=== PATIENT | female | born 1955 | race African-American/Black ===

== ENCOUNTER → 2023-03-16 08:08 | Outpatient (BNVA) | payer OTHER, SELFPAY | PROVIDERS: PCP Internal Medicine; Visit Provider Hospitalist ==

== ENCOUNTER 2023-03-16 08:49 | Outpatient (REF) | payer OTHER, SELFPAY ==
--- NOTE | 2023-03-16 08:45 | PFT_ITS ---
Forced vital capacity is 63%, FEV1 64%, FEV1/FVC ratio 79. EDL64-41 62% and MVV 50%. Post bronchodilator therapy, there is a small but significant improvement in FVC, FEV1, and KWH15-18. Total lung capacity 76%. Residual volume 82%. Diffusion capacity 45%. CONCLUSION: 1. Mild to moderate degree of restrictive pulmonary disorder. 2. Moderate degree of obstructive airway disorder with significant response to bronchodilator therapy. These findings are suggestive of asthma/COPD syndrome. Clinical correlation is recommended. Tai Herring MD MSHakeem/MODL / [id number]
[2023-03-16 09:50] LABS: MANUAL DIFF FLAG NO
[2023-03-16 10:35] LABS: Basophils Percent Auto 0.2 % (0-2); Hematocrit 39.4 % (37.0-47.0); Hemoglobin 11.4 g/dl (12.0-16.0); Imm Gran Abs Auto 0.11 X10*3/uL (0.00-0.03); Imm Gran Pct Auto 0.9 % (0.0-0.4); Lymphocytes Absolute Auto 1.6 X10*3/uL (1.2-4.9); Lymphocytes Percent Auto 12.4 % (20-40); Mean Corpuscular HGB Conc 28.9 g/dl (31.0-35.0); Mean Corpuscular Hemoglobin 26.3 pg (27.0-33.0); Mean Platelet Volume 10.9 fL (9.4-12.3); Monocytes Absolute Auto 0.5 X10*3/uL (0.1-1.2); Monocytes Percent Auto 4.3 % (2-11); NRBC Pct Auto 0.2 /100WBC (0.0-0.2); Neutrophils Absolute Auto 10.3 x10*3/uL (2.0-8.3); Neutrophils Percent Auto 82.2 % (45-73); Platelet Count 249 X10*3/uL (160-400); Red Blood Count 4.33 X10*6/uL (4.20-5.50); Red Cell Distribution Width 18.1 % (11.0-16.0); White Blood Count 12.5 X10*3/uL (4.8-10.8)
[2023-03-16 11:01] LABS: Estimated Average Glucose 105 mg/dL; Hemoglobin A1c % 5.3 %
[2023-03-16 11:06] LABS: B Type Natriuretic Peptide 35 pg/mL (<100)
[2023-03-16 11:10] LABS: Alanine Aminotransferase 18 U/L (0-31); Albumin Level 3.9 g/dL (3.5-5.0); Alkaline Phosphatase 79 U/L (39-117); Anion Gap 14 (12-20); Aspartate Amino Transferase 11 U/L (5-31); Bilirubin Total 0.3 mg/dL (0.0-1.0); Blood Urea Nitrogen 29 mg/dL (9-16); Calcium 9.7 mg/dL (8.4-10.2); Carbon Dioxide 26 mmol/L (22-29); Chloride 108 mmol/L (96-108); Cholesterol 158 mg/dL; Estimated Glomerular Filt Rate 34; Glucose Random 105 mg/dL (60-115); HDL Cholesterol 46 mg/dL; LDL Cholesterol Calculated 82 mg/dl; Potassium 4.9 mmol/L (3.3-5.1); Sodium 143 mmol/L (135-145); Total Protein 6.6 g/dL (6.5-8.0); Triglycerides 150 mg/dL
[2023-03-16 11:26] LABS: Erythrocyte Sedimentation Rate 9 MM/HR (0-20)
[2023-03-16 11:40] LABS: Ferritin 46 ng/mL (10-250); Folate 8.3 ng/mL (> or = 4.0); Vitamin B12 262 pg/mL (200-900)
[2023-03-16 12:28] LABS: Creatinine Urine 80.72 mg/dL; Microalbum/Creatinine Ratio Ur 42.1 ug/mg cr
[2023-03-23 22:58] LABS: Anti DNA DS Antibody <1 IU/mL
[2023-03-24 08:48] LABS: Anti Nuclear Antibody Screen NEGATIVE (NEGATIVE)
== END 2023-03-16 08:50 | disposition home or self-care (01) ==
LOC: HO.RESP 08:49
PROVIDERS: PCP Internal Medicine; Visit Provider Hospitalist
DX: I50.9 Heart failure, unspecified (principal); M32.9 Systemic lupus erythematosus, unspecified; J44.9 Chronic obstructive pulmonary disease, unspecified; I12.9 Hypertensive chronic kidney disease with stage 1 through stage 4 chronic kidney disease, or unspecified chronic kidney disease; E11.22 Type 2 diabetes mellitus with diabetic chronic kidney disease; N18.9 Chronic kidney disease, unspecified; Z72.0 Tobacco use; Z95.818 Presence of other cardiac implants and grafts
CPT/HCPCS: 36415; 80053; 80061; 82043; 82607; 82728; 82746; 83036; 83880; 85025; 85652; 86038; 86225; 94010; 94618; 94727; 94729; 99202

== ENCOUNTER → 2023-04-05 10:23 | Outpatient (REF) | payer OTHER, SELFPAY ==
--- NOTE | 2023-04-05 10:27 | CA_ITS ---
Transthoracic Echocardiogram Patient (Last, First, Middle): Marie Lentz L Gender: Female Date of : 1955 Age: 67 Procedure Date: 04/05/2023 Procedure Type: Transthoracic Echocardiogram Location: OP Height: 167.64 cm Weight: 108.86 kg BSA: 2.16 m2 Heart Rate: bpm BP: 130 / 80 mmHg Ditch Inspector: SARANYA Referring MD: Yahir Juárez MD [employer] Supervisor: Nilesh Moore MD Symptoms: I27.20 - Pulmonary hypertension, unspecified Study Quality: Adequate ECG Rhythm: Sinus Conclusions: - 1. Normal LV systolic function with mild LVH with LVEF of 55 60% with impaired relaxation filling pattern 2. Mild mitral regurgitation 3. Upper limits of normal RV systolic pressure 4. No gross pericardial effusion Findings Left Ventricle Normal left ventricular size and systolic function. There is mildly increased left ventricular wall thickness. The visually estimated ejection fraction is between 55-60%. Spectral Doppler is indicative of an impaired relaxation filling pattern. E/E prime ratio is between 8 and 15 consistent with indeterminate filling pressures. Right Ventricle Normal right ventricular cavity size and systolic function. Atria The left atrium is normal in size. There is lipomatous hypertrophy of the interatrial septum. Interatrial shunt cannot be excluded. The right atrium is normal in size. Aortic Valve The aortic valve was not well visualized. There is no aortic valve stenosis. There is no aortic valve regurgitation. Mitral Valve There is mild anterior and posterior mitral leaflet thickening. There is mild mitral valve regurgitation. There is no mitral valve stenosis. Pulmonic Valve The pulmonic valve was not well visualized. Tricuspid Valve Likely normal tricuspid valve structure and function. There is mild tricuspid valve regurgitation. Normal right atrial pressure. There is no evidence of pulmonary hypertension. Great Vessels All visible segments of the aorta are normal in size. The pulmonary artery was not well visualized. Venous The inferior vena cava is normal in size and collapses greater than 50% with inspiration. Pericardium/Pleural There is no evidence of pericardial effusion. Prior Study Comparison No prior study available for comparison. Measurements 2D Linear Measurements IVSd: 1.24 0.6-0.9/0.6-1.0 cm LVIDd: 5.42 3.9-5.3/4.2-5.9 cm LVIDd Index: 2.51 2.4-3.2/2.2-3.1 cm/m2 LVIDs: 3.40 2.0-3.6 cm LVPWd: 1.23 0.7-1.1 cm LA Diam: 3.70 2.7-3.8/3.0-4.0 cm LAIDs Index: 1.71 1.5-2.3 cm/m2 LV Mass: 345.23 67-162/88-224 g LV Mass Index: 159.83 43-95/49-115 g/m2 LVOT Diam: 2.20 3.0+(-)1.3 cm 2D Systolic Function EF 4C: 64.30 >55% EF 2C: 52.60 >55% EF BiP: 58.60 >55% Mitral Valve MV Pk E: 0.92 MV PK A: 0.89 MV Decel Time: 226.00 E/A: 1.00 E'Lateral: 8.59 E'Medial: 7.83 E/E' Med: 11.80 E/E' Lat: 10.70 PHT: 66.00 MVA PHT: 3.33 Decel Polk: 4.08 Aortic Valve AoV Pk Scooby: 1.42 AoV Mn Scooby: 1.09 AoV VTI: 0.30 AoV Pk Grad: 8.00 Aov Mn Grad: 5.00 ANTOINETTE Cont.VTI: 2.95 LVOT LVOT Pk Scooby: 1.07 LVOT Mn Scooby: 0.71 LVOT VTI: 0.23 LVOT Pk Grad: 5.00 LVOT Mn Grad: 2.00 LVOT Diam: 2.20 LVOT Area: 3.80 Diastolic Function MV Pk E: 0.92 MV Pk A: 0.89 E/A: 1.00 E'Medial: 7.83 E/E' Med: 11.80 E' Laterial: 8.59 E/E' Lat: 10.70 Right Ventricle TAPSE (mm): 33.20 TVS' Scooby: 12.50 Tricuspid Valve TR Pk Scooby: 2.87 TR Pk Grad: 33.00 RA Press: 3.00 RVSP: 36.00 Great Vessels Aorta Sinus of Valsalva: 3.65 2.0-3.5 cm Ao Asc: 3.30 2.1-3.4 cm Updated in Other Vendor System with Status of Final Nilesh Moore MD electronically signed on 04/06/2023 2:53:25 PM with status of Final
== END ==
LOC: HO.CARD 10:23
PROVIDERS: Visit Provider Hospitalist
DX: I27.20 Pulmonary hypertension, unspecified (principal)
CPT/HCPCS: 93306

== ENCOUNTER 2023-06-17 10:23 | Outpatient (REF) | payer OTHER, SELFPAY ==
[2023-06-17 14:18] LABS: Estimated Average Glucose 111 mg/dL; Hemoglobin A1c % 5.5 % (<6.0)
[2023-06-17 14:38] LABS: Alanine Aminotransferase 12 U/L (0-31); Albumin Level 3.6 g/dL (3.5-5.0); Alkaline Phosphatase 88 U/L (39-117); Anion Gap 13 (12-20); Aspartate Amino Transferase 11 U/L (5-31); Bilirubin Total 0.2 mg/dL (0.0-1.0); Blood Urea Nitrogen 16 mg/dL (9-16); Calcium 9.2 mg/dL (8.4-10.2); Carbon Dioxide 28 mmol/L (22-29); Chloride 107 mmol/L (96-108); Estimated Glomerular Filt Rate 40; Glucose Random 89 mg/dL (60-115); Sodium 144 mmol/L (135-145)
== END 2023-06-17 10:24 | disposition home or self-care (01) ==
LOC: HO.LAB 10:23
PROVIDERS: PCP Internal Medicine; Visit Provider Internal Medicine
DX: I10 Essential (primary) hypertension (principal); J30.1 Allergic rhinitis due to pollen; J44.9 Chronic obstructive pulmonary disease, unspecified; E11.65 Type 2 diabetes mellitus with hyperglycemia; E11.22 Type 2 diabetes mellitus with diabetic chronic kidney disease; N18.9 Chronic kidney disease, unspecified
CPT/HCPCS: 36415; 80053; 83036

== ENCOUNTER 2023-07-06 12:08 | Outpatient (REF) | payer OTHER, SELFPAY ==
--- NOTE | ~2023-07-06 | XR_ITS ---
EXAMINATION: XR ANKLE, RIGHT CLINICAL INFORMATION: Osteoarthritis. COMPARISON: None available. TECHNIQUE: AP, lateral, and mortise views of the right ankle. FINDINGS: There is bilateral soft tissue swelling. No fracture. Alignment is anatomic. No erosions. Joint spaces are maintained. Plantar calcaneal spur is present. XR/XR ankle RT min 3V IMPRESSION: Soft tissue swelling and plantar calcaneal spur.
== END 2023-07-06 12:09 | disposition home or self-care (01) ==
LOC: HO.XRAY 12:08
PROVIDERS: PCP Internal Medicine; Visit Provider Internal Medicine
DX: M19.071 Primary osteoarthritis, right ankle and foot (principal)
CPT/HCPCS: 73610

== ENCOUNTER 2024-02-24 09:08 | Outpatient (REF) | payer OTHER, SELFPAY ==
[2024-02-24 09:49] LABS: MANUAL DIFF FLAG NO
[2024-02-24 10:43] LABS: Basophils Percent Auto 0.2 % (0-2); Eosinophils Percent Auto 0.1 % (0-4); Hematocrit 42.4 % (37.0-47.0); Hemoglobin 12.5 g/dl (12.0-16.0); Imm Gran Pct Auto 1.1 % (0.0-0.4); Lymphocytes Absolute Auto 1.5 X10*3/uL (1.2-4.9); Mean Corpuscular HGB Conc 29.5 g/dl (31.0-35.0); Mean Corpuscular Hemoglobin 26.2 pg (27.0-33.0); Mean Corpuscular Volume 88.9 fL (80.0-98.0); Mean Platelet Volume 10.8 fL (9.4-12.3); Monocytes Absolute Auto 0.7 X10*3/uL (0.1-1.2); Monocytes Percent Auto 7.4 % (2-11); Neutrophils Absolute Auto 7.1 x10*3/uL (2.0-8.3); Neutrophils Percent Auto 75.2 % (45-73); Platelet Count 188 X10*3/uL (160-400); Red Blood Count 4.77 X10*6/uL (4.20-5.50); Red Cell Distribution Width 17.6 % (11.0-16.0); White Blood Count 9.5 X10*3/uL (4.8-10.8)
[2024-02-24 11:12] LABS: Estimated Average Glucose 128 mg/dL; Hemoglobin A1c % 6.1 % (<6.0)
[2024-02-24 11:30] LABS: Alanine Aminotransferase 19 U/L (0-31); Albumin Level 3.6 g/dL (3.5-5.0); Alkaline Phosphatase 82 U/L (39-117); Anion Gap 12 (12-20); Aspartate Amino Transferase 12 U/L (5-31); Bilirubin Total 0.3 mg/dL (0.0-1.0); Blood Urea Nitrogen 22 mg/dL (9-16); Calcium 9.3 mg/dL (8.4-10.2); Carbon Dioxide 27 mmol/L (22-29); Chloride 108 mmol/L (96-108); Cholesterol 175 mg/dL (<200); Estimated Glomerular Filt Rate 38; Glucose Random 85 mg/dL (60-115); HDL Cholesterol 46 mg/dL (>40); LDL Cholesterol Calculated 85 mg/dL (<100); Potassium 4.9 mmol/L (3.3-5.1); Sodium 142 mmol/L (135-145); Total Protein 6.5 g/dL (6.5-8.0); Triglycerides 223 mg/dL (<150)
== END 2024-02-24 09:09 | disposition home or self-care (01) ==
LOC: HO.LAB 09:08
PROVIDERS: PCP Internal Medicine; Visit Provider Internal Medicine
DX: I12.9 Hypertensive chronic kidney disease with stage 1 through stage 4 chronic kidney disease, or unspecified chronic kidney disease (principal); E11.22 Type 2 diabetes mellitus with diabetic chronic kidney disease; N18.9 Chronic kidney disease, unspecified; E78.00 Pure hypercholesterolemia, unspecified; Z72.0 Tobacco use
CPT/HCPCS: 36415; 80053; 80061; 83036; 85025

== ENCOUNTER 2024-10-08 15:06 | Outpatient (AMB) | payer OTHER, SELFPAY ==
--- NOTE | 2024-10-08 15:21 | MHC.OFFVIS ---
Vital Signs 10/08/24 15:31 Height 5 ft 6.75 in Weight 257 lb 2 oz BMI 40.6 BP 100/70 Blood Pressure Location Lt brachial Position Sitting Intake Visit Reasons: Breast abscess Intake Note: This patient presents for breast abscess. Pt c/o; onset 2 months, abscess of the right breast, tried squeezing discharge came out, on antbx, redness, had prior breast abscess [employer] Required: No Buckle Inspector: Buckle Inspector Present Accompanied by: Self / Same As Patient Allergies No Known Allergies Allergy (Verified 10/08/24 15:28) HPI HPI Breast abscess: Details: 69-year-old female referred for this lesion in the right breast on the skin. She says that she has had this on and off for about 30 years now. She says that this was drained and would heal. She said that this has been ?cut? open in the past. She says that she had been unable to have a follow-up mammogram for many years now because of the pain of this skin lesion Her menarche was at age of 10. She says that she remembers having 3 miscarriages and she is uncertain as to what age. She says she never had a full . She says she had her menopause in her 40s. Denies any strong family history of breast cancer. [facility] Medical History (Updated 10/08/24 @ 15:39 by Neil Sanchez MD) Lesion of skin of breast Pulmonary emboli COPD (chronic obstructive pulmonary disease) Lupus CHF (congestive heart failure) Social History Patient Tobacco Use Status: Current everyday Tobacco user Tobacco use type: Cigarette Years Smoked: 20+ Years Substance Use Type: Marijuana Review of Systems Const Denies chills and Denies fever(s) Card Denies chest pain, Denies dyspnea and Reports dyspnea on exertion Resp Denies cough, Denies dyspnea and Reports dyspnea on exertion GI Denies hematochezia and Denies change in bowel habits Denies hematuria Musc Reports back pain, Reports arthralgias and Denies limited range of motion Neuro Denies focal weakness and Denies convulsions Psych Denies depression and Denies mood swings Physical Exam Vital Signs: Last Vital Signs BP 100/70 10/08/24 15:31 BMI result Body Mass Index 40.6 Const Other: Morbidly obese, using walker General: comfortable and no acute distress Orientation/consciousness: patient oriented x3 Neck Neck: Yes no lymphadenopathy Chest Other: Right breast medial to the nipple is note of flat, ulcerating carried genetic lesion, about 2.5 cm in widest dimension, irregular, no palpable mass, no axillary lymphadenopathy Resp Auscultation: clear to auscultation bilaterally Cardio Rhythm: regular rhythm GI Palpation (GI): Soft to palpation, nontender and no guarding Neuro General: patient oriented x3 Assessment & Plan Assessment & Plan (1) Lesion of skin of breast: Code(s): L98.8 - Other specified disorders of the skin and subcutaneous tissue Category: Medical Plan: She has this lesion the right breast medial to the nipple areola. This seems to be ulcerating and bleeds periodically. He she says that this has been going on for 30 years now. She says that this would heal and dry up and would recur She says that she had been ?cut up? on this area in the past I am uncertain as to the etiology of this lesion. I therefore explained to her that it may be best to excise this and send it to pathology for further diagnosis. I explained to the technique of this procedure under local anesthesia in the office. I reviewed the risks, benefits, and alternatives and she agrees. This this will be done on her next visit under local anesthesia in the office. She is unable to have her mammograms because of the tender area on the skin. Coding Level of Care Code New Pt Level 3 (60329) Diagnoses Lesion of skin of breast L98.8
[2024-10-08 15:31] VITALS: BP 100/70; BMI 40.6
== END 2024-10-08 15:44 | disposition home or self-care (01) ==
PROVIDERS: PCP Internal Medicine; Referring Provider Internal Medicine; Visit Provider Surgery
DX: L98.8 Other specified disorders of the skin and subcutaneous tissue (principal)
CPT/HCPCS: 99203

== ENCOUNTER → 2024-10-08 15:06 | Outpatient (BNVA) | payer OTHER, SELFPAY | PROVIDERS: PCP Internal Medicine; Referring Provider Internal Medicine; Visit Provider Surgery | DX: L98.8 Other specified disorders of the skin and subcutaneous tissue (principal) | CPT/HCPCS: 99202 ==

== ENCOUNTER 2024-10-18 10:17 | Outpatient (REF) | payer OTHER, SELFPAY | END 2024-10-18 10:18 | disposition home or self-care (01) | LOC: HO.LNP 10:17 | PROVIDERS: PCP Internal Medicine; Visit Provider Surgery | DX: L72.0 Epidermal cyst (principal); N61.0 Mastitis without abscess | CPT/HCPCS: 11403; 88304 ==

== ENCOUNTER 2024-10-18 10:17 | Outpatient (AMB) | payer OTHER, SELFPAY ==
--- NOTE | 2024-10-18 10:19 | MHC.OFFVIS ---
Vital Signs 10/18/24 10:27 10/18/24 10:38 Height 5 ft 6.75 in 5 ft 6.75 in Weight 257 lb 2.002 oz 255 lb BMI 40.6 40.2 BP 121/59 L Blood Pressure Location Rt brachial Position Sitting Pulse 84 Intake Visit Reasons: excision Breast abscess Intake Note: Office procedure: excision RT breast abscess. Mycologist Required: No Accompanied by: Self / Same As Patient Allergies No Known Allergies Allergy (Verified 10/18/24 10:19) HPI HPI excision Breast abscess: Details: She is here for excision of an area of the recurrent abscess on the right breast. [facility] Medical History Lesion of skin of breast Pulmonary emboli COPD (chronic obstructive pulmonary disease) Lupus CHF (congestive heart failure) Social History Patient Tobacco Use Status: Current everyday Tobacco user Tobacco use type: Cigarette Years Smoked: 20+ Years Substance Use Type: Marijuana Physical Exam Vital Signs: Last Vital Signs Pulse 84 10/18/24 10:38 BP 121/59 L 10/18/24 10:38 BMI result Body Mass Index 40.2 Office Procedures Excision Details: She was in supine position. The area of the recurrent abscess right breast medial to the nipple-areolar complex was prepped and draped. Lidocaine 1% was used for local anesthesia. I made an elliptical incision on the skin surrounding this induration using blade 15. This was carried down through the full-thickness of the skin and subcutaneous fat and breast tissue to excise this indurated indurated area. This was sent as a specimen. The area removed was about 2.5 cm x 2 cm I closed the incision with full-thickness nylon 3-0 simple interrupted sutures. Dressings were applied. The procedure was completed. She tolerated the procedure well. There were no immediate complications. 09272-uvydw/arms/legs 2.1-3cm Procedure code (CPT) selection complete Assessment & Plan Assessment & Plan (1) Lesion of skin of breast: Code(s): L98.8 - Other specified disorders of the skin and subcutaneous tissue Category: Medical Plan: Excision of this area of induration with recurrent drainage was done. She tolerated procedure well. She was given wound care instructions. She can take Tylenol and ibuprofen for pain. She will return in 2 weeks for removal sutures. Coding Level of Care Code Procedure Only Diagnoses Lesion of skin of breast L98.8 CPT Codes Trunk/Arms/Legs - CPT: 55588-pybpi/arms/legs 2.1-3cm ([id number])
[2024-10-18 10:27] VITALS: BMI 40.6
[2024-10-18 10:38] VITALS: BP 121/59; PULSE 84; BMI 40.2
== END 2024-10-18 11:27 | disposition home or self-care (01) ==
PROVIDERS: PCP Internal Medicine; Visit Provider Surgery
DX: L72.0 Epidermal cyst (principal)
CPT/HCPCS: 11403

== ENCOUNTER 2024-11-21 11:25 | Outpatient (AMB) | payer OTHER, SELFPAY ==
--- NOTE | 2024-11-21 11:26 | A.OFFVIS_ITS ---
Intake Visit Reasons: Sut removal Rt breast Allergies No Known Allergies Allergy (Verified 10/18/24 10:19) Medication List - Last Reconciled 11/21/24 by Neil Sanchez MD albuterol sulfate 90 mcg/actuation 2 puffs inhalation QID apixaban (Eliquis) 5 mg PO BID aspirin 81 mg PO DAILY atorvastatin 80 mg PO BEDTIME carvedilol 6.25 mg PO BID CPAP (CPAP Machine/Device) As directed duloxetine 30 mg PO DAILY ferrous sulfate 325 mg PO DAILY iqqxaamuuci-zpuerkfoc-xarrccac 200-62.5-25 mcg (Trelegy Ellipta) 1 ea inhalation DAILY gabapentin 400 mg PO TID gabapentin 300 mg PO TID lisinopril 5 mg PO DAILY loratadine 10 mg PO DAILY montelukast 10 mg PO DAILY nicotine 1 patch transdermal DAILY 28 days omeprazole 40 mg PO DAILY prednisone 10 mg PO DAILY quetiapine 100 mg PO BEDTIME HPI HPI Sut removal Rt breast: Details: She underwent excision of an area of recurrent abscess on the right breast under local anesthesia last 10/18/2024. She is here to have sutures removed. She was just discharged from [facility] last week after she was admitted to [facility] for cardiac issues. She says she is now on oxygen and has difficulty with ambulating even for short distances. [facility] Medical History (Updated 11/21/24 @ 11:31 by Neil Sanchez MD) Epidermal inclusion cyst Lesion of skin of breast Pulmonary emboli COPD (chronic obstructive pulmonary disease) Lupus CHF (congestive heart failure) Surgical History History of surgical removal of skin lesion (~10/18/24) Social History Patient Tobacco Use Status: Current everyday Tobacco user Tobacco use type: Cigarette Years Smoked: 20+ Years Substance Use Type: Marijuana Review of Systems Const Details: Appears short of breath which she says she has baseline, has oxygen via nasal cannula Denies chills and Denies fever(s) Card Reports dyspnea and Reports dyspnea on exertion Resp Reports dyspnea and Reports dyspnea on exertion Physical Exam Const General: comfortable and no acute distress Chest Other: Excision site on the right breast is well healing, not infected, with note of 1 small area of hypergranulation Assessment & Plan Assessment & Plan (1) Epidermal inclusion cyst: Code(s): L72.0 - Epidermal cyst Category: Medical Plan: Status post excision of a recurrent abscess on the right breast. The path report shows a benign epidermal inclusion cyst. I removed her sutures. There was 1 area of hypergranulation tissue which I cauterized with silver nitrate sticks. The incision is otherwise healing well. She can follow up on a p.r.n. basis. She apparently has recently been started on oxygen she was in [facility] because of cardiac issues. She now has significant difficulty with ambulating short distances. I did tell her that he would not hesitate going to the ER if she feels worse. I emphasized to her the importance of following up with her primary care physician and her patient service representative. Coding Level of Care Code Global (43635) Diagnoses Epidermal inclusion cyst L72.0
--- OUTSIDE RECORDS SUMMARY | 2024-11-21 13:51 | XMS_ITS | Encounter Summary ---
Author Organization [facility] Address [address] [place] [address] Care Team Providers Care Mathematics Improvement Teacher Name Role Phone Osmar Gramajo MD Primary Care Provider Encounter Details Date Type Department Care Team (Late st Contact Info) Description 11/08/2024 Lab Requisition [facility] - Main Lab [address] [facility] [place] [address] Jua nCarlos Mayers [address] [facility] [phone] [place] [address] Encounter for screening for diabetes mellitus; Ischemic cardiomyopathy; Essential (primary) hypertension; Other chronic pain; Depression, unspecified; Hyperlipidemia, unspecified; Anemia, unspecified; Systemic lupus erythematosus, unspecified (CMS/HCC); Unspecified asthma, uncomplicated; Atherosclerotic heart disease of [place] coronary artery without angina pectoris; Gastro-esophageal reflux disease without esophagitis; Bacteremia; Hypotension, unspecified Social History Tobacco Use Types Packs/Day Years Used Date Smoking Tobacco: Never Assessed Sex and Gender Information Value Date Recorded Sex Assigned at Not on file Gender Identity Not on file Sexual Orientation Not on file documented as of this encounter Plan of Treatment Not on file documented as of this encounter Procedures Procedure Name Priority Date/Time Associated Diagnosis Comments LIPID PANEL WITH REFLEX TO DIRECT LDL Routine 11/08/2024 7:15 AM EST Encounter for screening for diabetes mellitus Ischemic cardiomyopathy Essential (primary) hypertension Other chronic pain Depression, unspecified Hyperlipidemia, unspecified Anemia, unspecified Systemic lupus erythematosus, unspecified (CMS/HCC) Unspecified asthma, uncomplicated Atherosclerotic heart disease of [place] coronary artery without angina pectoris Gastro-esophageal reflux disease without esophagitis Bacteremia Hypotension, unspecified CBC WITH AUTO DIFFERENTIAL Routine 11/08/2024 7:15 AM EST Encounter for screening for diabetes mellitus Ischemic cardiomyopathy Essential (primary) hypertension Other chronic pain Depression, unspecified Hyperlipidemia, unspecified Anemia, unspecified Systemic lupus erythematosus, unspecified (CMS/HCC) Unspecified asthma, uncomplicated Atherosclerotic heart disease of [place] coronary artery without angina pectoris Gastro-esophageal reflux disease without esophagitis Bacteremia Hypotension, unspecified CBC AND DIFFERENTIAL Routine 11/08/2024 7:15 AM EST Encounter for screening for diabetes mellitus Ischemic cardiomyopathy Essential (primary) hypertension Other chronic pain Depression, unspecified Hyperlipidemia, unspecified Anemia, unspecified Systemic lupus erythematosus, unspecified (CMS/HCC) Unspecified asthma, uncomplicated Atherosclerotic heart disease of [place] coronary artery without angina pectoris Gastro-esophageal reflux disease without esophagitis Bacteremia Hypotension, unspecified HEMOGLOBIN A1C Routine 11/08/2024 7:15 AM EST Encounter for screening for diabetes mellitus Ischemic cardiomyopathy Essential (primary) hypertension Other chronic pain Depression, unspecified Hyperlipidemia, unspecified Anemia, unspecified Systemic lupus erythematosus, unspecified (CMS/HCC) Unspecified asthma, uncomplicated Atherosclerotic heart disease of [place] coronary artery without angina pectoris Gastro-esophageal reflux disease without esophagitis Bacteremia Hypotension, unspecified COMPREHENSIVE METABOLIC PANEL Routine 11/08/2024 7:15 AM EST Encounter for screening for diabetes mellitus Ischemic cardiomyopathy Essential (primary) hypertension Other chronic pain Depression, unspecified Hyperlipidemia, unspecified Anemia, unspecified Systemic lupus erythematosus, unspecified (CMS/HCC) Unspecified asthma, uncomplicated Atherosclerotic heart disease of [place] coronary artery without angina pectoris Gastro-esophageal reflux disease without esophagitis Bacteremia Hypotension, unspecified documented in this encounter Results * (ABNORMAL) CBC auto differential (11/08/2024 7:15 AM EST) WBC 5.4 4.8 - 10.8 K/[facility] LAB HEMETOLOGY METHOD 11/08/2024 10:37 AM EST [facility] RBC 3.80 3.80 - 4.80 M/mcL LAB HEMETOLOGY METHOD 11/08/2024 10:37 AM EST [facility] Hemoglobin 9.7(L) 11.5 - 16.0 g/dL LAB HEMETOLOGY METHOD 11/08/2024 10:37 AM [facility] Hematocrit 34.0(L) 35.0 - 47.0 % LAB HEMETOLOGY METHOD 11/08/2024 10:37 AM [facility] MCV 89.7 79.0 - 98.0 FL LAB HEMETOLOGY METHOD 11/08/2024 10:37 AM [facility] MCH 25.6(L) 27.0 - 32.0 pcg LAB HEMETOLOGY METHOD 11/08/2024 10:37 AM [facility] MCHC 28.5(L) 32.0 - 37.0 g/dL LAB HEMETOLOGY METHOD 11/08/2024 10:37 AM [facility] RDW 15.3(H) 11.0 - 15.0 % LAB HEMETOLOGY METHOD 11/08/2024 10:37 AM [facility] Platelets 251 130 - 400 K/mcL LAB HEMETOLOGY METHOD 11/08/2024 10:37 AM [facility] MPV 11.3(H) 7.0 - 11.0 FL LAB HEMETOLOGY METHOD 11/08/2024 10:37 AM [facility] NRBC 0.0 <1.0 % LAB HEMETOLOGY METHOD 11/08/2024 10:37 AM [facility] NRBC Absolute 0.00 <0.10 K/mcL LAB HEMETOLOGY METHOD 11/08/2024 10:37 AM [facility] Neutrophils Relative 55.4 % LAB HEMETOLOGY METHOD 11/08/2024 10:37 AM [facility] Lymphocytes Relative 26.5 % LAB HEMETOLOGY METHOD 11/08/2024 10:37 AM [facility] Monocytes Relative 15.1 % LAB HEMETOLOGY METHOD 11/08/2024 10:37 AM EST [facility] Eosinophils Relative 2.4 % LAB HEMETOLOGY METHOD 11/08/2024 10:37 AM [facility] Basophils Relative 0.4 % LAB HEMETOLOGY METHOD 11/08/2024 10:37 AM [facility] Immature Granulocytes Relative 0.2 % LAB HEMETOLOGY METHOD 11/08/2024 10:37 AM EST [facility] Neutrophils Absolute 3.02 1.50 - 7.00 K/mcL LAB HEMETOLOGY METHOD 11/08/2024 10:37 AM [facility] Lymphocytes Absolute 1.44 1.00 - 5.00 K/mcL LAB HEMETOLOGY METHOD 11/08/2024 10:37 AM [facility] Monocytes Absolute 0.82 0.20 - 1.00 K/mcL LAB HEMETOLOGY METHOD 11/08/2024 10:37 AM EST [facility] Eosinophils Absolute 0.13 0.00 - 0.50 K/mcL LAB HEMETOLOGY METHOD 11/08/2024 10:37 AM EST [facility] Basophils Absolute 0.02 0.00 - 0.20 K/mcL LAB HEMETOLOGY METHOD 11/08/2024 10:37 AM [facility] Immature Granulocytes Absolute 0.01 0.00 - 0.03 K/mcL LAB HEMETOLOGY METHOD 11/08/2024 10:37 AM EST [facility] Blood Venous blood specimen / Unknown Venipuncture / Unknown 11/08/2024 7:15 AM EST 11/08/2024 9:19 AM EST Juan Carlos Mayers LAB BLOOD ORDERABLES [facility] [address] [place] [address], * Hemoglobin A1c (11/08/2024 7:15 AM EST) Pathologist [facility] Hemoglobin A1C 6.1 <6.5 % LAB CHEMISTRY METHOD 11/08/2024 8:50 PM [facility] Mean Bld Glu Estim. 128 mg/dL LAB CHEMISTRY METHOD 11/08/2024 8:50 PM [facility] Blood Venous blood specimen / Unknown Venipuncture / Unknown 11/08/2024 7:15 AM EST 11/08/2024 9:19 AM EST Juan Carlos Mayers LAB BLOOD ORDERABLES [facility] [address] [place] [address], * (ABNORMAL) Lipid panel with reflex to direct LDL (11/08/2024 7:15 AM EST) [facility] Cholesterol 68 0 - 200 mg/dL LAB CHEMISTRY METHOD 11/08/2024 11:32 AM [facility] Triglycerides 136 0 - 150 mg/dL LAB CHEMISTRY METHOD 11/08/2024 11:32 AM [facility] HDL 21(L) >=40 mg/dL LAB CHEMISTRY METHOD 11/08/2024 11:32 AM [facility] LDL Calculated 20 0 - 100 mg/dL LAB CHEMISTRY METHOD 11/08/2024 11:32 AM [facility] VLDL Cholesterol Enio 27.2 mg/dL LAB CHEMISTRY METHOD 11/08/2024 11:32 AM [facility] Non HDL Chol. (LDL+VLDL) 47 <145 mg/dL LAB CHEMISTRY METHOD 11/08/2024 11:32 AM [facility] Chol/HDL Ratio 3.2 0.0 - 4.4 LAB CHEMISTRY METHOD 11/08/2024 11:32 AM [facility] Blood Venous blood specimen / Unknown Venipuncture / Unknown 11/08/2024 7:15 AM EST 11/08/2024 9:19 AM EST Juan Carlos Mayers LAB BLOOD ORDERABLES [facility] [address] [place] [address], * (ABNORMAL) Comprehensive metabolic panel (11/08/2024 7:15 AM EST) Pathologist [facility] Sodium 136 133 - 145 mmol/L LAB CHEMISTRY METHOD 11/08/2024 11:39 AM [facility] Potassium 3.2(L) 3.5 - 5.5 mmol/L LAB CHEMISTRY METHOD 11/08/2024 11:39 AM [facility] Chloride 100 96 - 110 mmol/L LAB CHEMISTRY METHOD 11/08/2024 11:39 AM [facility] CO2 28 21 - 32 mmol/L LAB CHEMISTRY METHOD 11/08/2024 11:39 AM [facility] Anion Gap 8 3 - 11 LAB CHEMISTRY METHOD 11/08/2024 11:39 AM [facility] Glucose 102(H) 70 - 100 mg/dL LAB CHEMISTRY METHOD 11/08/2024 11:39 AM [facility] BUN 4(L) 5 - 25 mg/dL LAB CHEMISTRY METHOD 11/08/2024 11:39 AM [facility] Creatinine 1.82(H) 0.50 - 1.10 mg/dL LAB CHEMISTRY METHOD 11/08/2024 11:39 AM [facility] eGFR 30(L) >=60 mL/min/1. 73m2 LAB CHEMISTRY METHOD 11/08/2024 11:39 AM [facility] Comment:Calculation based on the??Chronic Kidney Disease Epidemiology Collaboration (CKD-EPI) equation refit??without adjustment for race. BUN/Creatinine Ratio 2.2 LAB CHEMISTRY METHOD 11/08/2024 11:39 AM [facility] Calcium 9.1 8.5 - 10.5 mg/dL LAB CHEMISTRY METHOD 11/08/2024 11:39 AM [facility] AST (SGOT) 49(H) 10 - 42 unit/L LAB CHEMISTRY METHOD 11/08/2024 11:39 AM [facility] ALT (SGPT) 40 10 - 60 unit/L LAB CHEMISTRY METHOD 11/08/2024 11:39 AM [facility] Alkaline Phosphatase 96 42 - 121 unit/L LAB CHEMISTRY METHOD 11/08/2024 11:39 AM [facility] Total Protein 5.6(L) 6.0 - 8.0 g/dL LAB CHEMISTRY METHOD 11/08/2024 11:39 AM [facility] Albumin 2.4(L) 3.2 - 5.0 g/dL LAB CHEMISTRY METHOD 11/08/2024 11:39 AM [facility] Total Bilirubin 0.4 0.0 - 1.4 mg/dL LAB CHEMISTRY METHOD 11/08/2024 11:39 AM [facility] Blood Venous blood specimen / Unknown Venipuncture / Unknown 11/08/2024 7:15 AM EST 11/08/2024 9:19 AM EST Juan Carlos Figueroapower LAB BLOOD ORDERABLES [facility] [address] [place] [address], documented in this encounter Visit Diagnoses Diagnosis Encounter for screening for diabetes mellitus Ischemic cardiomyopathy Other specified forms of chronic ischemic heart disease Essential (primary) hypertension Unspecified essential hypertension Other chronic pain Depression, unspecified Hyperlipidemia, unspecified Anemia, unspecified Systemic lupus erythematosus, unspecified (CMS/HCC) Unspecified asthma, uncomplicated Atherosclerotic heart disease of [place] coronary artery without angina pectoris Gastro-esophageal reflux disease without esophagitis Bacteremia Hypotension, unspecified documented in this encounter Care Teams Mathematics Improvement Teacher Relationship Specialty Start Date End Date Osmar Gramajo MD [address], [place] PCP - General Pulmonary Disease 04/20/17 documented as of this encounter
--- OUTSIDE RECORDS SUMMARY | 2024-11-21 13:51 | XMS_ITS | Encounter Summary ---
Author Organization [facility] Address [address] [place] [address] Care Team Providers Care Sharepoint Admin Name Role Phone Osmar Gramajo MD Primary Care Provider Encounter Details Date Type Department Care Team (Late st Contact Info) Description 11/12/2024 Lab Requisition [facility] - Main Lab [address] [facility] [employer] [address] Juan Carlos Mayers [address] [facility] [address] [place] [address] Shortness of breath; Bacteremia Social History Tobacco Use Types Packs/Day Years Used Date Smoking Tobacco: Never Assessed Sex and Gender Information Value Date Recorded Sex Assigned at Not on file Gender Identity Not on file Sexual Orientation Not on file documented as of this encounter Plan of Treatment Not on file documented as of this encounter Procedures Procedure Name Priority Date/Time Associated Diagnosis Comments COMPLETE BLOOD COUNT STAT 11/12/2024 9:24 AM EST Shortness of breath Bacteremia B-TYPE NATRIURETIC PEPTIDE STAT 11/12/2024 9:24 AM EST Shortness of breath Bacteremia BASIC METABOLIC PANEL STAT 11/12/2024 9:24 AM EST Shortness of breath Bacteremia documented in this encounter Results * B-type natriuretic peptide (11/12/2024 9:24 AM EST) BNP 16 <=100 pcg/mL LAB CHEMISTRY METHOD 11/12/2024 12:30 PM EST [facility] Blood Venous blood specimen / Unknown Venipuncture / Unknown 11/12/2024 9:24 AM EST 11/12/2024 11:45 AM EST Juan Carlos Mayers LAB BLOOD ORDERABLES [facility] [address] [place] [address], * (ABNORMAL) Basic metabolic panel (11/12/2024 9:24 AM EST) Sodium 137 133 - 145 mmol/L LAB CHEMISTRY METHOD 11/12/2024 12:24 PM [facility] Potassium 3.4(L) 3.5 - 5.5 mmol/L LAB CHEMISTRY METHOD 11/12/2024 12:24 PM [facility] Chloride 101 96 - 110 mmol/L LAB CHEMISTRY METHOD 11/12/2024 12:24 PM [facility] CO2 28 21 - 32 mmol/L LAB CHEMISTRY METHOD 11/12/2024 12:24 PM [facility] Anion Gap 8 3 - 11 LAB CHEMISTRY METHOD 11/12/2024 12:24 PM [facility] Glucose 121(H) 70 - 100 mg/dL LAB CHEMISTRY METHOD 11/12/2024 12:24 PM [facility] BUN 9 5 - 25 mg/dL LAB CHEMISTRY METHOD 11/12/2024 12:24 PM [facility] Creatinine 1.65(H) 0.50 - 1.10 mg/dL LAB CHEMISTRY METHOD 11/12/2024 12:24 PM [facility] eGFR 34(L) >=60 mL/min/1. 73m2 LAB CHEMISTRY METHOD 11/12/2024 12:24 PM [facility] Comment:Calculation based on the??Chronic Kidney Disease Epidemiology Collaboration (CKD-EPI) equation refit??without adjustment for race. BUN/Creatinine Ratio 5.5 LAB CHEMISTRY METHOD 11/12/2024 12:24 PM [facility] Calcium 9.1 8.5 - 10.5 mg/dL LAB CHEMISTRY METHOD 11/12/2024 12:24 PM [facility] Blood Venous blood specimen / Unknown Venipuncture / Unknown 11/12/2024 9:24 AM EST 11/12/2024 11:45 AM EST Juan Carlos Mayers LAB BLOOD ORDERABLES [facility] [address] [place] [address], * (ABNORMAL) Complete blood count (11/12/2024 9:24 AM EST) WBC 6.8 4.8 - 10.8 K/mcL LAB HEMETOLOGY METHOD 11/12/2024 12:02 PM [facility] RBC 3.60(L) 3.80 - 4.80 M/mcL LAB HEMETOLOGY METHOD 11/12/2024 12:02 PM [facility] Hemoglobin 9.5(L) 11.5 - 16.0 g/dL LAB HEMETOLOGY METHOD 11/12/2024 12:02 PM [facility] Hematocrit 33.5(L) 35.0 - 47.0 % LAB HEMETOLOGY METHOD 11/12/2024 12:02 PM [facility] MCV 92.0 79.0 - 98.0 FL LAB HEMETOLOGY METHOD 11/12/2024 12:02 PM [facility] MCH 26.1(L) 27.0 - 32.0 pcg LAB HEMETOLOGY METHOD 11/12/2024 12:02 PM [facility] MCHC 28.4(L) 32.0 - 37.0 g/dL LAB HEMETOLOGY METHOD 11/12/2024 12:02 PM EST [facility] RDW 15.6(H) 11.0 - 15.0 % LAB HEMETOLOGY METHOD 11/12/2024 12:02 PM [facility] Platelets 315 130 - 400 K/mcL LAB HEMETOLOGY METHOD 11/12/2024 12:02 PM [facility] MPV 10.9 7.0 - 11.0 FL LAB HEMETOLOGY METHOD 11/12/2024 12:02 PM [facility] NRBC 0.0 <1.0 % LAB HEMETOLOGY METHOD 11/12/2024 12:02 PM [facility] NRBC Absolute 0.00 <0.10 K/mcL LAB HEMETOLOGY METHOD 11/12/2024 12:02 PM [facility] Blood Venous blood specimen / Unknown Venipuncture / Unknown 11/12/2024 9:24 AM EST 11/12/2024 11:45 AM EST [facility] [place] [facility] BLOOD ORDERABLES [facility] [address] [place] [id number], documented in this encounter Visit Diagnoses Diagnosis Shortness of breath Bacteremia documented in this encounter Care Teams Sharepoint Admin Relationship Specialty Start Date End Date Osmar Gramajo MD [address] [place], [place] PCP - General Pulmonary Disease 04/20/17 documented as of this encounter
--- OUTSIDE RECORDS SUMMARY | 2024-11-21 13:51 | XMS_ITS | Clinical Summary ---
Author Organization [facility] Address [address] [place] [address] Phone Care Team Providers Care Planning Lead Name Role Phone Unique Carrillo MD Primary Care Provider Unav ailable Allergies Active Allergy Reactions Criticality Noted Date Comments Latex 11/18/2021 Medications QUEtiapine (SEROquel) 100 MG tablet Take 1 tablet by mouth 1 (one) time each day Active predniSONE (DELTASONE) 10 MG tablet Take 2 tablets by mouth 1 (one) time each day Active atorvastatin (LIPITOR) 80 MG tablet 2 Active omeprazole (PriLOSEC) [address] capsule 2 Active Spiriva Respimat 1.25 MCG/ACT aerosol solution 2 Active fluticasone HFA (FLOVENT HFA) 110 MCG/ACT inhaler Inhale 1 puff 2 (two) times a day Rinse mouth with water after use to reduce aftertaste and incidence of candidiasis. Do not swallow. Active ferrous sulfate 325 (65 Fe) MG tablet Take 325 mg by mouth 1 (one) time each day with breakfast Active loratadine (CLARITIN) 10 MG tablet Take 10 mg by mouth 2 Active carvedilol (COREG) 6.25 MG tablet Take 1 tablet (6.25 mg total) by mouth in the morning and 1 tablet (6.25 mg total) in the evening. Take with meals. 60 tablet 3 2 Active lisinopril 5 MG tablet Take 1 tablet (5 mg total) by mouth 1 (one) time each day 30 tablet 3 Active Additional Information Patient taking differently: 10 mgOral Daily, Reported on 03/07/2024 Active Problems Problem Noted Date Diagnosed Date Stage 3b chronic kidney disease 01/20/2022 Chronic kidney disease, stage 4 (severe) 022 Systemic lupus erythematosus 11/18/2021 Renal failure syndrome 11/18/2021 Essential hypertension 11/18/2021 Edema 11/18/2021 Chronic kidney disease stage 3 11/18/2021 Chronic pain 11/18/2021 Coronary arteriosclerosis 11/18/2021 Depressive disorder 11/18/2021 Gastroesophageal reflux disease 11/18/2021 Ischemic myocardial dysfunction 11/18/2021 Normocytic anemia 11/18/2021 Severe obesity 11/18/2021 Steatosis of liver 11/18/2021 Tobacco dependence syndrome 11/18/2021 Hypertensive disorder 11/18/2021 Stage 3b chronic kidney disease 11/18/2021 Anemia in chronic kidney disease 11/18/2021 Renal osteodystrophy 11/18/2021 Immunizations Name Administration Dates Next Due Influenza, Quadrivalent, Preservative Free 10/06,01/29/2017 Influenza, Unspecified 01/25/2005 Moderna SARS-COV-2 10/06/2021,03/25/2021, 021 Pneumococcal Polysaccharide 01/29/2017, 5,01/25/2005 Family History Medical History Relation Comments Gout Father Kidney disease Father Heart disease Mother Relation Status Comments Father Mother Social History Tobacco Use Types Packs/Day Years Used Date Smoking Tobacco: Every Day Cigarettes 0.3 7.5 Started: 05/20/2017 Alcohol Use Standard Drinks/Week Comments No 0 (1 standard drink = 0.6 oz pur e alcohol) Comments Unknown Sex and Gender Information Value Date Recorded Sex Assigned at Not on file Legal Sex Female 4:49 PM EST Gender Identity Not on file Sexual Orientation Not on file Last Filed Vital Signs Vital Sign Reading Time Taken Comments Blood Pressure 128/70 03/07/2024 1:55 PM EDT Pulse 83 03/07/2024 1:55 PM EDT Temperature - - Respiratory Rate - - Oxygen Saturation 94% 03/07/2024 1:55 PM EDT Inhaled Oxygen Concentration - - Weight 104 kg (229 lb 12.8 oz) 03/07/2024 1:55 P M EDT Height - - Body Mass Index - - Plan of Treatment Upcoming Encounters Date Type Department Care Team (Late st Contact Info) Description 11/28/2024 2:15 PM EST Office Visit [facility] [address] [id number] Deonte Roland MD [address] [address] Health Maintenance Due Date Last Done Comments Breast Cancer Screening 1955 Colorectal Cancer Screening: Annual FOBT 2005 Colorectal Cancer Screening: Sigmoidoscopy 2005 Pneumococcal Vaccine: 65+ Years (3 of 3 - PCV) 01/29/2018 01/29/2017, 01/25/2005, 01/25/2005 Influenza Vaccine (#1) 2024 , 01/29/2017, 01/25/2005 Colorectal Cancer Screening: Colonoscopy 11/27/2031 11/27/2021 Hepatitis B Vaccine Aged Out No longe r eligible based on patient's age to complete this topic Insurance ([id number]) MCR ([id number]) [place] [phone] Care Teams Planning Lead Relationship Specialty Start Date End Date Unique Carrillo MD [address] [place] [address] [place] [address] PCP - General Internal Medicine 03/07/24
--- OUTSIDE RECORDS SUMMARY | 2024-11-21 13:51 | XMS_ITS | Encounter Summary ---
Author Organization [facility] Address [address] [place] [address] Care Team Providers Care Plumbing Installer Name Role Phone Osmar Gramajo MD Primary Care Provider Encounter Details Date Type Department Care Team (Late st Contact Info) Description 11/14/2024 Lab Requisition [facility] - Main Lab [address] [facility] [place] [address] Juan Carlos Mayers [address] [facility] [address] [place] [address] Gastro-esophageal reflux disease without esophagitis; Hyperlipidemia, unspecified; Anemia, unspecified; Atherosclerotic heart disease of [place] coronary artery without angina pectoris; Essential (primary) hypertension Social History Tobacco Use Types Packs/Day Years [...] PANEL WITH REFLEX TO DIRECT LDL Routine 11/15/2024 8:14 AM EST Gastro-esophageal reflux disease without esophagitis Hyperlipidemia, unspecified Anemia, unspecified Atherosclerotic heart disease of [place] coronary artery without angina pectoris Essential (primary) hypertension CBC WITH AUTO DIFFERENTIAL Routine 11/15/2024 8:14 AM EST Gastro-esophageal reflux disease without esophagitis Hyperlipidemia, unspecified Anemia, unspecified Atherosclerotic heart disease of [place] coronary artery without angina pectoris Essential (primary) hypertension CBC AND DIFFERENTIAL Routine 11/15/2024 8:14 AM EST Gastro-esophageal reflux disease without esophagitis Hyperlipidemia, unspecified Anemia, unspecified Atherosclerotic heart disease of [place] coronary artery without angina pectoris Essential (primary) hypertension HEMOGLOBIN A1C Routine 11/15/2024 8:14 AM EST Gastro-esophageal reflux disease without esophagitis Hyperlipidemia, unspecified Anemia, unspecified Atherosclerotic heart disease of [place] coronary artery without angina pectoris Essential (primary) hypertension COMPREHENSIVE METABOLIC PANEL Routine 11/15/2024 8:14 AM EST Gastro-esophageal reflux disease without esophagitis Hyperlipidemia, unspecified Anemia, unspecified Atherosclerotic heart disease of [place] coronary artery without angina pectoris Essential (primary) hypertension documented in this encounter Results * (ABNORMAL) CBC auto differential (11/15/2024 8:14 AM EST) [facility] WBC 5.1 4.8 - 10.8 K/mcL LAB HEMETOLOGY METHOD 11/15/2024 11:49 AM [facility] RBC 3.40(L) 3.80 - 4.80 M/mcL LAB HEMETOLOGY METHOD 11/15/2024 11:49 AM [facility] Hemoglobin 8.7(L) 11.5 - 16.0 g/dL LAB HEMETOLOGY METHOD 11/15/2024 11:49 AM [facility] Hematocrit 30.5(L) 35.0 - 47.0 % LAB HEMETOLOGY METHOD 11/15/2024 11:49 AM [facility] MCV 90.0 79.0 - 98.0 FL LAB HEMETOLOGY METHOD 11/15/2024 11:49 AM [facility] MCH 25.7(L) 27.0 - 32.0 pcg LAB HEMETOLOGY METHOD 11/15/2024 11:49 AM [facility] MCHC 28.5(L) 32.0 - 37.0 g/dL LAB HEMETOLOGY METHOD 11/15/2024 11:49 AM [facility] RDW 16.1(H) 11.0 - 15.0 % LAB HEMETOLOGY METHOD 11/15/2024 11:49 AM [facility] Platelets 319 130 - 400 K/mcL LAB HEMETOLOGY METHOD 11/15/2024 11:49 AM [facility] MPV 10.6 7.0 - 11.0 FL LAB HEMETOLOGY METHOD 11/15/2024 11:49 AM [facility] NRBC 0.4 <1.0 % LAB HEMETOLOGY METHOD 11/15/2024 11:49 AM [facility] NRBC Absolute 0.02 <0.10 K/mcL LAB HEMETOLOGY METHOD 11/15/2024 11:49 AM [facility] Neutrophils Relative 49.2 % LAB HEMETOLOGY METHOD 11/15/2024 11:49 AM [facility] Lymphocytes Relative 33.7 % LAB HEMETOLOGY METHOD 11/15/2024 11:49 AM [facility] Monocytes Relative 11.6 % LAB HEMETOLOGY METHOD 11/15/2024 11:49 AM [facility] Eosinophils Relative 4.5 % LAB HEMETOLOGY METHOD 11/15/2024 11:49 AM [facility] Basophils Relative 0.4 % LAB HEMETOLOGY METHOD 11/15/2024 11:49 AM [facility] Immature Granulocytes Relative 0.6 % LAB HEMETOLOGY METHOD 11/15/2024 11:49 AM [facility] Neutrophils Absolute 2.49 1.50 - 7.00 K/mcL LAB HEMETOLOGY METHOD 11/15/2024 11:49 AM [facility] Lymphocytes Absolute 1.71 1.00 - 5.00 K/mcL LAB HEMETOLOGY METHOD 11/15/2024 11:49 AM [facility] Monocytes Absolute 0.59 0.20 - 1.00 K/mcL LAB HEMETOLOGY METHOD 11/15/2024 11:[address] [facility] Eosinophils Absolute 0.23 0.00 - 0.50 K/[facility] LAB HEMETOLOGY METHOD 11/15/2024 11:49 AM [facility] Basophils Absolute 0.02 0.00 - 0.20 K/mcL LAB HEMETOLOGY METHOD 11/15/2024 11:[address] [facility] Immature Granulocytes Absolute 0.03 0.00 - 0.03 K/[facility] LAB HEMETOLOGY METHOD 11/15/2024 11:49 AM [facility] Blood Venous blood specimen / Unknown Venipuncture / Unknown 11/15/2024 8:14 AM EST 11/15/2024 11:18 AM EST Juan Carlos Mayers LAB BLOOD ORDERABLES Performing Organization Address City/[facility]/ZIP Co de Phone Number [facility] [address] [place] [address], [place] [phone] * Hemoglobin A1c (11/15/2024 8:14 AM EST) Hemoglobin A1C 6.1 <6.5 % LAB CHEMISTRY METHOD 11/15/2024 2:22 PM [facility] Mean Bld Glu Estim. 128 mg/dL LAB CHEMISTRY METHOD 11/15/2024 2:[address] [facility] Blood Venous blood specimen / Unknown Venipuncture / Unknown 11/15/2024 8:14 AM EST 11/15/2024 11:18 AM EST Juan Carlos Mayers LAB BLOOD ORDERABLES Performing Organization Address City/[facility]/ZIP Co de Phone Number [facility] [address] [place] [address], [place] [phone] * (ABNORMAL) Lipid panel with reflex to direct LDL (11/15/2024 8:14 AM EST) Cholesterol 69 0 - 200 mg/dL LAB CHEMISTRY METHOD 11/15/2024 12:[address] [facility] Triglycerides 132 0 - 150 mg/dL LAB CHEMISTRY METHOD 11/15/2024 12:25 PM [facility] HDL 24(L) >=40 mg/dL LAB CHEMISTRY METHOD 11/15/2024 12:25 PM [facility] LDL Calculated 19 0 - 100 mg/dL LAB CHEMISTRY METHOD 11/15/2024 12:25 PM [facility] VLDL Cholesterol Enio 26.4 mg/dL LAB CHEMISTRY METHOD 11/15/2024 12:25 PM [facility] Non HDL Chol. (LDL+VLDL) 45 <145 mg/dL LAB CHEMISTRY METHOD 11/15/2024 12:25 PM [facility] Chol/HDL Ratio 2.9 0.0 - 4.4 LAB CHEMISTRY METHOD 11/15/2024 12:25 PM [facility] Blood Venous blood specimen / Unknown Venipuncture / Unknown 11/15/2024 8:14 AM EST 11/15/2024 11:16 AM EST Juan Carlos Mayers LAB BLOOD ORDERABLES [facility] [address] [place] [address], * (ABNORMAL) Comprehensive metabolic panel (11/15/2024 8:14 AM EST) [facility] Sodium 137 133 - 145 mmol/L LAB CHEMISTRY METHOD 11/15/2024 12:25 PM [facility] Potassium 3.4(L) 3.5 - 5.5 mmol/L LAB CHEMISTRY METHOD 11/15/2024 12:25 PM [facility] Chloride 101 96 - 110 mmol/L LAB CHEMISTRY METHOD 11/15/2024 12:25 PM [facility] CO2 29 21 - 32 mmol/L LAB CHEMISTRY METHOD 11/15/2024 12:25 PM [facility] Anion Gap 7 3 - 11 LAB CHEMISTRY METHOD 11/15/2024 12:25 PM [facility] Glucose 134(H) 70 - 100 mg/dL LAB CHEMISTRY METHOD 11/15/2024 12:25 PM [facility] BUN 9 5 - 25 mg/dL LAB CHEMISTRY METHOD 11/15/2024 12:25 PM [facility] Creatinine 1.56(H) 0.50 - 1.10 mg/dL LAB CHEMISTRY METHOD 11/15/2024 12:25 PM [facility] eGFR 36(L) >=60 mL/min/1. 73m2 LAB CHEMISTRY METHOD 11/15/2024 12:25 PM [facility] Comment:Calculation based on the??Chronic Kidney Disease Epidemiology Collaboration (CKD-EPI) equation refit??without adjustment for race. BUN/Creatinine Ratio 5.8 LAB CHEMISTRY METHOD 11/15/2024 12:25 PM [facility] Calcium 8.6 8.5 - 10.5 mg/dL LAB CHEMISTRY METHOD 11/15/2024 12:25 PM [facility] AST (SGOT) 35 10 - 42 unit/L LAB CHEMISTRY METHOD 11/15/2024 12:25 PM [facility] ALT (SGPT) 23 10 - 60 unit/L LAB CHEMISTRY METHOD 11/15/2024 12:25 PM [facility] Alkaline Phosphatase 99 42 - 121 unit/L LAB CHEMISTRY METHOD 11/15/2024 12:25 PM [facility] Total Protein 5.6(L) 6.0 - 8.0 g/dL LAB CHEMISTRY METHOD 11/15/2024 12:25 PM [facility] Albumin 2.3(L) 3.2 - 5.0 g/dL LAB CHEMISTRY METHOD 11/15/2024 12:[address] [facility] Total Bilirubin 0.3 0.0 - 1.4 mg/dL LAB CHEMISTRY METHOD 11/15/2024 12:[address] [facility] Blood Venous blood specimen / Unknown Venipuncture / Unknown 11/15/2024 8:14 AM EST 11/15/2024 11:16 AM EST Juan Carlos Mayers LAB BLOOD ORDERABLES [facility] [address] [place] [address], documented in this encounter Visit Diagnoses Diagnosis Gastro-esophageal reflux disease without esophagitis Hyperlipidemia, unspecified Anemia, unspecified Atherosclerotic heart disease of [place] coronary artery without angina pectoris Essential (primary) hypertension Unspecified essential hypertension documented in this encounter Care Teams Plumbing Installer Relationship Specialty Start Date End Date Osmar Gramajo MD [address] [place], [place] PCP - General Pulmonary Disease 04/20/17 documented as of this encounter
--- OUTSIDE RECORDS SUMMARY | 2024-11-21 13:51 | XMS_ITS | Encounter Summary ---
Author Organization [facility] Address [address] [place] [address] Care Team Providers Care Reception Name Role Phone Osmar Gramajo MD Primary Care Provider Encounter Details Date Type Department Care Team (Latest Contact Info) Description 11/06/2024 Lab Requisition [facility] - Main Lab [address] [place] [address] Juan Carlos Mayers [phone] [facility] [phone] [place] [address] Atherosclerotic heart disease of [place] coronary artery without angina pectoris; Essential (primary) [...] Procedure Name Priority Date/Time Associated Diagnosis Comments CBC WITH AUTO DIFFERENTIAL Routine 11/06/2024 6:08 AM EST Atherosclerotic heart disease of [place] coronary artery without angina pectoris Essential (primary) hypertension CBC AND DIFFERENTIAL Routine 11/06/2024 6:08 AM EST Atherosclerotic heart disease of [place] coronary artery without angina pectoris Essential (primary) hypertension THYROID STIMULATING HORMONE Routine 11/06/2024 6:08 AM EST Atherosclerotic heart disease of [place] coronary artery without angina pectoris Essential (primary) hypertension FOLATE Routine 11/06/2024 6:08 AM EST Atherosclerotic heart disease of [place] coronary artery without angina pectoris Essential (primary) hypertension VITAMIN B12 Routine 11/06/2024 6:08 AM EST Atherosclerotic heart disease of [place] coronary artery without angina pectoris Essential (primary) hypertension COMPREHENSIVE METABOLIC PANEL Routine 11/06/2024 6:08 AM EST Atherosclerotic heart disease of [place] coronary artery without angina pectoris Essential (primary) hypertension documented in this encounter Results * (ABNORMAL) CBC auto differential (11/06/2024 6:08 AM EST) [facility] WBC 5.2 4.8 - 10.8 K/mcL LAB HEMETOLOGY METHOD 11/06/2024 9:55 AM [facility] RBC 3.70(L) 3.80 - 4.80 M/mcL LAB HEMETOLOGY METHOD 11/06/2024 9:55 AM [facility] Hemoglobin 9.7(L) 11.5 - 16.0 g/dL LAB HEMETOLOGY METHOD 11/06/2024 9:55 AM [facility] LAB Hematocrit 32.9(L) 35.0 - 47.0 % LAB HEMETOLOGY METHOD 11/06/2024 9:55 AM [facility] MCV 90.1 79.0 - 98.0 FL LAB HEMETOLOGY METHOD 11/06/2024 9:55 AM [facility] LAB MCH 26.6(L) 27.0 - 32.0 pcg LAB HEMETOLOGY METHOD 11/06/2024 9:55 AM [facility] LAB MCHC 29.5(L) 32.0 - 37.0 g/dL LAB HEMETOLOGY METHOD 11/06/2024 9:55 AM [facility] RDW 15.3(H) 11.0 - 15.0 % LAB HEMETOLOGY METHOD 11/06/2024 9:55 AM [facility] LAB Platelets 226 130 - 400 K/mcL LAB HEMETOLOGY METHOD 11/06/2024 9:55 AM [facility] MPV 11.3(H) 7.0 - 11.0 FL LAB HEMETOLOGY METHOD 11/06/2024 9:55 AM [facility] NRBC 0.0 <1.0 % LAB HEMETOLOGY METHOD 11/06/2024 9:55 AM [facility] LAB NRBC Absolute 0.00 <0.10 K/mcL LAB HEMETOLOGY METHOD 11/06/2024 9:55 AM [facility] Neutrophils Relative 48.4 % LAB HEMETOLOGY METHOD 11/06/2024 9:55 AM [facility] Lymphocytes Relative 32.1 % LAB HEMETOLOGY METHOD 11/06/2024 9:55 AM [facility] Monocytes Relative 15.1 % LAB HEMETOLOGY METHOD 11/06/2024 9:55 AM [facility] Eosinophils Relative 3.4 % LAB HEMETOLOGY METHOD 11/06/2024 9:55 AM [facility] Basophils Relative 0.6 % LAB HEMETOLOGY METHOD 11/06/2024 9:55 AM [facility] Immature Granulocytes Relative 0.4 % LAB HEMETOLOGY METHOD 11/06/2024 9:55 AM [facility] Neutrophils Absolute 2.54 1.50 - 7.00 K/mcL LAB HEMETOLOGY METHOD 11/06/2024 9:55 AM [facility] Lymphocytes Absolute 1.68 1.00 - 5.00 K/mcL LAB HEMETOLOGY METHOD 11/06/2024 9:55 AM [facility] Monocytes Absolute 0.79 0.20 - 1.00 K/mcL LAB HEMETOLOGY METHOD 11/06/2024 9:55 AM [facility] Eosinophils Absolute 0.18 0.00 - 0.50 K/mcL LAB HEMETOLOGY METHOD 11/06/2024 9:55 AM EST [facility] Basophils Absolute 0.03 0.00 - 0.20 K/[facility] LAB HEMETOLOGY METHOD 11/06/2024 9:55 AM EST [facility] Immature Granulocytes Absolute 0.02 0.00 - 0.03 K/[facility] LAB HEMETOLOGY METHOD 11/06/2024 9:55 AM EST [facility] Blood Venous blood specimen / Unknown Venipuncture / Unknown 11/06/2024 6:08 AM EST 11/06/2024 9:04 AM EST Juan Carlos Mayers LAB BLOOD ORDERABLES Performing Organization Address City/[facility]/ZIP Co de Phone Number [facility] [address] [place] [address], * Vitamin B12 (11/06/2024 6:08 AM EST) Vitamin B-12 830 250 - 900 pcg/mL LAB CHEMISTRY METHOD 11/06/2024 11:00 AM EST [facility] Blood Venous blood specimen / Unknown Venipuncture / Unknown 11/06/2024 6:08 AM EST 11/06/2024 9:04 AM EST Juan Carlos Mayers LAB BLOOD ORDERABLES [facility] [address] [place] [address], * Thyroid stimulating hormone (11/06/2024 6:08 AM EST) TSH 3.31 0.40 - 4.00 mcIU/mL LAB CHEMISTRY METHOD 11/06/2024 10:42 AM EST [facility] Blood Venous blood specimen / Unknown Venipuncture / Unknown 11/06/2024 6:08 AM EST 11/06/2024 9:04 AM EST Juan Carlos Figueroanigel LAB BLOOD ORDERABLES Performing Organization Address City/[facility]/ZIP Co de Phone Number [facility] [address] [place] [address], * Folate (11/06/2024 6:08 AM EST) Pathologist [facility] Folate 5.4 2.8 - 17.0 ng/ml LAB CHEMISTRY METHOD 11/06/2024 11:00 AM [facility] Blood Venous blood specimen / Unknown Venipuncture / Unknown 11/06/2024 6:08 AM EST 11/06/2024 9:04 AM EST Juan Carlos Figueroahagerhill LAB BLOOD ORDERABLES Performing Organization Address [facility]/ZIP Co de Phone Number [facility] [address] [place] [address], * (ABNORMAL) Comprehensive metabolic panel (11/06/2024 6:08 AM EST) [facility] Sodium 139 133 - 145 mmol/L LAB CHEMISTRY METHOD 11/06/2024 11:00 AM [facility] Potassium 3.4(L) 3.5 - 5.5 mmol/L LAB CHEMISTRY METHOD 11/06/2024 11:00 AM [facility] Chloride 105 96 - 110 mmol/L LAB CHEMISTRY METHOD 11/06/2024 11:00 AM [facility] CO2 29 21 - 32 mmol/L LAB CHEMISTRY METHOD 11/06/2024 11:00 AM [facility] Anion Gap 5 3 - 11 LAB CHEMISTRY METHOD 11/06/2024 11:00 AM [facility] Glucose 95 70 - 100 mg/dL LAB CHEMISTRY METHOD 11/06/2024 11:00 AM [facility] BUN 2(L) 5 - 25 mg/dL LAB CHEMISTRY METHOD 11/06/2024 11:00 AM [facility] Creatinine 1.54(H) 0.50 - 1.10 mg/dL LAB CHEMISTRY METHOD 11/06/2024 11:00 AM [facility] eGFR 37(L) >=60 mL/min/1. 73m2 LAB CHEMISTRY METHOD 11/06/2024 11:00 AM [facility] Comment:Calculation based on the??Chronic Kidney Disease Epidemiology Collaboration (CKD-EPI) equation refit??without adjustment for race. BUN/Creatinine Ratio 1.3 LAB CHEMISTRY METHOD 11/06/2024 11:00 AM [facility] Calcium 8.5 8.5 - 10.5 mg/dL LAB CHEMISTRY METHOD 11/06/2024 11:00 AM [facility] AST (SGOT) 47(H) 10 - 42 unit/L LAB CHEMISTRY METHOD 11/06/2024 11:00 AM [facility] ALT (SGPT) 41 10 - 60 unit/L LAB CHEMISTRY METHOD 11/06/2024 11:00 AM [facility] Alkaline Phosphatase 83 42 - 121 unit/L LAB CHEMISTRY METHOD 11/06/2024 11:00 AM [facility] Total Protein 5.2(L) 6.0 - 8.0 g/dL LAB CHEMISTRY METHOD 11/06/2024 11:00 AM [facility] Albumin 2.3(L) 3.2 - 5.0 g/dL LAB CHEMISTRY METHOD 11/06/2024 11:00 AM [facility] Total Bilirubin 0.3 0.0 - 1.4 mg/dL LAB CHEMISTRY METHOD 11/06/2024 11:00 AM [facility] Blood Venous blood specimen / Unknown Venipuncture / Unknown 11/06/2024 6:08 AM EST 11/06/2024 9:04 AM EST Juan Carlos Mayers LAB BLOOD ORDERABLES [facility] [address] [place] [address], documented in this encounter Visit Diagnoses Diagnosis Atherosclerotic heart disease of [place] coronary artery without angina pectoris Essential (primary) hypertension Unspecified essential hypertension documented in this encounter Care Teams Reception Relationship Specialty Start Date End Date Osmar Gramajo MD [address] [place], [place] PCP - General Pulmonary Disease 04/20/17 documented as of this encounter
--- OUTSIDE RECORDS SUMMARY | 2024-11-21 13:52 | XMS_ITS | Clinical Summary ---
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; Essential (primary) hypertension 11/14/2024 Lab Requisition [facility] Lab [address] [place] [phone] Juan Carlos Mayers Gastro-esophageal reflux disease without esophagitis; Hyperlipidemia, unspecified; Anemia, unspecified; 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; Essential (primary) hypertension 11/12/2024 Lab Requisition [facility] Lab [address] [place] [phone] Juan Carlos Mayers Shortness of breath; Bacteremia 11/08/2024 Lab Requisition [facility] Lab [address] [place] [phone] Juan Carlos Mayers Encounter for screening for diabetes mellitus; Ischemic cardiomyopathy; Essential (primary) hypertension; Other chronic pain; Depression, unspecified; Hyperlipidemia, unspecified; Anemia, unspecified; Systemic lupus erythematosus, unspecified (CMS/HCC); Unspecified asthma, uncomplicated; 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; Gastro-esophageal reflux disease without esophagitis; Bacteremia; Hypotension, unspecified 11/06/2024 Lab Requisition [facility] - Main Lab [address] [facility] [place] [phone] Juan Carlos Mayers 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; Essential (primary) hypertension from Last 3 Months Social History Tobacco Use Types Packs/Day Years Used Date Smoking Tobacco: Never Assessed Sex and Gender Information Value Date Recorded Sex Assigned at Not on file Gender Identity Not on file Sexual Orientation Not on file Plan of Treatment Health Maintenance Due Date Last Done Comments DTaP,Tdap,and Td Vaccines (1 - Tdap) 1975 Hepatitis A Vaccines (1 of 2 - Risk 2-dose series) 1975 Zoster Vaccines (1 of 2) 2006 Hepatitis B Vaccines (1 of 3 - Risk 3-dose series) 2016 RSV Immunization Patients 60+ Years Old (1 - Risk 60-74 years 1-dose series) 2016 Pneumococcal Vaccine: 65+ Years (2 of 2 - PCV) 01/29/2018 01/29/2017, 01/25/2005 Colorectal Cancer Screening: Colonoscopy 09/22/2022 Depression Screening 09/22/2022 Falls Risk Assessment 09/22/2022 Hepatitis C Screening 09/22/2022 Osteoporosis Screening (Bone Density Screening) 09/22/2022 Social Influencers of Health Screening 09/22/2022 Breast Cancer Screening 05/28/2023 05/28/2021 COVID-19 Vaccine ( season) 2024 03/17/2022, 10/06/2021, 03/25/2021, Additional history exists Influenza Vaccine (#1) 2024 , 10/06/2021, 07/09/2020, Additional history exists Hypertension/CHF/CAD Annual BMP Blood Test 11/15/2025 11/15/2024, 11/12/2024, 11/08/2024, Additional history exists Cholesterol Screening (Lipid Panel) 11/15/2029 11/15/2024, 11/08/2024 HIB Vaccines Aged Out No longer eligi ble based on patient's age to complete this topic HPV Vaccines Aged Out No longer eligi ble based on patient's age to complete this topic IPV Vaccines Aged Out No longer eligi ble based on patient's age to complete this topic MMR Vaccines Aged Out No longer eligi ble based on patient's age to complete this topic Meningococcal ACWY Vaccine Aged Out N o longer eligible based on patient's age to complete this topic RSV Immunization Patients Under 20 months Aged Out No longer eligible based on patient's age to complete this topic Varicella Vaccines Aged Out No longer eligible based on patient's age to complete this topic Procedures Procedure Name Priority Date/Time Associated Diagnosis Comments CBC WITH AUTO DIFFERENTIAL Routine 11/15/2024 8:14 AM EST Gastro-esophageal reflux disease without esophagitis Hyperlipidemia, unspecified Anemia, unspecified 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 Essential (primary) hypertension HEMOGLOBIN A1C Routine 11/15/2024 8:14 AM EST Gastro-esophageal reflux disease without esophagitis Hyperlipidemia, unspecified Anemia, unspecified 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 Essential (primary) hypertension LIPID PANEL WITH REFLEX TO DIRECT LDL Routine 11/15/2024 8:14 AM EST Gastro-esophageal reflux disease without esophagitis Hyperlipidemia, unspecified Anemia, unspecified 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 Essential (primary) hypertension COMPREHENSIVE METABOLIC PANEL Routine 11/15/2024 8:14 AM EST Gastro-esophageal reflux disease without esophagitis Hyperlipidemia, unspecified Anemia, unspecified 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 Essential (primary) hypertension CBC AND DIFFERENTIAL Routine 11/15/2024 8:14 AM EST Gastro-esophageal reflux disease without esophagitis Hyperlipidemia, unspecified Anemia, unspecified 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 Essential (primary) hypertension B-TYPE NATRIURETIC PEPTIDE STAT 11/12/2024 9:24 AM EST Shortness of breath Bacteremia BASIC METABOLIC PANEL STAT 11/12/2024 9:24 AM EST Shortness of breath Bacteremia COMPLETE BLOOD COUNT STAT 11/12/2024 9:24 AM EST Shortness of breath Bacteremia CBC WITH AUTO DIFFERENTIAL Routine 11/08/2024 7:15 AM EST Encounter for screening for diabetes mellitus Ischemic cardiomyopathy Essential (primary) hypertension Other chronic pain Depression, unspecified Hyperlipidemia, unspecified Anemia, unspecified Systemic lupus erythematosus, unspecified (CMS/HCC) Unspecified asthma, uncomplicated 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 Gastro-esophageal reflux disease without esophagitis Bacteremia Hypotension, unspecified HEMOGLOBIN A1C Routine 11/08/2024 7:15 AM EST Encounter for screening for diabetes mellitus Ischemic cardiomyopathy Essential (primary) hypertension Other chronic pain Depression, unspecified Hyperlipidemia, unspecified Anemia, unspecified Systemic lupus erythematosus, unspecified (CMS/HCC) Unspecified asthma, uncomplicated 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 Gastro-esophageal reflux disease without esophagitis Bacteremia Hypotension, unspecified LIPID PANEL WITH REFLEX TO DIRECT LDL Routine 11/08/2024 7:15 AM EST Encounter for screening for diabetes mellitus Ischemic cardiomyopathy Essential (primary) hypertension Other chronic pain Depression, unspecified Hyperlipidemia, unspecified Anemia, unspecified Systemic lupus erythematosus, unspecified (CMS/HCC) Unspecified asthma, uncomplicated 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 Gastro-esophageal reflux disease without esophagitis Bacteremia Hypotension, unspecified COMPREHENSIVE METABOLIC PANEL Routine 11/08/2024 7:15 AM EST Encounter for screening for diabetes mellitus Ischemic cardiomyopathy Essential (primary) hypertension Other chronic pain Depression, unspecified Hyperlipidemia, unspecified Anemia, unspecified Systemic lupus erythematosus, unspecified (CMS/HCC) Unspecified asthma, uncomplicated 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 Gastro-esophageal reflux disease without esophagitis Bacteremia Hypotension, unspecified CBC AND DIFFERENTIAL Routine 11/08/2024 7:15 AM EST Encounter for screening for diabetes mellitus Ischemic cardiomyopathy Essential (primary) hypertension Other chronic pain Depression, unspecified Hyperlipidemia, unspecified Anemia, unspecified Systemic lupus erythematosus, unspecified (CMS/HCC) Unspecified asthma, uncomplicated 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 Gastro-esophageal reflux disease without esophagitis Bacteremia Hypotension, unspecified CBC WITH AUTO DIFFERENTIAL Routine 11/06/2024 6:08 AM EST 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 Essential (primary) hypertension VITAMIN B12 Routine 11/06/2024 6:08 AM EST 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 Essential (primary) hypertension THYROID STIMULATING HORMONE Routine 11/06/2024 6:08 AM EST 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 Essential (primary) hypertension FOLATE Routine 11/06/2024 6:08 AM EST 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 Essential (primary) hypertension COMPREHENSIVE METABOLIC PANEL Routine 11/06/2024 6:08 AM EST 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 Essential (primary) hypertension CBC AND DIFFERENTIAL Routine 11/06/2024 6:08 AM EST 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 Essential (primary) hypertension FLACO SCREENING DIGITAL Routine 05/28/2021 2:31 PM EDT Encounter for screening mammogram for malignant neoplasm of breast from Last 3 Months or Most Recently Relevant to Health Maintenance Results * (ABNORMAL) Lipid panel with reflex to direct LDL (11/15/2024 8:14 AM EST) Only the most recent of2 resultswithin the time period is included. Cholesterol 69 0 - 200 mg/dL LAB CHEMISTRY METHOD 11/15/2024 12:25 PM EST [facility] Triglycerides 132 0 - 150 mg/dL LAB CHEMISTRY METHOD 11/15/2024 12:25 PM EST [facility] HDL 24(L) >=40 mg/dL LAB CHEMISTRY METHOD 11/15/2024 12:25 PM EST [facility] LDL Calculated 19 0 - 100 mg/dL LAB CHEMISTRY METHOD 11/15/2024 12:25 PM EST [facility] VLDL Cholesterol Enio 26.4 mg/dL LAB CHEMISTRY METHOD 11/15/2024 12:[address] [facility] Non HDL Chol. (LDL+VLDL) 45 <145 mg/dL LAB CHEMISTRY METHOD 11/15/2024 12:[address] [facility] Chol/HDL Ratio 2.9 0.0 - 4.4 LAB CHEMISTRY METHOD 11/15/2024 12:[address] [facility] Blood Venous blood specimen / Unknown Venipuncture / Unknown 11/15/2024 8:14 AM EST 11/15/2024 11:16 AM EST Juan Carlos Mayers LAB BLOOD ORDERABLES [facility] [address] [place] [address], * (ABNORMAL) CBC auto differential (11/15/2024 8:14 AM EST) Only the most recent of3 resultswithin the time period is included. WBC 5.1 4.8 - 10.8 K/mcL LAB HEMETOLOGY METHOD 11/15/2024 11:[address] [facility] RBC 3.40(L) 3.80 - 4.80 M/[facility] LAB HEMETOLOGY METHOD 11/15/2024 11:[address] [facility] Hemoglobin 8.7(L) 11.5 - 16.0 g/dL LAB HEMETOLOGY METHOD 11/15/2024 11:[address] [facility] Hematocrit 30.5(L) 35.0 - 47.0 % LAB HEMETOLOGY METHOD 11/15/2024 11:[address] [facility] MCV 90.0 79.0 - 98.0 FL LAB HEMETOLOGY METHOD 11/15/2024 11:[address] [facility] MCH 25.7(L) 27.0 - 32.0 pcg LAB HEMETOLOGY METHOD 11/15/2024 11:[address] [facility] MCHC 28.5(L) 32.0 - 37.0 g/dL LAB HEMETOLOGY METHOD 11/15/2024 11:[address] [facility] RDW 16.1(H) 11.0 - 15.0 % LAB HEMETOLOGY METHOD 11/15/2024 11:[address] [facility] Platelets 319 130 - 400 K/mcL LAB HEMETOLOGY METHOD 11/15/2024 11:[address] [facility] MPV 10.6 7.0 - 11.0 FL LAB HEMETOLOGY METHOD 11/15/2024 11:[address] [facility] NRBC 0.4 <1.0 % LAB HEMETOLOGY METHOD 11/15/2024 11:[address] [facility] NRBC Absolute 0.02 <0.10 K/mcL LAB HEMETOLOGY METHOD 11/15/2024 11:[address] [facility] Neutrophils Relative 49.2 % LAB HEMETOLOGY METHOD 11/15/2024 11:[address] [facility] Lymphocytes Relative 33.7 % LAB HEMETOLOGY METHOD 11/15/2024 11:[address] [facility] Monocytes Relative 11.6 % LAB HEMETOLOGY METHOD 11/15/2024 11:[address] [facility] Eosinophils Relative 4.5 % LAB HEMETOLOGY METHOD 11/15/2024 11:[address] [facility] Basophils Relative 0.4 % LAB HEMETOLOGY METHOD 11/15/2024 11:[address] [facility] Immature Granulocytes Relative 0.6 % LAB HEMETOLOGY METHOD 11/15/2024 11:[address] [facility] Neutrophils Absolute 2.49 1.50 - 7.00 K/mcL LAB HEMETOLOGY METHOD 11/15/2024 11:[address] [facility] Lymphocytes Absolute 1.71 1.00 - 5.00 K/mcL LAB HEMETOLOGY METHOD 11/15/2024 11:49 AM EST [facility] Monocytes Absolute 0.59 0.20 - 1.00 K/[facility] LAB HEMETOLOGY METHOD 11/15/2024 11:49 AM EST [facility] Eosinophils Absolute 0.23 0.00 - 0.50 K/[facility] LAB HEMETOLOGY METHOD 11/15/2024 11:49 AM EST [facility] Basophils Absolute 0.02 0.00 - 0.20 K/[facility] LAB HEMETOLOGY METHOD 11/15/2024 11:49 AM EST [facility] Immature Granulocytes Absolute 0.03 0.00 - 0.03 K/[facility] LAB HEMETOLOGY METHOD 11/15/2024 11:[address] [facility] Blood Venous blood specimen / Unknown Venipuncture / Unknown 11/15/2024 8:14 AM EST 11/15/2024 11:18 AM EST Juan Carlos Mayers LAB BLOOD ORDERABLES Performing Organization Address City/[facility]/ZIP Co de Phone Number [facility] [address] [place] [address], * Hemoglobin A1c (11/15/2024 8:14 AM EST) Only the most recent of2 resultswithin the time period is included. Hemoglobin A1C 6.1 <6.5 % LAB CHEMISTRY METHOD 11/15/2024 2:22 PM EST [facility] Mean Bld Glu Estim. 128 mg/dL LAB CHEMISTRY METHOD 11/15/2024 2:22 PM EST [facility] Blood Venous blood specimen / Unknown Venipuncture / Unknown 11/15/2024 8:14 AM EST 11/15/2024 11:18 AM EST Juan Carlos Mayers LAB BLOOD ORDERABLES [facility] [address] [place] [address], [place] [phone] * (ABNORMAL) Comprehensive metabolic panel (11/15/2024 8:14 AM EST) Only the most recent of3 resultswithin the time period is included. Sodium 137 133 - 145 mmol/L LAB CHEMISTRY METHOD 11/15/2024 12:[address] [facility] Potassium 3.4(L) 3.5 - 5.5 mmol/L LAB CHEMISTRY METHOD 11/15/2024 12:[address] [facility] Chloride 101 96 - 110 mmol/L LAB CHEMISTRY METHOD 11/15/2024 12:[address] [facility] CO2 29 21 - 32 mmol/L LAB CHEMISTRY METHOD 11/15/2024 12:[address] [facility] Anion Gap 7 3 - 11 LAB CHEMISTRY METHOD 11/15/2024 12:[address] [facility] Glucose 134(H) 70 - 100 mg/dL LAB CHEMISTRY METHOD 11/15/2024 12:[address] [facility] BUN 9 5 - 25 mg/dL LAB CHEMISTRY METHOD 11/15/2024 12:[address] [facility] Creatinine 1.56(H) 0.50 - 1.10 mg/dL LAB CHEMISTRY METHOD 11/15/2024 12:[address] [facility] eGFR 36(L) >=60 mL/min/1. 73m2 LAB CHEMISTRY METHOD 11/15/2024 12:[address] [facility] Comment:Calculation based on the??Chronic Kidney Disease Epidemiology Collaboration (CKD-EPI) equation refit??without adjustment for race. BUN/Creatinine Ratio 5.8 LAB CHEMISTRY METHOD 11/15/2024 12:[address] [facility] Calcium 8.6 8.5 - 10.5 mg/dL LAB CHEMISTRY METHOD 11/15/2024 12:25 PM EST [facility] AST (SGOT) 35 10 - 42 unit/L LAB CHEMISTRY METHOD 11/15/2024 12:[address] [facility] ALT (SGPT) 23 10 - 60 unit/L LAB CHEMISTRY METHOD 11/15/2024 12:[address] [facility] Alkaline Phosphatase 99 42 - 121 unit/L LAB CHEMISTRY METHOD 11/15/2024 12:[address] [facility] Total Protein 5.6(L) 6.0 - 8.0 g/dL LAB CHEMISTRY METHOD 11/15/2024 12:[address] [facility] Albumin 2.3(L) 3.2 - 5.0 g/dL LAB CHEMISTRY METHOD 11/15/2024 12:[address] [facility] Total Bilirubin 0.3 0.0 - 1.4 mg/dL LAB CHEMISTRY METHOD 11/15/2024 12:[address] [facility] Blood Venous blood specimen / Unknown Venipuncture / Unknown 11/15/2024 8:14 AM EST 11/15/2024 11:16 AM EST Juan Carlos Mayers LAB BLOOD ORDERABLES [facility] [address] [place] [address], * (ABNORMAL) Complete blood count (11/12/2024 9:24 AM EST) WBC 6.8 4.8 - 10.8 K/mcL LAB HEMETOLOGY METHOD 11/12/2024 12:[address] [facility] RBC 3.60(L) 3.80 - 4.80 M/mcL LAB HEMETOLOGY METHOD 11/12/2024 12:[address] [facility] Hemoglobin 9.5(L) 11.5 - 16.0 g/dL LAB HEMETOLOGY METHOD 11/12/2024 12:[address] [facility] Hematocrit 33.5(L) 35.0 - 47.0 % LAB HEMETOLOGY METHOD 11/12/2024 12:[address] [facility] MCV 92.0 79.0 - 98.0 FL LAB HEMETOLOGY METHOD 11/12/2024 12:[address] [facility] MCH 26.1(L) 27.0 - 32.0 pcg LAB HEMETOLOGY METHOD 11/12/2024 12:[address] [facility] MCHC 28.4(L) 32.0 - 37.0 g/dL LAB HEMETOLOGY METHOD 11/12/2024 12:[address] [facility] RDW 15.6(H) 11.0 - 15.0 % LAB HEMETOLOGY METHOD 11/12/2024 12:[address] [facility] Platelets 315 130 - 400 K/mcL LAB HEMETOLOGY METHOD 11/12/2024 12:[address] [facility] MPV 10.9 7.0 - 11.0 FL LAB HEMETOLOGY METHOD 11/12/2024 12:[address] [facility] NRBC 0.0 <1.0 % LAB HEMETOLOGY METHOD 11/12/2024 12:[address] [facility] NRBC Absolute 0.00 <0.10 K/mcL LAB HEMETOLOGY METHOD 11/12/2024 12:[address] [facility] Blood Venous blood specimen / Unknown Venipuncture / Unknown 11/12/2024 9:24 AM EST 11/12/2024 11:45 AM EST Juan Carlos Mayers LAB BLOOD ORDERABLES [facility] [address] [place] [address], * B-type natriuretic peptide (11/12/2024 9:24 AM EST) BNP 16 <=100 pcg/mL LAB CHEMISTRY METHOD 11/12/2024 12:[address] [facility] Blood Venous blood specimen / Unknown Venipuncture / Unknown 11/12/2024 9:24 AM EST 11/12/2024 11:45 AM EST Juan Carlos Mayers LAB BLOOD ORDERABLES [facility] [address] [place] [address], * (ABNORMAL) Basic metabolic panel (11/12/2024 9:24 AM EST) Pathologist [facility] Sodium 137 133 - 145 mmol/L LAB CHEMISTRY METHOD 11/12/2024 12:[address] [facility] Potassium 3.4(L) 3.5 - 5.5 mmol/L LAB CHEMISTRY METHOD 11/12/2024 12:[address] [facility] Chloride 101 96 - 110 mmol/L LAB CHEMISTRY METHOD 11/12/2024 12:[address] [facility] CO2 28 21 - 32 mmol/L LAB CHEMISTRY METHOD 11/12/2024 12:[address] [facility] Anion Gap 8 3 - 11 LAB CHEMISTRY METHOD 11/12/2024 12:[address] [facility] Glucose 121(H) 70 - 100 mg/dL LAB CHEMISTRY METHOD 11/12/2024 12:[address] [facility] BUN 9 5 - 25 mg/dL LAB CHEMISTRY METHOD 11/12/2024 12:[address] [facility] Creatinine 1.65(H) 0.50 - 1.10 mg/dL LAB CHEMISTRY METHOD 11/12/2024 12:[address] [facility] eGFR 34(L) >=60 mL/min/1. 73m2 LAB CHEMISTRY METHOD 11/12/2024 12:[address] [facility] Comment:Calculation based on the??Chronic Kidney Disease Epidemiology Collaboration (CKD-EPI) equation refit??without adjustment for race. BUN/Creatinine Ratio 5.5 LAB CHEMISTRY METHOD 11/12/2024 12:[address] [facility] Calcium 9.1 8.5 - 10.5 mg/dL LAB CHEMISTRY METHOD 11/12/2024 12:[address] [facility] Blood Venous blood specimen / Unknown Venipuncture / Unknown 11/12/2024 9:24 AM EST 11/12/2024 11:45 AM EST Juan Carlos Mayers LAB BLOOD ORDERABLES Performing Organization Address City/[facility]/ZIP Co de Phone Number [facility] [address] [place] [address], * Thyroid stimulating hormone (11/06/2024 6:08 AM EST) TSH 3.31 0.40 - 4.00 mcIU/mL LAB CHEMISTRY METHOD 11/06/2024 10:42 AM EST [facility] Blood Venous blood specimen / Unknown Venipuncture / Unknown 11/06/2024 6:08 AM EST 11/06/2024 9:04 AM EST Juan Carlos Mayers LAB BLOOD ORDERABLES [facility] [address] [place] [address], [place] [phone] * Folate (11/06/2024 6:08 AM EST) Folate 5.4 2.8 - 17.0 ng/ml LAB CHEMISTRY METHOD 11/06/2024 11:[address] [facility] Blood Venous blood specimen / Unknown Venipuncture / Unknown 11/06/2024 6:08 AM EST 11/06/2024 9:04 AM EST Juan Carlos Valadez Talib LAB BLOOD ORDERABLES Performing Organization Address City/[facility]/ZIP Co de Phone Number [facility] [address] [place] [address], * Vitamin B12 (11/06/2024 6:08 AM EST) Vitamin B-12 830 250 - 900 pcg/mL LAB CHEMISTRY METHOD 11/06/2024 11:00 AM EST [facility] Blood Venous blood specimen / Unknown Venipuncture / Unknown 11/06/2024 6:08 AM EST 11/06/2024 9:04 AM EST Juan Carlos Valadez [place] LAB BLOOD ORDERABLES Performing Organization Address [facility]/ZIP Co de Phone Number [facility] [address] [place] [address], * FLACO SCREENING DIGITAL (05/28/2021 2:31 PM EDT) Anatomical Region Laterality Modality Mammography 05/28/2021 2:09 PM EDT Narrative 05/28/2021 2:[address] [facility] Diagnostic Imaging Department [address] [place] [id number] Patient: ??MARCI FERNANDO ?/Age/Sex: 1955 - 65 - F Unit#: ??[id number] ? Location/Status: ??SPDIMAM/REG CLI ? Mnemonic/Ordering Site: ??DIGSC/SPMAM Ordering Physician: ??Dayanara GRAMAJO MD [facility] Screening Digital - 05/28/21 - 1427 EXAM: [facility] Screening Digital EXAM DATE AND TIME: 05/28/2021 2:21 PM HISTORY: ??Annual screening mammography COMPARISON: ??2016 through 08/16/2012 TECHNIQUE: CC and MLO views of both breasts were obtained using full field digital mammography. Bilateral digital breast tomosynthesis was performed in the MLO projection. Computer aided detection with the [employer] was employed. TISSUE DENSITY: b. There are scattered areas of fibroglandular density. FINDINGS: There is been interval decrease in skin thickening in the retroareolar aspect of the right breast. There are stable intramammary lymph nodes bilaterally. ??There are benign calcifications bilaterally. No suspicious masses, grouped microcalcifications, or areas of architectural distortion are seen. The skin and vascularity are unremarkable. IMPRESSION: Improved periareolar skin thickening. Stable mammographic appearance of the breasts. ??No evidence of malignancy is seen. A negative mammogram in the presence of a clinically suspicious palpable abnormality does not preclude the possibility of malignancy or alter the indications for biopsy. BI-RADS: ??Category 2: Benign RECOMMENDATION(S): 1: Routine screening mammogram BILATERAL in 1 year. [address]370, [id number] 3342F, 7025F Dictating Physician: ??YASHIRA VU MD Electronically Signed by: ??YASHIRA VU MD Dic Date/Time: ??05/28/21 1429 Sign date/Time: ??05/28/21 1431 Procedure Note Kim Vu MD - 10/20/[address] [facility] Diagnostic Imaging Department [address] [place] [id number] Patient: MRACI FERNANDO /Age/Sex: 1955 - 65 - F Unit#: [id number] Location/Status: SPDIMAM/REG CLI Mnemonic/Ordering Site: [facility] Ordering Physician: Dayanara GRAMAJO MD [facility] Screening Digital - 05/28/21 - 1426 EXAM: [facility] Screening Digital EXAM DATE AND TIME: 05/28/2021 2:21 PM HISTORY: Annual screening mammography COMPARISON: 2016 through 08/16/2012 TECHNIQUE: CC and MLO views of both breasts were obtained using fullfield digital mammography. Bilateral digital breast tomosynthesis was performedin the MLO projection. Computer aided detection with the [employer] employed. TISSUE DENSITY: b. There are scattered areas of fibroglandular density. FINDINGS: There is been interval decrease in skin thickening in the retroareolar aspect of the right breast. There are stable intramammary lymph nodes bilaterally. There are benign calcifications bilaterally. No suspicious masses, grouped microcalcifications, or areas ofarchitectural distortion are seen. The skin and vascularity are unremarkable. IMPRESSION: Improved periareolar skin thickening. Stable mammographic appearance of the breasts. No evidence of malignancyis seen. A negative mammogram in the presence of a clinically suspicious palpable abnormality does not preclude the possibility of malignancy or alter the indications for biopsy. BI-RADS: Category 2: Benign RECOMMENDATION(S): 1: Routine screening mammogram BILATERAL in 1 year. [id number], [id number] 3342F, 7025F Dictating Physician: YASHIRA VU MD Electronically Signed by: YASHIRA VU MD Dic Date/Time: 05/28/21 1429 Sign date/Time: 05/28/21 1431 Osmar Gramajo MD IMG BI PROCEDU RES from Last 3 Months or Most Recently Relevant to Health Maintenance Care Teams Cross Country Coach Relationship Specialty Start Date End Date Osmar Gramajo MD [address] [place], [place] PCP - General Pulmonary Disease 04/20/17
== END 2024-11-21 11:56 | disposition home or self-care (01) ==
PROVIDERS: PCP Internal Medicine; Visit Provider Surgery
DX: L72.0 Epidermal cyst (principal)
CPT/HCPCS: 99024

== ENCOUNTER 2024-11-21 11:47 | Emergency (ER) | payer OTHER, SELFPAY ==
--- NOTE | ~2024-11-21 | XR_ITS ---
EXAMINATION: XR CHEST CLINICAL INFORMATION: SOB COMPARISON: None available. TECHNIQUE: 2 views of the chest were obtained. FINDINGS: Prominence of the interstitial lung markings. No consolidation pleural effusion or pneumothorax. Cardiomediastinal silhouette demonstrates a prominent aortic arch. Multilevel thoracic spondylosis. XR/XR chest 2V IMPRESSION: Mild interstitial edema in the correct clinical settings. Superimposed acute inflammatory versus infectious processes cannot be excluded. Electronically signed by: Charles Adams MD 11/21/2024 12:40 PM EST
--- NOTE | ~2024-11-21 | CT_ITS ---
CLINICAL HISTORY: abdominal pain and nausea, surgical hx CT abdomen and pelvis with contrast Comparison: None available. Findings: Mild bibasilar atelectasis and scarring. Diffuse steatotic change of the liver. The adrenal glands are normal. The spleen is nonenlarged. Mild volume loss of the pancreas is noted. No hydronephrosis. Calcified and noncalcified plaque involve the infrarenal abdominal aorta, which measures 3.9 cm diameter (imaged 55 of series 7), with fusiform dilatation. Mild free fluid in the abdomen pelvis may be postprocedural given forming scarring about expected laparotomy. Additional left lower quadrant superficial fluid may be from port site. No small bowel obstruction. Moderate stool burden is noted. The appendix is nondilated. Left-sided calcifications in the pelvis are likely due to exophytic fibroid measuring 3.1 cm of the lateral margin of the anteverted uterus. No adnexal soft tissue mass by CT. Mild wall thickening of the urinary bladder is nonspecific. Degenerative changes include the hips and spine. Sclerosis of the right femur head likely due to mild avascular necrosis. Calcific tendinitis or old small fragments of the right greater trochanter. 3 cm fluid of the right side of the vulva is likely due to cysts. No adjacent inflammation to support abscess by CT. IMPRESSION: 1. 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 2. No small bowel obstruction. 3. 3 cm fibroid of the left margin of the uterus. This document has been electronically signed by: Gary Holliday MD on 11/21/2024 18:53:41
[2024-11-21 11:59] VITALS: BP 100/61; PULSE 98; RESP 18; TEMP 36.6; O2SAT 100; BMI 37.9
--- NOTE | 2024-11-21 12:01 | ED.GENADULT ---
HPI - General Adult General Chief complaint: General Medical Stated complaint: Dizzy Nausea Time Seen by Provider: 11/21/24 16:40 History of Present Illness ED Provider: Thomas Graves DO HPI narrative: 69-year-old female with past medical history of COPD and CHF on 2 L of nasal cannula at baseline, pulmonary embolism and recent procedure due to lesion of the breast presents to the ED via EMS from office visit for suture removal while she became hot, dizzy and nauseous. Patient states she was sitting at that time. She has mild persistent nausea and dizziness at this time. She denies abdominal pain, vomiting, headache, vision changes, numbness or weakness of the arms or legs and no increased swelling of the lower extremities. She was just admitted to the hospital for where she says was low blood pressure and elevated heart rate and went to rehab. She was discharged from rehab 6 days ago, started on home O2 at that time. She denies cough, chest pain or difficulty breathing. Surgical history includes colon resection with ostomy with reversal a year ago. Related Data Home Medications ?Medication ?Instructions ?Recorded ?Confirmed CPAP (CPAP Machine/Device) 03/16/23 11/21/24 albuterol sulfate 90 mcg/actuation 2 puff inhalation QID 03/16/23 11/21/24 aerosol inhaler apixaban 5 mg tablet (Eliquis) 5 mg PO BID 03/16/23 11/21/24 aspirin 81 mg tablet,delayed 81 mg PO DAILY 03/16/23 11/21/24 release atorvastatin 80 mg tablet 80 mg PO BEDTIME 03/16/23 11/21/24 carvedilol 6.25 mg tablet 6.25 mg PO BID 03/16/23 11/21/24 duloxetine 30 mg capsule,delayed 30 mg PO DAILY 03/16/23 11/21/24 release ferrous sulfate 325 mg (65 mg 325 mg PO DAILY 03/16/23 11/21/24 iron) tablet fluticasone fur. 200 mcg-umeclid 1 ea inhalation DAILY 03/16/23 11/21/24 62.5 mcg-vilant 25 mcg inhalat.powder (Trelegy Ellipta) gabapentin 300 mg capsule 300 mg PO TID 03/16/23 11/21/24 gabapentin 400 mg capsule 400 mg PO TID 03/16/23 11/21/24 lisinopril 5 mg tablet 5 mg PO DAILY 03/16/23 11/21/24 loratadine 10 mg tablet 10 mg PO DAILY 03/16/23 11/21/24 montelukast 10 mg tablet 10 mg PO DAILY 03/16/23 11/21/24 omeprazole 40 mg capsule,delayed 40 mg PO DAILY 03/16/23 11/21/24 release prednisone 10 mg tablet 10 mg PO DAILY 03/16/23 11/21/24 quetiapine 100 mg tablet 100 mg PO BEDTIME 03/16/23 11/21/24 Previous Rx's ?Medication ?Instructions ?Recorded nicotine 14 mg/24 hr daily 1 patch transdermal DAILY 28 days 03/16/23 transdermal patch #28 ea Allergies Allergy/AdvReac Type Severity Reaction Status Date / Time No Known Allergies Allergy Verified 11/21/24 12:03 Review of Systems Review of Systems: Yes all other systems are reviewed and are negative [facility] Past Medical History Medical History (Updated 11/21/24 @ 19:11 by Thomas Graves DO) Epidermal inclusion cyst Lesion of skin of breast Pulmonary emboli COPD (chronic obstructive pulmonary disease) Lupus CHF (congestive heart failure) Surgical History History of surgical removal of skin lesion (~10/18/24) Social History Social History Patient Tobacco Use Status: Current everyday Tobacco user Tobacco use type: Cigarette Years Smoked: 20+ Years Substance Use Type: Marijuana Advance Directives: No Advance Directives Information Provided: No Physical Exam ED Vital Signs: Vital Signs - 24 hr 11/21/24 11:59 11/21/24 16:32 Temperature 97.8 F 97.2 F Pulse Rate 98 95 Respiratory Rate 18 18 Blood Pressure 100/61 125/58 L Pulse Oximetry 100 96 Oxygen Delivery Method Nasal Cannula Nasal Cannula Oxygen Flow Rate 2 BMI result Body Mass Index 37.9 Constitutional: ?Alert, oriented, speaking in full sentences, appears to be in mild discomfort, appears chronically deconditioned HEENT: ?Normocephalic, atraumatic. ?Moist mucous membranes Eyes: ?PERRL, EOMI Neck: ?Supple, nontender Chest: ?No chest wall tenderness Respiratory: ?Lungs clear to auscultation, no increased work of breathing Cardio: ?Regular rate and rhythm, no murmur, 2+ radial and DP pulses symmetrically GI: ?Soft, generalized abdominal tenderness, nondistended Back: ?Normal range of motion, nontender Skin: ?No rash, no lesions Neuro: ?Alert and oriented to person, place and time, moves all 4 extremities, no focal deficits Extremities: ?No swelling or tenderness, full range of motion Psych: ?Calm, alert and cooperative, appropriate behavior Course Course Course Narrative: This is an RME: Additional HPI, ROS, PE not included below will be deferred to primary provider. RME assessment and note performed by: Carla Pearce PA-C This is a [id number]-female with a hx of CHF, PE (unsure if she is still on AC), COPD, lupus, who presents to the ER with complaints of shortness of breath. Patient reports that she had an outpatient surgical appointment for suture removal, states that while she was in the office she felt hot, dizzy, nauseous. She does endorse some nausea. No cough. No abdominal pain. Recently admitted to [facility] for elevated heart rate and low blood pressure then was discharged to rehab. She is currently on oxygen, 2 L at baseline. Plan: Labs, ekg, cxr, further ER eval needed Medications Administered Discontinued Medications Generic Name Dose Route Start Last Admin Trade Name Zaire PRN Reason Stop Dose Admin Acetaminophen 1,000 mg in 100 mls @ 400 mls/hr 11/21/24 17:09 11/21/24 18:41 Ofirmev IV 11/21/24 17:23 Infused ONCE ONE Infusion Iohexol 100 ml 11/21/24 18:16 11/21/24 18:16 Iohexol 350 Mg/Ml 100 Ml Infus..Btl IV 11/21/24 18:17 85 ml ONCE ONE Administration Ondansetron HCl 4 mg 11/21/24 17:07 11/21/24 18:06 Ondansetron Hcl 4 Mg/2 Ml Vial IVPUSH 11/21/24 17:08 4 mg ONCE ONE Administration Medical Decision Making Medical Decision Making [facility] Narrative: Patient presenting with signs and symptoms consistent with near syncope without clear etiology. Vital signs are overall unremarkable here and the patient appears to be in mild distress, holding emesis bag. We will treat with IV acetaminophen and ondansetron. Given the abdominal surgical history and tenderness as well as nausea, CT imaging of the abdomen pelvis will be pursued for further evaluation. Overall the labs do not appear significantly remarkable. CT findings showed no bowel obstruction. There are incidental findings including a 3.9 cm aneurysm. Patient was not aware of an aneurysm in the past. We will provide instructions to follow up for this for re-evaluation. She also has a fibroid. No vaginal bleeding today. She is now hungry, asking for something the eat and drink. Her symptoms have resolved and she feels comfortable with returning home. Return precautions provided. Admission/Observation Consideration of admission/observation: Escalation of care including admission/observation considered Lab Data MDM Lab Attestation statement: I reviewed the patient's lab results. Chemistry shows baseline CKD, unremarkable electrolytes, mild elevation of AST of 52, mild elevation of troponin to 6.0, mild hypoalbuminemia at 3.0, INR of 1.5, hemoglobin of 10.0 with last checked here at 12.5, previous of 11.4 a year and a half ago, negative respiratory swab. Second troponin unremarkable. 11/21/24 15:10 11/21/24 15:10 Labs: Lab Results 11/21/24 11/21/24 Range/Units 15:10 17:27 WBC 5.8 (4.8-10.8) X10*3/uL RBC 3.92 L (4.20-5.50) X10*6/uL Hgb 10.0 L (12.0-16.0) g/dl Hct 34.3 L (37.0-47.0) % MCV 87.5 (80.0-98.0) fL MCH 25.5 L (27.0-33.0) pg MCHC 29.2 L (31.0-35.0) g/dl RDW 16.4 H (11.0-16.0) % Plt Count 310 D (160-400) X10*3/uL MPV 10.4 (9.4-12.3) fL Immature Gran % (Auto) 0.2 (0.0-0.4) % Neut % (Auto) 46.3 (45-73) % Lymph % (Auto) 33.6 (20-40) % [place] % (Auto) 13.9 H (2-11) % Eos % (Auto) 5.5 H (0-4) % Baso % (Auto) 0.5 (0-2) % Lymph # (Auto) 2.0 (1.2-4.9) X10*3/uL [place] # (Auto) 0.8 (0.1-1.2) X10*3/uL Eos # (Auto) 0.3 (0.0-0.4) X10*3/uL Baso # (Auto) 0.0 (0.0-0.2) X10*3/uL Abs Immat Gran (auto) 0.01 (0.00-0.03) X10*3/uL Absolute Neuts (auto) 2.7 (2.0-8.3) x10*3/uL Absolute Nucleated RBC 0.000 (0.0-0.012) X10*3/uL Nucleated RBC % (auto) 0.0 (0.0-0.2) /100WBC PT 17.3 H (10.9-12.4) SEC INR 1.5 H (0.9-1.1) Sodium 136 (135-145) mmol/L Potassium 4.5 (3.3-5.1) mmol/L Chloride 101 (96-108) mmol/L Carbon Dioxide 25 (22-29) mmol/L Anion Gap 15 (12-20) BUN 9 (9-16) mg/dL Creatinine 1.47 H (0.5-1.4) mg/dL Estim Creat Clear Calc 45.2 Estimated GFR 35 Random Glucose 103 (60-115) mg/dL Calcium 9.2 (8.4-10.2) mg/dL Magnesium 1.8 (1.6-2.6) mg/dL Total Bilirubin 0.3 (0.0-1.0) mg/dL Direct Bilirubin 0.1 (0.0-0.5) mg/dL AST 52 H (5-31) U/L ALT 10 (0-31) U/L Alkaline Phosphatase 107 (39-117) U/L Troponin I High Sens 6.0 4.4 (<3.5-17.0) ng/L B-Natriuretic Peptide 21 (<100) pg/mL Total Protein 7.1 (6.5-8.0) g/dL Albumin 3.0 L (3.5-5.0) g/dL Influenza Type A (PCR) NEGATIVE (Negative) Influenza Type B (PCR) NEGATIVE (Negative) RSV RNA Qual (PCR) NEGATIVE (Negative) SARS-CoV-2 RNA (RT-PCR) NEGATIVE (Negative) Independent Interpretation I performed an independent interpretation of an: EKG and Plain X-Ray (Chest x-ray per my independent interpretation shows no acute cardiopulmonary abnormalities.) Interpretation: Sinus tachycardia 101 beats per minute, left axis deviation with borderline left bundle branch block, no diagnostic ST wave abnormalities, nonspecific T-wave flattening, no prior for comparison. Radiology Impression Discussion of test interpretation with radiology: I discussed test interpretation with the radiologist Discharge Plan Discharge Clinical Impression: Nausea, Constipation, Aortic aneurysm Patient Disposition: Home, Self-Care Instructions: Constipation (ED), Acute Nausea and Vomiting (ED), Near Syncope (ED) Additional Instructions: You have been evaluated for nausea and dizziness that improved with Zofran. We also treat her pain with Tylenol. Your labs and CT imaging showed no acute abnormalities. You do have some constipation which he should treat with MiraLax at home and drink plenty of fluids. You also have incidental findings which are listed below which include a 3.9 cm aneurysm and a fibroid of your uterus. This requires routine follow-up with your primary care provider and possibly eventually a vascular surgeon as well as an house shorer. If you have any worsening nausea, persistent vomiting, persistent dizziness, falls, or any other acute concerns, please return to the emergency department. CT scan IMPRESSION: 1. 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 2. No small bowel obstruction. 3. 3 cm fibroid of the left margin of the uterus. Prescriptions: No Action carvedilol 6.25 mg tablet 6.25 mg PO BID Eliquis 5 mg tablet 5 mg PO BID loratadine 10 mg tablet 10 mg PO DAILY omeprazole 40 mg capsule,delayed release(DR/EC) 40 mg PO DAILY Trelegy Ellipta 200-62.5-25 mcg blister with device 1 ea inhalation DAILY albuterol sulfate 90 mcg/actuation HFA aerosol inhaler 2 puff inhalation QID lisinopril 5 mg tablet 5 mg PO DAILY quetiapine 100 mg tablet 100 mg PO BEDTIME gabapentin 400 mg capsule 400 mg PO TID prednisone 10 mg tablet 10 mg PO DAILY ferrous sulfate 325 mg (65 mg iron) tablet 325 mg PO DAILY aspirin 81 mg tablet,delayed release (DR/EC) 81 mg PO DAILY duloxetine 30 mg capsule,delayed release(DR/EC) 30 mg PO DAILY gabapentin 300 mg capsule 300 mg PO TID montelukast 10 mg tablet 10 mg PO DAILY atorvastatin 80 mg tablet 80 mg PO BEDTIME (DME) CPAP Machine/Device Device See Rx Instructions .Route Rx Instructions: As directed nicotine 14 mg/24 hr patch 24 hour 1 patch transdermal DAILY 28 Days Qty: 28 3RF Print Language: Yi
--- NOTE | 2024-11-21 12:06 | ECG_ITS ---
Test Reason : SOB Blood Pressure : */* mmHG Vent. Rate : 101 BPM Atrial Rate : 101 BPM P-R Int : 152 ms QRS Dur : 98 ms QT Int : 370 ms P-R-T Axes : 90 -39 77 degrees QTcB Int : 479 ms Sinus tachycardia Left axis deviation Nonspecific T wave abnormality Abnormal ECG No previous ECGs available Referred By: Carla Pearce Electronically Signed By: LEFTY JACOBSEN
[2024-11-21 15:15] LABS: MANUAL DIFF FLAG NO
[2024-11-21 15:17] LABS: Basophils Percent Auto 0.5 % (0-2); Eosinophils Absolute Auto 0.3 X10*3/uL (0.0-0.4); Eosinophils Percent Auto 5.5 % (0-4); Hematocrit 34.3 % (37.0-47.0); Imm Gran Abs Auto 0.01 X10*3/uL (0.00-0.03); Imm Gran Pct Auto 0.2 % (0.0-0.4); Lymphocytes Percent Auto 33.6 % (20-40); Mean Corpuscular HGB Conc 29.2 g/dl (31.0-35.0); Mean Corpuscular Hemoglobin 25.5 pg (27.0-33.0); Mean Corpuscular Volume 87.5 fL (80.0-98.0); Mean Platelet Volume 10.4 fL (9.4-12.3); Monocytes Absolute Auto 0.8 X10*3/uL (0.1-1.2); Monocytes Percent Auto 13.9 % (2-11); Neutrophils Absolute Auto 2.7 x10*3/uL (2.0-8.3); Neutrophils Percent Auto 46.3 % (45-73); Platelet Count 310 X10*3/uL (160-400); Red Blood Count 3.92 X10*6/uL (4.20-5.50); Red Cell Distribution Width 16.4 % (11.0-16.0); White Blood Count 5.8 X10*3/uL (4.8-10.8)
[2024-11-21 15:36] LABS: B Type Natriuretic Peptide 21 pg/mL (<100)
[2024-11-21 15:38] LABS: Alanine Aminotransferase 10 U/L (0-31); Alkaline Phosphatase 107 U/L (39-117); Anion Gap 15 (12-20); Aspartate Amino Transferase 52 U/L (5-31); Bilirubin Direct 0.1 mg/dL (0.0-0.5); Bilirubin Total 0.3 mg/dL (0.0-1.0); Blood Urea Nitrogen 9 mg/dL (9-16); Calcium 9.2 mg/dL (8.4-10.2); Carbon Dioxide 25 mmol/L (22-29); Chloride 101 mmol/L (96-108); Creatinine Clr Calc Pharmacy 45.2; Estimated Glomerular Filt Rate 35; Glucose Random 103 mg/dL (60-115); Magnesium 1.8 mg/dL (1.6-2.6); Potassium 4.5 mmol/L (3.3-5.1); Sodium 136 mmol/L (135-145); Total Protein 7.1 g/dL (6.5-8.0)
[2024-11-21 15:41] LABS: INTERNATIONAL NORM RATIO 1.5 (0.9-1.1); Prothrombin Time 17.3 SEC (10.9-12.4)
[2024-11-21 16:08] LABS: Influenza A PCR NEGATIVE (Negative); Influenza B PCR NEGATIVE (Negative); Resp Syncy Virus RNA Qual PCR NEGATIVE (Negative); SARS COV2 PCR INHOUSE NEGATIVE (Negative)
[2024-11-21 16:32] VITALS: BP 125/58; PULSE 95; RESP 18; TEMP 36.2; O2SAT 96
--- OUTSIDE RECORDS SUMMARY | 2024-11-21 17:55 | XMS_ITS | Encounter Summary ---
Author Organization [facility] Address [address] [place] [address] Care Team Providers Care Approver Name Role Phone Osmar Gramajo MD Primary Care Provider Encounter Details Date Type Department Care Team (Late st Contact Info) Description 11/08/[address] [facility] - Main Lab 299 [facility] [place] [address] Juan Carlos Mayers [address] [facility] [phone] [place] [address] Encounter for screening for diabetes mellitus; Ischemic cardiomyopathy; Essential (primary) hypertension; Other chronic pain; Depression, unspecified; Hyperlipidemia, unspecified; Anemia, unspecified; Systemic lupus erythematosus, unspecified (CMS/HCC); Unspecified asthma, uncomplicated; Atherosclerotic heart disease of [place] coronary artery without angina pectoris; Gastro-esophageal reflux [...] Unspecified asthma, uncomplicated Atherosclerotic heart disease of [place] coronary artery without angina pectoris Gastro-esophageal reflux disease without esophagitis Bacteremia Hypotension, unspecified CBC WITH AUTO DIFFERENTIAL Routine 11/08/2024 7:15 AM EST Encounter for screening for diabetes mellitus Ischemic cardiomyopathy Essential (primary) hypertension Other chronic pain Depression, unspecified Hyperlipidemia, unspecified Anemia, unspecified Systemic lupus erythematosus, unspecified (CMS/HCC) Unspecified asthma, uncomplicated Atherosclerotic heart disease of [place] coronary artery without angina pectoris Gastro-esophageal reflux disease without esophagitis Bacteremia Hypotension, unspecified CBC AND DIFFERENTIAL Routine 11/08/2024 7:15 AM EST Encounter for screening for diabetes mellitus Ischemic cardiomyopathy Essential (primary) hypertension Other chronic pain Depression, unspecified Hyperlipidemia, unspecified Anemia, unspecified Systemic lupus erythematosus, unspecified (CMS/HCC) Unspecified asthma, uncomplicated Atherosclerotic heart disease of [place] coronary artery without angina pectoris Gastro-esophageal reflux disease without esophagitis Bacteremia Hypotension, unspecified HEMOGLOBIN A1C Routine 11/08/2024 7:15 AM EST Encounter for screening for diabetes mellitus Ischemic cardiomyopathy Essential (primary) hypertension Other chronic pain Depression, unspecified Hyperlipidemia, unspecified Anemia, unspecified Systemic lupus erythematosus, unspecified (CMS/HCC) Unspecified asthma, uncomplicated Atherosclerotic heart disease of [place] coronary artery without angina pectoris Gastro-esophageal reflux disease without esophagitis Bacteremia Hypotension, unspecified COMPREHENSIVE METABOLIC PANEL Routine 11/08/2024 7:15 AM EST Encounter for screening for diabetes mellitus Ischemic cardiomyopathy Essential (primary) hypertension Other chronic pain Depression, unspecified Hyperlipidemia, unspecified Anemia, unspecified Systemic lupus erythematosus, unspecified (CMS/HCC) Unspecified asthma, uncomplicated Atherosclerotic heart disease of [place] coronary artery without angina pectoris Gastro-esophageal reflux disease without esophagitis Bacteremia Hypotension, unspecified documented in this encounter Results * (ABNORMAL) CBC auto differential (11/08/2024 7:15 AM EST) WBC 5.4 4.8 - 10.8 K/[facility] LAB HEMETOLOGY METHOD 11/08/2024 10:37 AM EST [facility] LAB RBC 3.80 3.80 - 4.80 M/mcL LAB HEMETOLOGY METHOD 11/08/2024 10:37 AM EST [facility] LAB Hemoglobin 9.7(L) 11.5 - 16.0 g/dL LAB HEMETOLOGY METHOD 11/08/2024 10:37 AM [facility] LAB Hematocrit 34.0(L) 35.0 - 47.0 % LAB HEMETOLOGY METHOD 11/08/2024 10:37 AM [facility] LAB MCV 89.7 79.0 - 98.0 FL LAB HEMETOLOGY METHOD 11/08/2024 10:37 AM [facility] LAB MCH 25.6(L) 27.0 - 32.0 pcg LAB HEMETOLOGY METHOD 11/08/2024 10:37 AM [facility] LAB MCHC 28.5(L) 32.0 - 37.0 g/dL LAB HEMETOLOGY METHOD 11/08/2024 10:37 AM [facility] LAB RDW 15.3(H) 11.0 - 15.0 % LAB HEMETOLOGY METHOD 11/08/2024 10:37 AM [facility] LAB Platelets 251 130 - 400 K/mcL LAB HEMETOLOGY METHOD 11/08/2024 10:37 AM [facility] LAB MPV 11.3(H) 7.0 - 11.0 FL LAB HEMETOLOGY METHOD 11/08/2024 10:37 AM [facility] LAB NRBC 0.0 <1.0 % LAB HEMETOLOGY METHOD 11/08/2024 10:37 AM [facility] LAB NRBC Absolute 0.00 <0.10 K/mcL LAB HEMETOLOGY METHOD 11/08/2024 10:37 AM [facility] LAB Neutrophils Relative 55.4 % LAB HEMETOLOGY METHOD 11/08/2024 10:37 AM [facility] LAB Lymphocytes Relative 26.5 % LAB HEMETOLOGY METHOD 11/08/2024 10:37 AM [facility] LAB Monocytes Relative 15.1 % LAB HEMETOLOGY METHOD 11/08/2024 10:37 AM EST [facility] LAB Eosinophils Relative 2.4 % LAB HEMETOLOGY METHOD 11/08/2024 10:37 AM [facility] LAB Basophils Relative 0.4 % LAB HEMETOLOGY METHOD 11/08/2024 10:37 AM [facility] LAB Immature Granulocytes Relative 0.2 % LAB HEMETOLOGY METHOD 11/08/2024 10:37 AM EST [facility] LAB Neutrophils Absolute 3.02 1.50 - 7.00 K/mcL LAB HEMETOLOGY METHOD 11/08/2024 10:37 AM [facility] LAB Lymphocytes Absolute 1.44 1.00 - 5.00 K/mcL LAB HEMETOLOGY METHOD 11/08/2024 10:37 AM [facility] LAB Monocytes Absolute 0.82 0.20 - 1.00 K/mcL LAB HEMETOLOGY METHOD 11/08/2024 10:37 AM EST [facility] LAB Eosinophils Absolute 0.13 0.00 - 0.50 K/mcL LAB HEMETOLOGY METHOD 11/08/2024 10:37 AM EST [facility] LAB Basophils Absolute 0.02 0.00 - 0.20 K/mcL LAB HEMETOLOGY METHOD 11/08/2024 10:37 AM [facility] LAB Immature Granulocytes Absolute 0.01 0.00 - 0.03 K/mcL LAB HEMETOLOGY METHOD 11/08/2024 10:37 AM EST [facility] LAB Blood Venous blood specimen / Unknown Venipuncture / Unknown 11/08/2024 7:15 AM EST 11/08/2024 9:19 AM EST Juan Carlos Mayers LAB BLOOD ORDERABLES [facility] LAB [address] [place] [address], * Hemoglobin A1c (11/08/2024 7:15 AM EST) Pathologist [facility] Hemoglobin A1C 6.1 <6.5 % LAB CHEMISTRY METHOD 11/08/2024 8:50 PM [facility] LAB Mean Bld Glu Estim. 128 mg/dL LAB CHEMISTRY METHOD 11/08/2024 8:50 PM [facility] LAB Blood Venous blood specimen / Unknown Venipuncture / Unknown 11/08/2024 7:15 AM EST 11/08/2024 9:19 AM EST Juan Carlos Mayers LAB BLOOD ORDERABLES [facility] [address] [place] [address], * (ABNORMAL) Lipid panel with reflex to direct LDL (11/08/2024 7:15 AM EST) [facility] Cholesterol 68 0 - 200 mg/dL LAB CHEMISTRY METHOD 11/08/2024 11:32 AM [facility] LAB Triglycerides 136 0 - 150 mg/dL LAB CHEMISTRY METHOD 11/08/2024 11:32 AM [facility] LAB HDL 21(L) >=40 mg/dL LAB CHEMISTRY METHOD 11/08/2024 11:32 AM [facility] LAB LDL Calculated 20 0 - 100 mg/dL LAB CHEMISTRY METHOD 11/08/2024 11:32 AM [facility] LAB VLDL Cholesterol Enio 27.2 mg/dL LAB CHEMISTRY METHOD 11/08/2024 11:32 AM [facility] LAB Non HDL Chol. (LDL+VLDL) 47 <145 mg/dL LAB CHEMISTRY METHOD 11/08/2024 11:32 AM [facility] LAB Chol/HDL Ratio 3.2 0.0 - 4.4 LAB CHEMISTRY METHOD 11/08/2024 11:32 AM [facility] LAB Blood Venous blood specimen / Unknown Venipuncture / Unknown 11/08/2024 7:15 AM EST 11/08/2024 9:19 AM EST Juan Carlos Mayers LAB BLOOD ORDERABLES [facility] [address] [place] [address], * (ABNORMAL) Comprehensive metabolic panel (11/08/2024 7:15 AM EST) Pathologist [facility] Sodium 136 133 - 145 mmol/L LAB CHEMISTRY METHOD 11/08/2024 11:39 AM [facility] LAB Potassium 3.2(L) 3.5 - 5.5 mmol/L LAB CHEMISTRY METHOD 11/08/2024 11:39 AM [facility] LAB Chloride 100 96 - 110 mmol/L LAB CHEMISTRY METHOD 11/08/2024 11:39 AM [facility] LAB CO2 28 21 - 32 mmol/L LAB CHEMISTRY METHOD 11/08/2024 11:39 AM [facility] LAB Anion Gap 8 3 - 11 LAB CHEMISTRY METHOD 11/08/2024 11:39 AM [facility] LAB Glucose 102(H) 70 - 100 mg/dL LAB CHEMISTRY METHOD 11/08/2024 11:39 AM [facility] LAB BUN 4(L) 5 - 25 mg/dL LAB CHEMISTRY METHOD 11/08/2024 11:39 AM [facility] LAB Creatinine 1.82(H) 0.50 - 1.10 mg/dL LAB CHEMISTRY METHOD 11/08/2024 11:39 AM [facility] LAB eGFR 30(L) >=60 mL/min/1. 73m2 LAB CHEMISTRY METHOD 11/08/2024 11:39 AM [facility] LAB Comment:Calculation based on the??Chronic Kidney Disease Epidemiology Collaboration (CKD-EPI) equation refit??without adjustment for race. BUN/Creatinine Ratio 2.2 LAB CHEMISTRY METHOD 11/08/2024 11:39 AM [facility] LAB Calcium 9.1 8.5 - 10.5 mg/dL LAB CHEMISTRY METHOD 11/08/2024 11:39 AM [facility] LAB AST (SGOT) 49(H) 10 - 42 unit/L LAB CHEMISTRY METHOD 11/08/2024 11:39 AM [facility] LAB ALT (SGPT) 40 10 - 60 unit/L LAB CHEMISTRY METHOD 11/08/2024 11:39 AM [facility] LAB Alkaline Phosphatase 96 42 - 121 unit/L LAB CHEMISTRY METHOD 11/08/2024 11:39 AM [facility] LAB Total Protein 5.6(L) 6.0 - 8.0 g/dL LAB CHEMISTRY METHOD 11/08/2024 11:39 AM [facility] LAB Albumin 2.4(L) 3.2 - 5.0 g/dL LAB CHEMISTRY METHOD 11/08/2024 11:39 AM [facility] LAB Total Bilirubin 0.4 0.0 - 1.4 mg/dL LAB CHEMISTRY METHOD 11/08/2024 11:39 AM [facility] LAB Blood Venous blood specimen / Unknown Venipuncture / Unknown 11/08/2024 7:15 AM EST 11/08/2024 9:19 AM EST Juan Carlos Figueroaeast [place] LAB BLOOD ORDERABLES [facility] [address] [place] [address], documented in this encounter Visit Diagnoses Diagnosis Encounter for screening for diabetes mellitus Ischemic cardiomyopathy Other specified forms of chronic ischemic heart disease Essential (primary) hypertension Unspecified essential hypertension Other chronic pain Depression, unspecified Hyperlipidemia, unspecified Anemia, unspecified Systemic lupus erythematosus, unspecified (CMS/HCC) Unspecified asthma, uncomplicated Atherosclerotic heart disease of [place] coronary artery without angina pectoris Gastro-esophageal reflux disease without esophagitis Bacteremia Hypotension, unspecified documented in this encounter Care Teams Approver Relationship Specialty Start Date End Date Osmar Gramajo MD [address] [place], [place] PCP - General Pulmonary Disease 04/20/17 documented as of this encounter
--- OUTSIDE RECORDS SUMMARY | 2024-11-21 17:55 | XMS_ITS | Encounter Summary ---
Author Organization [facility] Address [address] [place] [address] Care Team Providers Care Corporation Secretary Name Role Phone Osmar Gramajo MD Primary Care Provider Encounter Details Date Type Department Care Team (Late st Contact Info) Description 11/14/2024 Lab Requisition [facility] - Main Lab 299 [facility] [place] [address] Juan Carlos Mayers [address] [facility] [phone] [place] [address] Gastro-esophageal reflux disease without esophagitis; Hyperlipidemia, unspecified; Anemia, unspecified; Atherosclerotic heart disease of [place] coronary artery without angina pectoris; Essential (primary) [...] unspecified Anemia, unspecified Atherosclerotic heart disease of [place] coronary artery without angina pectoris Essential (primary) hypertension CBC WITH AUTO DIFFERENTIAL Routine 11/15/2024 8:14 AM EST Gastro-esophageal reflux disease without esophagitis Hyperlipidemia, unspecified Anemia, unspecified Atherosclerotic heart disease of [place] coronary artery without angina pectoris Essential (primary) hypertension CBC AND DIFFERENTIAL Routine 11/15/2024 8:14 AM EST Gastro-esophageal reflux disease without esophagitis Hyperlipidemia, unspecified Anemia, unspecified Atherosclerotic heart disease of [place] coronary artery without angina pectoris Essential (primary) hypertension HEMOGLOBIN A1C Routine 11/15/2024 8:14 AM EST Gastro-esophageal reflux disease without esophagitis Hyperlipidemia, unspecified Anemia, unspecified Atherosclerotic heart disease of [place] coronary artery without angina pectoris Essential (primary) hypertension COMPREHENSIVE METABOLIC PANEL Routine 11/15/2024 8:14 AM EST Gastro-esophageal reflux disease without esophagitis Hyperlipidemia, unspecified Anemia, unspecified Atherosclerotic heart disease of [place] coronary artery without angina pectoris Essential (primary) hypertension documented in this encounter Results * (ABNORMAL) CBC auto differential (11/15/2024 8:14 AM EST) [facility] WBC 5.1 4.8 - 10.8 K/mcL LAB HEMETOLOGY METHOD 11/15/2024 11:49 AM [facility] LAB RBC 3.40(L) 3.80 - 4.80 M/mcL LAB HEMETOLOGY METHOD 11/15/2024 11:49 AM [facility] LAB Hemoglobin 8.7(L) 11.5 - 16.0 g/dL LAB HEMETOLOGY METHOD 11/15/2024 11:49 AM [facility] LAB Hematocrit 30.5(L) 35.0 - 47.0 % LAB HEMETOLOGY METHOD 11/15/2024 11:49 AM [facility] LAB MCV 90.0 79.0 - 98.0 FL LAB HEMETOLOGY METHOD 11/15/2024 11:49 AM [facility] LAB MCH 25.7(L) 27.0 - 32.0 pcg LAB HEMETOLOGY METHOD 11/15/2024 11:49 AM [facility] LAB MCHC 28.5(L) 32.0 - 37.0 g/dL LAB HEMETOLOGY METHOD 11/15/2024 11:49 AM [facility] LAB RDW 16.1(H) 11.0 - 15.0 % LAB HEMETOLOGY METHOD 11/15/2024 11:49 AM [facility] LAB Platelets 319 130 - 400 K/mcL LAB HEMETOLOGY METHOD 11/15/2024 11:49 AM [facility] LAB MPV 10.6 7.0 - 11.0 FL LAB HEMETOLOGY METHOD 11/15/2024 11:49 AM [facility] LAB NRBC 0.4 <1.0 % LAB HEMETOLOGY METHOD 11/15/2024 11:49 AM [facility] LAB NRBC Absolute 0.02 <0.10 K/mcL LAB HEMETOLOGY METHOD 11/15/2024 11:49 AM [facility] LAB Neutrophils Relative 49.2 % LAB HEMETOLOGY METHOD 11/15/2024 11:49 AM [facility] LAB Lymphocytes Relative 33.7 % LAB HEMETOLOGY METHOD 11/15/2024 11:49 AM [facility] LAB Monocytes Relative 11.6 % LAB HEMETOLOGY METHOD 11/15/2024 11:49 AM [facility] LAB Eosinophils Relative 4.5 % LAB HEMETOLOGY METHOD 11/15/2024 11:49 AM [facility] LAB Basophils Relative 0.4 % LAB HEMETOLOGY METHOD 11/15/2024 11:49 AM [facility] LAB Immature Granulocytes Relative 0.6 % LAB HEMETOLOGY METHOD 11/15/2024 11:49 AM [facility] LAB Neutrophils Absolute 2.49 1.50 - 7.00 K/mcL LAB HEMETOLOGY METHOD 11/15/2024 11:49 AM [facility] LAB Lymphocytes Absolute 1.71 1.00 - 5.00 K/mcL LAB HEMETOLOGY METHOD 11/15/2024 11:49 AM [facility] LAB Monocytes Absolute 0.59 0.20 - 1.00 K/mcL LAB HEMETOLOGY METHOD 11/15/2024 11:49 AM EST [facility] LAB Eosinophils Absolute 0.23 0.00 - 0.50 K/[facility] LAB HEMETOLOGY METHOD 11/15/2024 11:49 AM [facility] LAB Basophils Absolute 0.02 0.00 - 0.20 K/mcL LAB HEMETOLOGY METHOD 11/15/2024 11:49 AM EST [facility] Immature Granulocytes Absolute 0.03 0.00 - 0.03 K/[facility] LAB HEMETOLOGY METHOD 11/15/2024 11:49 AM [facility] LAB Blood Venous blood specimen / Unknown Venipuncture / Unknown 11/15/2024 8:14 AM EST 11/15/2024 11:18 AM EST Juan Carlos Mayers LAB BLOOD ORDERABLES Performing Organization Address City/[facility]/ZIP Co de Phone Number [facility] [address] [place] [address], [place] [phone] * Hemoglobin A1c (11/15/2024 8:14 AM EST) Hemoglobin A1C 6.1 <6.5 % LAB CHEMISTRY METHOD 11/15/2024 2:22 PM [facility] Mean Bld Glu Estim. 128 mg/dL LAB CHEMISTRY METHOD 11/15/2024 2:22 PM EST [facility] Blood Venous blood specimen / Unknown Venipuncture / Unknown 11/15/2024 8:14 AM EST 11/15/2024 11:18 AM EST Juan Carlos Mayers LAB BLOOD ORDERABLES Performing Organization Address City/[facility]/ZIP Co de Phone Number [facility] [address] [place] [address], [place] [phone] * (ABNORMAL) Lipid panel with reflex to direct LDL (11/15/2024 8:14 AM EST) Cholesterol 69 0 - 200 mg/dL LAB CHEMISTRY METHOD 11/15/2024 12:25 PM EST [facility] Triglycerides 132 0 - 150 mg/dL LAB CHEMISTRY METHOD 11/15/2024 12:25 PM [facility] HDL 24(L) >=40 mg/dL LAB CHEMISTRY METHOD 11/15/2024 12:25 PM [facility] LDL Calculated 19 0 - 100 mg/dL LAB CHEMISTRY METHOD 11/15/2024 12:25 PM [facility] VLDL Cholesterol Enio 26.4 mg/dL LAB CHEMISTRY METHOD 11/15/2024 12:25 PM [facility] Non HDL Chol. (LDL+VLDL) 45 <145 mg/dL LAB CHEMISTRY METHOD 11/15/2024 12:25 PM [facility] Chol/HDL Ratio 2.9 0.0 - 4.4 LAB CHEMISTRY METHOD 11/15/2024 12:25 PM [facility] Blood Venous blood specimen / Unknown Venipuncture / Unknown 11/15/2024 8:14 AM EST 11/15/2024 11:16 AM EST Juan Carlos Mayers LAB BLOOD ORDERABLES [facility] [address] [place] [address], * (ABNORMAL) Comprehensive metabolic panel (11/15/2024 8:14 AM EST) [facility] Sodium 137 133 - 145 mmol/L LAB CHEMISTRY METHOD 11/15/2024 12:25 PM [facility] Potassium 3.4(L) 3.5 - 5.5 mmol/L LAB CHEMISTRY METHOD 11/15/2024 12:25 PM [facility] Chloride 101 96 - 110 mmol/L LAB CHEMISTRY METHOD 11/15/2024 12:25 PM [facility] CO2 29 21 - 32 mmol/L LAB CHEMISTRY METHOD 11/15/2024 12:25 PM [facility] Anion Gap 7 3 - 11 LAB CHEMISTRY METHOD 11/15/2024 12:25 PM [facility] Glucose 134(H) 70 - 100 mg/dL LAB CHEMISTRY METHOD 11/15/2024 12:25 PM [facility] BUN 9 5 - 25 mg/dL LAB CHEMISTRY METHOD 11/15/2024 12:25 PM [facility] Creatinine 1.56(H) 0.50 - 1.10 mg/dL LAB CHEMISTRY METHOD 11/15/2024 12:25 PM [facility] eGFR 36(L) >=60 mL/min/1. 73m2 LAB CHEMISTRY METHOD 11/15/2024 12:25 PM [facility] Comment:Calculation based on the??Chronic Kidney Disease Epidemiology Collaboration (CKD-EPI) equation refit??without adjustment for race. BUN/Creatinine Ratio 5.8 LAB CHEMISTRY METHOD 11/15/2024 12:25 PM [facility] Calcium 8.6 8.5 - 10.5 mg/dL LAB CHEMISTRY METHOD 11/15/2024 12:25 PM [facility] AST (SGOT) 35 10 - 42 unit/L LAB CHEMISTRY METHOD 11/15/2024 12:25 PM [facility] ALT (SGPT) 23 10 - 60 unit/L LAB CHEMISTRY METHOD 11/15/2024 12:25 PM [facility] Alkaline Phosphatase 99 42 - 121 unit/L LAB CHEMISTRY METHOD 11/15/2024 12:25 PM [facility] Total Protein 5.6(L) 6.0 - 8.0 g/dL LAB CHEMISTRY METHOD 11/15/2024 12:25 PM [facility] Albumin 2.3(L) 3.2 - 5.0 g/dL LAB CHEMISTRY METHOD 11/15/2024 12:25 PM EST [facility] Total Bilirubin 0.3 0.0 - 1.4 mg/dL LAB CHEMISTRY METHOD 11/15/2024 12:25 PM EST [facility] Blood Venous blood specimen / Unknown Venipuncture / Unknown 11/15/2024 8:14 AM EST 11/15/2024 11:16 AM EST Juan Carlos Mayers LAB BLOOD ORDERABLES [facility] [address] [place] [address], documented in this encounter Visit Diagnoses Diagnosis Gastro-esophageal reflux disease without esophagitis Hyperlipidemia, unspecified Anemia, unspecified Atherosclerotic heart disease of [place] coronary artery without angina pectoris Essential (primary) hypertension Unspecified essential hypertension documented in this encounter Care Teams Corporation Secretary Relationship Specialty Start Date End Date Osmar Gramajo MD [address] [place], [place] PCP - General Pulmonary Disease 04/20/17 documented as of this encounter
--- OUTSIDE RECORDS SUMMARY | 2024-11-21 17:55 | XMS_ITS | Clinical Summary ---
Author Organization [facility] Address [address] [place] [address] Phone Care Team Providers Care Bot[employer] Laboratory Assistant Name Role Phone Unique Carrillo MD Primary [...] Visit [facility] [address] [phone] Deonte Roland MD [address] [address] Health Maintenance Due Date Last [...] topic Insurance ([id number]) MCR ([id number]) [place] [id number] Care Teams Botany Laboratory Assistant Relationship Specialty Start Date End Date Unique Carrillo MD [address] [place] [address] [place] [address] PCP - General Internal Medicine 03/07/24
--- OUTSIDE RECORDS SUMMARY | 2024-11-21 17:55 | XMS_ITS | Encounter Summary ---
Author Organization [facility] Address [address] [place] [address] Care Team Providers Care School Photographs Detailer Name Role Phone Osmar Gramajo MD Primary Care Provider Encounter Details Date Type Department Care Team (Latest Contact Info) Description 11/06/2024 Lab Requisition [facility] - Main Lab [address] [facility] [employer] [place] [address] Juan Carlos Mayers [address] [facility] [phone] [place] [address] Atherosclerotic heart disease of tribal coronary artery without angina pectoris; Essential (primary) [...] 6:08 AM EST Atherosclerotic heart disease of tribal coronary artery without angina pectoris Essential (primary) hypertension CBC AND DIFFERENTIAL Routine 11/06/2024 6:08 AM EST Atherosclerotic heart disease of tribal coronary artery without angina pectoris Essential (primary) hypertension THYROID STIMULATING HORMONE Routine 11/06/2024 6:08 AM EST Atherosclerotic heart disease of tribal coronary artery without angina pectoris Essential (primary) hypertension FOLATE Routine 11/06/2024 6:08 AM EST Atherosclerotic heart disease of tribal coronary artery without angina pectoris Essential (primary) hypertension VITAMIN B12 Routine 11/06/2024 6:08 AM EST Atherosclerotic heart disease of tribal coronary artery without angina pectoris Essential (primary) hypertension COMPREHENSIVE METABOLIC PANEL Routine 11/06/2024 6:08 AM EST Atherosclerotic heart disease of tribal coronary artery without angina pectoris Essential (primary) hypertension documented in this encounter Results * (ABNORMAL) CBC auto differential (11/06/2024 6:08 AM EST) [facility] WBC 5.2 4.8 - 10.8 K/mcL LAB [...] LAB HEMETOLOGY METHOD 11/06/2024 9:55 AM EST [facility] LAB Basophils Absolute 0.03 0.00 - 0.20 K/[facility] LAB HEMETOLOGY METHOD 11/06/2024 9:55 AM EST [facility] Immature Granulocytes Absolute 0.02 0.00 - 0.03 K/[facility] LAB HEMETOLOGY METHOD 11/06/2024 9:55 AM EST [facility] Blood Venous blood specimen / Unknown Venipuncture / Unknown 11/06/2024 6:08 AM EST 11/06/2024 9:04 AM EST Juan Carlos Mayers LAB BLOOD ORDERABLES Performing Organization Address City/[facility]/ZIP Co de Phone Number [facility] [address] [place] [address], * Vitamin B12 (11/06/2024 6:08 AM EST) Vitamin B-12 830 250 - 900 pcg/mL LAB CHEMISTRY METHOD 11/06/2024 11:00 AM EST [facility] Blood Venous blood specimen / Unknown Venipuncture / Unknown 11/06/2024 6:08 AM EST 11/06/2024 9:04 AM EST Juan Carlos Mayers LAB BLOOD ORDERABLES [facility] [address] [place] [address], * Thyroid stimulating hormone (11/06/2024 6:08 AM EST) TSH 3.31 0.40 - 4.00 mcIU/mL LAB CHEMISTRY METHOD 11/06/2024 10:42 AM EST [facility] Blood Venous blood specimen / Unknown Venipuncture / Unknown 11/06/2024 6:08 AM EST 11/06/2024 9:04 AM EST Juan Carlos Figueroanigel LAB BLOOD ORDERABLES Performing Organization Address City/[facility]/ZIP Co de Phone Number [facility] [address] [place] [address], * Folate (11/06/2024 6:08 AM EST) Pathologist [facility] Folate 5.4 2.8 - 17.0 ng/ml LAB CHEMISTRY METHOD 11/06/2024 11:00 AM [facility] Blood Venous blood specimen / Unknown Venipuncture / Unknown 11/06/2024 6:08 AM EST 11/06/2024 9:04 AM EST [place] LAB BLOOD ORDERABLES Performing Organization Address [facility]/ZIP Co de Phone Number [facility] [address] [place] [address], * (ABNORMAL) Comprehensive metabolic panel (11/06/2024 6:08 AM EST) [facility] Sodium 139 133 - 145 mmol/L LAB [...] EST Juan Carlos Mayers LAB BLOOD ORDERABLES [facility] [address] [place] [address], documented in this encounter Visit Diagnoses Diagnosis Atherosclerotic heart disease of tribal coronary artery without angina pectoris Essential (primary) hypertension Unspecified essential hypertension documented in this encounter Care Teams School Photographs Detailer Relationship Specialty Start Date End Date Osmar Gramajo MD [address] [place], [place] PCP - General Pulmonary Disease 04/20/17 documented as of this encounter
--- OUTSIDE RECORDS SUMMARY | 2024-11-21 17:55 | XMS_ITS | Encounter Summary ---
Author Organization [facility] Address [address] [place] [address] Care Team Providers Care Jazz Singer Name Role Phone Osmar Gramajo MD Primary Care Provider Encounter Details Date Type Department Care Team (Late st Contact Info) Description 11/12/2024 Lab Requisition [facility] - Main Lab [address] [facility] [place] [address] Juan Carlos Mayers [address] [facility] [phone] [place] [address] Shortness of breath; Bacteremia Social [...] LAB CHEMISTRY METHOD 11/12/2024 12:[address] [facility] Blood Venous blood specimen / Unknown Venipuncture / Unknown 11/12/2024 9:24 AM EST 11/12/2024 11:45 AM EST Juan Carlos Mayers LAB BLOOD ORDERABLES [facility] [address] [place] [address], * (ABNORMAL) Basic metabolic panel (11/12/2024 9:24 AM EST) Sodium 137 133 - 145 mmol/L LAB CHEMISTRY METHOD 11/12/2024 12:24 PM [facility] Potassium 3.4(L) 3.5 - 5.5 mmol/L LAB CHEMISTRY METHOD 11/12/2024 12:24 PM [facility] Chloride 101 96 - 110 mmol/L LAB CHEMISTRY METHOD 11/12/2024 12:24 PM [facility] CO2 28 21 - 32 mmol/L LAB CHEMISTRY METHOD 11/12/2024 12:24 PM [facility] Anion Gap 8 3 - 11 LAB CHEMISTRY METHOD 11/12/2024 12:24 PM [facility] Glucose 121(H) 70 - 100 mg/dL LAB CHEMISTRY METHOD 11/12/2024 12:24 PM [facility] BUN 9 5 - 25 mg/dL LAB CHEMISTRY METHOD 11/12/2024 12:24 PM [facility] Creatinine 1.65(H) 0.50 - 1.10 mg/dL LAB CHEMISTRY METHOD 11/12/2024 12:24 PM [facility] LAB eGFR 34(L) >=60 mL/min/1. 73m2 LAB CHEMISTRY METHOD 11/12/2024 12:24 PM [facility] LAB Comment:Calculation based on the??Chronic Kidney Disease Epidemiology Collaboration (CKD-EPI) equation refit??without adjustment for race. BUN/Creatinine Ratio 5.5 LAB CHEMISTRY METHOD 11/12/2024 12:24 PM [facility] Calcium 9.1 8.5 - 10.5 mg/dL LAB CHEMISTRY METHOD 11/12/2024 12:24 PM [facility] Blood Venous blood specimen / Unknown Venipuncture / Unknown 11/12/2024 9:24 AM EST 11/12/2024 11:45 AM EST Juan Carlos Mayers LAB BLOOD ORDERABLES [facility] [address] [place] [address], * (ABNORMAL) Complete blood count (11/12/2024 9:24 AM EST) WBC 6.8 4.8 - 10.8 K/mcL LAB HEMETOLOGY METHOD 11/12/2024 12:02 PM [facility] RBC 3.60(L) 3.80 - 4.80 M/mcL LAB HEMETOLOGY METHOD 11/12/2024 12:02 PM [facility] Hemoglobin 9.5(L) 11.5 - 16.0 g/dL LAB HEMETOLOGY METHOD 11/12/2024 12:02 PM [facility] Hematocrit 33.5(L) 35.0 - 47.0 % LAB HEMETOLOGY METHOD 11/12/2024 12:02 PM [facility] MCV 92.0 79.0 - 98.0 FL LAB HEMETOLOGY METHOD 11/12/2024 12:02 PM [facility] MCH 26.1(L) 27.0 - 32.0 pcg LAB HEMETOLOGY METHOD 11/12/2024 12:02 PM [facility] MCHC 28.4(L) 32.0 - 37.0 g/dL LAB HEMETOLOGY METHOD 11/12/2024 12:02 PM EST [facility] RDW 15.6(H) 11.0 - 15.0 % LAB HEMETOLOGY METHOD 11/12/2024 12:02 PM [facility] Platelets 315 130 - 400 K/mcL LAB HEMETOLOGY METHOD 11/12/2024 12:02 PM [facility] MPV 10.9 7.0 - 11.0 FL LAB HEMETOLOGY METHOD 11/12/2024 12:02 PM [facility] NRBC 0.0 <1.0 % LAB HEMETOLOGY METHOD 11/12/2024 12:02 PM [facility] NRBC Absolute 0.00 <0.10 K/mcL LAB HEMETOLOGY METHOD 11/12/2024 12:02 PM [facility] Blood Venous blood specimen / Unknown Venipuncture / Unknown 11/12/2024 9:24 AM EST 11/12/2024 11:45 AM EST [place] LAB BLOOD ORDERABLES [facility] [address] [place] [id number], documented in this encounter Visit Diagnoses Diagnosis Shortness of breath Bacteremia documented in this encounter Care Teams Jazz Singer Relationship Specialty Start Date End Date Osmar Gramajo MD [address] [place], [place] PCP - General Pulmonary Disease 04/20/17 documented as of this encounter
[2024-11-21 17:56] LABS: Troponin-I High Sensitivity 4.4 ng/L (<3.5-17.0)
--- OUTSIDE RECORDS SUMMARY | 2024-11-21 17:56 | XMS_ITS | Encounter Summary ---
Author Organization [facility] Address [address] [place] [address] Care Team Providers Care Conference Reservationist Name Role Phone Osmar Gramajo MD Primary Care Provider Encounter Details Date Type Department Care Team (Late st Contact Info) Description 11/21/2024 Lab Requisition [facility] - Main Lab [address] [facility] [place] [address] Juan Carlos Mayers [address] [facility] [phone] [place] [address] Gastro-esophageal reflux disease without esophagitis; Hyperlipidemia, unspecified; Anemia, unspecified; 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; Essential (primary) hypertension Social History Tobacco Use Types Packs/Day Years Used Date Smoking Tobacco: Never Assessed Sex and Gender Information Value Date Recorded Sex Assigned at Not on file Gender Identity Not on file Sexual Orientation Not on file documented as of this encounter Plan of Treatment Scheduled Orders Name Type Priority Associated Diagnoses Orde r Schedule CBC and differential Lab Routine Gastro-esophageal reflux disease without esophagitis Hyperlipidemia, unspecified Anemia, unspecified 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 Essential (primary) hypertension Ordered: 11/21/2024 Comprehensive metabolic panel Lab Routine Gastro-esophageal reflux disease without esophagitis Hyperlipidemia, unspecified Anemia, unspecified 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 Essential (primary) hypertension Ordered: 11/21/2024 Lipid panel Lab Routine Gastro-esophageal reflux disease without esophagitis Hyperlipidemia, unspecified Anemia, unspecified 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 Essential (primary) hypertension Ordered: 11/21/2024 Hemoglobin A1c Lab Routine Gastro-esophageal reflux disease without esophagitis Hyperlipidemia, unspecified Anemia, unspecified 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
--- OUTSIDE RECORDS SUMMARY | 2024-11-21 17:56 | XMS_ITS | Clinical Summary ---
Author Organization [address] Address [address] [place] [address] Phone Care Team Providers Care Entry Level Programmer Name Role Phone Osmar Gramajo MD Primary Care Provider Encounters Date Type Department Care Team Description 11/21/2024 Lab Requisition [facility] - Main Lab [address] [place] [phone] Juan Carlos Mayers Gastro-esophageal reflux disease without esophagitis; Hyperlipidemia, unspecified; Anemia, unspecified; Atherosclerotic heart disease of [place] coronary artery without angina pectoris; Essential (primary) hypertension 11/14/2024 Lab Requisition [facility] Lab [address] [place] [phone] Juan Carlos Mayers Gastro-esophageal reflux disease without esophagitis; Hyperlipidemia, unspecified; Anemia, unspecified; Atherosclerotic heart disease of [place] coronary artery without angina pectoris; Essential (primary) hypertension 11/12/2024 Lab Requisition [facility] Lab [address] [place] [phone] Juan Carlos Mayers Shortness of breath; Bacteremia 11/08/2024 Lab Requisition [facility] Lab [address] [place] [phone] Juan Carlos Mayers Encounter for screening for diabetes mellitus; Ischemic cardiomyopathy; Essential (primary) hypertension; Other chronic pain; Depression, unspecified; Hyperlipidemia, unspecified; Anemia, unspecified; Systemic lupus erythematosus, unspecified (CMS/HCC); Unspecified asthma, uncomplicated; Atherosclerotic heart disease of [place] coronary artery without angina pectoris; Gastro-esophageal reflux disease without esophagitis; Bacteremia; Hypotension, unspecified 11/06/2024 Lab Requisition [facility] - Main Lab [address] [facility] [place] [phone] Juan Carlos Mayers Atherosclerotic heart disease of [place] coronary artery without angina pectoris; Essential (primary) [...] unspecified Anemia, unspecified Atherosclerotic heart disease of [place] coronary artery without angina pectoris Essential (primary) hypertension HEMOGLOBIN A1C Routine 11/15/2024 8:14 AM EST Gastro-esophageal reflux disease without esophagitis Hyperlipidemia, unspecified Anemia, unspecified Atherosclerotic heart disease of [place] coronary artery without angina pectoris Essential (primary) hypertension LIPID PANEL WITH REFLEX TO DIRECT LDL Routine 11/15/2024 8:14 AM EST Gastro-esophageal reflux disease without esophagitis Hyperlipidemia, unspecified Anemia, unspecified Atherosclerotic heart disease of [place] coronary artery without angina pectoris Essential (primary) hypertension COMPREHENSIVE METABOLIC PANEL Routine 11/15/2024 8:14 AM EST Gastro-esophageal reflux disease without esophagitis Hyperlipidemia, unspecified Anemia, unspecified Atherosclerotic heart disease of [place] coronary artery without angina pectoris Essential (primary) hypertension CBC AND DIFFERENTIAL Routine 11/15/2024 8:14 AM EST Gastro-esophageal reflux disease without esophagitis Hyperlipidemia, unspecified Anemia, unspecified Atherosclerotic heart disease of [place] coronary artery without angina pectoris Essential (primary) [...] Unspecified asthma, uncomplicated Atherosclerotic heart disease of [place] coronary artery without angina pectoris Gastro-esophageal reflux disease without esophagitis Bacteremia Hypotension, unspecified HEMOGLOBIN A1C Routine 11/08/2024 7:15 AM EST Encounter for screening for diabetes mellitus Ischemic cardiomyopathy Essential (primary) hypertension Other chronic pain Depression, unspecified Hyperlipidemia, unspecified Anemia, unspecified Systemic lupus erythematosus, unspecified (CMS/HCC) Unspecified asthma, uncomplicated Atherosclerotic heart disease of [place] coronary artery without angina pectoris Gastro-esophageal reflux disease without esophagitis Bacteremia Hypotension, unspecified LIPID PANEL WITH REFLEX TO DIRECT LDL Routine 11/08/2024 7:15 AM EST Encounter for screening for diabetes mellitus Ischemic cardiomyopathy Essential (primary) hypertension Other chronic pain Depression, unspecified Hyperlipidemia, unspecified Anemia, unspecified Systemic lupus erythematosus, unspecified (CMS/HCC) Unspecified asthma, uncomplicated Atherosclerotic heart disease of [place] coronary artery without angina pectoris Gastro-esophageal reflux disease without esophagitis Bacteremia Hypotension, unspecified COMPREHENSIVE METABOLIC PANEL Routine 11/08/2024 7:15 AM EST Encounter for screening for diabetes mellitus Ischemic cardiomyopathy Essential (primary) hypertension Other chronic pain Depression, unspecified Hyperlipidemia, unspecified Anemia, unspecified Systemic lupus erythematosus, unspecified (CMS/HCC) Unspecified asthma, uncomplicated Atherosclerotic heart disease of [place] coronary artery without angina pectoris Gastro-esophageal reflux disease without esophagitis Bacteremia Hypotension, unspecified CBC AND DIFFERENTIAL Routine 11/08/2024 7:15 AM EST Encounter for screening for diabetes mellitus Ischemic cardiomyopathy Essential (primary) hypertension Other chronic pain Depression, unspecified Hyperlipidemia, unspecified Anemia, unspecified Systemic lupus erythematosus, unspecified (CMS/HCC) Unspecified asthma, uncomplicated Atherosclerotic heart disease of [place] coronary artery without angina pectoris Gastro-esophageal reflux disease without esophagitis Bacteremia Hypotension, unspecified CBC WITH AUTO DIFFERENTIAL Routine 11/06/2024 6:08 AM EST Atherosclerotic heart disease of [place] coronary artery without angina pectoris Essential (primary) hypertension VITAMIN B12 Routine 11/06/2024 6:08 AM EST Atherosclerotic heart disease of [place] coronary artery without angina pectoris Essential (primary) hypertension THYROID STIMULATING HORMONE Routine 11/06/2024 6:08 AM EST Atherosclerotic heart disease of [place] coronary artery without angina pectoris Essential (primary) hypertension FOLATE Routine 11/06/2024 6:08 AM EST Atherosclerotic heart disease of [place] coronary artery without angina pectoris Essential (primary) hypertension COMPREHENSIVE METABOLIC PANEL Routine 11/06/2024 6:08 AM EST Atherosclerotic heart disease of [place] coronary artery without angina pectoris Essential (primary) hypertension CBC AND DIFFERENTIAL Routine 11/06/2024 6:08 AM EST Atherosclerotic heart disease of [place] coronary artery without angina pectoris Essential (primary) [...] mg/dL LAB CHEMISTRY METHOD 11/15/2024 12:25 PM [facility] Non HDL Chol. (LDL+VLDL) 45 <145 mg/dL LAB CHEMISTRY METHOD 11/15/2024 12:25 PM [facility] Chol/HDL Ratio 2.9 0.0 - 4.4 LAB CHEMISTRY METHOD 11/15/2024 12:25 PM [facility] Blood Venous blood specimen / Unknown Venipuncture / Unknown 11/15/2024 8:14 AM EST 11/15/2024 11:16 AM EST Juan Carlos Mayers LAB BLOOD ORDERABLES [facility] [address] [place] [address], * (ABNORMAL) CBC auto differential (11/15/2024 8:14 AM EST) Only the most recent of3 resultswithin the time period is included. WBC 5.1 4.8 - 10.8 K/mcL LAB HEMETOLOGY METHOD 11/15/2024 11:49 AM [facility] RBC 3.40(L) 3.80 - 4.80 M/[facility] LAB HEMETOLOGY METHOD 11/15/2024 11:49 AM [facility] Hemoglobin 8.7(L) 11.5 - 16.0 g/dL LAB HEMETOLOGY METHOD 11/15/2024 11:49 AM [facility] Hematocrit 30.5(L) 35.0 - 47.0 % LAB HEMETOLOGY METHOD 11/15/2024 11:49 AM [facility] MCV 90.0 79.0 - 98.0 FL LAB HEMETOLOGY METHOD 11/15/2024 11:49 AM [facility] MCH 25.7(L) 27.0 - 32.0 pcg LAB HEMETOLOGY METHOD 11/15/2024 11:49 AM [facility] MCHC 28.5(L) 32.0 - 37.0 g/dL LAB HEMETOLOGY METHOD 11/15/2024 11:49 AM [facility] RDW 16.1(H) 11.0 - 15.0 % LAB HEMETOLOGY METHOD 11/15/2024 11:49 AM [facility] Platelets 319 130 - 400 K/mcL LAB HEMETOLOGY METHOD 11/15/2024 11:49 AM [facility] MPV 10.6 7.0 - 11.0 FL LAB HEMETOLOGY METHOD 11/15/2024 11:49 AM [facility] NRBC 0.4 <1.0 % LAB HEMETOLOGY METHOD 11/15/2024 11:49 AM [facility] NRBC Absolute 0.02 <0.10 K/mcL LAB HEMETOLOGY METHOD 11/15/2024 11:49 AM [facility] Neutrophils Relative 49.2 % LAB HEMETOLOGY METHOD 11/15/2024 11:49 AM [facility] Lymphocytes Relative 33.7 % LAB HEMETOLOGY METHOD 11/15/2024 11:49 AM [facility] Monocytes Relative 11.6 % LAB HEMETOLOGY METHOD 11/15/2024 11:49 AM [facility] Eosinophils Relative 4.5 % LAB HEMETOLOGY METHOD 11/15/2024 11:49 AM [facility] Basophils Relative 0.4 % LAB HEMETOLOGY METHOD 11/15/2024 11:49 AM [facility] Immature Granulocytes Relative 0.6 % LAB HEMETOLOGY METHOD 11/15/2024 11:49 AM [facility] Neutrophils Absolute 2.49 1.50 - 7.00 K/mcL LAB HEMETOLOGY METHOD 11/15/2024 11:49 AM [facility] Lymphocytes Absolute 1.71 1.00 - 5.00 K/mcL LAB HEMETOLOGY METHOD 11/15/2024 11:49 AM EST [facility] Monocytes Absolute 0.59 0.20 - 1.00 K/[facility] LAB HEMETOLOGY METHOD 11/15/2024 11:49 AM EST [facility] Eosinophils Absolute 0.23 0.00 - 0.50 K/[facility] LAB HEMETOLOGY METHOD 11/15/2024 11:49 AM EST [facility] Basophils Absolute 0.02 0.00 - 0.20 K/[facility] LAB HEMETOLOGY METHOD 11/15/2024 11:49 AM EST [facility] Immature Granulocytes Absolute 0.03 0.00 - 0.03 K/[facility] LAB HEMETOLOGY METHOD 11/15/2024 11:49 AM [facility] Blood Venous blood specimen / Unknown Venipuncture / Unknown 11/15/2024 8:14 AM EST 11/15/2024 11:18 AM EST Juan Carlos Mayers LAB BLOOD ORDERABLES Performing Organization Address City/[facility]/ZIP Co de Phone Number [facility] [address] [place] [address], * Hemoglobin A1c (11/15/2024 8:14 AM EST) [...] LAB BLOOD ORDERABLES [facility] [address] [place] [address], [place] [phone] * (ABNORMAL) Comprehensive metabolic panel (11/15/2024 8:14 AM EST) Only the most recent of3 resultswithin the time period is included. Sodium 137 133 - 145 mmol/L LAB CHEMISTRY METHOD 11/15/2024 12:25 PM [facility] Potassium 3.4(L) 3.5 - 5.5 mmol/L LAB CHEMISTRY METHOD 11/15/2024 12:25 PM [facility] Chloride 101 96 - 110 mmol/L LAB CHEMISTRY METHOD 11/15/2024 12:25 PM [facility] CO2 29 21 - 32 mmol/L LAB CHEMISTRY METHOD 11/15/2024 12:25 PM [facility] Anion Gap 7 3 - 11 LAB CHEMISTRY METHOD 11/15/2024 12:25 PM [facility] Glucose 134(H) 70 - 100 mg/dL LAB CHEMISTRY METHOD 11/15/2024 12:25 PM [facility] BUN 9 5 - 25 mg/dL LAB CHEMISTRY METHOD 11/15/2024 12:25 PM [facility] Creatinine 1.56(H) 0.50 - 1.10 mg/dL LAB CHEMISTRY METHOD 11/15/2024 12:25 PM [facility] eGFR 36(L) >=60 mL/min/1. 73m2 LAB CHEMISTRY METHOD 11/15/2024 12:25 PM [facility] Comment:Calculation based on the??Chronic Kidney Disease Epidemiology Collaboration (CKD-EPI) equation refit??without adjustment for race. BUN/Creatinine Ratio 5.8 LAB CHEMISTRY METHOD 11/15/2024 12:25 PM [facility] Calcium 8.6 8.5 - 10.5 mg/dL LAB CHEMISTRY METHOD 11/15/2024 12:25 PM EST [facility] AST (SGOT) 35 10 - 42 unit/L LAB CHEMISTRY METHOD 11/15/2024 12:25 PM [facility] ALT (SGPT) 23 10 - 60 unit/L LAB CHEMISTRY METHOD 11/15/2024 12:25 PM [facility] Alkaline Phosphatase 99 42 - 121 unit/L LAB CHEMISTRY METHOD 11/15/2024 12:25 PM [facility] Total Protein 5.6(L) 6.0 - 8.0 g/dL LAB CHEMISTRY METHOD 11/15/2024 12:25 PM [facility] Albumin 2.3(L) 3.2 - 5.0 g/dL LAB CHEMISTRY METHOD 11/15/2024 12:25 PM [facility] Total Bilirubin 0.3 0.0 - 1.4 mg/dL LAB CHEMISTRY METHOD 11/15/2024 12:25 PM [facility] Blood Venous blood specimen / Unknown Venipuncture / Unknown 11/15/2024 8:14 AM EST 11/15/2024 11:16 AM EST Juan Carlos Mayers LAB BLOOD ORDERABLES [facility] [address] [place] [address], * (ABNORMAL) Complete blood count (11/12/2024 9:24 AM EST) WBC 6.8 4.8 - 10.8 K/mcL LAB HEMETOLOGY METHOD 11/12/2024 12:02 PM [facility] RBC 3.60(L) 3.80 - 4.80 M/mcL LAB HEMETOLOGY METHOD 11/12/2024 12:02 PM [facility] Hemoglobin 9.5(L) 11.5 - 16.0 g/dL LAB HEMETOLOGY METHOD 11/12/2024 12:02 PM [facility] Hematocrit 33.5(L) 35.0 - 47.0 % LAB HEMETOLOGY METHOD 11/12/2024 12:02 PM [facility] MCV 92.0 79.0 - 98.0 FL LAB HEMETOLOGY METHOD 11/12/2024 12:02 PM [facility] MCH 26.1(L) 27.0 - 32.0 pcg LAB HEMETOLOGY METHOD 11/12/2024 12:02 PM [facility] MCHC 28.4(L) 32.0 - 37.0 g/dL LAB HEMETOLOGY METHOD 11/12/2024 12:02 PM [facility] RDW 15.6(H) 11.0 - 15.0 % LAB HEMETOLOGY METHOD 11/12/2024 12:02 PM [facility] Platelets 315 130 - 400 K/mcL LAB HEMETOLOGY METHOD 11/12/2024 12:02 PM [facility] MPV 10.9 7.0 - 11.0 FL LAB HEMETOLOGY METHOD 11/12/2024 12:02 PM [facility] NRBC 0.0 <1.0 % LAB HEMETOLOGY METHOD 11/12/2024 12:02 PM [facility] NRBC Absolute 0.00 <0.10 K/mcL LAB HEMETOLOGY METHOD 11/12/2024 12:02 PM [facility] Blood Venous blood specimen / Unknown Venipuncture / Unknown 11/12/2024 9:24 AM EST 11/12/2024 11:45 AM EST Juan Carlos Mayers LAB BLOOD ORDERABLES [facility] [address] [place] [address], * B-type natriuretic peptide (11/12/2024 9:24 AM EST) BNP 16 <=100 pcg/mL LAB CHEMISTRY METHOD 11/12/2024 12:30 PM [facility] Blood Venous blood specimen / Unknown Venipuncture / Unknown 11/12/2024 9:24 AM EST 11/12/2024 11:45 AM EST Juan Carlos Mayers LAB BLOOD ORDERABLES [facility] [address] [place] [address], * (ABNORMAL) Basic metabolic panel (11/12/2024 9:24 AM EST) Pathologist [facility] Sodium 137 133 - 145 mmol/L LAB CHEMISTRY METHOD 11/12/2024 12:24 PM [facility] Potassium 3.4(L) 3.5 - 5.5 mmol/L LAB CHEMISTRY METHOD 11/12/2024 12:24 PM [facility] Chloride 101 96 - 110 mmol/L LAB CHEMISTRY METHOD 11/12/2024 12:24 PM [facility] CO2 28 21 - 32 mmol/L LAB CHEMISTRY METHOD 11/12/2024 12:24 PM [facility] Anion Gap 8 3 - 11 LAB CHEMISTRY METHOD 11/12/2024 12:24 PM [facility] Glucose 121(H) 70 - 100 mg/dL LAB CHEMISTRY METHOD 11/12/2024 12:24 PM [facility] BUN 9 5 - 25 mg/dL LAB CHEMISTRY METHOD 11/12/2024 12:24 PM [facility] Creatinine 1.65(H) 0.50 - 1.10 mg/dL LAB CHEMISTRY METHOD 11/12/2024 12:24 PM [facility] eGFR 34(L) >=60 mL/min/1. 73m2 LAB CHEMISTRY METHOD 11/12/2024 12:24 PM [facility] Comment:Calculation based on the??Chronic Kidney Disease Epidemiology Collaboration (CKD-EPI) equation refit??without adjustment for race. BUN/Creatinine Ratio 5.5 LAB CHEMISTRY METHOD 11/12/2024 12:24 PM [facility] Calcium 9.1 8.5 - 10.5 mg/dL LAB CHEMISTRY METHOD 11/12/2024 12:24 PM [facility] Blood Venous blood specimen / Unknown Venipuncture / Unknown 11/12/2024 9:24 AM EST 11/12/2024 11:45 AM EST Juan Carlos Mayers LAB BLOOD ORDERABLES Performing Organization Address City/[facility]/ZIP Co de Phone Number [facility] [address] [place] [address], * Thyroid stimulating hormone (11/06/2024 6:08 AM EST) TSH 3.31 0.40 - 4.00 mcIU/mL LAB CHEMISTRY METHOD 11/06/2024 10:42 AM EST [facility] Blood Venous blood specimen / Unknown Venipuncture / Unknown 11/06/2024 6:08 AM EST 11/06/2024 9:04 AM EST Juan Carlos Mayers LAB BLOOD ORDERABLES [facility] [address] [place] [address], [place] [phone] * Folate (11/06/2024 6:08 AM EST) Folate 5.4 2.8 - 17.0 ng/ml LAB CHEMISTRY METHOD 11/06/2024 11:00 AM [facility] Blood Venous blood specimen / Unknown Venipuncture / Unknown 11/06/2024 6:08 AM EST 11/06/2024 9:04 AM EST Juan Carlos Valadez Talib LAB BLOOD ORDERABLES Performing Organization Address City/[facility]/ZIP Co de Phone Number [facility] [address] [place] [address], * Vitamin B12 (11/06/2024 6:08 AM EST) Vitamin B-12 830 250 - 900 pcg/mL LAB CHEMISTRY METHOD 11/06/2024 11:00 AM EST [facility] Blood Venous blood specimen / Unknown Venipuncture / Unknown 11/06/2024 6:08 AM EST 11/06/2024 9:04 AM EST Juan Carlos Valadez [place] LAB BLOOD ORDERABLES Performing Organization Address [facility]/ZIP Co de Phone Number [facility] [address] [place] [address], * FLACO SCREENING DIGITAL (05/28/2021 2:31 PM EDT) Anatomical Region Laterality Modality Mammography 05/28/2021 2:09 PM EDT Narrative 05/28/2021 2:31 PM EDT [facility] Diagnostic Imaging Department [address] [place] [id number] Patient: ??MARCI FERNANDO ?/Age/Sex: 1955 - 65 - F Unit#: ??[id number] ? Location/Status: ??SPDIMAM/REG CLI ? Mnemonic/Ordering Site: ??DIGSC/SPMAM Ordering Physician: ??Dayanara GRAMAJO MD [facility] Screening Digital - 05/28/21 - 1427 EXAM: [facility] Screening Digital EXAM DATE AND TIME: 05/28/2021 2:21 PM HISTORY: ??Annual screening mammography COMPARISON: ??2016 through 08/16/2012 TECHNIQUE: CC and MLO views of both breasts were obtained using full field digital mammography. Bilateral digital breast tomosynthesis was performed in the MLO projection. 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 TISSUE DENSITY: b. There are [...] Routine screening mammogram BILATERAL in 1 year. [address], [address]99 3342F, 7025F Dictating Physician: ??YASHIRA VU MD Electronically Signed by: ??YASHIRA VU MD Dic Date/Time: ??05/28/21 1429 Sign date/Time: ??05/28/21 1431 Procedure Note Kim Vu MD - 10/20/2022 [facility] Diagnostic Imaging Department [address] [place] [address] Patient: MARCI FERNANDO /Age/Sex: 1955 - 65 - F Unit#: [id number] Location/Status: SPDIMAM/REG CLI Mnemonic/Ordering Site: [facility] Ordering Physician: Dayanara GRAMAJO MD [facility] Screening Digital - 05/28/21 - 1426 EXAM: [facility] Screening Digital EXAM DATE AND TIME: 05/28/2021 2:21 PM HISTORY: Annual screening mammography COMPARISON: 2016 through 08/16/2012 TECHNIQUE: CC and MLO views of both breasts were obtained using fullfield digital mammography. Bilateral digital breast tomosynthesis was performedin the MLO projection. 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 TISSUE DENSITY: b. There are scattered [...] Routine screening mammogram BILATERAL in 1 year. [address]0572, [id number] 3342F, 7025F Dictating Physician: YASHIRA VU MD Electronically Signed by: YASHIRA VU MD Dic Date/Time: 05/28/21 1429 Sign date/Time: 05/28/21 1431 Osmar Gramajo MD IMG BI PROCEDU RES from Last 3 Months or Most Recently Relevant to Health Maintenance Care Teams Entry Level Programmer Relationship Specialty Start Date End Date Osmar Gramajo MD [address] [place], [place] PCP - General Pulmonary Disease 04/20/17
[2024-11-21] MEDS: ondansetron HCL 4 MG/2 ML VIAL IVPUSH (18:06)
[2024-11-21] MEDS: iohexoL 350 MG/ML 100 ML INFUS..BTL IV (18:16)
[2024-11-21] MEDS: Acetaminophen 1,000 MG/100 ML PIGGYBACK 400 MG IV (18:24)
[2024-11-21 19:37] VITALS: BP 125/58; PULSE 95; RESP 18; TEMP 36.2; O2SAT 96
--- NOTE | 2024-11-26 07:31 | MHC.CM.ED ---
Received voicmail staing patient is active with [facility]. ER d/c summary faxed to [phone] as requested.
== END 2024-11-21 19:37 | disposition home or self-care (01) ==
PROVIDERS: Physician Assistant Medical; Emergency Provider Emergency Medicine; PCP Internal Medicine
DX: K59.00 Constipation, unspecified (principal); I71.9 Aortic aneurysm of unspecified site, without rupture; R42 Dizziness and giddiness; R11.2 Nausea with vomiting, unspecified; R00.0 Tachycardia, unspecified; R10.2 Pelvic and perineal pain; J44.9 Chronic obstructive pulmonary disease, unspecified; Z99.81 Dependence on supplemental oxygen; Z79.899 Other long term (current) drug therapy; Z03.818 Encounter for observation for suspected exposure to other biological agents ruled out
CPT/HCPCS: 0241U; 36415; 71046; 74177; 80048; 80076; 83735; 83880; 84484; 85025; 85610; 93005; 96365; 96375; 99212; 99284; J0131; J2405; Q9967

== ENCOUNTER → 2024-11-21 12:06 | Outpatient (BNV) | payer OTHER, SELFPAY | PROVIDERS: Emergency Provider Emergency Medicine; PCP Internal Medicine; Visit Provider Internal Medicine | DX: R00.0 Tachycardia, unspecified (principal) | CPT/HCPCS: 93010 ==

== ENCOUNTER → 2024-11-21 12:06 | Outpatient (BNV) | payer OTHER, SELFPAY | PROVIDERS: PCP Internal Medicine; Visit Provider Radiology Diagnostic Radiology | DX: R10.9 Unspecified abdominal pain (principal); R06.02 Shortness of breath | CPT/HCPCS: 71046; 74177 ==

== ENCOUNTER 2024-12-20 15:11 | Outpatient (AMB) | payer OTHER, SELFPAY ==
--- NOTE | 2024-12-20 15:13 | A.OFFVIS_ITS ---
Vital Signs 12/20/24 15:17 Height 5 ft 6 in Weight 252 lb BMI 40.7 Intake Visit Reasons: hypergranulation breast Intake Note: This patient presents for Hypergranulation?of breast. Pt c/o; reports open wound right breast , draining, It is not closing . Production Controller Required: No Accompanied by: Self / Same As Patient Allergies No Known Allergies Allergy (Verified 12/20/24 15:19) HPI HPI hypergranulation breast: Details: She had excision of an epidermal cyst from the breast near the nipple last September,. She says the excision site has had an open wound with some drainage. She describes some burning in the area. [facility] Medical History (Updated 12/20/24 @ 15:34 by Neil Sanchez MD) Hypergranulation Epidermal inclusion cyst Lesion of skin of breast Pulmonary emboli COPD (chronic obstructive pulmonary disease) Lupus CHF (congestive heart failure) Surgical History History of surgical removal of skin lesion (~10/18/24) Social History Patient Tobacco Use Status: Current everyday Tobacco user Tobacco use type: Cigarette Years Smoked: 20+ Years Substance Use Type: Marijuana Review of Systems Const Denies chills and Denies fever(s) Card Reports dyspnea on exertion Resp Reports dyspnea on exertion GI Denies abdominal pain Physical Exam Vital Signs: BMI result Body Mass Index 40.7 Const Other: Morbidly obese, using a walker General: comfortable and no acute distress Chest Other: Right breast excision site with note of an area of hypergranulation tissue, about 0.8 cm in diameter Office Procedures Cauterization - Skin lesions Skin Cauter Details: She was in reclining position. The area of hypergranulation, about 0.8 cm on the right breast on the previous excision site was cauterized using multiple si lver nitrate sticks. Dressings were then applied. There was no significant bleeding. She was instructed on good wound care Destruction: 20774- Chemical Cautery, Granulation Tissue Assessment & Plan Assessment & Plan (1) Hypergranulation: Code(s): L92.9 - Granulomatous disorder of the skin and subcutaneous tissue, unspecified Category: Medical Plan: She has this area of hypergranulation tissue on the excision site on the right breast. Therefore cauterized this using silver nitrate sticks. I instructed her on good wound care and draped dry dressings. I will see her again in the office in about 2-3 weeks. Coding Level of Care Code Procedure Only Diagnoses Hypergranulation L92.9 CPT Codes Skin Cauter - Destruction: 37464- Chemical Cautery, Granulation Tissue ([id number])
[2024-12-20 15:17] VITALS: BMI 40.7
--- OUTSIDE RECORDS SUMMARY | 2024-12-20 18:34 | XMS_ITS | Clinical Summary ---
Author Organization [facility] Address [address] [place] [phone] Phone Care Team Providers Care Medical Staff Director Name Role Phone Unique Carrillo MD Primary [...] Take 10 mg by mouth 2 Active predniSONE (DELTASONE) 10 MG tablet Take 2 tablets by mouth 1 (one) time each day 12/05/19 Discontinu ed(Alterna te therapy) carvedilol (COREG) 6.25 MG tablet Take 1 tablet (6.25 mg total) by mouth in the morning and 1 tablet (6.25 mg total) in the evening. Take with meals. 60 tablet 3 2 12/05/19 25 Discontinu ed(Alterna te therapy) lisinopril 5 MG tablet Take 1 tablet (5 mg total) by mouth 1 (one) time each day 30 tablet 3 2 12/05/19 25 Discontinu ed(Alterna te therapy) Active Problems Problem Noted Date Diagnosed Date [...] chronic kidney disease 11/18/2021 Renal osteodystrophy 11/18/2021 Encounters Date Type Department Care Team Description 12/05/2024 3:45 PM EST Office Visit [facility] [address] [phone] Deonte Roland MD Stage 3b chronic kidney disease (HCC) (Primary Dx); Renal osteodystrophy; Hypertensive disorder from Last 3 Months Immunizations Name Administration Dates Next Due Influenza, Quadrivalent, Preservative Free 10/06,01/29/2017 Influenza, Unspecified 01/25/2005 Moderna SARS-COV-2 10/06/2021,03/25/2021, 021 Pneumococcal Polysaccharide 01/29/2017, 5,01/25/2005 Family History Medical History Relation Comments Gout Father Kidney disease Father Heart disease Mother Relation Status Comments Father Mother Social History Tobacco Use Types Packs/Day Years Used Date Smoking Tobacco: Every Day Cigarettes 0.3 7.6 Started: 05/20/2017 Tobacco Cessation:Ready to Q uit: Not Asked; Counseling Given: Not Answered Alcohol Use Standard Drinks/Week Comments No 0 (1 standard drink = 0.6 oz pur e alcohol) Comments Unknown Sex and Gender Information Value Date Recorded Sex Assigned at Not on file Legal Sex Female 4:49 PM EST Gender Identity Not on file Sexual Orientation Not on file Last Filed Vital Signs Vital Sign Reading Time Taken Comments Blood Pressure 110/64 12/05/2024 3:54 PM EST Pulse 122 12/05/2024 3:54 PM EST Temperature - - Respiratory Rate - - Oxygen Saturation 97% 12/05/2024 3:54 PM EST Inhaled Oxygen Concentration - - Weight 113 kg (249 lb) 12/05/2024 3:54 PM EST Height - - Body Mass Index - - Plan of Treatment Upcoming Encounters Date Type Department Care Team (Late st Contact Info) Description 03/04/2025 10:15 AM EDT Office Visit [facility] [address] [place] [phone] Deonte Roland MD [address] [phone] Health Maintenance Due Date Last [...] patient's age to complete this topic Insurance [facility] ([id number]) [facility] ([id number]) Care Teams Medical Staff Director Relationship Specialty Start Date End Date Unique Carrillo MD [address] [place] [address] Dr [place], [place] [phone] PCP - General Internal Medicine 03/07/24
--- OUTSIDE RECORDS SUMMARY | 2024-12-20 18:34 | XMS_ITS | Encounter Summary ---
Author Organization [facility] Address [address] [place] [address] Care Team Providers Care Sawmill Worker Name Role Phone Osmar Gramajo MD Primary Care Provider Encounter Details Date Type Department Care Team (Late st Contact Info) Description 11/12/2024 Lab Requisition [facility] - Main Lab [address] [facility] [place] [address] Juan Carlos Mayers [address] [facility] [phone] [place] [address] Shortness of breath; Bacteremia Social History Tobacco Use Types Packs/Day Years Used Date Smoking Tobacco: Never Assessed Comments Unknown Sex and Gender Information Value Date Recorded Sex Assigned at Not on file Legal Sex Female 5:03 PM EST Gender Identity Not on file [...] pcg/mL LAB CHEMISTRY METHOD 11/12/2024 12:30 PM [facility] Blood Venous blood specimen / Unknown Venipuncture / Unknown 11/12/2024 9:24 AM EST 11/12/2024 11:45 AM EST Juan Carlos Mayers LAB BLOOD ORDERABLES Final Resul t [facility] [address] [place] [address], * (ABNORMAL) Basic metabolic panel (11/12/2024 9:24 AM EST) Sodium 137 133 - 145 mmol/L LAB CHEMISTRY METHOD 11/12/2024 12:24 PM [facility] Potassium 3.4(L) 3.5 - 5.5 mmol/L LAB CHEMISTRY METHOD 11/12/2024 12:24 PM [facility] Chloride 101 96 - 110 mmol/L LAB CHEMISTRY METHOD 11/12/2024 12:24 PM [facility] CO2 28 21 - 32 mmol/L LAB CHEMISTRY METHOD 11/12/2024 12:24 PM [facility] Anion Gap 8 3 - 11 LAB CHEMISTRY METHOD 11/12/2024 12:24 PM [facility] Glucose 121(H) 70 - 100 mg/dL LAB CHEMISTRY METHOD 11/12/2024 12:24 PM [facility] BUN 9 5 - 25 mg/dL LAB CHEMISTRY METHOD 11/12/2024 12:24 PM [facility] Creatinine 1.65(H) 0.50 - 1.10 mg/dL LAB CHEMISTRY METHOD 11/12/2024 12:24 PM [facility] eGFR 34(L) >=60 mL/min/1. 73m2 LAB CHEMISTRY METHOD 11/12/2024 12:24 PM [facility] Comment:Calculation based on the??Chronic Kidney Disease Epidemiology Collaboration (CKD-EPI) equation refit??without adjustment for race. BUN/Creatinine Ratio 5.5 LAB CHEMISTRY METHOD 11/12/2024 12:24 PM [facility] Calcium 9.1 8.5 - 10.5 mg/dL LAB CHEMISTRY METHOD 11/12/2024 12:24 PM [facility] Blood Venous blood specimen / Unknown Venipuncture / Unknown 11/12/2024 9:24 AM EST 11/12/2024 11:45 AM EST us Juan Carlos Mayers LAB BLOOD ORDERABLES Final Resul t [facility] [address] [place] [address], * (ABNORMAL) Complete blood count (11/12/2024 9:24 AM EST) WBC 6.8 4.8 - 10.8 K/mcL LAB HEMETOLOGY METHOD 11/12/2024 12:02 PM [facility] RBC 3.60(L) 3.80 - 4.80 M/mcL LAB HEMETOLOGY METHOD 11/12/2024 12:02 PM [facility] Hemoglobin 9.5(L) 11.5 - 16.0 g/dL LAB HEMETOLOGY METHOD 11/12/2024 12:02 PM [facility] Hematocrit 33.5(L) 35.0 - 47.0 % LAB HEMETOLOGY METHOD 11/12/2024 12:02 PM [facility] MCV 92.0 79.0 - 98.0 FL LAB HEMETOLOGY METHOD 11/12/2024 12:02 PM [facility] MCH 26.1(L) 27.0 - 32.0 pcg LAB HEMETOLOGY METHOD 11/12/2024 12:02 PM [facility] MCHC 28.4(L) 32.0 - 37.0 g/dL LAB HEMETOLOGY METHOD 11/12/2024 12:02 PM [facility] RDW 15.6(H) 11.0 - 15.0 % LAB HEMETOLOGY METHOD 11/12/2024 12:02 PM [facility] Platelets 315 130 - 400 K/mcL LAB HEMETOLOGY METHOD 11/12/2024 12:02 PM [facility] MPV 10.9 7.0 - 11.0 FL LAB HEMETOLOGY METHOD 11/12/2024 12:02 PM [facility] NRBC 0.0 <1.0 % LAB HEMETOLOGY METHOD 11/12/2024 12:02 PM [facility] NRBC Absolute 0.00 <0.10 K/mcL LAB HEMETOLOGY METHOD 11/12/2024 12:02 PM [facility] Blood Venous blood specimen / Unknown Venipuncture / Unknown 11/12/2024 9:24 AM EST 11/12/2024 11:45 AM EST Juan Carlos Fig[facility]ero[facility]obalt LAB BLOOD ORDERABLES Final Resul t [facility] [address] [place] [address], documented in this encounter Visit Diagnoses Diagnosis Shortness of breath Bacteremia documented in this encounter Care Teams Sawmill Worker Relationship Specialty Start Date End Date Osmar Gramajo MD [address] [place], [place] PCP - General Pulmonary Disease 04/20/17 documented as of this encounter
--- OUTSIDE RECORDS SUMMARY | 2024-12-20 18:34 | XMS_ITS | Clinical Summary ---
Author Organization [address] Address [address] [place] [address] Phone Care Team Providers Care Assistant Women'S Rowing Coach Name Role Phone Osmar Gramajo MD Primary Care Provider Encounters Date Type Department Care Team Description 11/21/[address] [facility] - Main Lab [address] [place] [phone] Juan Carlos Mayers Gastro-esophageal reflux disease without esophagitis; Hyperlipidemia, unspecified; Anemia, unspecified; Atherosclerotic heart disease of [place] coronary artery without angina pectoris; Essential (primary) hypertension 11/14/2024 Lab Requisition [facility] Lab [address] [place] [phone] Juan Carlos Mayers Gastro-esophageal reflux disease without esophagitis; Hyperlipidemia, unspecified; Anemia, unspecified; Atherosclerotic heart disease of [place] coronary artery without angina pectoris; Essential (primary) hypertension 11/12/2024 Lab Requisition [facility] Lab [address] [place] [phone] Juan Carlos Mayers Shortness of breath; Bacteremia 11/08/2024 Lab Requisition [facility] Lab [address] [place] [phone] Juan Carlos Mayers Encounter for screening for diabetes mellitus; Ischemic cardiomyopathy; Essential (primary) hypertension; Other chronic pain; Depression, unspecified; Hyperlipidemia, unspecified; Anemia, unspecified; Systemic lupus erythematosus, unspecified (CMS/HCC); Unspecified asthma, uncomplicated; Atherosclerotic heart disease of [place] coronary artery without angina pectoris; Gastro-esophageal reflux disease without esophagitis; Bacteremia; Hypotension, unspecified 11/06/[address] [facility] - Main Lab [address] [facility] [address] Juan Carlos Mayers Atherosclerotic heart disease of [place] coronary artery without angina pectoris; Essential (primary) [...] 60-74 years 1-dose series) 2016 Pneumococcal Vaccine: 50+ Years (2 of 2 - PCV) 01/29/2018 [...] patient's age to complete this topic Meningococcal B Vacine Aged Out No lo nger eligible based on patient's age to complete [...] unspecified Anemia, unspecified Atherosclerotic heart disease of [place] coronary artery without angina pectoris Essential (primary) hypertension HEMOGLOBIN A1C Routine 11/15/2024 8:14 AM EST Gastro-esophageal reflux disease without esophagitis Hyperlipidemia, unspecified Anemia, unspecified Atherosclerotic heart disease of [place] coronary artery without angina pectoris Essential (primary) hypertension LIPID PANEL WITH REFLEX TO DIRECT LDL Routine 11/15/2024 8:14 AM EST Gastro-esophageal reflux disease without esophagitis Hyperlipidemia, unspecified Anemia, unspecified Atherosclerotic heart disease of [place] coronary artery without angina pectoris Essential (primary) hypertension COMPREHENSIVE METABOLIC PANEL Routine 11/15/2024 8:14 AM EST Gastro-esophageal reflux disease without esophagitis Hyperlipidemia, unspecified Anemia, unspecified Atherosclerotic heart disease of [place] coronary artery without angina pectoris Essential (primary) hypertension CBC AND DIFFERENTIAL Routine 11/15/2024 8:14 AM EST Gastro-esophageal reflux disease without esophagitis Hyperlipidemia, unspecified Anemia, unspecified Atherosclerotic heart disease of [place] coronary artery without angina pectoris Essential (primary) [...] Unspecified asthma, uncomplicated Atherosclerotic heart disease of [place] coronary artery without angina pectoris Gastro-esophageal reflux disease without esophagitis Bacteremia Hypotension, unspecified HEMOGLOBIN A1C Routine 11/08/2024 7:15 AM EST Encounter for screening for diabetes mellitus Ischemic cardiomyopathy Essential (primary) hypertension Other chronic pain Depression, unspecified Hyperlipidemia, unspecified Anemia, unspecified Systemic lupus erythematosus, unspecified (CMS/HCC) Unspecified asthma, uncomplicated Atherosclerotic heart disease of [place] coronary artery without angina pectoris Gastro-esophageal reflux disease without esophagitis Bacteremia Hypotension, unspecified LIPID PANEL WITH REFLEX TO DIRECT LDL Routine 11/08/2024 7:15 AM EST Encounter for screening for diabetes mellitus Ischemic cardiomyopathy Essential (primary) hypertension Other chronic pain Depression, unspecified Hyperlipidemia, unspecified Anemia, unspecified Systemic lupus erythematosus, unspecified (CMS/HCC) Unspecified asthma, uncomplicated Atherosclerotic heart disease of [place] coronary artery without angina pectoris Gastro-esophageal reflux disease without esophagitis Bacteremia Hypotension, unspecified COMPREHENSIVE METABOLIC PANEL Routine 11/08/2024 7:15 AM EST Encounter for screening for diabetes mellitus Ischemic cardiomyopathy Essential (primary) hypertension Other chronic pain Depression, unspecified Hyperlipidemia, unspecified Anemia, unspecified Systemic lupus erythematosus, unspecified (CMS/HCC) Unspecified asthma, uncomplicated Atherosclerotic heart disease of [place] coronary artery without angina pectoris Gastro-esophageal reflux disease without esophagitis Bacteremia Hypotension, unspecified CBC AND DIFFERENTIAL Routine 11/08/2024 7:15 AM EST Encounter for screening for diabetes mellitus Ischemic cardiomyopathy Essential (primary) hypertension Other chronic pain Depression, unspecified Hyperlipidemia, unspecified Anemia, unspecified Systemic lupus erythematosus, unspecified (CMS/HCC) Unspecified asthma, uncomplicated Atherosclerotic heart disease of [place] coronary artery without angina pectoris Gastro-esophageal reflux disease without esophagitis Bacteremia Hypotension, unspecified CBC WITH AUTO DIFFERENTIAL Routine 11/06/2024 6:08 AM EST Atherosclerotic heart disease of [place] coronary artery without angina pectoris Essential (primary) hypertension VITAMIN B12 Routine 11/06/2024 6:08 AM EST Atherosclerotic heart disease of [place] coronary artery without angina pectoris Essential (primary) hypertension THYROID STIMULATING HORMONE Routine 11/06/2024 6:08 AM EST Atherosclerotic heart disease of [place] coronary artery without angina pectoris Essential (primary) hypertension FOLATE Routine 11/06/2024 6:08 AM EST Atherosclerotic heart disease of [place] coronary artery without angina pectoris Essential (primary) hypertension COMPREHENSIVE METABOLIC PANEL Routine 11/06/2024 6:08 AM EST Atherosclerotic heart disease of [place] coronary artery without angina pectoris Essential (primary) hypertension CBC AND DIFFERENTIAL Routine 11/06/2024 6:08 AM EST Atherosclerotic heart disease of [place] coronary artery without angina pectoris Essential (primary) hypertension DAYO SCREENING DIGITAL Routine 05/28/2021 2:31 PM EDT [...] LAB CHEMISTRY METHOD 11/15/2024 12:25 PM EST [facility] Triglycerides 132 0 - 150 mg/dL LAB CHEMISTRY METHOD 11/15/2024 12:25 PM EST [facility] HDL 24(L) >=40 mg/dL LAB CHEMISTRY METHOD 11/15/2024 12:25 PM EST [facility] LDL Calculated 19 0 - 100 mg/dL LAB CHEMISTRY METHOD 11/15/2024 12:25 PM EST [facility] VLDL Cholesterol Enio 26.4 mg/dL LAB [...] Mayers LAB BLOOD ORDERABLES Final Resul t [facility] [address] [place] [address], * (ABNORMAL) CBC auto differential (11/15/2024 8:14 AM EST) Only the most recent of3 resultswithin the time period is included. WBC 5.1 4.8 - 10.8 K/mcL LAB HEMETOLOGY METHOD 11/15/2024 11:49 AM [facility] RBC 3.40(L) 3.80 - 4.80 M/mcL LAB HEMETOLOGY METHOD 11/15/2024 11:49 AM [facility] [...] LAB Neutrophils Absolute 2.49 1.50 - 7.00 K/[facility] LAB HEMETOLOGY METHOD 11/15/2024 11:49 AM EST [facility] Lymphocytes Absolute 1.71 1.00 - 5.00 K/[facility] LAB HEMETOLOGY METHOD 11/15/2024 11:49 AM EST [facility] Monocytes Absolute 0.59 0.20 - 1.00 K/[facility] LAB HEMETOLOGY METHOD 11/15/2024 11:49 AM EST [facility] Eosinophils Absolute 0.23 0.00 - 0.50 K/[facility] LAB HEMETOLOGY METHOD 11/15/2024 11:49 AM EST [facility] Basophils Absolute 0.02 0.00 - 0.20 K/[facility] LAB HEMETOLOGY METHOD 11/15/2024 11:49 AM [facility] Immature Granulocytes Absolute 0.03 0.00 - 0.03 K/[facility] LAB HEMETOLOGY METHOD 11/15/2024 11:49 AM EST [facility] Blood Venous blood specimen / Unknown Venipuncture / Unknown 11/15/2024 8:14 AM EST 11/15/2024 11:18 AM EST Juan Carlos [place] LAB BLOOD ORDERABLES Final Resul t [facility] [address] [place] [address], * Hemoglobin A1c (11/15/2024 8:14 AM EST) Only the most recent of2 resultswithin the time period is included. Hemoglobin A1C 6.1 <6.5 % LAB CHEMISTRY METHOD 11/15/2024 2:22 PM EST [facility] Mean Bld Glu Estim. 128 mg/dL LAB CHEMISTRY METHOD 11/15/2024 2:22 PM [facility] Blood Venous blood specimen / Unknown Venipuncture / Unknown 11/15/2024 8:14 AM EST 11/15/2024 11:18 AM EST us Juan Carlos Mayers LAB BLOOD ORDERABLES Final Resul t [facility] [address] [place] [address], [place] [phone] * (ABNORMAL) Comprehensive metabolic panel (11/15/2024 8:14 [...] 11/15/2024 12:25 PM [facility] AST (SGOT) 35 10 - [...] 8:14 AM EST 11/15/2024 11:16 AM EST us Juan Carlos Mayers LAB BLOOD ORDERABLES Final Resul t [facility] [address] [place] [address], * (ABNORMAL) Complete blood count (11/12/2024 9:24 [...] Mayers LAB BLOOD ORDERABLES Final Resul t Performing Organization Address [facility]/ZIP Co de Phone Number [facility] [address] [place] [address], [place] [phone] * B-type natriuretic peptide (11/12/2024 9:24 AM EST) BNP 16 <=100 pcg/mL LAB CHEMISTRY METHOD 11/12/2024 12:30 PM [facility] Blood Venous blood specimen / Unknown Venipuncture / Unknown 11/12/2024 9:24 AM EST 11/12/2024 11:45 AM EST us Juan Carlos Mayers LAB BLOOD ORDERABLES Final Resul t Performing Organization Address [facility] Co de Phone Number [facility] [address] [place] [address], [place] [phone] * (ABNORMAL) Basic metabolic panel (11/12/2024 9:24 [...] Mayers LAB BLOOD ORDERABLES Final Resul t Performing Organization Address City/[facility]/ZIP Co de Phone Number [facility] [address] [place] [address], [place] [phone] * Thyroid stimulating hormone (11/06/2024 6:08 AM EST) TSH 3.31 0.40 - 4.00 mcIU/mL LAB CHEMISTRY METHOD 11/06/2024 10:42 AM EST [facility] Blood Venous blood specimen / Unknown Venipuncture / Unknown 11/06/2024 6:08 AM EST 11/06/2024 9:04 AM EST us Juan Carlos Mayers LAB BLOOD ORDERABLES Final Resul t [facility] [address] [place] [address], [place] [phone] * Folate (11/06/2024 6:08 AM EST) Folate 5.4 2.8 - 17.0 ng/ml LAB CHEMISTRY METHOD 11/06/2024 11:00 AM EST [facility] Blood Venous blood specimen / Unknown Venipuncture / Unknown 11/06/2024 6:08 AM EST 11/06/2024 9:04 AM EST us Juan Carlos Mayers LAB BLOOD ORDERABLES Final Resul t [facility] [address] [place] [address], [place] [phone] * Vitamin B12 (11/06/2024 6:08 AM EST) [facility] Vitamin B-12 830 250 - 900 pcg/mL LAB CHEMISTRY METHOD 11/06/2024 11:00 AM EST [facility] Blood Venous blood specimen / Unknown Venipuncture / Unknown 11/06/2024 6:08 AM EST 11/06/2024 9:04 AM EST us Juan Carlos Mayers LAB BLOOD ORDERABLES Final Resul t Performing Organization Address City/[facility]/ZIP Co de Phone Number [facility] [address] [place] [address], [place] [phone] * DAYO SCREENING DIGITAL (05/28/2021 2:31 PM EDT) Anatomical Region Laterality Modality Mammography 05/28/2021 2:09 PM EDT Narrative 05/28/2021 2:31 PM EDT [facility] Diagnostic Imaging Department [address] [place] [address] Patient: ??MARCI FERNANDO ?/Age/Sex: 1955 - 65 - F Unit#: ??[id number] ? Location/Status: ??SPDIMAM/REG CLI ? Mnemonic/Ordering Site: ??DIGSC/SPMAM Ordering Physician: ??Dayanara GRAMAJO MD [facility] Screening Digital - 05/28/21 - 1426 EXAM: [facility] Screening Digital EXAM DATE AND TIME: 05/28/2021 2:21 PM HISTORY: ??Annual screening mammography COMPARISON: ??2016 through 08/16/2012 TECHNIQUE: CC and MLO views of both breasts were obtained using full field digital mammography. Bilateral digital breast tomosynthesis was performed in the MLO projection. Computer aided detection with the [email or web address] 7.2-H was employed. TISSUE DENSITY: b. There are [...] Routine screening mammogram BILATERAL in 1 year. [address]99, [id number] 3342F, 7025F Dictating Physician: ??YASHIRA VU MD Electronically Signed by: ??YASHIRA VU MD Dic Date/Time: ??05/28/21 1429 Sign date/Time: ??05/28/21 1431 Procedure Note Kim Vu MD - 10/20/2022 [facility] Diagnostic Imaging Department [address] [place] [id number] Patient: MARCI FERNANDO Indira /Age/Sex: 1955 65 - F Unit#: [id number] [facility]Ordering Site: [facility] Ordering Physician: Dayanara GRAMAJO MD [facility] Screening Digital - 05/28/21 - 1426 EXAM: [facility] Screening Digital EXAM DATE AND TIME: 05/28/2021 2:21 PM HISTORY: Annual screening mammography COMPARISON: 2016 through 08/16/2012 TECHNIQUE: CC and MLO views of both breasts were obtained using fullfield digital mammography. Bilateral digital breast tomosynthesis was performedin the MLO projection. Computer aided detection with the elmeme.me 7.2-[employer] employed. TISSUE DENSITY: b. There are scattered [...] Routine screening mammogram BILATERAL in 1 year. [address]692, 71509 3342F, 7025F Dictating Physician: YASHIRA VU MD Electronically Signed by: YASHIRA VU MD Dic Date/Time: 05/28/21 1429 Sign date/Time: 05/28/21 1431 Osmar Gramajo MD IMG BI PROCEDURES Hortensia l Result from Last 3 Months or Most Recently Relevant to Health Maintenance Insurance [place]ICA[place] - [place] Care Teams Assistant Women'S Rowing Coach Relationship Specialty Start Date End Date Osmar Gramajo MD [address] [place], [place] PCP - General Pulmonary Disease 04/20/17
--- OUTSIDE RECORDS SUMMARY | 2024-12-20 18:34 | XMS_ITS | Encounter Summary ---
Author Organization [facility] Address [address] [place] [address] Care Team Providers Care Associate Director Qa Name Role Phone Osmar Gramajo MD Primary Care Provider Encounter Details Date Type Department Care Team (Latest Contact Info) Description 11/06/2024 Lab Requisition [facility] - Main Lab [address] [facility] [place] [address] Juan Carlos Mayers [address] [facility] [address] [place] [address] Atherosclerotic heart disease of [place] coronary artery without angina pectoris; Essential (primary) [...] 6:08 AM EST Atherosclerotic heart disease of [place] coronary artery without angina pectoris Essential (primary) hypertension CBC AND DIFFERENTIAL Routine 11/06/2024 6:08 AM EST Atherosclerotic heart disease of [place] coronary artery without angina pectoris Essential (primary) hypertension THYROID STIMULATING HORMONE Routine 11/06/2024 6:08 AM EST Atherosclerotic heart disease of [place] coronary artery without angina pectoris Essential (primary) hypertension FOLATE Routine 11/06/2024 6:08 AM EST Atherosclerotic heart disease of [place] coronary artery without angina pectoris Essential (primary) hypertension VITAMIN B12 Routine 11/06/2024 6:08 AM EST Atherosclerotic heart disease of [place] coronary artery without angina pectoris Essential (primary) hypertension COMPREHENSIVE METABOLIC PANEL Routine 11/06/2024 6:08 AM EST Atherosclerotic heart disease of [place] coronary artery without angina pectoris Essential (primary) hypertension documented in this encounter Results * (ABNORMAL) CBC auto differential (11/06/2024 6:08 AM EST) [facility] WBC 5.2 4.8 - 10.8 K/mcL LAB HEMETOLOGY METHOD 11/06/2024 9:[address] [facility] RBC 3.70(L) 3.80 - 4.80 M/mcL LAB HEMETOLOGY METHOD 11/06/2024 9:[address] [facility] Hemoglobin 9.7(L) 11.5 - 16.0 g/dL LAB HEMETOLOGY METHOD 11/06/2024 9:[address] [facility] Hematocrit 32.9(L) 35.0 - 47.0 % LAB HEMETOLOGY METHOD 11/06/2024 9:[address] [facility] MCV 90.1 79.0 - 98.0 FL LAB HEMETOLOGY METHOD 11/06/2024 9:[address] [facility] MCH 26.6(L) 27.0 - 32.0 pcg LAB HEMETOLOGY METHOD 11/06/2024 9:[address] [facility] MCHC 29.5(L) 32.0 - 37.0 g/dL LAB HEMETOLOGY METHOD 11/06/2024 9:[address] [facility] RDW 15.3(H) 11.0 - 15.0 % LAB HEMETOLOGY METHOD 11/06/2024 9:[address] [facility] Platelets 226 130 - 400 K/mcL LAB HEMETOLOGY METHOD 11/06/2024 9:[address] [facility] MPV 11.3(H) 7.0 - 11.0 FL LAB HEMETOLOGY METHOD 11/06/2024 9:[address] [facility] NRBC 0.0 <1.0 % LAB HEMETOLOGY METHOD 11/06/2024 9:[address] [facility] NRBC Absolute 0.00 <0.10 K/mcL LAB HEMETOLOGY METHOD 11/06/2024 9:[address] [facility] Neutrophils Relative 48.4 % LAB HEMETOLOGY METHOD 11/06/2024 9:[address] [facility] Lymphocytes Relative 32.1 % LAB HEMETOLOGY METHOD 11/06/2024 9:[address] [facility] Monocytes Relative 15.1 % LAB HEMETOLOGY METHOD 11/06/2024 9:[address] [facility] Eosinophils Relative 3.4 % LAB HEMETOLOGY METHOD 11/06/2024 9:[address] [facility] Basophils Relative 0.6 % LAB HEMETOLOGY METHOD 11/06/2024 9:[address] [facility] Immature Granulocytes Relative 0.4 % LAB HEMETOLOGY METHOD 11/06/2024 9:[address] [facility] Neutrophils Absolute 2.54 1.50 - 7.00 K/mcL LAB HEMETOLOGY METHOD 11/06/2024 9:[address] [facility] Lymphocytes Absolute 1.68 1.00 - 5.00 K/mcL LAB HEMETOLOGY METHOD 11/06/2024 9:[address] [facility] Monocytes Absolute 0.79 0.20 - 1.00 K/mcL LAB HEMETOLOGY METHOD 11/06/2024 9:[address] [facility] Eosinophils Absolute 0.18 0.00 - 0.50 K/mcL LAB HEMETOLOGY METHOD 11/06/2024 9:55 AM EST [facility] Basophils Absolute 0.03 0.00 - 0.20 K/[facility] LAB HEMETOLOGY METHOD 11/06/2024 9:55 AM EST [facility] Immature Granulocytes Absolute 0.02 0.00 - 0.03 K/[facility] LAB HEMETOLOGY METHOD 11/06/2024 9:55 AM EST [facility] Blood Venous blood specimen / Unknown Venipuncture / Unknown 11/06/2024 6:08 AM EST 11/06/2024 9:04 AM EST us Juan Carlos Mayers LAB BLOOD ORDERABLES Final Resul t Performing Organization Address City/[facility]/ZIP Co de Phone Number [facility] [address] [place] [address], [place] [phone] * Vitamin B12 (11/06/2024 6:08 AM EST) Vitamin B-12 830 250 - 900 pcg/mL LAB CHEMISTRY METHOD 11/06/2024 11:00 AM EST [facility] Blood Venous blood specimen / Unknown Venipuncture / Unknown 11/06/2024 6:08 AM EST 11/06/2024 9:04 AM EST us Juan Carlos Mayers LAB BLOOD ORDERABLES Final Resul t [facility] [address] [place] [address], [place] [phone] * Thyroid stimulating hormone (11/06/2024 6:08 AM EST) TSH 3.31 0.40 - 4.00 mcIU/mL LAB CHEMISTRY METHOD 11/06/2024 10:42 AM EST [facility] Blood Venous blood specimen / Unknown Venipuncture / Unknown 11/06/2024 6:08 AM EST 11/06/2024 9:04 AM EST us Juan Carlos Mayers LAB BLOOD ORDERABLES Final Resul t Performing Organization Address City/[facility]/ZIP Co de Phone Number [facility] [address] [place] [address], [place] [phone] * Folate (11/06/2024 6:08 AM EST) [facility] Folate 5.4 2.8 - 17.0 ng/ml LAB CHEMISTRY METHOD 11/06/2024 11:[address] [facility] Blood Venous blood specimen / Unknown Venipuncture / Unknown 11/06/2024 6:08 AM EST 11/06/2024 9:04 AM EST us Juan Carlos Mayers LAB BLOOD ORDERABLES Final Resul t Performing Organization Address [facility]/ZIP Co de Phone Number [facility] [address] [place] [address], [place] [phone] * (ABNORMAL) Comprehensive metabolic panel (11/06/2024 6:08 AM EST) [facility] Sodium 139 133 - 145 mmol/L LAB CHEMISTRY METHOD 11/06/2024 11:[address] [facility] Potassium 3.4(L) 3.5 - 5.5 mmol/L LAB CHEMISTRY METHOD 11/06/2024 11:[address] [facility] Chloride 105 96 - 110 mmol/L LAB CHEMISTRY METHOD 11/06/2024 11:[address] [facility] CO2 29 21 - 32 mmol/L LAB CHEMISTRY METHOD 11/06/2024 11:[address] [facility] Anion Gap 5 3 - 11 LAB CHEMISTRY METHOD 11/06/2024 11:[address] [facility] Glucose 95 70 - 100 mg/dL LAB CHEMISTRY METHOD 11/06/2024 11:[address] [facility] BUN 2(L) 5 - 25 mg/dL LAB CHEMISTRY METHOD 11/06/2024 11:[address] [facility] Creatinine 1.54(H) 0.50 - 1.10 mg/dL LAB CHEMISTRY METHOD 11/06/2024 11:[address] [facility] eGFR 37(L) >=60 mL/min/1. 73m2 LAB CHEMISTRY METHOD 11/06/2024 11:[address] [facility] Comment:Calculation based on the??Chronic Kidney Disease Epidemiology Collaboration (CKD-EPI) equation refit??without adjustment for race. BUN/Creatinine Ratio 1.3 LAB CHEMISTRY METHOD 11/06/2024 11:[address] [facility] Calcium 8.5 8.5 - 10.5 mg/dL LAB CHEMISTRY METHOD 11/06/2024 11:[address] [facility] AST (SGOT) 47(H) 10 - 42 unit/L LAB CHEMISTRY METHOD 11/06/2024 11:[address] [facility] ALT (SGPT) 41 10 - 60 unit/L LAB CHEMISTRY METHOD 11/06/2024 11:[address] [facility] Alkaline Phosphatase 83 42 - 121 unit/L LAB CHEMISTRY METHOD 11/06/2024 11:[address] [facility] Total Protein 5.2(L) 6.0 - 8.0 g/dL LAB CHEMISTRY METHOD 11/06/2024 11:[address] [facility] Albumin 2.3(L) 3.2 - 5.0 g/dL LAB CHEMISTRY METHOD 11/06/2024 11:[address] [facility] Total Bilirubin 0.3 0.0 - 1.4 mg/dL LAB CHEMISTRY METHOD 11/06/2024 11:[address] [facility] Blood Venous blood specimen / Unknown Venipuncture / Unknown 11/06/2024 6:08 AM EST 11/06/2024 9:04 AM EST us [place] LAB BLOOD ORDERABLES Final [facility]ul t [facility] [address] [place] [address], documented in this encounter Visit Diagnoses Diagnosis Atherosclerotic heart disease of [place] coronary artery without angina pectoris Essential (primary) hypertension Unspecified essential hypertension documented in this encounter Care Teams Associate Director Qa Relationship Specialty Start Date End Date Osmar Gramajo MD [address] [place], [place] PCP - General Pulmonary Disease 04/20/17 documented as of this encounter
--- OUTSIDE RECORDS SUMMARY | 2024-12-20 18:34 | XMS_ITS | Encounter Summary ---
Author Organization [facility] Address [address] [phone] Phone Care Team Providers Care Child Health Associate Name Role Phone Unique Carrillo MD Primary Care Provider Unav ailable Encounter Details Date Type Department Care Team (Late st Contact Info) Description 12/05/2024 3:45 PM EST Office Visit [facility] [address] [phone] Deonte Roland MD [address] [phone] Stage 3b chronic kidney disease (HCC) (Primary Dx); Renal osteodystrophy; Hypertensive disorder Social History Tobacco Use Types Packs/Day Years [...] on file documented as of this encounter Last Filed Vital Signs Vital Sign Reading Time Taken Comments Blood Pressure 110/64 12/05/2024 3:54 PM EST Pulse 122 12/05/2024 3:54 PM EST Temperature - - Respiratory Rate - - Oxygen Saturation 97% 12/05/2024 3:54 PM EST Inhaled Oxygen Concentration - - Weight 113 kg (249 lb) 12/05/2024 3:54 PM EST Height - - Body Mass Index - - documented in this encounter Patient Instructions * Patient Instructions* Deotne Roland MD - 12/05/2024 3:45 PM EST No NSAIDS - Do not take non-steroidal anti-inflammatory medications (NSAIDS) such as Ibuprofen (Advil, Motrin, etc), Naproxen (Aleve, etc), Celecoxib (Celebrex) or Ketoprofen. These common arthritis medications can cause permanent kidney damage or worsen your kidney damage. For mild occasional pain, Acetaminophen (Tylenol, etc) is safe for your kidneys. Sodium and Your CKD Diet: How to Spice Up Your Cooking What is sodium? Sodium is a mineral found naturally in foods and is the major part of table salt. What are the effects of eating too much sodium? When your kidneys are not healthy, extra sodium and fluid build up in your body. This can cause swollen ankles, puffiness, a rise in blood pressure, shortness of breath, and/or fluid around your heart and lungs. See the following table for suggestions on how to reduce sodium in your diet. LIMIT THE [AMOUNT OF... FOOD TO LIMIT BECAUSE OF THEIR HIGH SODIUM CONTENT ACCEPTABLE SUBSTITUTES SALT & SALT SEASONINGS Table salt Seasoning salt Garlic salt Onion salt Celery salt Lemon pepper Lite salt Meat tenderizer Bouillon cubes Flavor enhancers Fresh garlic, fresh onion, garlic powder, onion powder, black [pepper, lemon juice, low-sodium/salt-free seasoning blends, vinegar SALTY FOODS Barbecue sauce Steak sauce Soy sauce Teriaky sauce Oyster sauce Salted Snacks such as Crackers Potato chips [place] chips Pretzels Tortilla chips Nuts Popcorn Nolan seeds Homemade or low- sodium sauces and salad dressings; Vinegar, dry mustard, unsalted popcorn, pretzels, tortilla or corn chips Cured Foods Ham Salt pork Hobbs Sauerkraut Pickles, pickle relish Lox & Landers Olives Fresh beef, veal, pork, poultry, fish, eggs [place] MEATS Hot Dogs Cold cuts, deli meats Pastrami Sausage Corned beef Spam Low-salt deli meats PROCESSED FOODS Buttermilk Cheese Canned: Soups Tomato products Vegetable juices Canned vegetables Convenience Foods such as: TV Dinners Canned raviolis [place] Macaroni & Cheese Spaghetti Frozen prepared foods Fast foods Natural cheese (1-2 oz Per week) Homemade or liliana,1- sodium soups, canned food without added salt Homemade casseroles without added salt, made with fresh or raw vegetables, fresh meat, nancy, pasta, or unsalted canned vegetables Some salt or sodium is needed for body water balance. But when your kidneys lose the ability to control sodium and water balance, you may experience the following: thirst fluid gain high blood pressure discomfort during dialysis By using less sodium in your diet, you can control these problems. Hints to keep your sodium intake down Cook with herbs and spices instead of salt. (Refer to Spice Up Your Cooking section for further suggestions.) Read food labels and choose those foods low in sodium. Avoid salt substitutes and specialty low-sodium foods made with salt substitutes because they are high in potassium. When eating out, ask for meat or fish without salt. Ask for gravy or sauce on the side; these may contain large amounts of salt and should be used in small amounts . Limit use of canned, processed and frozen foods. Some information about reading labels Understanding the terms: Sodium Free - Only a trivial amount of sodium per serving. Very Low Sodium - 35 mg or less per serving. Low Sodium - 140 mg or less per serving. Reduced Sodium - Foods in which the level of sodium is reduced by 25%. Light or Lite in Sodium - Foods in which the sodium is reduced by at least 50% . Simple rule of thumb : If salt is listed in the first five ingredients, the item is probably too high in sodium to use. All food labels now have milligrams (mg) of sodium listed. Follow these steps when reading the sodiwn information on the label: 1. Know how much sodium you are allowed each day. Remember that there are 1000 milligrams (mg) in 1gram. For [id number], if your diet prescription is 2 grams of sodium , your limit is 2000 milligrams per day. Consider the sodium value or other food to be eaten during the day. 2. Look at the package label. Check the serving size. Nutrition values are expressed per art g. How does this compare to your total daily allowance? If the sodium level is 500 mg or more per serving, the item is not a good choice. 3. Compare labels of similar products. Select the lowest sodium level for the same serving size. How to Spice Up Your Cooking Giving up salt does not mean giving up flavor. Learn to season your food with herbs and spices. Be creative and experiment for a new and exciting flavor. What kinds of spices and herbs should I use instead of salt to add flavor? Try the following spices with the foods listed. Allspice: Use with beef, fish, beets, cabbage, canots, peas, fruit. Basil: Use with beef, pork, most vegetables. [place]: Use with beef, pork, most vegetables. Eric: Use with beef, pork, green beans, cauliflower, cabbage, beets, asparagus, and in dips and marinades. Cardamom: Use with fruit and in baked goods. Villagran: Use with beef, chicken, pork, fish, green beans, carrots and in marinades. Dill: Use with beef, chicken, green beans, cabbage, carrots, peas and in dips. Pamela: Use with beef, chicken, pork, green beans, cauliflower and eggplant. Marjoram: Use with beef, chicken, pork, green beans, cauliflower and eggplant. [place]: Use with chicken, pork, cauliflower, peas and in marinades. Thyme: Use with beef, chicken, pork, fish, green beans, beets and carrots. Daquan: Use with chicken, pork, eggplant and in dressing. Tarragon: Use with fish, chicken, asparagus, beets, cabbage, cauliflower and in marinades. Tips for cooking with herbs and spices Purchase spices and herbs in small amounts . When they sit on the shelf for years they lose their flavor. Use no more than ?? teaspoon of dried spice (?? of fresh) per pound of meat. Add ground spices to food about 15 minutes before the end of the cooking period. Add whole spices to food at least one hour before the end of the cooking period. Combine herbs with oil or butter, set for 30 minutes to bring out their flavor, then brush on foodswhile they cook, or brush meat with oil and sprinkle herbs one hour before coolcing. Crush dried herbs before adding to foods. Can I use salt substitutes? Caution! If you are told to limit potassium in your diet, be very cautious about using salt substitutes because most of them contain some form of potassium. Check with your doctor or dietitian beforeusing and salt substitute. Pabellones and create your own seasoning containing those spices that you like. If you would like to become a volunteer and find out more about what's happening where you live, contact your local [facility] Affiliate. Blood pressure monitoring education: Monitor home blood pressure values after sitting for 5 minutes with back and arm support. Keep a log. Bring your log and blood pressure cuff to your next visit. documented in this encounter Progress Notes * Deonte Roland MD - 12/05/2024 3:45 PM EST Images from the original note were not included. Patient Name: Marie Lentz, Female Date of : 1955, 69 y.o. Date: 12/05/24 [] New Patient [x] Established Patient [] New Hospital Follow Up [] Established Hospital Follow Up [] Telemed Visit [] H&P Referring MD: Osmar Gramajo MD PCP: Unique Carrillo MD Reason For Visit: CKD 3, H/O CYNTHIA Marie Lentz is a 69 y.o. female seen today in f/u re CKD 3 with H/O CYNTHIA ( 2021), HFrEF, SLE maintained on pred in past Recent [facility] hosp with dehydration, sepsis and CYNTHIA resolved w IVF and Abx. ( 10/2024) Cont to c/o easy fatigue. Denies chest pain or shortness of breath. No blood in the urine or difficulties urinating. Complains of mild arthritic complaints but avoids use of NSAIDs. The following portions of the patient's chart were reviewed in this encounter and updated as appropriate: Allergies Meds Constitutional: Negative for chills and fever. Respiratory: Negative for cough and shortness of breath. Cardiovascular: Negative for chest pain, palpitations and leg swelling. Gastrointestinal: Negative for abdominal pain, nausea and vomiting. Genitourinary: Negative for dysuria, frequency, hematuria and urgency. Full 13 point review of systems unremarkable except as noted above. Past Medical History: Diagnosis Date Acute injury of kidney Chronic kidney disease Past Surgical History: Procedure Laterality Date GALLBLADDER SURGERY HERNIA REPAIR Social History Tobacco Use Smoking status: Every Day Current packs/day: 0.25 Average packs/day: 0.3 packs/day for 7.5 years (1.9 ttl pk-yrs) Types: Cigarettes Start date: 05/20/2017 Smokeless tobacco: Not on file Substance Use Topics Alcohol use: No Family History Problem Relation Age of Onset Kidney disease Father Heart disease Mother Gout Father Current Outpatient Medications Medication Sig Dispense Refill atorvastatin (LIPITOR) 80 MG tablet ferrous sulfate 325 (65 Fe) MG tablet Take 325 mg by mouth 1 (one) time each day with breakfast fluticasone HFA (FLOVENT HFA) 110 MCG/ACT inhaler Inhale 1 puff 2 (two) times a day Rinse mouth with water after use to reduce aftertaste and incidence of candidiasis. Do not swallow. loratadine (CLARITIN) 10 MG tablet Take 10 mg by mouth omeprazole (PriLOSEC) [address] capsule QUEtiapine (SEROquel) 100 MG tablet Take 1 tablet by mouth 1 (one) time each day Spiriva Respimat 1.25 MCG/ACT aerosol solution No current facility-administered medications for this visit. Allergies Allergen Reactions Latex Objective: Vitals: 12/05/24 1554 BP: 110/64 Pulse: (!) 122 SpO2: 97% Weight: 249 lb (113 kg) 116/68 HR 90 Vitals reviewed. Constitutional: She appears well-developed. No distress. Cardiovascular: Normal rate, regular rhythm and normal heart sounds. She exhibits no edema. Pulmonary/Chest: Effort normal and breath sounds normal. No respiratory distress. Abdominal: Soft. There is no abdominal tenderness. No hernia. Skin: Skin is warm and dry. Psychiatric: She has a normal mood and affect. Her behavior is normal. No results found for: EGFRAFR Est GFR Non Date Value Ref Range Status 12/21/2021 36 ML/MIN/1.73 M2 Final Comment: Creatinine based estimated glomerular filtration rate (eGFR) is calculated using the Chronic Kidney Disease Epidemiology Collaboration (CKD-EPI). The CKD-EPI calculation is not validated in children (<18 years), woman or in racial or ethnic subgroups. Testing performed or reported by [facility], a Service of [facility], [address] [place] [address] Yannick Tomas MD, Train Driver [facility]# [id number] Chemistry Lab Units 11/15/24 0814 11/12/24 0924 11/08/24 0715 11/06/24 0608 CREATININE mg/dL 1.56* 1.65* 1.82* 1.54* BUN mg/dL 9 9 4* 2* BUN / CREAT RATIO 5.8 5.5 2.2 1.3 GLUCOSE mg/dL 134* 121* 102* 95 POTASSIUM mmol/L 3.4* 3.4* 3.2* 3.4* SODIUM mmol/L 137 137 136 139 CO2 mmol/L 29 28 28 29 CHLORIDE mmol/L 101 101 100 105 ALBUMIN g/dL 2.3* -- 2.4* 2.3* BILIRUBIN TOTAL mg/dL 0.3 -- 0.4 0.3 AST unit/L 35 -- 49* 47* Bone Mineral Lab Units 11/15/24 0814 11/12/24 0924 11/08/24 0715 11/06/24 0608 CALCIUM mg/dL 8.6 9.1 9.1 8.5 ALK PHOS unit/L 99 -- 96 83 No lab exists for component: SPECGRAV , GLUCOSEUR , BILIRUBINUR , RBCUR , UPROTEIN , LEUKOCYTESUR , NITRITE PLAN: Assessment & Plan 69 Y/O F CKD 3 H/O SLE HFrEF RECURRENT CYNTHIA Recurrent CYNTHIA: mult epsiodes of CYNTHIA ( 2021 and 10/2024); fortuantely resolved but incr risk of CKD prog CKD 3a: Scr stable 1.4;--1.6 Anemia: last Hb 9.4; poss Fe/EPO candidate in future SLE: ? Inactivce; needs f/u with Rheum; mno longer taking pred and no active SLE sxms per PT Metabolic Bone Disease of CKD: cont to track CA, Phos, HCO3, PTH and vit D levels and treat accordingly 5. HFrEF: compensated PLAN: cont to track renal labs and urine studies; avoid NSAIDs; check Fe studies; check PTH/vit D; refer to Rheum 1. Stage 3b chronic kidney disease (HCC) 2. Renal osteodystrophy 3. Hypertensive disorder Orders Placed This Encounter PTH, Intact Renal Function Panel Urinalysis with microscopic Urine Albumin / Creatinine Ratio Urine Culture Protein, Total, Random Urine w/Creatinine (Protein/Creat Ratio) Vitamin D 25 Hydroxy CBC Phosphorus Magnesium Albumin Calcium Return in about 3 months (around 03/04/2025). Deonte Roland MD documented in this encounter Plan of Treatment Upcoming Encounters Date Type Department Care Team (Late st Contact Info) Description 03/04/2025 10:15 AM EDT Office Visit [facility] [id number] [phone] Deonte Roland MD [facility] [address] [phone] Scheduled Orders Name Type Priority Associated Diagnoses Orde r Schedule PTH, Intact Lab Routine Stage 3b chronic kidney disease (HCC) Renal osteodystrophy Hypertensive disorder Expected: 03/04/2025, Expires: 01/02/2026 Renal Function Panel Lab Routine Stage 3b chronic kidney disease (HCC) Renal osteodystrophy Hypertensive disorder Expected: 03/04/2025, Expires: 01/02/2026 Urinalysis with microscopic Lab Routine Stage 3b chronic kidney disease (HCC) Renal osteodystrophy Hypertensive disorder Expected: 03/04/2025, Expires: 01/02/2026 Urine Albumin / Creatinine Ratio Lab Routine Stage 3b chronic kidney disease (HCC) Renal osteodystrophy Hypertensive disorder Expected: 03/04/2025, Expires: 01/02/2026 Urine Culture Lab Routine Stage 3b chronic kidney disease (HCC) Renal osteodystrophy Hypertensive disorder Expected: 03/04/2025, Expires: 01/02/2026 Protein, Total, Random Urine w/Creatinine (Protein/Creat Ratio) Lab Routine Stage 3b chronic kidney disease (HCC) Renal osteodystrophy Hypertensive disorder Expected: 03/04/2025, Expires: 01/02/2026 Vitamin D 25 Hydroxy Lab Routine Stage 3b chronic kidney disease (HCC) Renal osteodystrophy Hypertensive disorder Expected: 03/04/2025, Expires: 01/02/2026 CBC Lab Routine Stage 3b chronic kidney disease (HCC) Renal osteodystrophy Hypertensive disorder Expected: 03/04/2025, Expires: 01/02/2026 Phosphorus Lab Routine Stage 3b chronic kidney disease (HCC) Renal osteodystrophy Hypertensive disorder Expected: 03/04/2025, Expires: 01/02/2026 Magnesium Lab Routine Stage 3b chronic kidney disease (HCC) Renal osteodystrophy Hypertensive disorder Expected: 03/04/2025, Expires: 01/02/2026 Albumin Lab Routine Stage 3b chronic kidney disease (HCC) Renal osteodystrophy Hypertensive disorder Expected: 03/04/2025, Expires: 01/02/2026 Calcium Lab Routine Stage 3b chronic kidney disease (HCC) Renal osteodystrophy Hypertensive disorder Expected: 03/04/2025, Expires: 01/02/2026 documented as of this encounter Visit Diagnoses Diagnosis Stage 3b chronic kidney disease (HCC)- Primary Renal osteodystrophy Hypertensive disorder documented in this encounter Care Teams Child Health Associate Relationship Specialty Start Date End Date Unique Carrillo MD [address] [place] [address] Dr [place], [place] [phone] PCP - General Internal Medicine 03/07/24 documented as of this encounter
--- OUTSIDE RECORDS SUMMARY | 2024-12-20 18:34 | XMS_ITS | Encounter Summary ---
Author Organization [facility] Address [address] [place] [address] Care Team Providers Care Senior Software Development Engineer Name Role Phone Osmar Gramajo MD Primary Care Provider Encounter Details Date Type Department Care Team (Late st Contact Info) Description 11/08/[address] [facility] - Main Lab [address] [facility] [place] [address] Juan Carlos Mayers [address] [facility] [address] [place] [address] Encounter for screening for diabetes mellitus; Ischemic cardiomyopathy; Essential (primary) hypertension; Other chronic pain; Depression, unspecified; Hyperlipidemia, unspecified; Anemia, unspecified; Systemic lupus erythematosus, unspecified (CMS/HCC); Unspecified asthma, uncomplicated; Atherosclerotic heart disease of [place] coronary artery without angina pectoris; Gastro-esophageal reflux [...] Unspecified asthma, uncomplicated Atherosclerotic heart disease of [place] coronary artery without angina pectoris Gastro-esophageal reflux disease without esophagitis Bacteremia Hypotension, unspecified CBC WITH AUTO DIFFERENTIAL Routine 11/08/2024 7:15 AM EST Encounter for screening for diabetes mellitus Ischemic cardiomyopathy Essential (primary) hypertension Other chronic pain Depression, unspecified Hyperlipidemia, unspecified Anemia, unspecified Systemic lupus erythematosus, unspecified (CMS/HCC) Unspecified asthma, uncomplicated Atherosclerotic heart disease of [place] coronary artery without angina pectoris Gastro-esophageal reflux disease without esophagitis Bacteremia Hypotension, unspecified CBC AND DIFFERENTIAL Routine 11/08/2024 7:15 AM EST Encounter for screening for diabetes mellitus Ischemic cardiomyopathy Essential (primary) hypertension Other chronic pain Depression, unspecified Hyperlipidemia, unspecified Anemia, unspecified Systemic lupus erythematosus, unspecified (CMS/HCC) Unspecified asthma, uncomplicated Atherosclerotic heart disease of [place] coronary artery without angina pectoris Gastro-esophageal reflux disease without esophagitis Bacteremia Hypotension, unspecified HEMOGLOBIN A1C Routine 11/08/2024 7:15 AM EST Encounter for screening for diabetes mellitus Ischemic cardiomyopathy Essential (primary) hypertension Other chronic pain Depression, unspecified Hyperlipidemia, unspecified Anemia, unspecified Systemic lupus erythematosus, unspecified (CMS/HCC) Unspecified asthma, uncomplicated Atherosclerotic heart disease of [place] coronary artery without angina pectoris Gastro-esophageal reflux disease without esophagitis Bacteremia Hypotension, unspecified COMPREHENSIVE METABOLIC PANEL Routine 11/08/2024 7:15 AM EST Encounter for screening for diabetes mellitus Ischemic cardiomyopathy Essential (primary) hypertension Other chronic pain Depression, unspecified Hyperlipidemia, unspecified Anemia, unspecified Systemic lupus erythematosus, unspecified (CMS/HCC) Unspecified asthma, uncomplicated Atherosclerotic heart disease of [place] coronary artery without angina pectoris Gastro-esophageal reflux disease without esophagitis Bacteremia Hypotension, unspecified documented in this encounter Results * (ABNORMAL) CBC auto differential (11/08/2024 7:15 AM EST) [facility] Signature WBC 5.4 4.8 - 10.8 K/[facility] LAB HEMETOLOGY METHOD 11/08/2024 10:37 AM EST [facility] LAB RBC 3.80 3.80 - 4.80 M/[facility] LAB HEMETOLOGY METHOD 11/08/2024 10:37 AM [facility] LAB Hemoglobin 9.7(L) 11.5 - 16.0 g/dL LAB HEMETOLOGY METHOD 11/08/2024 10:37 AM [facility] LAB Hematocrit 34.0(L) 35.0 - 47.0 % LAB HEMETOLOGY METHOD 11/08/2024 10:37 AM [facility] LAB MCV 89.7 79.0 - 98.0 FL LAB HEMETOLOGY METHOD 11/08/2024 10:37 AM [facility] LAB MCH 25.6(L) 27.0 - 32.0 pcg LAB HEMETOLOGY METHOD 11/08/2024 10:37 AM [facility] LAB MCHC 28.5(L) 32.0 - 37.0 g/dL LAB HEMETOLOGY METHOD 11/08/2024 10:37 AM [facility] LAB RDW 15.3(H) 11.0 - 15.0 % LAB HEMETOLOGY METHOD 11/08/2024 10:37 AM [facility] LAB Platelets 251 130 - 400 K/mcL LAB HEMETOLOGY METHOD 11/08/2024 10:37 AM [facility] LAB MPV 11.3(H) 7.0 - 11.0 FL LAB HEMETOLOGY METHOD 11/08/2024 10:37 AM [facility] LAB NRBC 0.0 <1.0 % LAB HEMETOLOGY METHOD 11/08/2024 10:37 AM [facility] LAB NRBC Absolute 0.00 <0.10 K/mcL LAB HEMETOLOGY METHOD 11/08/2024 10:37 AM [facility] LAB Neutrophils Relative 55.4 % LAB HEMETOLOGY METHOD 11/08/2024 10:37 AM [facility] LAB Lymphocytes Relative 26.5 % LAB HEMETOLOGY METHOD 11/08/2024 10:37 AM EST [facility] LAB Monocytes Relative 15.1 % LAB HEMETOLOGY METHOD 11/08/2024 10:37 AM [facility] LAB Eosinophils Relative 2.4 % LAB HEMETOLOGY METHOD 11/08/2024 10:37 AM [facility] LAB Basophils Relative 0.4 % LAB HEMETOLOGY METHOD 11/08/2024 10:37 AM [facility] LAB Immature Granulocytes Relative 0.2 % LAB HEMETOLOGY METHOD 11/08/2024 10:37 AM [facility] LAB Neutrophils Absolute 3.02 1.50 - 7.00 K/mcL LAB HEMETOLOGY METHOD 11/08/2024 10:37 AM [facility] LAB Lymphocytes Absolute 1.44 1.00 - 5.00 K/mcL LAB HEMETOLOGY METHOD 11/08/2024 10:37 AM [facility] LAB Monocytes Absolute 0.82 0.20 - 1.00 K/mcL LAB HEMETOLOGY METHOD 11/08/2024 10:37 AM [facility] LAB Eosinophils Absolute 0.13 0.00 - 0.50 K/mcL LAB HEMETOLOGY METHOD 11/08/2024 10:37 AM [facility] LAB Basophils Absolute 0.02 0.00 - 0.20 K/mcL LAB HEMETOLOGY METHOD 11/08/2024 10:37 AM [facility] LAB Immature Granulocytes Absolute 0.01 0.00 - 0.03 K/mcL LAB HEMETOLOGY METHOD 11/08/2024 10:37 AM [facility] LAB Blood Venous blood specimen / Unknown Venipuncture / Unknown 11/08/2024 7:15 AM EST 11/08/2024 9:19 AM EST us Juan Carlos Mayers LAB BLOOD ORDERABLES Final Resul t [facility] LAB [address] [place] [address], * Hemoglobin A1c (11/08/2024 7:15 AM EST) Pathologist [facility] Hemoglobin A1C 6.1 <6.5 % LAB CHEMISTRY METHOD 11/08/2024 8:50 PM [facility] LAB Mean Bld Glu Estim. 128 mg/dL LAB CHEMISTRY METHOD 11/08/2024 8:50 PM [facility] LAB Blood Venous blood specimen / Unknown Venipuncture / Unknown 11/08/2024 7:15 AM EST 11/08/2024 9:19 AM EST Juan Carlos Mayers LAB BLOOD ORDERABLES Final Resul t [facility] [address] [place] [address], [place] [phone] * (ABNORMAL) Lipid panel with reflex to direct LDL (11/08/2024 7:15 AM EST) [facility] Cholesterol 68 0 - 200 mg/dL LAB CHEMISTRY METHOD 11/08/2024 11:32 AM [facility] LAB Triglycerides 136 0 - 150 mg/dL LAB CHEMISTRY METHOD 11/08/2024 11:32 AM [facility] LAB HDL 21(L) >=40 mg/dL LAB CHEMISTRY METHOD 11/08/2024 11:32 AM [facility] LAB LDL Calculated 20 0 - 100 mg/dL LAB CHEMISTRY METHOD 11/08/2024 11:32 AM [facility] LAB VLDL Cholesterol Enio 27.2 mg/dL LAB CHEMISTRY METHOD 11/08/2024 11:32 AM [facility] LAB Non HDL Chol. (LDL+VLDL) 47 <145 mg/dL LAB CHEMISTRY METHOD 11/08/2024 11:32 AM [facility] LAB Chol/HDL Ratio 3.2 0.0 - 4.4 LAB CHEMISTRY METHOD 11/08/2024 11:32 AM [facility] LAB Blood Venous blood specimen / Unknown Venipuncture / Unknown 11/08/2024 7:15 AM EST 11/08/2024 9:19 AM EST Juan Carlos Mayers LAB BLOOD ORDERABLES Final Resul t [facility] [address] [place] [address], * (ABNORMAL) Comprehensive metabolic panel (11/08/2024 7:15 AM EST) Sodium 136 133 - 145 mmol/L LAB CHEMISTRY METHOD 11/08/2024 11:39 AM [facility] LAB Potassium 3.2(L) 3.5 - 5.5 mmol/L LAB CHEMISTRY METHOD 11/08/2024 11:39 AM [facility] LAB Chloride 100 96 - 110 mmol/L LAB CHEMISTRY METHOD 11/08/2024 11:39 AM [facility] LAB CO2 28 21 - 32 mmol/L LAB CHEMISTRY METHOD 11/08/2024 11:39 AM [facility] LAB Anion Gap 8 3 - 11 LAB CHEMISTRY METHOD 11/08/2024 11:39 AM [facility] LAB Glucose 102(H) 70 - 100 mg/dL LAB CHEMISTRY METHOD 11/08/2024 11:39 AM [facility] LAB BUN 4(L) 5 - 25 mg/dL LAB CHEMISTRY METHOD 11/08/2024 11:39 AM [facility] LAB Creatinine 1.82(H) 0.50 - 1.10 mg/dL LAB CHEMISTRY METHOD 11/08/2024 11:39 AM [facility] LAB eGFR 30(L) >=60 mL/min/1. 73m2 LAB CHEMISTRY METHOD 11/08/2024 11:39 AM [facility] LAB Comment:Calculation based on the??Chronic Kidney Disease Epidemiology Collaboration (CKD-EPI) equation refit??without adjustment for race. BUN/Creatinine Ratio 2.2 LAB CHEMISTRY METHOD 11/08/2024 11:39 AM [facility] LAB Calcium 9.1 8.5 - 10.5 mg/dL LAB CHEMISTRY METHOD 11/08/2024 11:39 AM [facility] LAB AST (SGOT) 49(H) 10 - 42 unit/L LAB CHEMISTRY METHOD 11/08/2024 11:39 AM [facility] LAB ALT (SGPT) 40 10 - 60 unit/L LAB CHEMISTRY METHOD 11/08/2024 11:39 AM [facility] LAB Alkaline Phosphatase 96 42 - 121 unit/L LAB CHEMISTRY METHOD 11/08/2024 11:39 AM [facility] LAB Total Protein 5.6(L) 6.0 - 8.0 g/dL LAB CHEMISTRY METHOD 11/08/2024 11:39 AM [facility] LAB Albumin 2.4(L) 3.2 - 5.0 g/dL LAB CHEMISTRY METHOD 11/08/2024 11:39 AM [facility] LAB Total Bilirubin 0.4 0.0 - 1.4 mg/dL LAB CHEMISTRY METHOD 11/08/2024 11:39 AM [facility] LAB Blood Venous blood specimen / Unknown Venipuncture / Unknown 11/08/2024 7:15 AM EST 11/08/2024 9:19 AM EST Juan Carlos Mayers LAB BLOOD ORDERABLES Final Resul t [facility] [address] [place] [address], documented in this encounter Visit Diagnoses Diagnosis Encounter for screening for diabetes mellitus Ischemic cardiomyopathy Other specified forms of chronic ischemic heart disease Essential (primary) hypertension Unspecified essential hypertension Other chronic pain Depression, unspecified Hyperlipidemia, unspecified Anemia, unspecified Systemic lupus erythematosus, unspecified (CMS/HCC) Unspecified asthma, uncomplicated Atherosclerotic heart disease of [place] coronary artery without angina pectoris Gastro-esophageal reflux disease without esophagitis Bacteremia Hypotension, unspecified documented in this encounter Care Teams Senior Software Development Engineer Relationship Specialty Start Date End Date Osmar Gramajo MD [address] [place] [address] PCP - General Pulmonary Disease 04/20/17 documented as of this encounter
--- OUTSIDE RECORDS SUMMARY | 2024-12-20 18:34 | XMS_ITS | Encounter Summary ---
Author Organization [facility] Address [address] [place] [address] Care Team Providers Care Retail Seasonal Specialist Name Role Phone Osmar Gramajo MD Primary Care Provider Encounter Details Date Type Department Care Team (Late st Contact Info) Description 11/14/2024 Lab Requisition [facility] - Main Lab [address] [facility] [place] [address] Juan Carlos Mayers [address] [facility] [address] [place] [address] Gastro-esophageal reflux disease without esophagitis; Hyperlipidemia, unspecified; Anemia, unspecified; Atherosclerotic heart disease of [place] coronary artery without angina pectoris; Essential (primary) [...] unspecified Anemia, unspecified Atherosclerotic heart disease of [place] coronary artery without angina pectoris Essential (primary) hypertension CBC WITH AUTO DIFFERENTIAL Routine 11/15/2024 8:14 AM EST Gastro-esophageal reflux disease without esophagitis Hyperlipidemia, unspecified Anemia, unspecified Atherosclerotic heart disease of [place] coronary artery without angina pectoris Essential (primary) hypertension CBC AND DIFFERENTIAL Routine 11/15/2024 8:14 AM EST Gastro-esophageal reflux disease without esophagitis Hyperlipidemia, unspecified Anemia, unspecified Atherosclerotic heart disease of [place] coronary artery without angina pectoris Essential (primary) hypertension HEMOGLOBIN A1C Routine 11/15/2024 8:14 AM EST Gastro-esophageal reflux disease without esophagitis Hyperlipidemia, unspecified Anemia, unspecified Atherosclerotic heart disease of [place] coronary artery without angina pectoris Essential (primary) hypertension COMPREHENSIVE METABOLIC PANEL Routine 11/15/2024 8:14 AM EST Gastro-esophageal reflux disease without esophagitis Hyperlipidemia, unspecified Anemia, unspecified Atherosclerotic heart disease of [place] coronary artery without angina pectoris Essential (primary) hypertension documented in this encounter Results * (ABNORMAL) CBC auto differential (11/15/2024 8:14 AM EST) WBC 5.1 4.8 - 10.8 K/mcL LAB HEMETOLOGY METHOD 11/15/2024 11:49 AM [facility] LAB RBC 3.40(L) 3.80 - 4.80 M/mcL LAB HEMETOLOGY METHOD 11/15/2024 11:49 AM [facility] LAB Hemoglobin 8.7(L) 11.5 - 16.0 g/dL LAB HEMETOLOGY METHOD 11/15/2024 11:49 AM [facility] LAB Hematocrit 30.5(L) 35.0 - 47.0 % LAB HEMETOLOGY METHOD 11/15/2024 11:49 AM [facility] LAB MCV 90.0 79.0 - 98.0 FL LAB HEMETOLOGY METHOD 11/15/2024 11:49 AM [facility] LAB MCH 25.7(L) 27.0 - 32.0 pcg LAB HEMETOLOGY METHOD 11/15/2024 11:49 AM [facility] LAB MCHC 28.5(L) 32.0 - 37.0 g/dL LAB HEMETOLOGY METHOD 11/15/2024 11:49 AM [facility] LAB RDW 16.1(H) 11.0 - 15.0 % LAB HEMETOLOGY METHOD 11/15/2024 11:49 AM [facility] LAB Platelets 319 130 - 400 K/mcL LAB HEMETOLOGY METHOD 11/15/2024 11:49 AM [facility] LAB MPV 10.6 7.0 - 11.0 FL LAB HEMETOLOGY METHOD 11/15/2024 11:49 AM [facility] LAB NRBC 0.4 <1.0 % LAB HEMETOLOGY METHOD 11/15/2024 11:49 AM [facility] LAB NRBC Absolute 0.02 <0.10 K/mcL LAB HEMETOLOGY METHOD 11/15/2024 11:49 AM [facility] LAB Neutrophils Relative 49.2 % LAB HEMETOLOGY METHOD 11/15/2024 11:49 AM [facility] LAB Lymphocytes Relative 33.7 % LAB HEMETOLOGY METHOD 11/15/2024 11:49 AM [facility] LAB Monocytes Relative 11.6 % LAB HEMETOLOGY METHOD 11/15/2024 11:49 AM [facility] LAB Eosinophils Relative 4.5 % LAB HEMETOLOGY METHOD 11/15/2024 11:49 AM [facility] LAB Basophils Relative 0.4 % LAB HEMETOLOGY METHOD 11/15/2024 11:49 AM [facility] LAB Immature Granulocytes Relative 0.6 % LAB HEMETOLOGY METHOD 11/15/2024 11:49 AM [facility] LAB Neutrophils Absolute 2.49 1.50 - 7.00 K/mcL LAB HEMETOLOGY METHOD 11/15/2024 11:49 AM [facility] LAB Lymphocytes Absolute 1.71 1.00 - 5.00 K/mcL LAB HEMETOLOGY METHOD 11/15/2024 11:49 AM [facility] LAB Monocytes Absolute 0.59 0.20 - 1.00 K/mcL LAB HEMETOLOGY METHOD 11/15/2024 11:49 AM EST [facility] LAB Eosinophils Absolute 0.23 0.00 - 0.50 K/[facility] LAB HEMETOLOGY METHOD 11/15/2024 11:49 AM EST [facility] LAB Basophils Absolute 0.02 0.00 - 0.20 K/[facility] LAB HEMETOLOGY METHOD 11/15/2024 11:49 AM EST [facility] LAB Immature Granulocytes Absolute 0.03 0.00 - 0.03 K/[facility] LAB HEMETOLOGY METHOD 11/15/2024 11:49 AM EST [facility] LAB Blood Venous blood specimen / Unknown Venipuncture / Unknown 11/15/2024 8:14 AM EST 11/15/2024 11:18 AM EST us Juan Carlos Mayers LAB BLOOD ORDERABLES Final Resul t [facility] [address] [place] [address], [place] [phone] * Hemoglobin A1c (11/15/2024 8:14 AM EST) Hemoglobin A1C 6.1 <6.5 % LAB CHEMISTRY METHOD 11/15/2024 2:22 PM EST [facility] LAB Mean Bld Glu Estim. 128 mg/dL LAB CHEMISTRY METHOD 11/15/2024 2:22 PM EST [facility] LAB Blood Venous blood specimen / Unknown Venipuncture / Unknown 11/15/2024 8:14 AM EST 11/15/2024 11:18 AM EST us Juan Carlos Mayers LAB BLOOD ORDERABLES Final Resul t [facility] [address] [place] [address], [place] [phone] * (ABNORMAL) Lipid panel with reflex to direct LDL (11/15/2024 8:14 AM EST) Cholesterol 69 0 - 200 mg/dL LAB CHEMISTRY METHOD 11/15/2024 12:25 PM [facility] LAB Triglycerides 132 0 - 150 mg/dL LAB CHEMISTRY METHOD 11/15/2024 12:25 PM [facility] LAB HDL 24(L) >=40 mg/dL LAB CHEMISTRY METHOD 11/15/2024 12:25 PM [facility] LDL Calculated 19 0 - 100 mg/dL LAB CHEMISTRY METHOD 11/15/2024 12:25 PM [facility] LAB VLDL Cholesterol Enio 26.4 mg/dL LAB CHEMISTRY METHOD 11/15/2024 12:25 PM [facility] LAB Non HDL Chol. (LDL+VLDL) 45 <145 mg/dL LAB CHEMISTRY METHOD 11/15/2024 12:25 PM [facility] Chol/HDL Ratio 2.9 0.0 - 4.4 LAB CHEMISTRY METHOD 11/15/2024 12:25 PM [facility] LAB Blood Venous blood specimen / Unknown Venipuncture / Unknown 11/15/2024 8:14 AM EST 11/15/2024 11:16 AM EST Juan Carlos Mayers LAB BLOOD ORDERABLES Final Resul t [facility] [address] [place] [address], * (ABNORMAL) Comprehensive metabolic panel (11/15/2024 8:14 AM EST) Pathologist [facility] Sodium 137 133 - 145 mmol/L LAB CHEMISTRY METHOD 11/15/2024 12:25 PM [facility] Potassium 3.4(L) 3.5 - 5.5 mmol/L LAB CHEMISTRY METHOD 11/15/2024 12:25 PM [facility] Chloride 101 96 - 110 mmol/L LAB CHEMISTRY METHOD 11/15/2024 12:25 PM [facility] CO2 29 21 - 32 mmol/L LAB CHEMISTRY METHOD 11/15/2024 12:25 PM [facility] Anion Gap 7 3 - 11 LAB CHEMISTRY METHOD 11/15/2024 12:25 PM [facility] Glucose 134(H) 70 - 100 mg/dL LAB CHEMISTRY METHOD 11/15/2024 12:25 PM [facility] BUN 9 5 - 25 mg/dL LAB CHEMISTRY METHOD 11/15/2024 12:25 PM [facility] Creatinine 1.56(H) 0.50 - 1.10 mg/dL LAB CHEMISTRY METHOD 11/15/2024 12:25 PM [facility] LAB eGFR 36(L) >=60 mL/min/1. 73m2 LAB CHEMISTRY METHOD 11/15/2024 12:25 PM [facility] LAB Comment:Calculation based on the??Chronic Kidney Disease Epidemiology Collaboration (CKD-EPI) equation refit??without adjustment for race. BUN/Creatinine Ratio 5.8 LAB CHEMISTRY METHOD 11/15/2024 12:25 PM [facility] LAB Calcium 8.6 8.5 - 10.5 mg/dL LAB CHEMISTRY METHOD 11/15/2024 12:25 PM [facility] AST (SGOT) 35 10 - 42 unit/L LAB CHEMISTRY METHOD 11/15/2024 12:25 PM [facility] ALT (SGPT) 23 10 - 60 unit/L LAB CHEMISTRY METHOD 11/15/2024 12:25 PM [facility] Alkaline Phosphatase 99 42 - 121 unit/L LAB CHEMISTRY METHOD 11/15/2024 12:25 PM [facility] Total Protein 5.6(L) 6.0 - 8.0 g/dL LAB CHEMISTRY METHOD 11/15/2024 12:25 PM [facility] Albumin 2.3(L) 3.2 - 5.0 g/dL LAB CHEMISTRY METHOD 11/15/2024 12:25 PM EST [facility] Total Bilirubin 0.3 0.0 - 1.4 mg/dL LAB CHEMISTRY METHOD 11/15/2024 12:25 PM EST [facility] Blood Venous blood specimen / Unknown Venipuncture / Unknown 11/15/2024 8:14 AM EST 11/15/2024 11:16 AM EST us Juan Carlos Mayers LAB BLOOD ORDERABLES Final Resul t [facility] [address] [place] [address], documented in this encounter Visit Diagnoses Diagnosis Gastro-esophageal reflux disease without esophagitis Hyperlipidemia, unspecified Anemia, unspecified Atherosclerotic heart disease of [place] coronary artery without angina pectoris Essential (primary) hypertension Unspecified essential hypertension documented in this encounter Care Teams Retail Seasonal Specialist Relationship Specialty Start Date End Date Osmar Gramajo MD [address] [place], [place] PCP - General Pulmonary Disease 04/20/17 documented as of this encounter
--- OUTSIDE RECORDS SUMMARY | 2024-12-20 18:34 | XMS_ITS | Encounter Summary ---
Author Organization [facility] Address [address] [place] [address] Care Team Providers Care Cooper Helper Name Role Phone Osmar Gramajo MD Primary Care Provider Encounter Details Date Type Department Care Team (Late st Contact Info) Description 11/21/2024 Lab Requisition [facility] - Main Lab [address] [facility] [place] [address] Juan Carlos Mayers [address] [facility] [address] [place] [address] Gastro-esophageal reflux disease without esophagitis; Hyperlipidemia, unspecified; Anemia, unspecified; Atherosclerotic heart disease of [place] coronary artery without angina pectoris; Essential (primary) [...] on file documented as of this encounter Visit Diagnoses Diagnosis Gastro-esophageal reflux disease without esophagitis Hyperlipidemia, unspecified Anemia, unspecified Atherosclerotic heart disease of [place] coronary artery without angina pectoris Essential (primary) hypertension Unspecified essential hypertension documented in this encounter Care Teams Cooper Helper Relationship Specialty Start Date End Date Osmar Gramajo MD [address] [place], [place] PCP - General Pulmonary Disease 04/20/17 documented as of this encounter
== END 2024-12-20 15:32 | disposition home or self-care (01) ==
PROVIDERS: PCP Internal Medicine; Visit Provider Surgery
DX: L92.9 Granulomatous disorder of the skin and subcutaneous tissue, unspecified (principal)
CPT/HCPCS: 17250

== ENCOUNTER → 2024-12-20 15:12 | Outpatient (BNVA) | payer OTHER, SELFPAY | PROVIDERS: PCP Internal Medicine; Visit Provider Surgery | DX: L92.9 Granulomatous disorder of the skin and subcutaneous tissue, unspecified (principal) | CPT/HCPCS: 17250 ==

== ENCOUNTER 2025-01-03 12:27 | Outpatient (REF) | payer OTHER, SELFPAY ==
[2025-01-03 13:43] LABS: MANUAL DIFF FLAG NO
[2025-01-03 13:45] LABS: Basophils Absolute Auto 0.1 X10*3/uL (0.0-0.2); Basophils Percent Auto 0.7 % (0-2); Eosinophils Absolute Auto 0.4 X10*3/uL (0.0-0.4); Eosinophils Percent Auto 5.3 % (0-4); Hematocrit 33.5 % (37.0-47.0); Hemoglobin 9.5 g/dl (12.0-16.0); Imm Gran Abs Auto 0.02 X10*3/uL (0.00-0.03); Imm Gran Pct Auto 0.3 % (0.0-0.4); Lymphocytes Absolute Auto 2.1 X10*3/uL (1.2-4.9); Lymphocytes Percent Auto 29.6 % (20-40); Mean Corpuscular HGB Conc 28.4 g/dl (31.0-35.0); Mean Corpuscular Hemoglobin 25.2 pg (27.0-33.0); Mean Corpuscular Volume 88.9 fL (80.0-98.0); Mean Platelet Volume 10.5 fL (9.4-12.3); Monocytes Absolute Auto 0.7 X10*3/uL (0.1-1.2); Monocytes Percent Auto 9.4 % (2-11); Neutrophils Absolute Auto 3.8 x10*3/uL (2.0-8.3); Neutrophils Percent Auto 54.7 % (45-73); Platelet Count 351 X10*3/uL (160-400); Red Blood Count 3.77 X10*6/uL (4.20-5.50); Red Cell Distribution Width 16.1 % (11.0-16.0); White Blood Count 6.9 X10*3/uL (4.8-10.8)
[2025-01-03 13:58] LABS: Estimated Average Glucose 105 mg/dL; Hemoglobin A1c % 5.3 % (<6.0)
[2025-01-03 14:32] LABS: Alanine Aminotransferase 20 U/L (0-31); Albumin Level 3.6 g/dL (3.5-5.0); Alkaline Phosphatase 109 U/L (39-117); Anion Gap 12 (12-20); Aspartate Amino Transferase 37 U/L (5-31); Bilirubin Total 0.3 mg/dL (0.0-1.0); Blood Urea Nitrogen 17 mg/dL (9-16); Calcium 9.6 mg/dL (8.4-10.2); Carbon Dioxide 26 mmol/L (22-29); Chloride 107 mmol/L (96-108); Estimated Glomerular Filt Rate 38; Glucose Random 100 mg/dL (60-115); Potassium 4.2 mmol/L (3.3-5.1); Sodium 141 mmol/L (135-145)
[2025-01-03 14:39] LABS: Ferritin 114 ng/mL (10-250)
[2025-01-03 14:45] LABS: Vitamin B12 399 pg/mL (200-900)
--- OUTSIDE RECORDS SUMMARY | 2025-01-03 15:46 | XMS_ITS | Encounter Summary ---
Author Organization [facility] Address [address] [address] Phone Care Team Providers Care Drilling Manager Name Role Phone Unique Carrillo MD Primary Care Provider Unav ailable Encounter Details Date Type Department Care Team (Late st Contact Info) Description 12/05/2024 3:45 PM EST Office Visit [facility] [address] [phone] Deonte Roland MD [address] [phone] Stage 3b chronic kidney disease [...] this encounter Patient Instructions * Patient Instructions* Deonte Roland MD - 12/05/2024 3:45 PM [...] Salted Snacks such as Crackers Potato chips Coldiron chips Pretzels Tortilla chips Nuts Popcorn Lipscomb seeds Homemade or low- sodium sauces and [...] Foods such as: TV Dinners Canned raviolis Beulah Macaroni & Cheese Spaghetti Frozen prepared foods [...] are 1000 milligrams (mg) in 1gram. For [id number], if your diet prescription is 2 grams [...] Basil: Use with beef, pork, most vegetables. [place]: Use with beef, pork, most vegetables. Eric: [...] doctor or dietitian beforeusing and salt substitute. [place] and create your own seasoning containing those spices that you like. If you would like to become a volunteer and find out more about what's happening where you live, contact your local [facility] Affiliate. Blood pressure monitoring education: Monitor home [...] ethnic subgroups. Testing performed or reported by [facility], a Service of [facility], [address] [place] [address] Yannick Tomas MD, Insurance And Financial Services Agent [facility]# [id number] Chemistry Lab Units 11/15/24 0814 11/12/24 0924 [...] Office Visit [facility] [place] [id number] [phone] Deonte Roland MD [facility] [address] [phone] Scheduled Orders Name Type Priority Associated Diagnoses [...] disorder documented in this encounter Care Teams Drilling Manager Relationship Specialty Start Date End Date Unique Carrillo MD [address] [place] [address] Dr Dubon, [place] [phone] PCP - General Internal Medicine 03/07/24 documented as of this encounter
--- OUTSIDE RECORDS SUMMARY | 2025-01-03 15:46 | XMS_ITS | Clinical Summary ---
Author Organization [address] Address [address] [place] [address] Phone Care Team Providers Care Commercial Lender Name Role Phone Osmar Gramajo MD Primary Care Provider Encounters Date Type Department Care Team Description 11/21/2024 Lab Requisition [facility] Lab [address] [place] [phone] Juan Carlos Mayers Gastro-esophageal reflux disease without esophagitis; Hyperlipidemia, unspecified; Anemia, unspecified; Atherosclerotic heart disease of [place] coronary artery without angina pectoris; Essential (primary) hypertension 11/14/[address] [facility] [address] [place] [phone] Juan Carlos Mayers Gastro-esophageal reflux disease without esophagitis; Hyperlipidemia, unspecified; Anemia, unspecified; Atherosclerotic heart disease of [place] coronary artery without angina pectoris; Essential (primary) hypertension 11/12/[address] [facility] [address] [place] [phone] Juan Carlos Mayers Shortness of breath; Bacteremia 11/08/[address] [facility] [address] [place] [phone] Juan Carlos Mayers Encounter for screening for diabetes mellitus; Ischemic cardiomyopathy; Essential (primary) hypertension; Other chronic pain; Depression, unspecified; Hyperlipidemia, unspecified; Anemia, unspecified; Systemic lupus erythematosus, unspecified (CMS/HCC); Unspecified asthma, uncomplicated; Atherosclerotic heart disease of [place] coronary artery without angina pectoris; Gastro-esophageal reflux disease without esophagitis; Bacteremia; Hypotension, unspecified 11/06/2024 Lab Requisition [facility] Lab [address] [facility] [place] [address] Juan Carlos Mayers Atherosclerotic heart disease of [place] coronary artery without angina pectoris; Essential (primary) [...] unspecified Anemia, unspecified Atherosclerotic heart disease of [place] coronary artery without angina pectoris Essential (primary) hypertension HEMOGLOBIN A1C Routine 11/15/2024 8:14 AM EST Gastro-esophageal reflux disease without esophagitis Hyperlipidemia, unspecified Anemia, unspecified Atherosclerotic heart disease of [place] coronary artery without angina pectoris Essential (primary) hypertension LIPID PANEL WITH REFLEX TO DIRECT LDL Routine 11/15/2024 8:14 AM EST Gastro-esophageal reflux disease without esophagitis Hyperlipidemia, unspecified Anemia, unspecified Atherosclerotic heart disease of [place] coronary artery without angina pectoris Essential (primary) hypertension COMPREHENSIVE METABOLIC PANEL Routine 11/15/2024 8:14 AM EST Gastro-esophageal reflux disease without esophagitis Hyperlipidemia, unspecified Anemia, unspecified Atherosclerotic heart disease of [place] coronary artery without angina pectoris Essential (primary) hypertension CBC AND DIFFERENTIAL Routine 11/15/2024 8:14 AM EST Gastro-esophageal reflux disease without esophagitis Hyperlipidemia, unspecified Anemia, unspecified Atherosclerotic heart disease of [place] coronary artery without angina pectoris Essential (primary) [...] Unspecified asthma, uncomplicated Atherosclerotic heart disease of [place] coronary artery without angina pectoris Gastro-esophageal reflux disease without esophagitis Bacteremia Hypotension, unspecified HEMOGLOBIN A1C Routine 11/08/2024 7:15 AM EST Encounter for screening for diabetes mellitus Ischemic cardiomyopathy Essential (primary) hypertension Other chronic pain Depression, unspecified Hyperlipidemia, unspecified Anemia, unspecified Systemic lupus erythematosus, unspecified (CMS/HCC) Unspecified asthma, uncomplicated Atherosclerotic heart disease of [place] coronary artery without angina pectoris Gastro-esophageal reflux disease without esophagitis Bacteremia Hypotension, unspecified LIPID PANEL WITH REFLEX TO DIRECT LDL Routine 11/08/2024 7:15 AM EST Encounter for screening for diabetes mellitus Ischemic cardiomyopathy Essential (primary) hypertension Other chronic pain Depression, unspecified Hyperlipidemia, unspecified Anemia, unspecified Systemic lupus erythematosus, unspecified (CMS/HCC) Unspecified asthma, uncomplicated Atherosclerotic heart disease of [place] coronary artery without angina pectoris Gastro-esophageal reflux disease without esophagitis Bacteremia Hypotension, unspecified COMPREHENSIVE METABOLIC PANEL Routine 11/08/2024 7:15 AM EST Encounter for screening for diabetes mellitus Ischemic cardiomyopathy Essential (primary) hypertension Other chronic pain Depression, unspecified Hyperlipidemia, unspecified Anemia, unspecified Systemic lupus erythematosus, unspecified (CMS/HCC) Unspecified asthma, uncomplicated Atherosclerotic heart disease of [place] coronary artery without angina pectoris Gastro-esophageal reflux disease without esophagitis Bacteremia Hypotension, unspecified CBC AND DIFFERENTIAL Routine 11/08/2024 7:15 AM EST Encounter for screening for diabetes mellitus Ischemic cardiomyopathy Essential (primary) hypertension Other chronic pain Depression, unspecified Hyperlipidemia, unspecified Anemia, unspecified Systemic lupus erythematosus, unspecified (CMS/HCC) Unspecified asthma, uncomplicated Atherosclerotic heart disease of [place] coronary artery without angina pectoris Gastro-esophageal reflux disease without esophagitis Bacteremia Hypotension, unspecified CBC WITH AUTO DIFFERENTIAL Routine 11/06/2024 6:08 AM EST Atherosclerotic heart disease of [place] coronary artery without angina pectoris Essential (primary) hypertension VITAMIN B12 Routine 11/06/2024 6:08 AM EST Atherosclerotic heart disease of [place] coronary artery without angina pectoris Essential (primary) hypertension THYROID STIMULATING HORMONE Routine 11/06/2024 6:08 AM EST Atherosclerotic heart disease of [place] coronary artery without angina pectoris Essential (primary) hypertension FOLATE Routine 11/06/2024 6:08 AM EST Atherosclerotic heart disease of [place] coronary artery without angina pectoris Essential (primary) hypertension COMPREHENSIVE METABOLIC PANEL Routine 11/06/2024 6:08 AM EST Atherosclerotic heart disease of [place] coronary artery without angina pectoris Essential (primary) hypertension CBC AND DIFFERENTIAL Routine 11/06/2024 6:08 AM EST Atherosclerotic heart disease of [place] coronary artery without angina pectoris Essential (primary) [...] 12:25 PM EST [facility] Triglycerides 132 0 - 150 mg/dL LAB CHEMISTRY METHOD 11/15/2024 12:25 PM EST [facility] HDL 24(L) >=40 mg/dL LAB CHEMISTRY METHOD 11/15/2024 12:25 PM EST [facility] LDL Calculated 19 0 - 100 mg/dL LAB CHEMISTRY METHOD 11/15/2024 12:25 PM EST [facility] VLDL Cholesterol Enio 26.4 mg/dL LAB CHEMISTRY METHOD 11/15/2024 12:25 PM [facility] Non HDL Chol. (LDL+VLDL) 45 <145 mg/dL LAB CHEMISTRY METHOD 11/15/2024 12:25 PM [facility] Chol/HDL Ratio 2.9 0.0 - 4.4 LAB CHEMISTRY METHOD 11/15/2024 12:25 PM [facility] Blood Venous blood specimen / Unknown Venipuncture / Unknown 11/15/2024 8:14 AM EST 11/15/2024 11:16 AM EST Juan Carlos Mayers LAB BLOOD ORDERABLES Final Resul t [facility] [address] [place] [address], * (ABNORMAL) CBC auto differential (11/15/2024 8:14 AM EST) Only the most recent of3 resultswithin the time period is included. WBC 5.1 4.8 - 10.8 K/mcL LAB HEMETOLOGY METHOD 11/15/2024 11:49 AM [facility] RBC 3.40(L) 3.80 - 4.80 M/mcL LAB HEMETOLOGY METHOD 11/15/2024 11:49 AM [facility] Hemoglobin 8.7(L) 11.5 - 16.0 g/dL LAB HEMETOLOGY METHOD 11/15/2024 11:49 AM [facility] Hematocrit 30.5(L) 35.0 - 47.0 % LAB HEMETOLOGY METHOD 11/15/2024 11:49 AM [facility] MCV 90.0 79.0 - 98.0 FL LAB HEMETOLOGY METHOD 11/15/2024 11:49 AM [facility] MCH 25.7(L) 27.0 - 32.0 pcg LAB HEMETOLOGY METHOD 11/15/2024 11:49 AM [facility] MCHC 28.5(L) 32.0 - 37.0 g/dL LAB HEMETOLOGY METHOD 11/15/2024 11:49 AM [facility] RDW 16.1(H) 11.0 - 15.0 % LAB HEMETOLOGY METHOD 11/15/2024 11:49 AM [facility] Platelets 319 130 - 400 K/mcL LAB HEMETOLOGY METHOD 11/15/2024 11:49 AM [facility] MPV 10.6 7.0 - 11.0 FL LAB HEMETOLOGY METHOD 11/15/2024 11:49 AM [facility] NRBC 0.4 <1.0 % LAB HEMETOLOGY METHOD 11/15/2024 11:49 AM [facility] NRBC Absolute 0.02 <0.10 K/mcL LAB HEMETOLOGY METHOD 11/15/2024 11:49 AM [facility] Neutrophils Relative 49.2 % LAB HEMETOLOGY METHOD 11/15/2024 11:49 AM [facility] Lymphocytes Relative 33.7 % LAB HEMETOLOGY METHOD 11/15/2024 11:49 AM [facility] Monocytes Relative 11.6 % LAB HEMETOLOGY METHOD 11/15/2024 11:49 AM [facility] Eosinophils Relative 4.5 % LAB HEMETOLOGY METHOD 11/15/2024 11:49 AM [facility] Basophils Relative 0.4 % LAB HEMETOLOGY METHOD 11/15/2024 11:49 AM [facility] Immature Granulocytes Relative 0.6 % LAB HEMETOLOGY METHOD 11/15/2024 11:49 AM [facility] Neutrophils Absolute 2.49 1.50 - 7.00 K/[facility] LAB HEMETOLOGY METHOD 11/15/2024 11:49 AM EST [facility] Lymphocytes Absolute 1.71 1.00 - 5.00 K/[facility] LAB HEMETOLOGY METHOD 11/15/2024 11:49 AM EST [facility] Monocytes Absolute 0.59 0.20 - 1.00 K/[facility] LAB HEMETOLOGY METHOD 11/15/2024 11:49 AM EST [facility] Eosinophils Absolute 0.23 0.00 - 0.50 K/[facility] LAB HEMETOLOGY METHOD 11/15/2024 11:49 AM EST [facility] Basophils Absolute 0.02 0.00 - 0.20 K/[facility] LAB HEMETOLOGY METHOD 11/15/2024 11:49 AM [facility] Immature Granulocytes Absolute 0.03 0.00 - 0.03 K/[facility] LAB HEMETOLOGY METHOD 11/15/2024 11:49 AM EST [facility] Blood Venous blood specimen / Unknown Venipuncture / Unknown 11/15/2024 8:14 AM EST 11/15/2024 11:18 AM EST Juan Carlos Figueroaaltamont LAB BLOOD ORDERABLES Final Resul t [facility] [address] [place] [address], * Hemoglobin A1c (11/15/2024 8:14 AM EST) Only the most recent of2 resultswithin the time period is included. Hemoglobin A1C 6.1 <6.5 % LAB CHEMISTRY METHOD 11/15/2024 2:22 PM EST [facility] Mean Bld Glu Estim. 128 mg/dL LAB CHEMISTRY METHOD 11/15/2024 2:22 PM [facility] Blood Venous blood specimen / Unknown Venipuncture / Unknown 11/15/2024 8:14 AM EST 11/15/2024 11:18 AM EST us Juan Carlos Mayers LAB BLOOD ORDERABLES Final Resul t [facility] [address] [place] [address], [place] [phone] * (ABNORMAL) Comprehensive metabolic panel (11/15/2024 8:14 AM EST) Only the most recent of3 resultswithin the time period is included. Sodium 137 133 - 145 mmol/L LAB CHEMISTRY METHOD 11/15/2024 12:25 PM [facility] Potassium 3.4(L) 3.5 - 5.5 mmol/L LAB CHEMISTRY METHOD 11/15/2024 12:25 PM [facility] Chloride 101 96 - 110 mmol/L LAB CHEMISTRY METHOD 11/15/2024 12:25 PM [facility] CO2 29 21 - 32 mmol/L LAB CHEMISTRY METHOD 11/15/2024 12:25 PM [facility] Anion Gap 7 3 - 11 LAB CHEMISTRY METHOD 11/15/2024 12:25 PM [facility] Glucose 134(H) 70 - 100 mg/dL LAB CHEMISTRY METHOD 11/15/2024 12:25 PM [facility] BUN 9 5 - 25 mg/dL LAB CHEMISTRY METHOD 11/15/2024 12:25 PM [facility] Creatinine 1.56(H) 0.50 - 1.10 mg/dL LAB CHEMISTRY METHOD 11/15/2024 12:25 PM [facility] eGFR 36(L) >=60 mL/min/1. 73m2 LAB CHEMISTRY METHOD 11/15/2024 12:25 PM [facility] Comment:Calculation based on the??Chronic Kidney Disease Epidemiology Collaboration (CKD-EPI) equation refit??without adjustment for race. BUN/Creatinine Ratio 5.8 LAB CHEMISTRY METHOD 11/15/2024 12:25 PM [facility] Calcium 8.6 8.5 - 10.5 mg/dL LAB CHEMISTRY METHOD 11/15/2024 12:25 PM [facility] AST (SGOT) 35 10 - 42 unit/L LAB CHEMISTRY METHOD 11/15/2024 12:25 PM [facility] ALT (SGPT) 23 10 - 60 unit/L LAB CHEMISTRY METHOD 11/15/2024 12:25 PM [facility] Alkaline Phosphatase 99 42 - 121 unit/L LAB CHEMISTRY METHOD 11/15/2024 12:25 PM [facility] Total Protein 5.6(L) 6.0 - 8.0 g/dL LAB CHEMISTRY METHOD 11/15/2024 12:25 PM [facility] Albumin 2.3(L) 3.2 - 5.0 g/dL LAB CHEMISTRY METHOD 11/15/2024 12:25 PM [facility] Total Bilirubin 0.3 0.0 - 1.4 mg/dL LAB CHEMISTRY METHOD 11/15/2024 12:25 PM [facility] Blood Venous blood specimen / Unknown Venipuncture / Unknown 11/15/2024 8:14 AM EST 11/15/2024 11:16 AM EST us Juan Carlos Mayers LAB BLOOD ORDERABLES Final Resul t [facility] [address] [place] [address], * (ABNORMAL) Complete blood count (11/12/2024 9:24 AM EST) WBC 6.8 4.8 - 10.8 K/mcL LAB HEMETOLOGY METHOD 11/12/2024 12:02 PM [facility] RBC 3.60(L) 3.80 - 4.80 M/mcL LAB HEMETOLOGY METHOD 11/12/2024 12:02 PM [facility] Hemoglobin 9.5(L) 11.5 - 16.0 g/dL LAB HEMETOLOGY METHOD 11/12/2024 12:02 PM [facility] Hematocrit 33.5(L) 35.0 - 47.0 % LAB HEMETOLOGY METHOD 11/12/2024 12:02 PM [facility] MCV 92.0 79.0 - 98.0 FL LAB HEMETOLOGY METHOD 11/12/2024 12:02 PM [facility] MCH 26.1(L) 27.0 - 32.0 pcg LAB HEMETOLOGY METHOD 11/12/2024 12:02 PM [facility] MCHC 28.4(L) 32.0 - 37.0 g/dL LAB HEMETOLOGY METHOD 11/12/2024 12:02 PM [facility] RDW 15.6(H) 11.0 - 15.0 % LAB HEMETOLOGY METHOD 11/12/2024 12:02 PM [facility] Platelets 315 130 - 400 K/mcL LAB HEMETOLOGY METHOD 11/12/2024 12:02 PM [facility] MPV 10.9 7.0 - 11.0 FL LAB HEMETOLOGY METHOD 11/12/2024 12:02 PM [facility] NRBC 0.0 <1.0 % LAB HEMETOLOGY METHOD 11/12/2024 12:02 PM [facility] NRBC Absolute 0.00 <0.10 K/mcL LAB HEMETOLOGY METHOD 11/12/2024 12:02 PM [facility] Blood Venous blood specimen / Unknown Venipuncture / Unknown 11/12/2024 9:24 AM EST 11/12/2024 11:45 AM EST us Juan Carlos Mayers LAB BLOOD ORDERABLES Final Resul t Performing Organization Address [facility]/ZIP Co de Phone Number [facility] [address] [place] [address], [place] [phone] * B-type natriuretic peptide (11/12/2024 9:24 AM EST) BNP 16 <=100 pcg/mL LAB CHEMISTRY METHOD 11/12/2024 12:30 PM [facility] Blood Venous blood specimen / Unknown Venipuncture / Unknown 11/12/2024 9:24 AM EST 11/12/2024 11:45 AM EST us Juan Carlos Mayers LAB BLOOD ORDERABLES Final Resul t Performing Organization Address [facility] Co de Phone Number [facility] [address] [place] [address], [place] [phone] * (ABNORMAL) Basic metabolic panel (11/12/2024 9:24 AM EST) Sodium 137 133 - 145 mmol/L LAB CHEMISTRY METHOD 11/12/2024 12:24 PM [facility] Potassium 3.4(L) 3.5 - 5.5 mmol/L LAB CHEMISTRY METHOD 11/12/2024 12:24 PM [facility] Chloride 101 96 - 110 mmol/L LAB CHEMISTRY METHOD 11/12/2024 12:24 PM [facility] CO2 28 21 - 32 mmol/L LAB CHEMISTRY METHOD 11/12/2024 12:24 PM [facility] Anion Gap 8 3 - 11 LAB CHEMISTRY METHOD 11/12/2024 12:24 PM [facility] Glucose 121(H) 70 - 100 mg/dL LAB CHEMISTRY METHOD 11/12/2024 12:24 PM [facility] BUN 9 5 - 25 mg/dL LAB CHEMISTRY METHOD 11/12/2024 12:24 PM [facility] Creatinine 1.65(H) 0.50 - 1.10 mg/dL LAB CHEMISTRY METHOD 11/12/2024 12:24 PM [facility] eGFR 34(L) >=60 mL/min/1. 73m2 LAB CHEMISTRY METHOD 11/12/2024 12:24 PM [facility] Comment:Calculation based on the??Chronic Kidney Disease Epidemiology Collaboration (CKD-EPI) equation refit??without adjustment for race. BUN/Creatinine Ratio 5.5 LAB CHEMISTRY METHOD 11/12/2024 12:24 PM [facility] Calcium 9.1 8.5 - 10.5 mg/dL LAB CHEMISTRY METHOD 11/12/2024 12:24 PM [facility] Blood Venous blood specimen / Unknown Venipuncture / Unknown 11/12/2024 9:24 AM EST 11/12/2024 11:45 AM EST us Juan Carlos Mayers LAB BLOOD ORDERABLES Final Resul t Performing Organization Address City/[facility]/ZIP Co de Phone Number [facility] [address] [place] [address], [place] [phone] * Thyroid stimulating hormone (11/06/2024 6:08 AM EST) TSH 3.31 0.40 - 4.00 mcIU/mL LAB CHEMISTRY METHOD 11/06/2024 10:42 AM EST [facility] Blood Venous blood specimen / Unknown Venipuncture / Unknown 11/06/2024 6:08 AM EST 11/06/2024 9:04 AM EST us Juan Carlos Mayers LAB BLOOD ORDERABLES Final Resul t [facility] [address] [place] [address], [place] [phone] * Folate (11/06/2024 6:08 AM EST) Folate 5.4 2.8 - 17.0 ng/ml LAB CHEMISTRY METHOD 11/06/2024 11:00 AM EST [facility] Blood Venous blood specimen / Unknown Venipuncture / Unknown 11/06/2024 6:08 AM EST 11/06/2024 9:04 AM EST us Juan Carlos Mayers LAB BLOOD ORDERABLES Final Resul t [facility] [address] [place] [address], [place] [phone] * Vitamin B12 (11/06/2024 6:08 AM EST) [facility] Vitamin B-12 830 250 - 900 pcg/mL LAB CHEMISTRY METHOD 11/06/2024 11:00 AM EST [facility] Blood Venous blood specimen / Unknown Venipuncture / Unknown 11/06/2024 6:08 AM EST 11/06/2024 9:04 AM EST us Juan Carlos Mayers LAB BLOOD ORDERABLES Final Resul t Performing Organization Address City/[facility]/ZIP Co de Phone Number [facility] [address] [place] [address], [place] [phone] * DAYO SCREENING DIGITAL (05/28/2021 2:31 PM EDT) Anatomical Region Laterality Modality Mammography 05/28/2021 2:09 PM EDT Narrative 05/28/2021 2:[address] [facility] Diagnostic Imaging Department [address] [place] [address] Patient: ??MARCI FERNANDO ?/Age/Sex: 1955 - 65 - F Unit#: ??[id number] ? Location/Status: ??SPDIMAM/REG CLI ? Mnemonic/Ordering Site: ??DIGSC/SPMAM Ordering Physician: ??Dayanara GRAMAJO MD [facility] Screening Digital - 05/28/21 - 1426 EXAM: [facility] Screening Digital EXAM DATE AND TIME: 05/28/2021 2:21 PM HISTORY: ??Annual screening mammography COMPARISON: ??2016 through 08/16/2012 TECHNIQUE: CC and MLO views of both breasts were obtained using full field digital mammography. Bilateral digital breast tomosynthesis was performed in the MLO projection. Computer aided detection with the ALKALINE WATER 7.2-H was employed. TISSUE DENSITY: b. There [...] Routine screening mammogram BILATERAL in 1 year. 11759, 12830 3342F, 7025F Dictating Physician: ??YASHIRA VU MD Electronically Signed by: ??YASHIRA VU MD Dic Date/Time: ??05/28/21 1429 Sign date/Time: ??05/28/21 1431 Procedure Note Kim Vu MD - 10/20/2022 [facility] Diagnostic Imaging Department [address] [place] [id number] Patient: MARCI FERNANDO Indira /Age/Sex: 1955 65 - F Unit#: [id number] [facility] Mnemonic/Ordering Site: [facility] Ordering Physician: Dayanara GRAMAJO MD [facility] Screening Digital - 05/28/21 - 1426 EXAM: [facility] Screening Digital EXAM DATE AND TIME: 05/28/2021 2:21 PM HISTORY: Annual screening mammography COMPARISON: 2016 through 08/16/2012 TECHNIQUE: CC and MLO views of both breasts were obtained using fullfield digital mammography. Bilateral digital breast tomosynthesis was performedin the MLO projection. Computer aided detection with the ALKALINE WATER 7.2-Calendlyas employed. TISSUE DENSITY: b. There are scattered [...] Routine screening mammogram BILATERAL in 1 year. 81536, 50139 3342F, 7025F Dictating Physician: YASHIRA VU MD Electronically Signed by: YASHIRA VU MD Dic Date/Time: 05/28/21 1429 Sign date/Time: 05/28/21 1431 Osmar Gramajo MD IMG BI PROCEDURES Hortensia l Result from Last 3 Months or Most Recently Relevant to Health Maintenance Insurance MEDICAID - [place] Care Teams Commercial Lender Relationship Specialty Start Date End Date Osmar Gramajo MD [address] [place], [place] PCP - General Pulmonary Disease 04/20/17
--- OUTSIDE RECORDS SUMMARY | 2025-01-03 15:46 | XMS_ITS | Encounter Summary ---
Author Organization [facility] Address [address] [place] [address] Care Team Providers Care Brokerage Clerk Name Role Phone Osmar Gramajo MD Primary Care Provider Encounter Details Date Type Department Care Team (Late st Contact Info) Description 11/08/2024 Lab Requisition [facility] - Main Lab [address] [facility] [place] [address] Juan Carlos Mayers [address] [facility] [address] [place] [address] Encounter for screening for diabetes mellitus; Ischemic cardiomyopathy; Essential (primary) hypertension; Other chronic pain; Depression, unspecified; Hyperlipidemia, unspecified; Anemia, unspecified; Systemic lupus erythematosus, unspecified (CMS/HCC); Unspecified asthma, uncomplicated; Atherosclerotic heart disease of [place] coronary artery without angina pectoris; Gastro-esophageal reflux [...] Unspecified asthma, uncomplicated Atherosclerotic heart disease of [place] coronary artery without angina pectoris Gastro-esophageal reflux disease without esophagitis Bacteremia Hypotension, unspecified CBC WITH AUTO DIFFERENTIAL Routine 11/08/2024 7:15 AM EST Encounter for screening for diabetes mellitus Ischemic cardiomyopathy Essential (primary) hypertension Other chronic pain Depression, unspecified Hyperlipidemia, unspecified Anemia, unspecified Systemic lupus erythematosus, unspecified (CMS/HCC) Unspecified asthma, uncomplicated Atherosclerotic heart disease of [place] coronary artery without angina pectoris Gastro-esophageal reflux disease without esophagitis Bacteremia Hypotension, unspecified CBC AND DIFFERENTIAL Routine 11/08/2024 7:15 AM EST Encounter for screening for diabetes mellitus Ischemic cardiomyopathy Essential (primary) hypertension Other chronic pain Depression, unspecified Hyperlipidemia, unspecified Anemia, unspecified Systemic lupus erythematosus, unspecified (CMS/HCC) Unspecified asthma, uncomplicated Atherosclerotic heart disease of [place] coronary artery without angina pectoris Gastro-esophageal reflux disease without esophagitis Bacteremia Hypotension, unspecified HEMOGLOBIN A1C Routine 11/08/2024 7:15 AM EST Encounter for screening for diabetes mellitus Ischemic cardiomyopathy Essential (primary) hypertension Other chronic pain Depression, unspecified Hyperlipidemia, unspecified Anemia, unspecified Systemic lupus erythematosus, unspecified (CMS/HCC) Unspecified asthma, uncomplicated Atherosclerotic heart disease of [place] coronary artery without angina pectoris Gastro-esophageal reflux disease without esophagitis Bacteremia Hypotension, unspecified COMPREHENSIVE METABOLIC PANEL Routine 11/08/2024 7:15 AM EST Encounter for screening for diabetes mellitus Ischemic cardiomyopathy Essential (primary) hypertension Other chronic pain Depression, unspecified Hyperlipidemia, unspecified Anemia, unspecified Systemic lupus erythematosus, unspecified (CMS/HCC) Unspecified asthma, uncomplicated Atherosclerotic heart disease of [place] coronary artery without angina pectoris Gastro-esophageal reflux disease without esophagitis Bacteremia Hypotension, unspecified documented in this encounter Results * (ABNORMAL) CBC auto differential (11/08/2024 7:15 AM EST) [facility] Signature WBC 5.4 4.8 - 10.8 K/[facility] LAB HEMETOLOGY METHOD 11/08/2024 10:37 AM EST [facility] LAB RBC 3.80 3.80 - 4.80 M/[facility] LAB HEMETOLOGY METHOD 11/08/2024 10:37 AM [facility] LAB Hemoglobin 9.7(L) 11.5 - 16.0 g/dL LAB HEMETOLOGY METHOD 11/08/2024 10:37 AM [facility] LAB Hematocrit 34.0(L) 35.0 - 47.0 % LAB HEMETOLOGY METHOD 11/08/2024 10:37 AM [facility] LAB MCV 89.7 79.0 - 98.0 FL LAB HEMETOLOGY METHOD 11/08/2024 10:37 AM [facility] LAB MCH 25.6(L) 27.0 - 32.0 pcg LAB HEMETOLOGY METHOD 11/08/2024 10:37 AM [facility] LAB MCHC 28.5(L) 32.0 - 37.0 g/dL LAB HEMETOLOGY METHOD 11/08/2024 10:37 AM [facility] LAB RDW 15.3(H) 11.0 - 15.0 % LAB HEMETOLOGY METHOD 11/08/2024 10:37 AM [facility] LAB Platelets 251 130 - 400 K/mcL LAB HEMETOLOGY METHOD 11/08/2024 10:37 AM [facility] LAB MPV 11.3(H) 7.0 - 11.0 FL LAB HEMETOLOGY METHOD 11/08/2024 10:37 AM [facility] LAB NRBC 0.0 <1.0 % LAB HEMETOLOGY METHOD 11/08/2024 10:37 AM [facility] LAB NRBC Absolute 0.00 <0.10 K/mcL LAB HEMETOLOGY METHOD 11/08/2024 10:37 AM [facility] LAB Neutrophils Relative 55.4 % LAB HEMETOLOGY METHOD 11/08/2024 10:37 AM [facility] LAB Lymphocytes Relative 26.5 % LAB HEMETOLOGY METHOD 11/08/2024 10:37 AM EST [facility] LAB Monocytes Relative 15.1 % LAB HEMETOLOGY METHOD 11/08/2024 10:37 AM [facility] LAB Eosinophils Relative 2.4 % LAB HEMETOLOGY METHOD 11/08/2024 10:37 AM [facility] LAB Basophils Relative 0.4 % LAB HEMETOLOGY METHOD 11/08/2024 10:37 AM [facility] LAB Immature Granulocytes Relative 0.2 % LAB HEMETOLOGY METHOD 11/08/2024 10:37 AM [facility] LAB Neutrophils Absolute 3.02 1.50 - 7.00 K/mcL LAB HEMETOLOGY METHOD 11/08/2024 10:37 AM [facility] LAB Lymphocytes Absolute 1.44 1.00 - 5.00 K/mcL LAB HEMETOLOGY METHOD 11/08/2024 10:37 AM [facility] LAB Monocytes Absolute 0.82 0.20 - 1.00 K/mcL LAB HEMETOLOGY METHOD 11/08/2024 10:37 AM [facility] LAB Eosinophils Absolute 0.13 0.00 - 0.50 K/mcL LAB HEMETOLOGY METHOD 11/08/2024 10:37 AM [facility] LAB Basophils Absolute 0.02 0.00 - 0.20 K/mcL LAB HEMETOLOGY METHOD 11/08/2024 10:37 AM [facility] LAB Immature Granulocytes Absolute 0.01 0.00 - 0.03 K/mcL LAB HEMETOLOGY METHOD 11/08/2024 10:37 AM [facility] LAB Blood Venous blood specimen / Unknown Venipuncture / Unknown 11/08/2024 7:15 AM EST 11/08/2024 9:19 AM EST us Juan Carlos Mayers LAB BLOOD ORDERABLES Final Resul t [facility] LAB [address] [place] [address], * Hemoglobin A1c (11/08/2024 7:15 AM EST) Pathologist [facility] Hemoglobin A1C 6.1 <6.5 % LAB CHEMISTRY METHOD 11/08/2024 8:50 PM [facility] LAB Mean Bld Glu Estim. 128 mg/dL LAB CHEMISTRY METHOD 11/08/2024 8:50 PM [facility] LAB Blood Venous blood specimen / Unknown Venipuncture / Unknown 11/08/2024 7:15 AM EST 11/08/2024 9:19 AM EST Juan Carlos Mayers LAB BLOOD ORDERABLES Final Resul t [facility] LAB [address] [place] [address], [place] [phone] * (ABNORMAL) Lipid panel with reflex to direct LDL (11/08/2024 7:15 AM EST) [facility] Cholesterol 68 0 - 200 mg/dL LAB CHEMISTRY METHOD 11/08/2024 11:32 AM [facility] LAB Triglycerides 136 0 - 150 mg/dL LAB CHEMISTRY METHOD 11/08/2024 11:32 AM [facility] LAB HDL 21(L) >=40 mg/dL LAB CHEMISTRY METHOD 11/08/2024 11:32 AM [facility] LAB LDL Calculated 20 0 - 100 mg/dL LAB CHEMISTRY METHOD 11/08/2024 11:32 AM [facility] LAB VLDL Cholesterol Enio 27.2 mg/dL LAB CHEMISTRY METHOD 11/08/2024 11:32 AM [facility] LAB Non HDL Chol. (LDL+VLDL) 47 <145 mg/dL LAB CHEMISTRY METHOD 11/08/2024 11:32 AM [facility] LAB Chol/HDL Ratio 3.2 0.0 - 4.4 LAB CHEMISTRY METHOD 11/08/2024 11:32 AM [facility] LAB Blood Venous blood specimen / Unknown Venipuncture / Unknown 11/08/2024 7:15 AM EST 11/08/2024 9:19 AM EST Juan Carlos Mayers LAB BLOOD ORDERABLES Final Resul t [facility] LAB [address] [place] [address], * (ABNORMAL) Comprehensive metabolic panel (11/08/2024 7:15 AM EST) Sodium 136 133 - 145 mmol/L LAB CHEMISTRY METHOD 11/08/2024 11:39 AM [facility] LAB Potassium 3.2(L) 3.5 - 5.5 mmol/L LAB CHEMISTRY METHOD 11/08/2024 11:39 AM [facility] LAB Chloride 100 96 - 110 mmol/L LAB CHEMISTRY METHOD 11/08/2024 11:39 AM [facility] LAB CO2 28 21 - 32 mmol/L LAB CHEMISTRY METHOD 11/08/2024 11:39 AM [facility] LAB Anion Gap 8 3 - 11 LAB CHEMISTRY METHOD 11/08/2024 11:39 AM [facility] LAB Glucose 102(H) 70 - 100 mg/dL LAB CHEMISTRY METHOD 11/08/2024 11:39 AM [facility] LAB BUN 4(L) 5 - 25 mg/dL LAB CHEMISTRY METHOD 11/08/2024 11:39 AM [facility] LAB Creatinine 1.82(H) 0.50 - 1.10 mg/dL LAB CHEMISTRY METHOD 11/08/2024 11:39 AM [facility] LAB eGFR 30(L) >=60 mL/min/1. 73m2 LAB CHEMISTRY METHOD 11/08/2024 11:39 AM [facility] LAB Comment:Calculation based on the??Chronic Kidney Disease Epidemiology Collaboration (CKD-EPI) equation refit??without adjustment for race. BUN/Creatinine Ratio 2.2 LAB CHEMISTRY METHOD 11/08/2024 11:39 AM [facility] LAB Calcium 9.1 8.5 - 10.5 mg/dL LAB CHEMISTRY METHOD 11/08/2024 11:39 AM [facility] LAB AST (SGOT) 49(H) 10 - 42 unit/L LAB CHEMISTRY METHOD 11/08/2024 11:39 AM [facility] LAB ALT (SGPT) 40 10 - 60 unit/L LAB CHEMISTRY METHOD 11/08/2024 11:39 AM [facility] LAB Alkaline Phosphatase 96 42 - 121 unit/L LAB CHEMISTRY METHOD 11/08/2024 11:39 AM [facility] LAB Total Protein 5.6(L) 6.0 - 8.0 g/dL LAB CHEMISTRY METHOD 11/08/2024 11:39 AM [facility] LAB Albumin 2.4(L) 3.2 - 5.0 g/dL LAB CHEMISTRY METHOD 11/08/2024 11:39 AM [facility] LAB Total Bilirubin 0.4 0.0 - 1.4 mg/dL LAB CHEMISTRY METHOD 11/08/2024 11:39 AM [facility] LAB Blood Venous blood specimen / Unknown Venipuncture / Unknown 11/08/2024 7:15 AM EST 11/08/2024 9:19 AM EST Juan Carlos Mayers LAB BLOOD ORDERABLES Final Resul t [facility] LAB [address] [place] [address], documented in this encounter Visit Diagnoses Diagnosis Encounter for screening for diabetes mellitus Ischemic cardiomyopathy Other specified forms of chronic ischemic heart disease Essential (primary) hypertension Unspecified essential hypertension Other chronic pain Depression, unspecified Hyperlipidemia, unspecified Anemia, unspecified Systemic lupus erythematosus, unspecified (CMS/HCC) Unspecified asthma, uncomplicated Atherosclerotic heart disease of [place] coronary artery without angina pectoris Gastro-esophageal reflux disease without esophagitis Bacteremia Hypotension, unspecified documented in this encounter Care Teams Brokerage Clerk Relationship Specialty Start Date End Date Osmar Gramajo MD [address] [place] [address] PCP - General Pulmonary Disease 04/20/17 documented as of this encounter
--- OUTSIDE RECORDS SUMMARY | 2025-01-03 15:46 | XMS_ITS | Encounter Summary ---
Author Organization [facility] Address [address] [place] [address] Care Team Providers Care Maintenance Chief Name Role Phone Osmar Gramajo MD Primary Care Provider Encounter Details Date Type Department Care Team (Late st Contact Info) Description 11/21/2024 Lab Requisition [facility] - Main Lab [address] [facility] [place] [address] Juan Carlos Mayers [address] [facility] [address] [place] [address] Gastro-esophageal reflux disease without esophagitis; Hyperlipidemia, unspecified; Anemia, unspecified; Atherosclerotic heart disease of [place] coronary artery without angina pectoris; Essential (primary) [...] unspecified Anemia, unspecified Atherosclerotic heart disease of [place] coronary artery without angina pectoris Essential (primary) hypertension Unspecified essential hypertension documented in this encounter Care Teams Maintenance Chief Relationship Specialty Start Date End Date Osmar Gramajo MD [address] [place], [place] PCP - General Pulmonary Disease 04/20/17 documented as of this encounter
--- OUTSIDE RECORDS SUMMARY | 2025-01-03 15:46 | XMS_ITS | Encounter Summary ---
Author Organization [facility] Address [address] [place] [address] Care Team Providers Care Systems Requirements Planner Name Role Phone Osmar Gramajo MD Primary Care Provider Encounter Details Date Type Department Care Team (Latest Contact Info) Description 11/06/2024 Lab Requisition [facility] - Main Lab [address] [facility] [address] [place] [address] Juan Carlos Mayers [address] [facility] [address] [place] [address] Atherosclerotic heart disease of [place] coronary artery without angina pectoris; Essential (primary) [...] 6:08 AM EST Atherosclerotic heart disease of [place] coronary artery without angina pectoris Essential (primary) hypertension CBC AND DIFFERENTIAL Routine 11/06/2024 6:08 AM EST Atherosclerotic heart disease of [place] coronary artery without angina pectoris Essential (primary) hypertension THYROID STIMULATING HORMONE Routine 11/06/2024 6:08 AM EST Atherosclerotic heart disease of [place] coronary artery without angina pectoris Essential (primary) hypertension FOLATE Routine 11/06/2024 6:08 AM EST Atherosclerotic heart disease of [place] coronary artery without angina pectoris Essential (primary) hypertension VITAMIN B12 Routine 11/06/2024 6:08 AM EST Atherosclerotic heart disease of [place] coronary artery without angina pectoris Essential (primary) hypertension COMPREHENSIVE METABOLIC PANEL Routine 11/06/2024 6:08 AM EST Atherosclerotic heart disease of [place] coronary artery without angina pectoris Essential (primary) hypertension documented in this encounter Results * (ABNORMAL) CBC auto differential (11/06/2024 6:08 AM EST) [facility] WBC 5.2 4.8 - 10.8 K/mcL LAB HEMETOLOGY METHOD 11/06/2024 9:55 AM [facility] LAB RBC 3.70(L) 3.80 - 4.80 M/mcL LAB HEMETOLOGY METHOD 11/06/2024 9:55 AM [facility] LAB Hemoglobin 9.7(L) 11.5 - 16.0 g/dL LAB HEMETOLOGY METHOD 11/06/2024 9:55 AM [facility] LAB Hematocrit 32.9(L) 35.0 - 47.0 % LAB HEMETOLOGY METHOD 11/06/2024 9:55 AM [facility] LAB MCV 90.1 79.0 - 98.0 FL LAB HEMETOLOGY METHOD 11/06/2024 9:55 AM [facility] LAB MCH 26.6(L) 27.0 - 32.0 pcg LAB HEMETOLOGY METHOD 11/06/2024 9:55 AM [facility] LAB MCHC 29.5(L) 32.0 - 37.0 g/dL LAB HEMETOLOGY METHOD 11/06/2024 9:55 AM [facility] LAB RDW 15.3(H) 11.0 - 15.0 % LAB HEMETOLOGY METHOD 11/06/2024 9:55 AM [facility] LAB Platelets 226 130 - 400 K/mcL LAB HEMETOLOGY METHOD 11/06/2024 9:55 AM [facility] LAB MPV 11.3(H) 7.0 - 11.0 FL LAB HEMETOLOGY METHOD 11/06/2024 9:55 AM [facility] LAB NRBC 0.0 <1.0 % LAB HEMETOLOGY METHOD 11/06/2024 9:55 AM [facility] LAB NRBC Absolute 0.00 <0.10 K/mcL LAB HEMETOLOGY METHOD 11/06/2024 9:55 AM [facility] LAB Neutrophils Relative 48.4 % LAB HEMETOLOGY METHOD 11/06/2024 9:55 AM [facility] LAB Lymphocytes Relative 32.1 % LAB HEMETOLOGY METHOD 11/06/2024 9:55 AM [facility] LAB Monocytes Relative 15.1 % LAB HEMETOLOGY METHOD 11/06/2024 9:55 AM [facility] Eosinophils Relative 3.4 % LAB HEMETOLOGY METHOD 11/06/2024 9:55 AM [facility] Basophils Relative 0.6 % LAB HEMETOLOGY METHOD 11/06/2024 9:55 AM [facility] LAB Immature Granulocytes Relative 0.4 % LAB HEMETOLOGY METHOD 11/06/2024 9:55 AM [facility] LAB Neutrophils Absolute 2.54 1.50 - 7.00 K/mcL LAB HEMETOLOGY METHOD 11/06/2024 9:55 AM [facility] LAB Lymphocytes Absolute 1.68 1.00 - 5.00 K/mcL LAB HEMETOLOGY METHOD 11/06/2024 9:55 AM [facility] LAB Monocytes Absolute 0.79 0.20 - 1.00 K/mcL LAB HEMETOLOGY METHOD 11/06/2024 9:55 AM [facility] LAB Eosinophils Absolute 0.18 0.00 - 0.50 K/mcL LAB HEMETOLOGY METHOD 11/06/2024 9:55 AM EST [facility] LAB Basophils Absolute 0.03 0.00 - 0.20 K/[facility] LAB HEMETOLOGY METHOD 11/06/2024 9:55 AM EST [facility] LAB Immature Granulocytes Absolute 0.02 0.00 - 0.03 K/[facility] LAB HEMETOLOGY METHOD 11/06/2024 9:55 AM EST [facility] Blood Venous blood specimen / Unknown Venipuncture / Unknown 11/06/2024 6:08 AM EST 11/06/2024 9:04 AM EST us Juan Carlos Mayers LAB BLOOD ORDERABLES Final Resul t Performing Organization Address City/[facility]/ZIP Co de Phone Number [facility] [address] [place] [address], [place] [phone] * Vitamin B12 (11/06/2024 6:08 AM EST) Vitamin B-12 830 250 - 900 pcg/mL LAB CHEMISTRY METHOD 11/06/2024 11:00 AM EST [facility] Blood Venous blood specimen / Unknown Venipuncture / Unknown 11/06/2024 6:08 AM EST 11/06/2024 9:04 AM EST us Juan Carlos Mayers LAB BLOOD ORDERABLES Final Resul t [facility] [address] [place] [address], [place] [phone] * Thyroid stimulating hormone (11/06/2024 6:08 AM EST) TSH 3.31 0.40 - 4.00 mcIU/mL LAB CHEMISTRY METHOD 11/06/2024 10:42 AM EST [facility] Blood Venous blood specimen / Unknown Venipuncture / Unknown 11/06/2024 6:08 AM EST 11/06/2024 9:04 AM EST us Juan Carlos Mayers LAB BLOOD ORDERABLES Final Resul t Performing Organization Address City/[facility]/ZIP Co de Phone Number [facility] [address] [place] [address], [place] [phone] * Folate (11/06/2024 6:08 AM EST) [facility] Folate 5.4 2.8 - 17.0 ng/ml LAB CHEMISTRY METHOD 11/06/2024 11:00 AM [facility] Blood Venous blood specimen / Unknown Venipuncture / Unknown 11/06/2024 6:08 AM EST 11/06/2024 9:04 AM EST us Juan Carlos Mayers LAB BLOOD ORDERABLES Final Resul t Performing Organization Address [facility]/ZIP Co de Phone Number [facility] [address] [place] [address], [place] [phone] * (ABNORMAL) Comprehensive metabolic panel (11/06/2024 6:08 AM EST) [facility] Sodium 139 133 - 145 mmol/L LAB CHEMISTRY METHOD 11/06/2024 11:00 AM [facility] Potassium 3.4(L) 3.5 - 5.5 mmol/L LAB CHEMISTRY METHOD 11/06/2024 11:00 AM [facility] Chloride 105 96 - 110 mmol/L LAB CHEMISTRY METHOD 11/06/2024 11:00 AM [facility] CO2 29 21 - 32 mmol/L LAB CHEMISTRY METHOD 11/06/2024 11:00 AM [facility] Anion Gap 5 3 - 11 LAB CHEMISTRY METHOD 11/06/2024 11:00 AM [facility] Glucose 95 70 - 100 mg/dL LAB CHEMISTRY METHOD 11/06/2024 11:00 AM [facility] BUN 2(L) 5 - 25 mg/dL LAB CHEMISTRY METHOD 11/06/2024 11:00 AM [facility] Creatinine 1.54(H) 0.50 - 1.10 mg/dL LAB CHEMISTRY METHOD 11/06/2024 11:00 AM [facility] eGFR 37(L) >=60 mL/min/1. 73m2 LAB CHEMISTRY METHOD 11/06/2024 11:00 AM [facility] Comment:Calculation based on the??Chronic Kidney Disease Epidemiology Collaboration (CKD-EPI) equation refit??without adjustment for race. BUN/Creatinine Ratio 1.3 LAB CHEMISTRY METHOD 11/06/2024 11:00 AM [facility] Calcium 8.5 8.5 - 10.5 mg/dL LAB CHEMISTRY METHOD 11/06/2024 11:00 AM [facility] AST (SGOT) 47(H) 10 - 42 unit/L LAB CHEMISTRY METHOD 11/06/2024 11:00 AM [facility] ALT (SGPT) 41 10 - 60 unit/L LAB CHEMISTRY METHOD 11/06/2024 11:00 AM [facility] Alkaline Phosphatase 83 42 - 121 unit/L LAB CHEMISTRY METHOD 11/06/2024 11:00 AM [facility] Total Protein 5.2(L) 6.0 - 8.0 g/dL LAB CHEMISTRY METHOD 11/06/2024 11:00 AM [facility] Albumin 2.3(L) 3.2 - 5.0 g/dL LAB CHEMISTRY METHOD 11/06/2024 11:00 AM [facility] Total Bilirubin 0.3 0.0 - 1.4 mg/dL LAB CHEMISTRY METHOD 11/06/2024 11:00 AM [facility] Blood Venous blood specimen / Unknown Venipuncture / Unknown 11/06/2024 6:08 AM EST 11/06/2024 9:04 AM EST us Juan Carlos Figueroaharvey LAB BLOOD ORDERABLES Final Resul t [facility] [address] [place] [address], documented in this encounter Visit Diagnoses Diagnosis Atherosclerotic heart disease of [place] coronary artery without angina pectoris Essential (primary) hypertension Unspecified essential hypertension documented in this encounter Care Teams Systems Requirements Planner Relationship Specialty Start Date End Date Osmar Gramajo MD [address] [place], [place] PCP - General Pulmonary Disease 04/20/17 documented as of this encounter
--- OUTSIDE RECORDS SUMMARY | 2025-01-03 15:46 | XMS_ITS | Clinical Summary ---
Author Organization [facility] Address [address] [place] [phone] Phone Care Team Providers Care Transformer Builder Name Role Phone Unique Carrillo MD Primary [...] Office Visit [facility] [address] [address] Deonte Roland MD Stage 3b [...] Office Visit [facility] [address] [place] [phone] Deonte Roland MD [address] [address] Health Maintenance Due Date Last [...] patient's age to complete this topic Insurance [facility] ([id number]) [facility] ([id number]) Care Teams Transformer Builder Relationship Specialty Start Date End Date Unique Carrillo MD [address] [place] [address] Dr [place], [place] [phone] PCP - General Internal Medicine 03/07/24
--- OUTSIDE RECORDS SUMMARY | 2025-01-03 15:46 | XMS_ITS | Encounter Summary ---
Author Organization [facility] Address [address] [place] [address] Care Team Providers Care Landing Support Specialist Name Role Phone Osmar Gramajo MD Primary Care Provider Encounter Details Date Type Department Care Team (Late st Contact Info) Description 11/14/2024 Lab Requisition [facility] - Main Lab [address] [facility] [place] [address] Juan Carlos Mayers [address] [facility] [phone] [place] [address] Gastro-esophageal reflux disease without esophagitis; Hyperlipidemia, unspecified; Anemia, unspecified; Atherosclerotic heart disease of grayling coronary artery without angina pectoris; Essential (primary) [...] unspecified Anemia, unspecified Atherosclerotic heart disease of grayling coronary artery without angina pectoris Essential (primary) hypertension CBC WITH AUTO DIFFERENTIAL Routine 11/15/2024 8:14 AM EST Gastro-esophageal reflux disease without esophagitis Hyperlipidemia, unspecified Anemia, unspecified Atherosclerotic heart disease of grayling coronary artery without angina pectoris Essential (primary) hypertension CBC AND DIFFERENTIAL Routine 11/15/2024 8:14 AM EST Gastro-esophageal reflux disease without esophagitis Hyperlipidemia, unspecified Anemia, unspecified Atherosclerotic heart disease of grayling coronary artery without angina pectoris Essential (primary) hypertension HEMOGLOBIN A1C Routine 11/15/2024 8:14 AM EST Gastro-esophageal reflux disease without esophagitis Hyperlipidemia, unspecified Anemia, unspecified Atherosclerotic heart disease of grayling coronary artery without angina pectoris Essential (primary) hypertension COMPREHENSIVE METABOLIC PANEL Routine 11/15/2024 8:14 AM EST Gastro-esophageal reflux disease without esophagitis Hyperlipidemia, unspecified Anemia, unspecified Atherosclerotic heart disease of grayling coronary artery without angina pectoris Essential (primary) hypertension documented in this encounter Results * (ABNORMAL) CBC auto differential (11/15/2024 8:14 AM EST) WBC 5.1 4.8 - 10.8 K/mcL LAB HEMETOLOGY METHOD 11/15/2024 11:49 AM [facility] RBC 3.40(L) 3.80 - 4.80 M/mcL LAB HEMETOLOGY METHOD 11/15/2024 11:49 AM [facility] Hemoglobin 8.7(L) 11.5 - 16.0 g/dL LAB HEMETOLOGY METHOD 11/15/2024 11:49 AM [facility] Hematocrit 30.5(L) 35.0 - 47.0 % LAB HEMETOLOGY METHOD 11/15/2024 11:49 AM [facility] MCV 90.0 79.0 - 98.0 FL LAB HEMETOLOGY METHOD 11/15/2024 11:49 AM [facility] MCH 25.7(L) 27.0 - 32.0 pcg LAB HEMETOLOGY METHOD 11/15/2024 11:49 AM [facility] MCHC 28.5(L) 32.0 - 37.0 g/dL LAB HEMETOLOGY METHOD 11/15/2024 11:49 AM [facility] RDW 16.1(H) 11.0 - 15.0 % LAB HEMETOLOGY METHOD 11/15/2024 11:49 AM [facility] Platelets 319 130 - 400 K/mcL LAB HEMETOLOGY METHOD 11/15/2024 11:49 AM [facility] MPV 10.6 7.0 - 11.0 FL LAB HEMETOLOGY METHOD 11/15/2024 11:49 AM [facility] NRBC 0.4 <1.0 % LAB HEMETOLOGY METHOD 11/15/2024 11:49 AM [facility] NRBC Absolute 0.02 <0.10 K/mcL LAB HEMETOLOGY METHOD 11/15/2024 11:49 AM [facility] Neutrophils Relative 49.2 % LAB HEMETOLOGY METHOD 11/15/2024 11:49 AM [facility] Lymphocytes Relative 33.7 % LAB HEMETOLOGY METHOD 11/15/2024 11:49 AM [facility] Monocytes Relative 11.6 % LAB HEMETOLOGY METHOD 11/15/2024 11:49 AM [facility] Eosinophils Relative 4.5 % LAB HEMETOLOGY METHOD 11/15/2024 11:49 AM [facility] Basophils Relative 0.4 % LAB HEMETOLOGY METHOD 11/15/2024 11:49 AM [facility] Immature Granulocytes Relative 0.6 % LAB HEMETOLOGY METHOD 11/15/2024 11:49 AM [facility] Neutrophils Absolute 2.49 1.50 - 7.00 K/mcL LAB HEMETOLOGY METHOD 11/15/2024 11:49 AM [facility] Lymphocytes Absolute 1.71 1.00 - 5.00 K/mcL LAB HEMETOLOGY METHOD 11/15/2024 11:49 AM [facility] Monocytes Absolute 0.59 0.20 - 1.00 K/mcL LAB HEMETOLOGY METHOD 11/15/2024 11:49 AM EST [facility] Eosinophils Absolute 0.23 0.00 - 0.50 K/[facility] LAB HEMETOLOGY METHOD 11/15/2024 11:49 AM EST [facility] Basophils Absolute 0.02 0.00 - 0.20 K/[facility] LAB HEMETOLOGY METHOD 11/15/2024 11:49 AM EST [facility] Immature Granulocytes Absolute 0.03 0.00 - 0.03 K/[facility] LAB HEMETOLOGY METHOD 11/15/2024 11:49 AM EST [facility] Blood Venous blood specimen / Unknown Venipuncture / Unknown 11/15/2024 8:14 AM EST 11/15/2024 11:18 AM EST us Juan Carlos Mayers LAB BLOOD ORDERABLES Final Resul t [facility] [address] [place] [address], [place] [phone] * Hemoglobin A1c (11/15/2024 8:14 AM EST) [...] Mayers LAB BLOOD ORDERABLES Final Resul t [facility] [address] [place] [address], [place] [phone] * (ABNORMAL) Lipid panel with reflex to direct LDL (11/15/2024 8:14 AM EST) Cholesterol 69 0 - 200 mg/dL LAB CHEMISTRY METHOD 11/15/2024 12:25 PM [facility] Triglycerides 132 0 - 150 mg/dL LAB CHEMISTRY METHOD 11/15/2024 12:25 PM [facility] HDL 24(L) >=40 mg/dL LAB CHEMISTRY METHOD 11/15/2024 12:25 PM [facility] LDL Calculated 19 0 - 100 mg/dL LAB CHEMISTRY METHOD 11/15/2024 12:25 PM [facility] VLDL Cholesterol Enio 26.4 mg/dL LAB CHEMISTRY METHOD 11/15/2024 12:25 PM [facility] Non HDL Chol. (LDL+VLDL) 45 <145 mg/dL LAB CHEMISTRY METHOD 11/15/2024 12:25 PM [facility] Chol/HDL Ratio 2.9 0.0 - 4.4 LAB CHEMISTRY METHOD 11/15/2024 12:25 PM [facility] Blood Venous blood specimen / Unknown Venipuncture / Unknown 11/15/2024 8:14 AM EST 11/15/2024 11:16 AM EST Juan Carlos Mayers LAB BLOOD ORDERABLES Final Resul t [facility] [address] [place] [address], * (ABNORMAL) Comprehensive metabolic panel (11/15/2024 8:14 AM EST) Pathologist [facility] Sodium 137 133 - 145 mmol/L LAB CHEMISTRY METHOD 11/15/2024 12:25 PM [facility] Potassium 3.4(L) 3.5 - 5.5 mmol/L LAB CHEMISTRY METHOD 11/15/2024 12:25 PM [facility] Chloride 101 96 - 110 mmol/L LAB CHEMISTRY METHOD 11/15/2024 12:25 PM [facility] CO2 29 21 - 32 mmol/L LAB CHEMISTRY METHOD 11/15/2024 12:25 PM [facility] Anion Gap 7 3 - 11 LAB CHEMISTRY METHOD 11/15/2024 12:25 PM [facility] Glucose 134(H) 70 - 100 mg/dL LAB CHEMISTRY METHOD 11/15/2024 12:25 PM [facility] BUN 9 5 - 25 mg/dL LAB CHEMISTRY METHOD 11/15/2024 12:25 PM [facility] Creatinine 1.56(H) 0.50 - 1.10 mg/dL LAB CHEMISTRY METHOD 11/15/2024 12:25 PM [facility] eGFR 36(L) >=60 mL/min/1. 73m2 LAB CHEMISTRY METHOD 11/15/2024 12:25 PM [facility] Comment:Calculation based on the??Chronic Kidney Disease Epidemiology Collaboration (CKD-EPI) equation refit??without adjustment for race. BUN/Creatinine Ratio 5.8 LAB CHEMISTRY METHOD 11/15/2024 12:25 PM [facility] Calcium 8.6 8.5 - 10.5 mg/dL LAB CHEMISTRY METHOD 11/15/2024 12:25 PM [facility] AST (SGOT) 35 10 - 42 unit/L LAB CHEMISTRY METHOD 11/15/2024 12:25 PM [facility] ALT (SGPT) 23 10 - 60 unit/L LAB CHEMISTRY METHOD 11/15/2024 12:25 PM [facility] Alkaline Phosphatase 99 42 - 121 unit/L LAB CHEMISTRY METHOD 11/15/2024 12:25 PM [facility] Total Protein 5.6(L) 6.0 - 8.0 g/dL LAB CHEMISTRY METHOD 11/15/2024 12:25 PM [facility] Albumin 2.3(L) 3.2 - 5.0 g/dL LAB CHEMISTRY METHOD 11/15/2024 12:25 PM EST [facility] Total Bilirubin 0.3 0.0 - 1.4 mg/dL LAB CHEMISTRY METHOD 11/15/2024 12:25 PM EST [facility] Blood Venous blood specimen / Unknown Venipuncture / Unknown 11/15/2024 8:14 AM EST 11/15/2024 11:16 AM EST us Juan Carlos Mayers LAB BLOOD ORDERABLES Final Resul t [facility] [address] [place] [address], documented in this encounter Visit Diagnoses Diagnosis Gastro-esophageal reflux disease without esophagitis Hyperlipidemia, unspecified Anemia, unspecified Atherosclerotic heart disease of grayling coronary artery without angina pectoris Essential (primary) hypertension Unspecified essential hypertension documented in this encounter Care Teams Landing Support Specialist Relationship Specialty Start Date End Date Osmar Gramajo MD [address] [place], [place] PCP - General Pulmonary Disease 04/20/17 documented as of this encounter
--- OUTSIDE RECORDS SUMMARY | 2025-01-03 15:46 | XMS_ITS | Encounter Summary ---
Author Organization [facility] Address [address] [place] [address] Care Team Providers Care Development Trainer Name Role Phone Osmar Gramajo MD Primary Care Provider Encounter Details Date Type Department Care Team (Late st Contact Info) Description 11/12/[address] [facility] - Main Lab [address] [facility] [place] [address] Juan Carlos Mayers [address] [facility] [phone] [place] [address] Shortness of breath; Bacteremia Social [...] pcg/mL LAB CHEMISTRY METHOD 11/12/2024 12:30 PM [facility] Blood Venous blood specimen / Unknown Venipuncture / Unknown 11/12/2024 9:24 AM EST 11/12/2024 11:45 AM EST Juan Carlos Mayers LAB BLOOD ORDERABLES Final Resul t [facility] [address] [place] [address], * (ABNORMAL) Basic metabolic panel (11/12/2024 9:24 AM EST) Sodium 137 133 - 145 mmol/L LAB CHEMISTRY METHOD 11/12/2024 12:24 PM [facility] Potassium 3.4(L) 3.5 - 5.5 mmol/L LAB CHEMISTRY METHOD 11/12/2024 12:24 PM [facility] Chloride 101 96 - 110 mmol/L LAB CHEMISTRY METHOD 11/12/2024 12:24 PM [facility] CO2 28 21 - 32 mmol/L LAB CHEMISTRY METHOD 11/12/2024 12:24 PM [facility] Anion Gap 8 3 - 11 LAB CHEMISTRY METHOD 11/12/2024 12:24 PM [facility] Glucose 121(H) 70 - 100 mg/dL LAB CHEMISTRY METHOD 11/12/2024 12:24 PM [facility] BUN 9 5 - 25 mg/dL LAB CHEMISTRY METHOD 11/12/2024 12:24 PM [facility] Creatinine 1.65(H) 0.50 - 1.10 mg/dL LAB CHEMISTRY METHOD 11/12/2024 12:24 PM [facility] eGFR 34(L) >=60 mL/min/1. 73m2 LAB CHEMISTRY METHOD 11/12/2024 12:24 PM [facility] Comment:Calculation based on the??Chronic Kidney Disease Epidemiology Collaboration (CKD-EPI) equation refit??without adjustment for race. BUN/Creatinine Ratio 5.5 LAB CHEMISTRY METHOD 11/12/2024 12:24 PM [facility] Calcium 9.1 8.5 - 10.5 mg/dL LAB CHEMISTRY METHOD 11/12/2024 12:24 PM [facility] Blood Venous blood specimen / Unknown Venipuncture / Unknown 11/12/2024 9:24 AM EST 11/12/2024 11:45 AM EST us Juan Carlos Mayers LAB BLOOD ORDERABLES Final Resul t [facility] [address] [place] [address], * (ABNORMAL) Complete blood count (11/12/2024 9:24 AM EST) WBC 6.8 4.8 - 10.8 K/mcL LAB HEMETOLOGY METHOD 11/12/2024 12:02 PM [facility] RBC 3.60(L) 3.80 - 4.80 M/mcL LAB HEMETOLOGY METHOD 11/12/2024 12:02 PM [facility] Hemoglobin 9.5(L) 11.5 - 16.0 g/dL LAB HEMETOLOGY METHOD 11/12/2024 12:02 PM [facility] Hematocrit 33.5(L) 35.0 - 47.0 % LAB HEMETOLOGY METHOD 11/12/2024 12:02 PM [facility] MCV 92.0 79.0 - 98.0 FL LAB HEMETOLOGY METHOD 11/12/2024 12:02 PM [facility] MCH 26.1(L) 27.0 - 32.0 pcg LAB HEMETOLOGY METHOD 11/12/2024 12:02 PM [facility] MCHC 28.4(L) 32.0 - 37.0 g/dL LAB HEMETOLOGY METHOD 11/12/2024 12:02 PM [facility] RDW 15.6(H) 11.0 - 15.0 % LAB HEMETOLOGY METHOD 11/12/2024 12:02 PM [facility] Platelets 315 130 - 400 K/mcL LAB HEMETOLOGY METHOD 11/12/2024 12:02 PM [facility] MPV 10.9 7.0 - 11.0 FL LAB HEMETOLOGY METHOD 11/12/2024 12:02 PM [facility] NRBC 0.0 <1.0 % LAB HEMETOLOGY METHOD 11/12/2024 12:02 PM [facility] NRBC Absolute 0.00 <0.10 K/mcL LAB HEMETOLOGY METHOD 11/12/2024 12:02 PM [facility] Blood Venous blood specimen / Unknown Venipuncture / Unknown 11/12/2024 9:24 AM EST 11/12/2024 11:45 AM EST Juan Carlos Figueroaloleta LAB BLOOD ORDERABLES Final Resul t [facility] [address] [place] [address], documented in this encounter Visit Diagnoses Diagnosis Shortness of breath Bacteremia documented in this encounter Care Teams Development Trainer Relationship Specialty Start Date End Date Osmar Gramajo MD [address] [place], [place] PCP - General Pulmonary Disease 04/20/17 documented as of this encounter
== END 2025-01-03 12:28 | disposition home or self-care (01) ==
LOC: HO.10HDL 12:27
PROVIDERS: Visit Provider Internal Medicine
DX: D64.9 Anemia, unspecified (principal); E11.9 Type 2 diabetes mellitus without complications; E78.2 Mixed hyperlipidemia; I12.9 Hypertensive chronic kidney disease with stage 1 through stage 4 chronic kidney disease, or unspecified chronic kidney disease; N61.1 Abscess of the breast and nipple
CPT/HCPCS: 36415; 80053; 82607; 82728; 83036; 85025

== ENCOUNTER 2025-01-10 10:21 | Outpatient (AMB) | payer OTHER, SELFPAY ==
--- NOTE | 2025-01-10 10:27 | A.OFFVIS_ITS ---
Vital Signs 01/10/25 10:32 Height 5 ft 6 in Weight 252 lb 6.868 oz BMI 40.7 Respiration 18 Pulse 90 Intake Visit Reasons: 3 wk follow up hypergranulation breast Intake Note: This patient presents for three week wound check for hyper granulation right breast. Pt c/o; admits to breast no healing, redness, pain, sore and fluid in the right breast Residential Property Tax Appraiser Required: No Marketing Project Coordinator: Marketing Project Coordinator Present Accompanied by: Self / Same As Patient Allergies No Known Allergies Allergy (Verified 01/10/25 10:32) Medication List - Last Reconciled 01/10/25 by Neil Sanchez MD albuterol sulfate 90 mcg/actuation 2 puffs inhalation QID apixaban (Eliquis) 5 mg PO BID aspirin 81 mg PO DAILY atorvastatin 80 mg PO BEDTIME carvedilol 6.25 mg PO BID CPAP (CPAP Machine/Device) As directed duloxetine 30 mg PO DAILY ferrous sulfate 325 mg PO DAILY zdxqbfukoit-zmjkubbyb-wmadcqik 200-62.5-25 mcg (Trelegy Ellipta) 1 ea inhalation DAILY gabapentin 400 mg PO TID gabapentin 300 mg PO TID lisinopril 5 mg PO DAILY loratadine 10 mg PO DAILY montelukast 10 mg PO DAILY nicotine 1 patch transdermal DAILY 28 days omeprazole 40 mg PO DAILY prednisone 10 mg PO DAILY quetiapine 100 mg PO BEDTIME HPI HPI 3 wk follow up hypergranulation breast: Details: [age] year old female here for follow-up after excision of an epidermal cyst from the right breast. He was done last September,. She has had this persistent hypergranulation tissue as well as an open wound on the area. She says that she continues to have drainage and feels that the area has not healed. She says that she has pain as well and tenderness. I have been cauterized oozing this area with silver nitrate sticks in the office but there has been persistent hypergranulation tissue. [facility] Medical History (Updated 01/10/25 @ 10:46 by Neil Sanchez MD) Nonhealing surgical wound Hypergranulation Epidermal inclusion cyst Lesion of skin of breast Pulmonary emboli COPD (chronic obstructive pulmonary disease) Lupus CHF (congestive heart failure) Surgical History History of surgical removal of skin lesion (~10/18/24) Social History Patient Tobacco Use Status: Current everyday Tobacco user Tobacco use type: Cigarette Years Smoked: 20+ Years Substance Use Type: Marijuana Review of Systems Const Denies chills and Denies fever(s) Card Denies chest pain at rest and Reports dyspnea on exertion Resp Denies cough and Reports dyspnea on exertion GI Denies abdominal pain Denies difficulty voiding Physical Exam Vital Signs: Last Vital Signs Pulse 90 01/10/25 10:32 Resp 18 01/10/25 10:32 BMI result Body Mass Index 40.7 Const Other: Using a walker, frail looking General: comfortable and no acute distress Chest Other: Right breast medial to the nipple-areolar complex is note of an open wound, with hypergranulation tissue, about 1 cm in diameter, tender to touch Resp Effort & Inspection: normal respiratory effort Cardio Rate: regular rate GI Palpation (GI): Soft to palpation, not firm and nontender Assessment & Plan Assessment & Plan (1) Nonhealing surgical wound: Code(s): T81.89XA - Other complications of procedures, not elsewhere classified, initial encounter Category: Medical Plan: She continues to have hypergranulation tissue, and drainage from the previous excision site. This was then area where she had an infected epidermal cyst I have been cauterized this with silver nitrate sticks but she says that this does not heal at all. She is tender on the area and does not tolerate probing with a Q-tip nor further cauterization in the office. I will therefore schedule her for excision and debridement of this area in the OR under monitored anesthesia care. I reviewed with her the technique of this procedure. I explained the risks including but not limited to bleeding, infections, poor healing, postop pain as well as the benefits and alternatives She understands what to expect postoperatively. She does not need to stop her Eliquis. She takes this because of her stents from a previous SC. Coding Level of Care Code Est Pt Level 3 (29280) Diagnoses Nonhealing surgical wound T81.89XA
[2025-01-10 10:32] VITALS: PULSE 90; RESP 18; BMI 40.7
== END 2025-01-10 10:42 | disposition home or self-care (01) ==
LOC: HO.HGS 10:21
PROVIDERS: PCP Internal Medicine; Visit Provider Surgery
DX: T81.89XA Other complications of procedures, not elsewhere classified, initial encounter (principal)
CPT/HCPCS: 99213

== ENCOUNTER → 2025-01-10 10:21 | Outpatient (BNVA) | payer OTHER, SELFPAY | PROVIDERS: PCP Internal Medicine; Visit Provider Surgery | DX: T81.89XA Other complications of procedures, not elsewhere classified, initial encounter (principal); X58.XXXA Exposure to other specified factors, initial encounter; Y93.9 Activity, unspecified; Y92.9 Unspecified place or not applicable; Y99.9 Unspecified external cause status | CPT/HCPCS: 99212 ==

== ENCOUNTER 2025-02-14 13:49 | Outpatient (AMB) | payer OTHER, SELFPAY ==
[2025-02-14 13:50] VITALS: BP 100/66; PULSE 90; O2SAT 100; BMI 37.7
--- NOTE | 2025-02-14 13:50 | MHC.OFFVIS ---
Vital Signs 02/14/25 13:50 Height 5 ft 6 in Weight 233 lb 11.04 oz BMI 37.7 BP 100/66 Blood Pressure Location Rt brachial Position Sitting Pulse 90 Pulse Source Pulse Oximeter Pulse Oximetry (%) 100 Oxygen Delivery Method Room Air Intake Visit Reasons: pulm clearance under MAC excision and debridement Burlesque Dancer Required: No Accompanied by: self Allergies No Known Allergies Allergy (Verified 02/14/25 13:51) HPI Comments Details: The patient is a 69 year woman with a known history of heart a tendency CAD status post heart attack and PCI, pulmonary emboli currently on anticoagulation and nose COPD with active smoking. The patient had a prolonged hospitalization at [facility] after have a a serious at the surgery. She does have a Shilo's pouch now. Subsequently discharge. The patient complains of dyspnea on exertion. Moderate severity. She does use a walker. A she has been trying to cut down the smoking. I did she is down to about half a pack a day. We talked about the seriousness of her situation with multiple medical issues in that she had to quit smoking. The patient is motivated to do so. She is going to finish what she has and then she is going to put a patch on. The patient did have a CT scan back in June 2022 when she was diagnosed with a PE bilaterally right more than left. Her lungs did not demonstrate any pulmonary nodules that I could appreciate. The patient also had an echocardiogram around that time which demonstrated a moderately reduced LV although could not be quantified. The patient also had significant hypokinesis from a previous heart attack. The patient appears to be volume overloaded on exam. I do believe she is having some degree of heart failure. Will go ahead and request blood work to assess her brain atretic peptide. From a respiratory status she was placed on Trelegy and she seems to be responding well to the Trelegy at this time. The patient was evaluated with a 6 minutes walk test and the patient did not desaturate her pulse ox actually maintained on 96%. Although she was visibly dyspneic with BS score of 7/10 and heart rate was up to 115. This is a minimal activity walking about just 100-150 feet. The patient will undergo pulmonary function studies and also request an echocardiogram. 02/14/2025 the patient is here for a pulmonary follow-up visit. She does have preoperative evaluation for an excisional surgery that she has with General surgery. She continues to smoke cigarettes and also smoke pot. The patient had been using her respiratory inhalers with good effect. She still gets short of breath with minimal activity. The patient does have underlying COPD. She did have a walking oximetry with me today. The patient does not require oxygen supplementation with activity as you maintain a pulse ox of 97% with activity. However she was visibly dyspneic with a dyspnea score of 6/10. The patient's heart rate did increase to about 115 only with 100 ft of ambulation. Therefore, I the patient does appear to have significant deconditioning and also have a component of cardiovascular disease. She does take Lasix. The patient does appear to be fluid overloaded. I did request that she can take additional Lasix for the next 3 days to try to improve her volume status. From a pulmonary standpoint the patient is doing well may be able to proceed with surgery and will go ahead and ask a request that [employer] remove a portable oxygen. She should still use the oxygen at nighttime while sleeping. In the meantime she should also follow-up with cardiology for further care. She was willing to take a nicotine patch in order to help with tobacco cessation at this time. [facility] Medical History (Updated 02/14/25 @ 20:18 by Yahir Juárez MD) Asthma-COPD overlap syndrome Nonhealing surgical wound Hypergranulation Epidermal inclusion cyst Lesion of skin of breast Pulmonary emboli COPD (chronic obstructive pulmonary disease) Lupus CHF (congestive heart failure) Surgical History History of surgical removal of skin lesion (~10/18/24) Social History Alcohol intake: never Patient Tobacco Use Status: Current everyday Tobacco user Tobacco use type: Cigarette Years Smoked: 20+ Years Substance Use Type: Marijuana Review of Systems Const Denies chills, Denies fatigue, Denies fever(s), Denies weight gain and Denies weight loss Eyes Denies change in vision ENT Denies dizziness Card Denies chest pain, Denies leg edema, Denies lightheadedness, Denies palpitations, Reports dyspnea on exertion, Denies orthopnea and Denies other Resp Reports cough, Reports dyspnea on exertion and Reports wheezing GI Denies hematochezia and Denies change in stool character Musc Denies abnormal gait, Denies muscle weakness, Denies numbness, Denies radiating pain into limb and Denies tingling Skin/Breast Reports sores Neuro Denies abnormal gait, Denies dizziness, Denies numbness and Denies tingling Endo Denies fatigue and Denies palpitations Kiel/Lymph Denies easy bleeding, Denies easy bruising and Denies lymphadenopathy Aller/Immun Reports wheezing Physical Exam Vital Signs: Last Vital Signs Pulse 90 02/14/25 13:50 BP 100/66 02/14/25 13:50 Pulse Ox 100 02/14/25 13:50 Oxygen Delivery Method Room Air 02/14/25 13:50 BMI result Body Mass Index 37.7 Const General: comfortable HEENT Head: Yes normocephalic Neck Neck: Yes supple Chest Chest palpation & inspection: normal inspection of the chest Resp Effort & Inspection: normal respiratory effort Auscultation: diminished lung sounds Cardio Rate: regular rate Rhythm: regular rhythm Heart sounds: S1 normal heart sound present and S2 normal heart sound present GI Palpation (GI): Soft to palpation Skin General skin exam: no rashes or lesions noted Extrem General: No clubbing and No cyanosis Assessment & Plan Assessment & Plan (1) Lupus: Code(s): M32.9 - Systemic lupus erythematosus, unspecified Category: Medical (2) CHF (congestive heart failure): Code(s): I50.9 - Heart failure, unspecified Category: Medical Qualifiers: Heart failure chronicity: unspecified Heart failure type: unspecified Qualified Code(s): I50.9 - Heart failure, unspecified (3) Pulmonary emboli: Code(s): I26.99 - Other pulmonary embolism without acute cor pulmonale Category: Medical Qualifiers: Acute cor pulmonale presence: without acute cor pulmonale Chronicity: chronic Pulmonary embolism type: unspecified Qualified Code(s): I27.82 - Chronic pulmonary embolism (4) Pre-op chest exam: Code(s): Z01.811 - Encounter for preprocedural respiratory examination Category: Medical (5) Asthma-COPD overlap syndrome: Code(s): J44.89 - Other specified chronic obstructive pulmonary disease Category: Medical Plan continue Trelegy KHOA as needed tobacco cessation: start nicotene patch continue antiguagulation continue oxygen 2L/min while sleeping. Does not require supplemental oxygen with activity at this time Diuresis as tolerated, should increase x 3 days to improve volume status ok to proceed with surgery from a pulmonary standpoint. ok to stop Eliquis 2-3 days prior and resume after surgery F/U 4-6 months Medications: New nicotine 1 patch transdermal Q24H 30 ea 3RF 30 days furosemide (Lasix) 20 mg PO DAILY PRN 7 tabs 0RF edema 7 days Coding Level of Care Code Est Pt Level 4 (38828) Complex EM visit Add On G2211 Diagnoses Lupus M32.9 Congestive heart failure, unspecified HF chronicity, unspecified heart failure type I50.9 Heart failure chronicity: unspecified Heart failure type: unspecified Chronic pulmonary embolism without acute cor pulmonale, unspecified pulmonary embolism type I27.82 Acute cor pulmonale presence: without acute cor pulmonale Chronicity: chronic Pulmonary embolism type: unspecified Pre-op chest exam Z01.811 Asthma-COPD overlap syndrome J44.89 Time Spent (min) 18
--- OUTSIDE RECORDS SUMMARY | 2025-02-14 16:13 | XMS_ITS | Clinical Summary ---
Author Organization [facility] Address [address] [place] [phone] Phone Care Team Providers Care Tobacco Warehouse Agent Name Role Phone Unique Carrillo MD Primary [...] Take 10 mg by mouth 2 Active Active Problems Problem Noted Date Diagnosed Date [...] Office Visit [facility] [address] [facility] [address] [place] [address] Deonte Roland MD Stage 3b chronic kidney disease (HCC) (Primary Dx); Renal osteodystrophy; Hypertensive disorder from Last 3 Months Immunizations Immunization Administration Dates Next Due Influenza, Quadrivalent, Preservative Free 10/06,01/29/2017 Influenza, Unspecified 01/25/2005 Moderna SARS-COV-2 10/06/2021,03/25/2021, 021 Pneumococcal Polysaccharide 01/29/2017, 5,01/25/2005 Family History Medical History Relation Comments Gout Father Kidney disease Father Heart disease Mother Relation Status Comments Father Mother Social History Tobacco Use Types Packs/Day Years Used Date Smoking Tobacco: Every Day Cigarettes 0.3 7.7 Started: 05/20/2017 Tobacco Cessation:Ready to Q uit: [...] Team (Late st Contact Info) Description 03/04/2025 Orders Only [facility] [address] [address] Deonte Roland MD [address] [address] Stage 3b chronic kidney disease (HCC); Renal osteodystrophy; Hypertensive disorder 03/04/2025 10:15 AM EDT Office Visit [facility] [address] [address] Deonte Roland MD [address] [address] Health Maintenance Due Date Last Done Comments Breast Cancer Screening 1955 Colorectal Cancer Screening: Annual FOBT 2005 Colorectal Cancer Screening: Sigmoidoscopy 2005 Pneumococcal Vaccine: 50+ Years (3 of 3 - PCV) 01/29/2018 01/29/2017, 01/25/2005, 01/25/2005 Influenza Vaccine (Season Ended) 2025 10/06/2021, 01/29/2017, 01/25/2005 Colorectal Cancer Screening: Colonoscopy 11/27/2031 11/27/2021 Pneumococcal Vaccine: Peds ( 0 to 5 Years) and At-Risk Patients (6 to 49 Years) Discontinued 01/29/2017, 01/25/2005, 01/25/2005 Hepatitis B Vaccine Aged Out No longe r eligible based on patient's age to complete this topic Insurance [facility] ([id number]) [place] [address] ([id number]) Care Teams Tobacco Warehouse Agent Relationship Specialty Start Date End Date Unique Carrillo MD [address] [place] [address] [place] [address] PCP - General Internal Medicine 03/07/24
--- OUTSIDE RECORDS SUMMARY | 2025-02-14 16:13 | XMS_ITS | Encounter Summary ---
Author Organization [facility] Address [address] [place] [address] Care Team Providers Care Head Counselor Name Role Phone Osmar Gramajo MD Primary Care Provider Encounter Details Date Type Department Care Team (Latest Contact Info) Description 11/06/[address] [facility] - Main Lab [address] [facility] [place] [address] Juan Carlos Mayers [address] [facility] [phone] [place] [address] Atherosclerotic heart disease of [place] coronary artery without angina pectoris; Essential (primary) [...] 6:08 AM EST Atherosclerotic heart disease of [place] coronary artery without angina pectoris Essential (primary) hypertension CBC AND DIFFERENTIAL Routine 11/06/2024 6:08 AM EST Atherosclerotic heart disease of [place] coronary artery without angina pectoris Essential (primary) hypertension THYROID STIMULATING HORMONE Routine 11/06/2024 6:08 AM EST Atherosclerotic heart disease of [place] coronary artery without angina pectoris Essential (primary) hypertension FOLATE Routine 11/06/2024 6:08 AM EST Atherosclerotic heart disease of [place] coronary artery without angina pectoris Essential (primary) hypertension VITAMIN B12 Routine 11/06/2024 6:08 AM EST Atherosclerotic heart disease of [place] coronary artery without angina pectoris Essential (primary) hypertension COMPREHENSIVE METABOLIC PANEL Routine 11/06/2024 6:08 AM EST Atherosclerotic heart disease of [place] coronary artery without angina pectoris Essential (primary) hypertension documented in this encounter Results * (ABNORMAL) CBC auto differential (11/06/2024 6:08 AM EST) [facility] WBC 5.2 4.8 - 10.8 K/mcL LAB HEMETOLOGY METHOD 11/06/2024 9:55 AM [facility] RBC 3.70(L) 3.80 - 4.80 M/mcL LAB HEMETOLOGY METHOD 11/06/2024 9:55 AM [facility] Hemoglobin 9.7(L) 11.5 - 16.0 g/dL LAB HEMETOLOGY METHOD 11/06/2024 9:55 AM [facility] Hematocrit 32.9(L) 35.0 - 47.0 % LAB HEMETOLOGY METHOD 11/06/2024 9:55 AM [facility] MCV 90.1 79.0 - 98.0 FL LAB HEMETOLOGY METHOD 11/06/2024 9:55 AM [facility] MCH 26.6(L) 27.0 - 32.0 pcg LAB HEMETOLOGY METHOD 11/06/2024 9:55 AM [facility] MCHC 29.5(L) 32.0 - 37.0 g/dL LAB HEMETOLOGY METHOD 11/06/2024 9:55 AM [facility] RDW 15.3(H) 11.0 - 15.0 % LAB HEMETOLOGY METHOD 11/06/2024 9:55 AM [facility] Platelets 226 130 - 400 K/mcL LAB HEMETOLOGY METHOD 11/06/2024 9:55 AM [facility] MPV 11.3(H) 7.0 - 11.0 FL LAB HEMETOLOGY METHOD 11/06/2024 9:55 AM [facility] NRBC 0.0 <1.0 % LAB HEMETOLOGY METHOD 11/06/2024 9:55 AM [facility] NRBC Absolute 0.00 <0.10 K/mcL LAB HEMETOLOGY METHOD 11/06/2024 9:55 AM [facility] Neutrophils Relative 48.4 % LAB HEMETOLOGY METHOD 11/06/2024 9:55 AM [facility] Lymphocytes Relative 32.1 % LAB HEMETOLOGY METHOD 11/06/2024 9:55 AM [facility] Monocytes Relative 15.1 % LAB HEMETOLOGY METHOD 11/06/2024 9:55 AM [facility] Eosinophils Relative 3.4 % LAB HEMETOLOGY METHOD 11/06/2024 9:55 AM [facility] Basophils Relative 0.6 % LAB HEMETOLOGY METHOD 11/06/2024 9:55 AM [facility] Immature Granulocytes Relative 0.4 % LAB HEMETOLOGY METHOD 11/06/2024 9:55 AM [facility] Neutrophils Absolute 2.54 1.50 - 7.00 K/mcL LAB HEMETOLOGY METHOD 11/06/2024 9:55 AM [facility] Lymphocytes Absolute 1.68 1.00 - 5.00 K/mcL LAB HEMETOLOGY METHOD 11/06/2024 9:55 AM [facility] Monocytes Absolute 0.79 0.20 - 1.00 K/mcL LAB HEMETOLOGY METHOD 11/06/2024 9:55 AM [facility] Eosinophils Absolute 0.18 0.00 - 0.50 K/mcL LAB HEMETOLOGY METHOD 11/06/2024 9:55 AM EST [facility] Basophils Absolute 0.03 0.00 - 0.20 K/[facility] LAB HEMETOLOGY METHOD 11/06/2024 9:55 AM EST [facility] Immature Granulocytes Absolute 0.02 0.00 - 0.03 K/[facility] LAB HEMETOLOGY METHOD 11/06/2024 9:55 AM EST [facility] Blood Venous blood specimen / Unknown Venipuncture / Unknown 11/06/2024 6:08 AM EST 11/06/2024 9:04 AM EST us Juan Carlos Mayers LAB BLOOD ORDERABLES Final Resul t Performing Organization Address City/[facility]/ZIP Co de Phone Number [facility] [address] [place] [address], [place] [phone] * Vitamin B12 (11/06/2024 6:08 AM EST) Vitamin B-12 830 250 - 900 pcg/mL LAB CHEMISTRY METHOD 11/06/2024 11:00 AM EST [facility] Blood Venous blood specimen / Unknown Venipuncture / Unknown 11/06/2024 6:08 AM EST 11/06/2024 9:04 AM EST us Juan Carlos Mayers LAB BLOOD ORDERABLES Final Resul t [facility] [address] [place] [address], [place] [phone] * Thyroid stimulating hormone (11/06/2024 6:08 AM EST) TSH 3.31 0.40 - 4.00 mcIU/mL LAB CHEMISTRY METHOD 11/06/2024 10:42 AM EST [facility] Blood Venous blood specimen / Unknown Venipuncture / Unknown 11/06/2024 6:08 AM EST 11/06/2024 9:04 AM EST us Juan Carlos Mayers LAB BLOOD ORDERABLES Final Resul t Performing Organization Address City/[facility]/ZIP Co de Phone Number [facility] [address] [place] [address], [place] [phone] * Folate (11/06/2024 6:08 AM EST) [facility] Folate 5.4 2.8 - 17.0 ng/ml LAB CHEMISTRY METHOD 11/06/2024 11:00 AM [facility] Blood Venous blood specimen / Unknown Venipuncture / Unknown 11/06/2024 6:08 AM EST 11/06/2024 9:04 AM EST us Juan Carlos Mayers LAB BLOOD ORDERABLES Final Resul t Performing Organization Address [facility]/ZIP Co de Phone Number [facility] [address] [place] [address], [place] [phone] * (ABNORMAL) Comprehensive metabolic panel (11/06/2024 6:08 AM EST) [facility] Sodium 139 133 - 145 mmol/L LAB CHEMISTRY METHOD 11/06/2024 11:00 AM [facility] Potassium 3.4(L) 3.5 - 5.5 mmol/L LAB CHEMISTRY METHOD 11/06/2024 11:00 AM [facility] Chloride 105 96 - 110 mmol/L LAB CHEMISTRY METHOD 11/06/2024 11:00 AM [facility] CO2 29 21 - 32 mmol/L LAB CHEMISTRY METHOD 11/06/2024 11:00 AM [facility] Anion Gap 5 3 - 11 LAB CHEMISTRY METHOD 11/06/2024 11:00 AM [facility] Glucose 95 70 - 100 mg/dL LAB CHEMISTRY METHOD 11/06/2024 11:00 AM [facility] BUN 2(L) 5 - 25 mg/dL LAB CHEMISTRY METHOD 11/06/2024 11:00 AM [facility] Creatinine 1.54(H) 0.50 - 1.10 mg/dL LAB CHEMISTRY METHOD 11/06/2024 11:00 AM [facility] eGFR 37(L) >=60 mL/min/1. 73m2 LAB CHEMISTRY METHOD 11/06/2024 11:00 AM [facility] Comment:Calculation based on the??Chronic Kidney Disease Epidemiology Collaboration (CKD-EPI) equation refit??without adjustment for race. BUN/Creatinine Ratio 1.3 LAB CHEMISTRY METHOD 11/06/2024 11:00 AM [facility] Calcium 8.5 8.5 - 10.5 mg/dL LAB CHEMISTRY METHOD 11/06/2024 11:00 AM [facility] AST (SGOT) 47(H) 10 - 42 unit/L LAB CHEMISTRY METHOD 11/06/2024 11:00 AM [facility] ALT (SGPT) 41 10 - 60 unit/L LAB CHEMISTRY METHOD 11/06/2024 11:00 AM [facility] Alkaline Phosphatase 83 42 - 121 unit/L LAB CHEMISTRY METHOD 11/06/2024 11:00 AM [facility] Total Protein 5.2(L) 6.0 - 8.0 g/dL LAB CHEMISTRY METHOD 11/06/2024 11:00 AM [facility] Albumin 2.3(L) 3.2 - 5.0 g/dL LAB CHEMISTRY METHOD 11/06/2024 11:00 AM [facility] Total Bilirubin 0.3 0.0 - 1.4 mg/dL LAB CHEMISTRY METHOD 11/06/2024 11:00 AM [facility] Blood Venous blood specimen / Unknown Venipuncture / Unknown 11/06/2024 6:08 AM EST 11/06/2024 9:04 AM EST us Juan Carlos [place] LAB BLOOD ORDERABLES Final Resul t [facility] [address] [place] [address], documented in this encounter Visit Diagnoses Diagnosis Atherosclerotic heart disease of [place] coronary artery without angina pectoris Essential (primary) hypertension Unspecified essential hypertension documented in this encounter Care Teams Head Counselor Relationship Specialty Start Date End Date Osmar Gramajo MD [address] [place], [place] PCP - General Pulmonary Disease 04/20/17 documented as of this encounter
--- OUTSIDE RECORDS SUMMARY | 2025-02-14 16:13 | XMS_ITS | Encounter Summary ---
Author Organization [facility] Address [address] [place] [address] Care Team Providers Care Database Modeler Name Role Phone Osmar Gramajo MD Primary Care Provider Encounter Details Date Type Department Care Team (Late st Contact Info) Description 11/08/2024 Lab Requisition [facility] - Main Lab 299 [facility] [place] [address] Juan Carlos Mayers [address] [facility] [address] [place] [address] Encounter for screening for diabetes mellitus; Ischemic cardiomyopathy; Essential (primary) hypertension; Other chronic pain; Depression, unspecified; Hyperlipidemia, unspecified; Anemia, unspecified; Systemic lupus erythematosus, unspecified (CMS/HCC V24, CMS/HCC V28); Unspecified asthma, uncomplicated; Atherosclerotic heart disease of [place] coronary artery without angina pectoris; Gastro-esophageal reflux [...] Unspecified asthma, uncomplicated Atherosclerotic heart disease of [place] coronary artery without angina pectoris Gastro-esophageal reflux disease without esophagitis Bacteremia Hypotension, unspecified CBC WITH AUTO DIFFERENTIAL Routine 11/08/2024 7:15 AM EST Encounter for screening for diabetes mellitus Ischemic cardiomyopathy Essential (primary) hypertension Other chronic pain Depression, unspecified Hyperlipidemia, unspecified Anemia, unspecified Systemic lupus erythematosus, unspecified (CMS/HCC) Unspecified asthma, uncomplicated Atherosclerotic heart disease of [place] coronary artery without angina pectoris Gastro-esophageal reflux disease without esophagitis Bacteremia Hypotension, unspecified CBC AND DIFFERENTIAL Routine 11/08/2024 7:15 AM EST Encounter for screening for diabetes mellitus Ischemic cardiomyopathy Essential (primary) hypertension Other chronic pain Depression, unspecified Hyperlipidemia, unspecified Anemia, unspecified Systemic lupus erythematosus, unspecified (CMS/HCC) Unspecified asthma, uncomplicated Atherosclerotic heart disease of [place] coronary artery without angina pectoris Gastro-esophageal reflux disease without esophagitis Bacteremia Hypotension, unspecified HEMOGLOBIN A1C Routine 11/08/2024 7:15 AM EST Encounter for screening for diabetes mellitus Ischemic cardiomyopathy Essential (primary) hypertension Other chronic pain Depression, unspecified Hyperlipidemia, unspecified Anemia, unspecified Systemic lupus erythematosus, unspecified (CMS/HCC) Unspecified asthma, uncomplicated Atherosclerotic heart disease of [place] coronary artery without angina pectoris Gastro-esophageal reflux disease without esophagitis Bacteremia Hypotension, unspecified COMPREHENSIVE METABOLIC PANEL Routine 11/08/2024 7:15 AM EST Encounter for screening for diabetes mellitus Ischemic cardiomyopathy Essential (primary) hypertension Other chronic pain Depression, unspecified Hyperlipidemia, unspecified Anemia, unspecified Systemic lupus erythematosus, unspecified (CMS/HCC) Unspecified asthma, uncomplicated Atherosclerotic heart disease of [place] coronary artery without angina pectoris Gastro-esophageal reflux disease without esophagitis Bacteremia Hypotension, unspecified documented in this encounter Results * (ABNORMAL) CBC auto differential (11/08/2024 7:15 AM EST) [facility] WBC 5.4 4.8 - 10.8 K/[facility] LAB HEMETOLOGY METHOD 11/08/2024 10:37 AM EST [facility] RBC 3.80 3.80 - 4.80 M/mcL LAB HEMETOLOGY METHOD 11/08/2024 10:37 AM [facility] Hemoglobin 9.7(L) 11.5 - 16.0 g/dL LAB HEMETOLOGY METHOD 11/08/2024 10:37 AM [facility] Hematocrit 34.0(L) 35.0 - 47.0 % LAB HEMETOLOGY METHOD 11/08/2024 10:37 AM [facility] MCV 89.7 79.0 - 98.0 FL LAB HEMETOLOGY METHOD 11/08/2024 10:37 AM [facility] MCH 25.6(L) 27.0 - 32.0 pcg LAB HEMETOLOGY METHOD 11/08/2024 10:37 AM [facility] MCHC 28.5(L) 32.0 - 37.0 g/dL LAB HEMETOLOGY METHOD 11/08/2024 10:37 AM [facility] RDW 15.3(H) 11.0 - 15.0 % LAB HEMETOLOGY METHOD 11/08/2024 10:37 AM [facility] Platelets 251 130 - 400 K/mcL LAB HEMETOLOGY METHOD 11/08/2024 10:37 AM [facility] MPV 11.3(H) 7.0 - 11.0 FL LAB HEMETOLOGY METHOD 11/08/2024 10:37 AM [facility] NRBC 0.0 <1.0 % LAB HEMETOLOGY METHOD 11/08/2024 10:37 AM [facility] NRBC Absolute 0.00 <0.10 K/mcL LAB HEMETOLOGY METHOD 11/08/2024 10:37 AM [facility] Neutrophils Relative 55.4 % LAB HEMETOLOGY METHOD 11/08/2024 10:37 AM [facility] Lymphocytes Relative 26.5 % LAB HEMETOLOGY METHOD 11/08/2024 10:37 AM EST [facility] Monocytes Relative 15.1 % LAB HEMETOLOGY METHOD 11/08/2024 10:37 AM EST [facility] Eosinophils Relative 2.4 % LAB HEMETOLOGY METHOD 11/08/2024 10:37 AM [facility] Basophils Relative 0.4 % LAB HEMETOLOGY METHOD 11/08/2024 10:37 AM EST [facility] Immature Granulocytes Relative 0.2 % LAB HEMETOLOGY METHOD 11/08/2024 10:37 AM [facility] Neutrophils Absolute 3.02 1.50 - 7.00 K/mcL LAB HEMETOLOGY METHOD 11/08/2024 10:37 AM [facility] Lymphocytes Absolute 1.44 1.00 - 5.00 K/mcL LAB HEMETOLOGY METHOD 11/08/2024 10:37 AM [facility] Monocytes Absolute 0.82 0.20 - 1.00 K/mcL LAB HEMETOLOGY METHOD 11/08/2024 10:37 AM [facility] Eosinophils Absolute 0.13 0.00 - 0.50 K/mcL LAB HEMETOLOGY METHOD 11/08/2024 10:37 AM [facility] Basophils Absolute 0.02 0.00 - 0.20 K/mcL LAB HEMETOLOGY METHOD 11/08/2024 10:37 AM [facility] Immature Granulocytes Absolute 0.01 0.00 - 0.03 K/mcL LAB HEMETOLOGY METHOD 11/08/2024 10:37 AM [facility] Blood Venous blood specimen / Unknown Venipuncture / Unknown 11/08/2024 7:15 AM EST 11/08/2024 9:19 AM EST Juan Carlos Mayers LAB BLOOD ORDERABLES Final Resul t [facility] [address] [place] [address], [place] [phone] * Hemoglobin A1c (11/08/2024 7:15 AM EST) [facility] Hemoglobin A1C 6.1 <6.5 % LAB CHEMISTRY METHOD 11/08/2024 8:50 PM EST [facility] Mean Bld Glu Estim. 128 mg/dL LAB CHEMISTRY METHOD 11/08/2024 8:50 PM [facility] Blood Venous blood specimen / Unknown Venipuncture / Unknown 11/08/2024 7:15 AM EST 11/08/2024 9:19 AM EST us Juan Carlos Mayers LAB BLOOD ORDERABLES Final Resul t [facility] [address] [place] [address], * (ABNORMAL) Lipid panel with reflex to direct LDL (11/08/2024 7:15 AM EST) [facility] Cholesterol 68 0 - 200 mg/dL LAB CHEMISTRY METHOD 11/08/2024 11:32 AM [facility] Triglycerides 136 0 - 150 mg/dL LAB CHEMISTRY METHOD 11/08/2024 11:32 AM [facility] HDL 21(L) >=40 mg/dL LAB CHEMISTRY METHOD 11/08/2024 11:32 AM [facility] LDL Calculated 20 0 - 100 mg/dL LAB CHEMISTRY METHOD 11/08/2024 11:32 AM [facility] VLDL Cholesterol Enio 27.2 mg/dL LAB CHEMISTRY METHOD 11/08/2024 11:32 AM [facility] Non HDL Chol. (LDL+VLDL) 47 <145 mg/dL LAB CHEMISTRY METHOD 11/08/2024 11:32 AM [facility] Chol/HDL Ratio 3.2 0.0 - 4.4 LAB CHEMISTRY METHOD 11/08/2024 11:32 AM [facility] Blood Venous blood specimen / Unknown Venipuncture / Unknown 11/08/2024 7:15 AM EST 11/08/2024 9:19 AM EST us Juan Carlos Mayers LAB BLOOD ORDERABLES Final Resul t [facility] [address] [place] [address], * (ABNORMAL) Comprehensive metabolic panel (11/08/2024 7:15 AM EST) Sodium 136 133 - 145 mmol/L LAB CHEMISTRY METHOD 11/08/2024 11:39 AM [facility] Potassium 3.2(L) 3.5 - 5.5 mmol/L LAB CHEMISTRY METHOD 11/08/2024 11:39 AM [facility] Chloride 100 96 - 110 mmol/L LAB CHEMISTRY METHOD 11/08/2024 11:39 AM [facility] CO2 28 21 - 32 mmol/L LAB CHEMISTRY METHOD 11/08/2024 11:39 AM [facility] Anion Gap 8 3 - 11 LAB CHEMISTRY METHOD 11/08/2024 11:39 AM [facility] Glucose 102(H) 70 - 100 mg/dL LAB CHEMISTRY METHOD 11/08/2024 11:39 AM [facility] BUN 4(L) 5 - 25 mg/dL LAB CHEMISTRY METHOD 11/08/2024 11:39 AM [facility] Creatinine 1.82(H) 0.50 - 1.10 mg/dL LAB CHEMISTRY METHOD 11/08/2024 11:39 AM [facility] eGFR 30(L) >=60 mL/min/1. 73m2 LAB CHEMISTRY METHOD 11/08/2024 11:39 AM [facility] Comment:Calculation based on the??Chronic Kidney Disease Epidemiology Collaboration (CKD-EPI) equation refit??without adjustment for race. BUN/Creatinine Ratio 2.2 LAB CHEMISTRY METHOD 11/08/2024 11:39 AM [facility] Calcium 9.1 8.5 - 10.5 mg/dL LAB CHEMISTRY METHOD 11/08/2024 11:39 AM [facility] AST (SGOT) 49(H) 10 - 42 unit/L LAB CHEMISTRY METHOD 11/08/2024 11:39 AM [facility] ALT (SGPT) 40 10 - 60 unit/L LAB CHEMISTRY METHOD 11/08/2024 11:39 AM [facility] Alkaline Phosphatase 96 42 - 121 unit/L LAB CHEMISTRY METHOD 11/08/2024 11:39 AM [facility] Total Protein 5.6(L) 6.0 - 8.0 g/dL LAB CHEMISTRY METHOD 11/08/2024 11:39 AM [facility] Albumin 2.4(L) 3.2 - 5.0 g/dL LAB CHEMISTRY METHOD 11/08/2024 11:39 AM [facility] Total Bilirubin 0.4 0.0 - 1.4 mg/dL LAB CHEMISTRY METHOD 11/08/2024 11:39 AM [facility] Blood Venous blood specimen / Unknown Venipuncture / Unknown 11/08/2024 7:15 AM EST 11/08/2024 9:19 AM EST Juan Carlos Mayers LAB BLOOD ORDERABLES Final Resul t [facility] [address] [place] [address], documented in this encounter Visit Diagnoses Diagnosis Encounter for screening for diabetes mellitus Ischemic cardiomyopathy Other specified forms of chronic ischemic heart disease Essential (primary) hypertension Unspecified essential hypertension Other chronic pain Depression, unspecified Hyperlipidemia, unspecified Anemia, unspecified Systemic lupus erythematosus, unspecified (CMS/HCC V24, CMS/HCC V28) Unspecified asthma, uncomplicated Atherosclerotic heart disease of [place] coronary artery without angina pectoris Gastro-esophageal reflux disease without esophagitis Bacteremia Hypotension, unspecified documented in this encounter Care Teams Database Modeler Relationship Specialty Start Date End Date Osmar Gramajo MD [address] [place], [place] PCP - General Pulmonary Disease 04/20/17 documented as of this encounter
--- OUTSIDE RECORDS SUMMARY | 2025-02-14 16:13 | XMS_ITS | Encounter Summary ---
Author Organization [facility] Address [address] [place] [address] Care Team Providers Care Bilingual Loan Processor Name Role Phone Osmar Gramajo MD Primary Care Provider Encounter Details Date Type Department Care Team (Late st Contact Info) Description 11/12/2024 Lab Requisition [facility] - Main Lab [address] [facility] [employer] [place] [address] Juan Carlos Mayers [address] [facility] [address] [place] [address] Shortness of breath; Bacteremia Social [...] pcg/mL LAB CHEMISTRY METHOD 11/12/2024 12:30 PM [facility] Blood Venous blood specimen / Unknown Venipuncture / Unknown 11/12/2024 9:24 AM EST 11/12/2024 11:45 AM EST Juan Carlos Mayers LAB BLOOD ORDERABLES Final Resul t [facility] [address] [place] [address], * (ABNORMAL) Basic metabolic panel (11/12/2024 9:24 AM EST) Sodium 137 133 - 145 mmol/L LAB CHEMISTRY METHOD 11/12/2024 12:24 PM [facility] Potassium 3.4(L) 3.5 - 5.5 mmol/L LAB CHEMISTRY METHOD 11/12/2024 12:24 PM [facility] Chloride 101 96 - 110 mmol/L LAB CHEMISTRY METHOD 11/12/2024 12:24 PM [facility] CO2 28 21 - 32 mmol/L LAB CHEMISTRY METHOD 11/12/2024 12:24 PM [facility] Anion Gap 8 3 - 11 LAB CHEMISTRY METHOD 11/12/2024 12:24 PM [facility] Glucose 121(H) 70 - 100 mg/dL LAB CHEMISTRY METHOD 11/12/2024 12:24 PM [facility] BUN 9 5 - 25 mg/dL LAB CHEMISTRY METHOD 11/12/2024 12:24 PM [facility] Creatinine 1.65(H) 0.50 - 1.10 mg/dL LAB CHEMISTRY METHOD 11/12/2024 12:24 PM [facility] eGFR 34(L) >=60 mL/min/1. 73m2 LAB CHEMISTRY METHOD 11/12/2024 12:24 PM [facility] Comment:Calculation based on the??Chronic Kidney Disease Epidemiology Collaboration (CKD-EPI) equation refit??without adjustment for race. BUN/Creatinine Ratio 5.5 LAB CHEMISTRY METHOD 11/12/2024 12:24 PM [facility] Calcium 9.1 8.5 - 10.5 mg/dL LAB CHEMISTRY METHOD 11/12/2024 12:24 PM [facility] Blood Venous blood specimen / Unknown Venipuncture / Unknown 11/12/2024 9:24 AM EST 11/12/2024 11:45 AM EST us Juan Carlos Mayers LAB BLOOD ORDERABLES Final Resul t [facility] [address] [place] [address], * (ABNORMAL) Complete blood count (11/12/2024 9:24 AM EST) WBC 6.8 4.8 - 10.8 K/mcL LAB HEMETOLOGY METHOD 11/12/2024 12:02 PM [facility] RBC 3.60(L) 3.80 - 4.80 M/mcL LAB HEMETOLOGY METHOD 11/12/2024 12:02 PM [facility] Hemoglobin 9.5(L) 11.5 - 16.0 g/dL LAB HEMETOLOGY METHOD 11/12/2024 12:02 PM [facility] Hematocrit 33.5(L) 35.0 - 47.0 % LAB HEMETOLOGY METHOD 11/12/2024 12:02 PM [facility] LAB MCV 92.0 79.0 - 98.0 FL LAB HEMETOLOGY METHOD 11/12/2024 12:02 PM [facility] LAB MCH 26.1(L) 27.0 - 32.0 pcg LAB HEMETOLOGY METHOD 11/12/2024 12:02 PM [facility] MCHC 28.4(L) 32.0 - 37.0 g/dL LAB HEMETOLOGY METHOD 11/12/2024 12:02 PM [facility] LAB RDW 15.6(H) 11.0 - 15.0 % LAB HEMETOLOGY METHOD 11/12/2024 12:02 PM [facility] LAB Platelets 315 130 - 400 K/mcL LAB HEMETOLOGY METHOD 11/12/2024 12:02 PM [facility] LAB MPV 10.9 7.0 - 11.0 FL LAB HEMETOLOGY METHOD 11/12/2024 12:02 PM [facility] LAB NRBC 0.0 <1.0 % LAB HEMETOLOGY METHOD 11/12/2024 12:02 PM [facility] LAB NRBC Absolute 0.00 <0.10 K/mcL LAB HEMETOLOGY METHOD 11/12/2024 12:02 PM [facility] Blood Venous blood specimen / Unknown Venipuncture / Unknown 11/12/2024 9:24 AM EST 11/12/2024 11:45 AM EST Juan Carlos Figueroacocoa LAB BLOOD ORDERABLES Final Resul t [facility] [address] [place] [address], documented in this encounter Visit Diagnoses Diagnosis Shortness of breath Bacteremia documented in this encounter Care Teams Bilingual Loan Processor Relationship Specialty Start Date End Date Osmar Gramajo MD [address] [place], [place] PCP - General Pulmonary Disease 04/20/17 documented as of this encounter
--- OUTSIDE RECORDS SUMMARY | 2025-02-14 16:13 | XMS_ITS | Encounter Summary ---
Author Organization [facility] Address [address] [place] [address] Care Team Providers Care Solar Sales Manager Name Role Phone Osmar Gramajo MD Primary Care Provider Encounter Details Date Type Department Care Team (Late st Contact Info) Description 11/14/2024 Lab Requisition [facility] - Main Lab 299 [facility] [place] [address] Juan Carlos Mayers [address] [facility] [address] [place] [address] Gastro-esophageal reflux disease without esophagitis; Hyperlipidemia, unspecified; Anemia, unspecified; Atherosclerotic heart disease of [place] coronary artery without angina pectoris; Essential (primary) [...] unspecified Anemia, unspecified Atherosclerotic heart disease of [place] coronary artery without angina pectoris Essential (primary) hypertension CBC WITH AUTO DIFFERENTIAL Routine 11/15/2024 8:14 AM EST Gastro-esophageal reflux disease without esophagitis Hyperlipidemia, unspecified Anemia, unspecified Atherosclerotic heart disease of [place] coronary artery without angina pectoris Essential (primary) hypertension CBC AND DIFFERENTIAL Routine 11/15/2024 8:14 AM EST Gastro-esophageal reflux disease without esophagitis Hyperlipidemia, unspecified Anemia, unspecified Atherosclerotic heart disease of [place] coronary artery without angina pectoris Essential (primary) hypertension HEMOGLOBIN A1C Routine 11/15/2024 8:14 AM EST Gastro-esophageal reflux disease without esophagitis Hyperlipidemia, unspecified Anemia, unspecified Atherosclerotic heart disease of [place] coronary artery without angina pectoris Essential (primary) hypertension COMPREHENSIVE METABOLIC PANEL Routine 11/15/2024 8:14 AM EST Gastro-esophageal reflux disease without esophagitis Hyperlipidemia, unspecified Anemia, unspecified Atherosclerotic heart disease of [place] coronary artery without angina pectoris Essential (primary) [...] LAB HEMETOLOGY METHOD 11/15/2024 11:49 AM EST [facility] Eosinophils Absolute 0.23 0.00 - 0.50 K/[facility] LAB HEMETOLOGY METHOD 11/15/2024 11:49 AM EST [facility] Basophils Absolute 0.02 0.00 - 0.20 K/[facility] LAB HEMETOLOGY METHOD 11/15/2024 11:49 AM EST [facility] Immature Granulocytes Absolute 0.03 0.00 - 0.03 K/[facility] LAB HEMETOLOGY METHOD 11/15/2024 11:49 AM EST [facility] Blood Venous blood specimen / Unknown Venipuncture / Unknown 11/15/2024 8:14 AM EST 11/15/2024 11:18 AM EST us Juan Carlos Mayers LAB BLOOD ORDERABLES Final Resul t [facility] [address] [place] [address], [place] [phone] * Hemoglobin A1c (11/15/2024 8:14 AM EST) Hemoglobin A1C 6.1 <6.5 % LAB CHEMISTRY METHOD 11/15/2024 2:22 PM EST [facility] Mean Bld Glu Estim. 128 mg/dL LAB CHEMISTRY METHOD 11/15/2024 2:22 PM EST [facility] Blood Venous blood specimen / Unknown Venipuncture / Unknown 11/15/2024 8:14 AM EST 11/15/2024 11:18 AM EST us Juan Carlos Mayers LAB BLOOD ORDERABLES Final Resul t [facility] [address] [place] [address], [place] [phone] * (ABNORMAL) Lipid panel with reflex to direct LDL (11/15/2024 8:14 AM EST) Cholesterol 69 0 - 200 mg/dL LAB CHEMISTRY METHOD 11/15/2024 12:25 PM [facility] Triglycerides 132 0 - 150 [...] Mayers LAB BLOOD ORDERABLES Final Resul t [facility] [address] [place] [address], * (ABNORMAL) Comprehensive metabolic panel (11/15/2024 8:14 AM EST) Pathologist [facility] Sodium 137 133 - 145 mmol/L LAB [...] LAB CHEMISTRY METHOD 11/15/2024 12:25 PM EST [facility] Total Bilirubin 0.3 0.0 - 1.4 mg/dL LAB CHEMISTRY METHOD 11/15/2024 12:25 PM EST [facility] Blood Venous blood specimen / Unknown Venipuncture / Unknown 11/15/2024 8:14 AM EST 11/15/2024 11:16 AM EST us Juan Carlos Mayers LAB BLOOD ORDERABLES Final Resul t [facility] [address] [place] [address], documented in this encounter Visit Diagnoses Diagnosis Gastro-esophageal reflux disease without esophagitis Hyperlipidemia, unspecified Anemia, unspecified Atherosclerotic heart disease of [place] coronary artery without angina pectoris Essential (primary) hypertension Unspecified essential hypertension documented in this encounter Care Teams Solar Sales Manager Relationship Specialty Start Date End Date Osmar Gramajo MD [address] [place], [place] PCP - General Pulmonary Disease 04/20/17 documented as of this encounter
--- OUTSIDE RECORDS SUMMARY | 2025-02-14 16:14 | XMS_ITS | Encounter Summary ---
Author Organization [facility] Address [address] [place] [address] Care Team Providers Care Mri Technician Name Role Phone Osmar Gramajo MD Primary Care Provider Encounter Details Date Type Department Care Team (Late st Contact Info) Description 11/21/2024 Lab Requisition [facility] - Main Lab [address] [facility] [place] [address] Juan Carlos Mayers [address] [facility] [phone] [place] [address] Gastro-esophageal reflux disease without esophagitis; Hyperlipidemia, unspecified; Anemia, unspecified; Atherosclerotic heart disease of [place] coronary artery without angina pectoris; Essential (primary) [...] unspecified Anemia, unspecified Atherosclerotic heart disease of [place] coronary artery without angina pectoris Essential (primary) hypertension Unspecified essential hypertension documented in this encounter Care Teams Mri Technician Relationship Specialty Start Date End Date Osmar Gramajo MD [address] [place], [place] PCP - General Pulmonary Disease 04/20/17 documented as of this encounter
--- OUTSIDE RECORDS SUMMARY | 2025-02-14 16:14 | XMS_ITS | Clinical Summary ---
Author Organization [address] Address [address] [place] [address] Phone Care Team Providers Care Disaster Response Director Name Role Phone Osmar Gramajo MD Primary Care Provider Encounters Date Type Department Care Team Description 11/21/2024 Lab Requisition [facility] - Main Lab [address] [place] [id number] Juan Carlos Mayers Gastro-esophageal reflux disease without esophagitis; Hyperlipidemia, unspecified; Anemia, unspecified; Atherosclerotic heart disease of [place] coronary artery without angina pectoris; Essential (primary) [...] - Risk 3-dose series) 2016 RSV Immunization Adult Patients (1 - Risk 60-74 years 1-dose series) [...] 10/06/2021, 03/25/2021, Additional history exists Influenza Vaccine (Season Ended) 2025 10/29/2023, 10/06/2021, 07/09/2020, Additional history exists Hypertension/CHF/CAD Annual [...] age to complete this topic Meningococcal B Vaccine Aged Out No l onger eligible based on patient's age to complete this topic RSV Immunization Patients Under 20 months Aged Out No longer eligible based on patient's age to complete this topic Varicella Vaccines Aged Out No longer eligible based on patient's age to complete this topic Procedures Procedure Name Priority Date/Time Associated Diagnosis Comments COMPREHENSIVE METABOLIC PANEL Routine 11/15/2024 8:14 AM EST Gastro-esophageal reflux disease without esophagitis Hyperlipidemia, unspecified Anemia, unspecified Atherosclerotic heart disease of [place] coronary artery without angina pectoris Essential (primary) hypertension LIPID PANEL WITH REFLEX TO DIRECT LDL Routine 11/15/2024 8:14 AM EST Gastro-esophageal reflux disease without esophagitis Hyperlipidemia, unspecified Anemia, unspecified Atherosclerotic heart disease of [place] coronary artery without angina pectoris Essential (primary) hypertension DAYO SCREENING DIGITAL Routine 05/28/2021 2:31 PM EDT Encounter for screening mammogram for malignant neoplasm of breast from Last 3 Months or Most Recently Relevant to Health Maintenance Results * (ABNORMAL) Lipid panel with reflex to direct LDL (11/15/2024 8:14 AM EST) Cholesterol 69 0 - 200 mg/dL LAB CHEMISTRY METHOD 11/15/2024 12:25 PM EST [facility] Triglycerides 132 0 - 150 mg/dL LAB CHEMISTRY METHOD 11/15/2024 12:25 PM EST [facility] HDL 24(L) >=40 mg/dL LAB CHEMISTRY METHOD 11/15/2024 12:25 PM EST [facility] LDL Calculated 19 0 - 100 mg/dL LAB CHEMISTRY METHOD 11/15/2024 12:25 PM [facility] VLDL Cholesterol Enio 26.4 mg/dL LAB CHEMISTRY METHOD 11/15/2024 12:25 PM [facility] Non HDL Chol. (LDL+VLDL) 45 <145 mg/dL LAB CHEMISTRY METHOD 11/15/2024 12:25 PM [facility] Chol/HDL Ratio 2.9 0.0 - 4.4 LAB CHEMISTRY METHOD 11/15/2024 12:25 PM [facility] Blood Venous blood specimen / Unknown Venipuncture / Unknown 11/15/2024 8:14 AM EST 11/15/2024 11:16 AM EST Juan Carlos Mayers LAB BLOOD ORDERABLES Final Resul t [facility] [address] [place] [address], * (ABNORMAL) Comprehensive metabolic panel (11/15/2024 8:14 AM EST) Pathologist [facility] Sodium 137 133 - 145 mmol/L LAB CHEMISTRY METHOD 11/15/2024 12:25 PM [facility] Potassium 3.4(L) 3.5 - 5.5 mmol/L LAB CHEMISTRY METHOD 11/15/2024 12:25 PM [facility] Chloride 101 96 - 110 mmol/L LAB CHEMISTRY METHOD 11/15/2024 12:25 PM [facility] CO2 29 21 - 32 mmol/L LAB CHEMISTRY METHOD 11/15/2024 12:25 PM [facility] Anion Gap 7 3 - 11 LAB CHEMISTRY METHOD 11/15/2024 12:25 PM [facility] Glucose 134(H) 70 - 100 mg/dL LAB CHEMISTRY METHOD 11/15/2024 12:25 PM [facility] BUN 9 5 - 25 mg/dL LAB CHEMISTRY METHOD 11/15/2024 12:25 PM [facility] Creatinine 1.56(H) 0.50 - 1.10 mg/dL LAB CHEMISTRY METHOD 11/15/2024 12:25 PM [facility] eGFR 36(L) >=60 mL/min/1. 73m2 LAB CHEMISTRY METHOD 11/15/2024 12:25 PM [facility] Comment:Calculation based on the??Chronic Kidney Disease Epidemiology Collaboration (CKD-EPI) equation refit??without adjustment for race. BUN/Creatinine Ratio 5.8 LAB CHEMISTRY METHOD 11/15/2024 12:25 PM [facility] Calcium 8.6 8.5 - 10.5 mg/dL LAB CHEMISTRY METHOD 11/15/2024 12:25 PM [facility] AST (SGOT) 35 10 - 42 unit/L LAB CHEMISTRY METHOD 11/15/2024 12:25 PM [facility] ALT (SGPT) 23 10 - 60 unit/L LAB CHEMISTRY METHOD 11/15/2024 12:25 PM [facility] Alkaline Phosphatase 99 42 - 121 unit/L LAB CHEMISTRY METHOD 11/15/2024 12:25 PM [facility] Total Protein 5.6(L) 6.0 - 8.0 g/dL LAB CHEMISTRY METHOD 11/15/2024 12:25 PM EST [facility] Albumin 2.3(L) 3.2 - 5.0 g/dL LAB CHEMISTRY METHOD 11/15/2024 12:25 PM EST [facility] Total Bilirubin 0.3 0.0 - 1.4 mg/dL LAB CHEMISTRY METHOD 11/15/2024 12:25 PM EST [facility] Blood Venous blood specimen / Unknown Venipuncture / Unknown 11/15/2024 8:14 AM EST 11/15/2024 11:16 AM EST us Juan Carlos Mayers LAB BLOOD ORDERABLES Final Resul t [facility] [address] [place] [address], * DAYO SCREENING DIGITAL (05/28/2021 2:31 PM EDT) Anatomical Region Laterality Modality Mammography 05/28/2021 2:09 PM EDT Narrative 05/28/2021 2:31 PM EDT [facility] Diagnostic Imaging Department [address] [place] [address] Patient: ??MARCI FERNANDO ?/Age/Sex: 1955 - F Unit#: ??[id number] ? Location/Status: ??SPDIMAM/REG CLI ? Mnemonic/Ordering Site: ??DIGSC/SPMAM Ordering Physician: ??Dayanara GRAMAJO MD [facility] Screening Digital - 05/28/21 - 1427 EXAM: [facility] Screening Digital EXAM DATE AND TIME: 05/28/2021 2:21 PM HISTORY: ??Annual screening mammography COMPARISON: ??2016 through 08/16/2012 TECHNIQUE: CC and MLO views of both breasts were obtained using full field digital mammography. Bilateral digital breast tomosynthesis was performed in the MLO projection. Computer aided detection with the [employer] 7.2-CHEQROOM was employed. TISSUE DENSITY: b. There are [...] Routine screening mammogram BILATERAL in 1 year. [address], [id number], 7025F Dictating Physician: ??YASHIRA VU MD Electronically Signed by: ??YASHIRA VU MD Dic Date/Time: ??05/28/21 1429 Sign date/Time: ??05/28/21 1431 Procedure Note Kim Vu MD - 10/20/2022 [facility] Diagnostic Imaging Department [address] [place] [id number] Patient: MARCI FERNANDO /Age/Sex: 1955 - 65 - F Unit#: [id number] Location/Status: SPDIMAM/REG CLI Mnemonic/Ordering Site: [facility] Ordering Physician: Dayanara GRAMAJO MD [facility] Screening Digital - 05/28/21 - 1426 EXAM: [facility] Screening Digital EXAM DATE AND TIME: 05/28/2021 2:21 PM HISTORY: Annual screening mammography COMPARISON: 2016 through 08/16/2012 TECHNIQUE: CC and MLO views of both breasts were obtained using fullfield digital mammography. Bilateral digital breast tomosynthesis was performedin the MLO projection. Computer aided detection with the [employer] 7.2-FClubas employed. TISSUE DENSITY: b. There are scattered [...] Routine screening mammogram BILATERAL in 1 year. [address]28, [address]882 3342F, 7025F Dictating Physician: YASHIRA VU MD Electronically Signed by: YASHIRA VU MD Dic Date/Time: 05/28/21 1429 Sign date/Time: 05/28/[address] [facility] [facility] BI PROCEDURES Hortensia l Result from Last 3 Months or Most Recently Relevant to Health Maintenance Insurance [place]ICA[place] - [place] Care Teams Disaster Response Director Relationship Specialty Start Date End Date Osmar Gramajo MD [address] [place], [place] PCP - General Pulmonary Disease 04/20/17
== END 2025-02-14 14:16 | disposition home or self-care (01) ==
PROVIDERS: PCP Internal Medicine; Visit Provider Hospitalist
DX: M32.9 Systemic lupus erythematosus, unspecified (principal); I50.9 Heart failure, unspecified; I27.82 Chronic pulmonary embolism; Z01.811 Encounter for preprocedural respiratory examination; J44.89 Other specified chronic obstructive pulmonary disease
CPT/HCPCS: 99214; G2211

== ENCOUNTER → 2025-02-14 13:49 | Outpatient (BNVA) | payer OTHER, SELFPAY | PROVIDERS: PCP Internal Medicine; Visit Provider Hospitalist | DX: Z01.811 Encounter for preprocedural respiratory examination (principal); I25.10 Atherosclerotic heart disease of native coronary artery without angina pectoris; I25.2 Old myocardial infarction; M32.9 Systemic lupus erythematosus, unspecified; I50.9 Heart failure, unspecified; I27.82 Chronic pulmonary embolism; J44.89 Other specified chronic obstructive pulmonary disease; T81.89XA Other complications of procedures, not elsewhere classified, initial encounter; F17.210 Nicotine dependence, cigarettes, uncomplicated; X58.XXXA Exposure to other specified factors, initial encounter; Y93.9 Activity, unspecified; Y92.9 Unspecified place or not applicable; Y99.9 Unspecified external cause status; Z86.711 Personal history of pulmonary embolism | CPT/HCPCS: 99212 ==

== ENCOUNTER 2025-02-14 14:29 | Outpatient (AMB) | payer OTHER, SELFPAY ==
--- NOTE | 2025-02-14 14:36 | A.OFFVIS_ITS ---
Vital Signs 02/14/25 14:49 Height 5 ft 6 in Weight 233 lb BMI 37.6 BP 112/55 L Blood Pressure Location Lt brachial Position Sitting Pulse 96 Intake Visit Reasons: wound check (VNA ? re; wound care referral) Intake Note: This patient presents for wound check, open wound of the right breast. 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: No Accompanied by: Self / Same As Patient Allergies No Known Allergies Allergy (Verified 02/14/25 13:51) Medication List - Last Reconciled 02/14/25 by Neil Sanchez MD albuterol sulfate 90 mcg/actuation 2 puffs inhalation QID apixaban (Eliquis) 5 mg PO BID atorvastatin 80 mg PO BEDTIME carvedilol 6.25 mg PO BID CPAP (CPAP Machine/Device) As directed duloxetine 30 mg PO DAILY ferrous sulfate 325 mg PO DAILY aqaaqkxrxzd-rqcwsrjwe-amyuboqo 200-62.5-25 mcg (Trelegy Ellipta) 1 ea inhalation DAILY furosemide (Lasix) 20 mg PO DAILY PRN 7 days lisinopril 5 mg PO DAILY loratadine 10 mg PO DAILY montelukast 10 mg PO DAILY nicotine 1 patch transdermal Q24H 30 days omeprazole 40 mg PO DAILY quetiapine 100 mg PO BEDTIME HPI HPI wound check (VNA ? re; wound care referral): Details: She is here for follow-up for her nonhealing wound on the right breast. She had excision of a ruptured epidermal cyst last year and the wound has not healed. She continues to have hypergranulation tissue. 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 She continues to have this open wound although she denies any redness around this. [facility] Medical History Nonhealing surgical wound Hypergranulation Epidermal inclusion cyst Lesion of skin of breast Pulmonary emboli COPD (chronic obstructive pulmonary disease) Lupus CHF (congestive heart failure) Surgical History History of surgical removal of skin lesion (~10/18/24) Social History Alcohol intake: never Patient Tobacco Use Status: Current everyday Tobacco user Tobacco use type: Cigarette Years Smoked: 20+ Years Substance Use Type: Marijuana Review of Systems Const Denies chills and Denies fever(s) Card Denies chest pain Resp Denies cough GI Denies abdominal pain Musc Reports abnormal gait Neuro Reports abnormal gait Physical Exam Vital Signs: Last Vital Signs Pulse 96 02/14/25 14:49 BP 112/55 L 02/14/25 14:49 BMI result Body Mass Index 37.6 Const Other: Using a walker General: no acute distress Chest Other: Right breast with note of an area with an open wound medial to the nipple areola, with hypergranulation about 1.5 cm in diameter, no fluctuance, no induration, no cellulitis Resp Effort & Inspection: normal respiratory effort Cardio Rate: regular rate GI Palpation (GI): Soft to palpation Assessment & Plan Assessment & Plan (1) Nonhealing surgical wound: Code(s): T81.89XA - Other complications of procedures, not elsewhere classified, initial encounter Category: Medical Plan: She has had this nonhealing wound after excision and debridement of a ruptured epidermal cyst. She has this persistent hypergranulation. I changed her dressings and use Band-Aids for now She is to be scheduled for debridement in the OR under anesthesia. She is just waiting for pulmonology clearance for this. She understands the plan well. Coding Level of Care Code Est Pt Level 3 (65638) Diagnoses Nonhealing surgical wound T81.89XA
[2025-02-14 14:49] VITALS: BP 112/55; PULSE 96; BMI 37.6
--- OUTSIDE RECORDS SUMMARY | 2025-02-14 17:03 | XMS_ITS | Encounter Summary ---
Author Organization [facility] Address [address] [place] [address] Care Team Providers Care Professor Of Public Administration Name Role Phone Osmar Gramajo MD Primary Care Provider Encounter Details Date Type Department Care Team (Late st Contact Info) Description 11/14/2024 Lab Requisition [facility] - Main Lab [address] [facility] [place] [address] Juan Carlos Mayers [address] [facility] [phone] [place] [address] Gastro-esophageal reflux disease without esophagitis; Hyperlipidemia, unspecified; Anemia, unspecified; Atherosclerotic heart disease of [place] coronary artery without angina pectoris; Essential (primary) [...] unspecified Anemia, unspecified Atherosclerotic heart disease of [place] coronary artery without angina pectoris Essential (primary) hypertension CBC WITH AUTO DIFFERENTIAL Routine 11/15/2024 8:14 AM EST Gastro-esophageal reflux disease without esophagitis Hyperlipidemia, unspecified Anemia, unspecified Atherosclerotic heart disease of [place] coronary artery without angina pectoris Essential (primary) hypertension CBC AND DIFFERENTIAL Routine 11/15/2024 8:14 AM EST Gastro-esophageal reflux disease without esophagitis Hyperlipidemia, unspecified Anemia, unspecified Atherosclerotic heart disease of [place] coronary artery without angina pectoris Essential (primary) hypertension HEMOGLOBIN A1C Routine 11/15/2024 8:14 AM EST Gastro-esophageal reflux disease without esophagitis Hyperlipidemia, unspecified Anemia, unspecified Atherosclerotic heart disease of [place] coronary artery without angina pectoris Essential (primary) hypertension COMPREHENSIVE METABOLIC PANEL Routine 11/15/2024 8:14 AM EST Gastro-esophageal reflux disease without esophagitis Hyperlipidemia, unspecified Anemia, unspecified Atherosclerotic heart disease of [place] coronary artery without angina pectoris Essential (primary) hypertension documented in this encounter Results * (ABNORMAL) CBC auto differential (11/15/2024 8:14 AM EST) WBC 5.1 4.8 - 10.8 K/mcL LAB HEMETOLOGY METHOD 11/15/2024 11:49 AM [facility] RBC 3.40(L) 3.80 - 4.80 M/mcL LAB HEMETOLOGY METHOD 11/15/2024 11:49 AM [facility] Hemoglobin 8.7(L) 11.5 - 16.0 g/dL LAB HEMETOLOGY METHOD 11/15/2024 11:49 AM [facility] Hematocrit 30.5(L) 35.0 - 47.0 % LAB HEMETOLOGY METHOD 11/15/2024 11:49 AM [facility] MCV 90.0 79.0 - 98.0 FL LAB HEMETOLOGY METHOD 11/15/2024 11:49 AM [facility] MCH 25.7(L) 27.0 - 32.0 pcg LAB HEMETOLOGY METHOD 11/15/2024 11:49 AM [facility] MCHC 28.5(L) 32.0 - 37.0 g/dL LAB HEMETOLOGY METHOD 11/15/2024 11:49 AM [facility] RDW 16.1(H) 11.0 - 15.0 % LAB HEMETOLOGY METHOD 11/15/2024 11:49 AM [facility] Platelets 319 130 - 400 K/mcL LAB HEMETOLOGY METHOD 11/15/2024 11:49 AM [facility] MPV 10.6 7.0 - 11.0 FL LAB HEMETOLOGY METHOD 11/15/2024 11:49 AM [facility] NRBC 0.4 <1.0 % LAB HEMETOLOGY METHOD 11/15/2024 11:49 AM [facility] NRBC Absolute 0.02 <0.10 K/mcL LAB HEMETOLOGY METHOD 11/15/2024 11:49 AM [facility] Neutrophils Relative 49.2 % LAB HEMETOLOGY METHOD 11/15/2024 11:49 AM [facility] Lymphocytes Relative 33.7 % LAB HEMETOLOGY METHOD 11/15/2024 11:49 AM [facility] Monocytes Relative 11.6 % LAB HEMETOLOGY METHOD 11/15/2024 11:49 AM [facility] Eosinophils Relative 4.5 % LAB HEMETOLOGY METHOD 11/15/2024 11:49 AM [facility] Basophils Relative 0.4 % LAB HEMETOLOGY METHOD 11/15/2024 11:49 AM [facility] Immature Granulocytes Relative 0.6 % LAB HEMETOLOGY METHOD 11/15/2024 11:49 AM [facility] Neutrophils Absolute 2.49 1.50 - 7.00 K/mcL LAB HEMETOLOGY METHOD 11/15/2024 11:49 AM [facility] Lymphocytes Absolute 1.71 1.00 - 5.00 K/mcL LAB HEMETOLOGY METHOD 11/15/2024 11:49 AM [facility] Monocytes Absolute 0.59 0.20 - 1.00 K/mcL LAB HEMETOLOGY METHOD 11/15/2024 11:49 AM EST [facility] Eosinophils Absolute 0.23 0.00 - 0.50 K/[facility] LAB HEMETOLOGY METHOD 11/15/2024 11:49 AM EST [facility] Basophils Absolute 0.02 0.00 - 0.20 K/[facility] LAB HEMETOLOGY METHOD 11/15/2024 11:49 AM EST [facility] Immature Granulocytes Absolute 0.03 0.00 - 0.03 K/[facility] LAB HEMETOLOGY METHOD 11/15/2024 11:49 AM EST [facility] Blood Venous blood specimen / Unknown Venipuncture / Unknown 11/15/2024 8:14 AM EST 11/15/2024 11:18 AM EST us Juan Carlos Mayers LAB BLOOD ORDERABLES Final Resul t [facility] [address] [place] [address], [place] [phone] * Hemoglobin A1c (11/15/2024 8:14 AM EST) Hemoglobin A1C 6.1 <6.5 % LAB CHEMISTRY METHOD 11/15/2024 2:22 PM EST [facility] Mean Bld Glu Estim. 128 mg/dL LAB CHEMISTRY METHOD 11/15/2024 2:22 PM EST [facility] Blood Venous blood specimen / Unknown Venipuncture / Unknown 11/15/2024 8:14 AM EST 11/15/2024 11:18 AM EST us Juan Carlos Mayers LAB BLOOD ORDERABLES Final Resul t [facility] [address] [place] [address], [place] [phone] * (ABNORMAL) Lipid panel with reflex to direct LDL (11/15/2024 8:14 AM EST) Cholesterol 69 0 - 200 mg/dL LAB CHEMISTRY METHOD 11/15/2024 12:25 PM [facility] Triglycerides 132 0 - 150 mg/dL LAB CHEMISTRY METHOD 11/15/2024 12:25 PM [facility] HDL 24(L) >=40 mg/dL LAB CHEMISTRY METHOD 11/15/2024 12:25 PM [facility] LDL Calculated 19 0 - 100 mg/dL LAB CHEMISTRY METHOD 11/15/2024 12:25 PM [facility] VLDL Cholesterol Enio 26.4 mg/dL LAB CHEMISTRY METHOD 11/15/2024 12:25 PM [facility] Non HDL Chol. (LDL+VLDL) 45 <145 mg/dL LAB CHEMISTRY METHOD 11/15/2024 12:25 PM [facility] Chol/HDL Ratio 2.9 0.0 - 4.4 LAB CHEMISTRY METHOD 11/15/2024 12:25 PM [facility] Blood Venous blood specimen / Unknown Venipuncture / Unknown 11/15/2024 8:14 AM EST 11/15/2024 11:16 AM EST Juan Carlos Mayers LAB BLOOD ORDERABLES Final Resul t [facility] [address] [place] [address], * (ABNORMAL) Comprehensive metabolic panel (11/15/2024 8:14 AM EST) Pathologist [facility] Sodium 137 133 - 145 mmol/L LAB CHEMISTRY METHOD 11/15/2024 12:25 PM [facility] Potassium 3.4(L) 3.5 - 5.5 mmol/L LAB CHEMISTRY METHOD 11/15/2024 12:25 PM [facility] Chloride 101 96 - 110 mmol/L LAB CHEMISTRY METHOD 11/15/2024 12:25 PM [facility] CO2 29 21 - 32 mmol/L LAB CHEMISTRY METHOD 11/15/2024 12:25 PM [facility] Anion Gap 7 3 - 11 LAB CHEMISTRY METHOD 11/15/2024 12:25 PM [facility] Glucose 134(H) 70 - 100 mg/dL LAB CHEMISTRY METHOD 11/15/2024 12:25 PM [facility] BUN 9 5 - 25 mg/dL LAB CHEMISTRY METHOD 11/15/2024 12:25 PM [facility] Creatinine 1.56(H) 0.50 - 1.10 mg/dL LAB CHEMISTRY METHOD 11/15/2024 12:25 PM [facility] eGFR 36(L) >=60 mL/min/1. 73m2 LAB CHEMISTRY METHOD 11/15/2024 12:25 PM [facility] Comment:Calculation based on the??Chronic Kidney Disease Epidemiology Collaboration (CKD-EPI) equation refit??without adjustment for race. BUN/Creatinine Ratio 5.8 LAB CHEMISTRY METHOD 11/15/2024 12:25 PM [facility] Calcium 8.6 8.5 - 10.5 mg/dL LAB CHEMISTRY METHOD 11/15/2024 12:25 PM [facility] AST (SGOT) 35 10 - 42 unit/L LAB CHEMISTRY METHOD 11/15/2024 12:25 PM [facility] ALT (SGPT) 23 10 - 60 unit/L LAB CHEMISTRY METHOD 11/15/2024 12:25 PM [facility] Alkaline Phosphatase 99 42 - 121 unit/L LAB CHEMISTRY METHOD 11/15/2024 12:25 PM [facility] Total Protein 5.6(L) 6.0 - 8.0 g/dL LAB CHEMISTRY METHOD 11/15/2024 12:25 PM [facility] Albumin 2.3(L) 3.2 - 5.0 g/dL LAB CHEMISTRY METHOD 11/15/2024 12:25 PM EST [facility] Total Bilirubin 0.3 0.0 - 1.4 mg/dL LAB CHEMISTRY METHOD 11/15/2024 12:25 PM EST [facility] Blood Venous blood specimen / Unknown Venipuncture / Unknown 11/15/2024 8:14 AM EST 11/15/2024 11:16 AM EST us Juan Carlos Mayers LAB BLOOD ORDERABLES Final Resul t [facility] [address] [place] [address], documented in this encounter Visit Diagnoses Diagnosis Gastro-esophageal reflux disease without esophagitis Hyperlipidemia, unspecified Anemia, unspecified Atherosclerotic heart disease of [place] coronary artery without angina pectoris Essential (primary) hypertension Unspecified essential hypertension documented in this encounter Care Teams Professor Of Public Administration Relationship Specialty Start Date End Date Osmar Gramajo MD [address] [place], [place] PCP - General Pulmonary Disease 04/20/17 documented as of this encounter
--- OUTSIDE RECORDS SUMMARY | 2025-02-14 17:03 | XMS_ITS | Encounter Summary ---
Author Organization [facility] Address [address] [place] [address] Care Team Providers Care Ski Guide Name Role Phone Osmar Gramajo MD Primary Care Provider Encounter Details Date Type Department Care Team (Latest Contact Info) Description 11/06/2024 Lab Requisition [facility] - Main Lab [address] [facility] [email or web address] [address] Juan Carlos Mayers [address] [facility] [address] [place] [address] Atherosclerotic heart disease of [place] coronary artery without angina pectoris; Essential (primary) [...] 6:08 AM EST Atherosclerotic heart disease of [place] coronary artery without angina pectoris Essential (primary) hypertension CBC AND DIFFERENTIAL Routine 11/06/2024 6:08 AM EST Atherosclerotic heart disease of [place] coronary artery without angina pectoris Essential (primary) hypertension THYROID STIMULATING HORMONE Routine 11/06/2024 6:08 AM EST Atherosclerotic heart disease of [place] coronary artery without angina pectoris Essential (primary) hypertension FOLATE Routine 11/06/2024 6:08 AM EST Atherosclerotic heart disease of [place] coronary artery without angina pectoris Essential (primary) hypertension VITAMIN B12 Routine 11/06/2024 6:08 AM EST Atherosclerotic heart disease of [place] coronary artery without angina pectoris Essential (primary) hypertension COMPREHENSIVE METABOLIC PANEL Routine 11/06/2024 6:08 AM EST Atherosclerotic heart disease of [place] coronary artery without angina pectoris Essential (primary) hypertension documented in this encounter Results * (ABNORMAL) CBC auto differential (11/06/2024 6:08 AM EST) [facility] WBC 5.2 4.8 - 10.8 K/mcL LAB HEMETOLOGY METHOD 11/06/2024 9:55 AM [facility] RBC 3.70(L) 3.80 - 4.80 M/mcL LAB HEMETOLOGY METHOD 11/06/2024 9:55 AM [facility] Hemoglobin 9.7(L) 11.5 - 16.0 g/dL LAB HEMETOLOGY METHOD 11/06/2024 9:55 AM [facility] Hematocrit 32.9(L) 35.0 - 47.0 % LAB HEMETOLOGY METHOD 11/06/2024 9:55 AM [facility] MCV 90.1 79.0 - 98.0 FL LAB HEMETOLOGY METHOD 11/06/2024 9:55 AM [facility] MCH 26.6(L) 27.0 - 32.0 pcg LAB HEMETOLOGY METHOD 11/06/2024 9:55 AM [facility] MCHC 29.5(L) 32.0 - 37.0 g/dL LAB HEMETOLOGY METHOD 11/06/2024 9:55 AM [facility] RDW 15.3(H) 11.0 - 15.0 % LAB HEMETOLOGY METHOD 11/06/2024 9:55 AM [facility] Platelets 226 130 - 400 K/mcL LAB HEMETOLOGY METHOD 11/06/2024 9:55 AM [facility] MPV 11.3(H) 7.0 - 11.0 FL LAB HEMETOLOGY METHOD 11/06/2024 9:55 AM [facility] NRBC 0.0 <1.0 % LAB HEMETOLOGY METHOD 11/06/2024 9:55 AM [facility] NRBC Absolute 0.00 <0.10 K/mcL LAB HEMETOLOGY METHOD 11/06/2024 9:55 AM [facility] Neutrophils Relative 48.4 % LAB HEMETOLOGY METHOD 11/06/2024 9:55 AM [facility] Lymphocytes Relative 32.1 % LAB HEMETOLOGY METHOD 11/06/2024 9:55 AM [facility] Monocytes Relative 15.1 % LAB HEMETOLOGY METHOD 11/06/2024 9:55 AM [facility] Eosinophils Relative 3.4 % LAB HEMETOLOGY METHOD 11/06/2024 9:55 AM [facility] Basophils Relative 0.6 % LAB HEMETOLOGY METHOD 11/06/2024 9:55 AM [facility] Immature Granulocytes Relative 0.4 % LAB HEMETOLOGY METHOD 11/06/2024 9:55 AM [facility] Neutrophils Absolute 2.54 1.50 - 7.00 K/mcL LAB HEMETOLOGY METHOD 11/06/2024 9:55 AM [facility] Lymphocytes Absolute 1.68 1.00 - 5.00 K/mcL LAB HEMETOLOGY METHOD 11/06/2024 9:55 AM [facility] Monocytes Absolute 0.79 0.20 - 1.00 K/mcL LAB HEMETOLOGY METHOD 11/06/2024 9:55 AM [facility] Eosinophils Absolute 0.18 0.00 - 0.50 K/mcL LAB HEMETOLOGY METHOD 11/06/2024 9:55 AM EST [facility] Basophils Absolute 0.03 0.00 - 0.20 K/[facility] LAB HEMETOLOGY METHOD 11/06/2024 9:55 AM EST [facility] Immature Granulocytes Absolute 0.02 0.00 - 0.03 K/[facility] LAB HEMETOLOGY METHOD 11/06/2024 9:55 AM EST [facility] Blood Venous blood specimen / Unknown Venipuncture / Unknown 11/06/2024 6:08 AM EST 11/06/2024 9:04 AM EST us Juan Carlos Mayers LAB BLOOD ORDERABLES Final Resul t Performing Organization Address City/[facility]/ZIP Co de Phone Number [facility] [address] [place] [address], [place] [phone] * Vitamin B12 (11/06/2024 6:08 AM EST) Vitamin B-12 830 250 - 900 pcg/mL LAB CHEMISTRY METHOD 11/06/2024 11:00 AM EST [facility] Blood Venous blood specimen / Unknown Venipuncture / Unknown 11/06/2024 6:08 AM EST 11/06/2024 9:04 AM EST us Juan Carlos Mayers LAB BLOOD ORDERABLES Final Resul t [facility] [address] [place] [address], [place] [phone] * Thyroid stimulating hormone (11/06/2024 6:08 AM EST) TSH 3.31 0.40 - 4.00 mcIU/mL LAB CHEMISTRY METHOD 11/06/2024 10:42 AM EST [facility] Blood Venous blood specimen / Unknown Venipuncture / Unknown 11/06/2024 6:08 AM EST 11/06/2024 9:04 AM EST us Juan Carlos Mayers LAB BLOOD ORDERABLES Final Resul t Performing Organization Address City/[facility]/ZIP Co de Phone Number [facility] [address] [place] [address], [place] [phone] * Folate (11/06/2024 6:08 AM EST) [facility] Folate 5.4 2.8 - 17.0 ng/ml LAB CHEMISTRY METHOD 11/06/2024 11:00 AM [facility] Blood Venous blood specimen / Unknown Venipuncture / Unknown 11/06/2024 6:08 AM EST 11/06/2024 9:04 AM EST us Juan Carlos Mayers LAB BLOOD ORDERABLES Final Resul t Performing Organization Address [facility]/ZIP Co de Phone Number [facility] [address] [place] [address], [place] [phone] * (ABNORMAL) Comprehensive metabolic panel (11/06/2024 6:08 AM EST) [facility] Sodium 139 133 - 145 mmol/L LAB CHEMISTRY METHOD 11/06/2024 11:00 AM [facility] Potassium 3.4(L) 3.5 - 5.5 mmol/L LAB CHEMISTRY METHOD 11/06/2024 11:00 AM [facility] Chloride 105 96 - 110 mmol/L LAB CHEMISTRY METHOD 11/06/2024 11:00 AM [facility] CO2 29 21 - 32 mmol/L LAB CHEMISTRY METHOD 11/06/2024 11:00 AM [facility] Anion Gap 5 3 - 11 LAB CHEMISTRY METHOD 11/06/2024 11:00 AM [facility] Glucose 95 70 - 100 mg/dL LAB CHEMISTRY METHOD 11/06/2024 11:00 AM [facility] BUN 2(L) 5 - 25 mg/dL LAB CHEMISTRY METHOD 11/06/2024 11:00 AM [facility] Creatinine 1.54(H) 0.50 - 1.10 mg/dL LAB CHEMISTRY METHOD 11/06/2024 11:00 AM [facility] eGFR 37(L) >=60 mL/min/1. 73m2 LAB CHEMISTRY METHOD 11/06/2024 11:00 AM [facility] Comment:Calculation based on the??Chronic Kidney Disease Epidemiology Collaboration (CKD-EPI) equation refit??without adjustment for race. BUN/Creatinine Ratio 1.3 LAB CHEMISTRY METHOD 11/06/2024 11:00 AM [facility] Calcium 8.5 8.5 - 10.5 mg/dL LAB CHEMISTRY METHOD 11/06/2024 11:00 AM [facility] AST (SGOT) 47(H) 10 - 42 unit/L LAB CHEMISTRY METHOD 11/06/2024 11:00 AM [facility] ALT (SGPT) 41 10 - 60 unit/L LAB CHEMISTRY METHOD 11/06/2024 11:00 AM [facility] Alkaline Phosphatase 83 42 - 121 unit/L LAB CHEMISTRY METHOD 11/06/2024 11:00 AM [facility] Total Protein 5.2(L) 6.0 - 8.0 g/dL LAB CHEMISTRY METHOD 11/06/2024 11:00 AM [facility] Albumin 2.3(L) 3.2 - 5.0 g/dL LAB CHEMISTRY METHOD 11/06/2024 11:00 AM [facility] Total Bilirubin 0.3 0.0 - 1.4 mg/dL LAB CHEMISTRY METHOD 11/06/2024 11:00 AM [facility] Blood Venous blood specimen / Unknown Venipuncture / Unknown 11/06/2024 6:08 AM EST 11/06/2024 9:04 AM EST us Juan Carlos Figueroawinslow LAB BLOOD ORDERABLES Final Resul t [facility] [address] [place] [address], documented in this encounter Visit Diagnoses Diagnosis Atherosclerotic heart disease of [place] coronary artery without angina pectoris Essential (primary) hypertension Unspecified essential hypertension documented in this encounter Care Teams Ski Guide Relationship Specialty Start Date End Date Osmar Gramjao MD [address] [place], [place] PCP - General Pulmonary Disease 04/20/17 documented as of this encounter
--- OUTSIDE RECORDS SUMMARY | 2025-02-14 17:03 | XMS_ITS | Clinical Summary ---
Author Organization [address] Address [address] [place] [address] Phone Care Team Providers Care Marine Erector Name Role Phone Osmar Gramajo MD Primary Care Provider Encounters Date Type Department Care Team Description 11/21/2024 Lab Requisition [facility] - Main Lab [address] [place] [phone] Juan Carlos Mayers Gastro-esophageal reflux disease without esophagitis; Hyperlipidemia, unspecified; Anemia, unspecified; Atherosclerotic heart disease of [place] coronary artery without angina pectoris; Essential (primary) [...] unspecified Anemia, unspecified Atherosclerotic heart disease of [place] coronary artery without angina pectoris Essential (primary) hypertension LIPID PANEL WITH REFLEX TO DIRECT LDL Routine 11/15/2024 8:14 AM EST Gastro-esophageal reflux disease without esophagitis Hyperlipidemia, unspecified Anemia, unspecified Atherosclerotic heart disease of [place] coronary artery without angina pectoris Essential (primary) hypertension DAYO SCREENING DIGITAL Routine 05/28/2021 2:31 PM EDT Encounter for screening mammogram for malignant neoplasm of breast from Last 3 Months or Most Recently Relevant to Health Maintenance Results * (ABNORMAL) Lipid panel with reflex to direct LDL (11/15/2024 8:14 AM EST) Cholesterol 69 0 - 200 mg/dL LAB CHEMISTRY METHOD 11/15/2024 12:25 PM EST [facility] Triglycerides 132 0 - 150 mg/dL LAB CHEMISTRY METHOD 11/15/2024 12:25 PM EST [facility] HDL 24(L) >=40 mg/dL LAB CHEMISTRY METHOD 11/15/2024 12:25 PM EST [facility] LDL Calculated 19 0 - 100 mg/dL LAB CHEMISTRY METHOD 11/15/2024 12:25 PM [facility] VLDL Cholesterol Enio 26.4 mg/dL LAB CHEMISTRY METHOD 11/15/2024 12:25 PM [facility] Non HDL Chol. (LDL+VLDL) 45 <145 mg/dL LAB CHEMISTRY METHOD 11/15/2024 12:25 PM [facility] Chol/HDL Ratio 2.9 0.0 - 4.4 LAB CHEMISTRY METHOD 11/15/2024 12:25 PM [facility] Blood Venous blood specimen / Unknown Venipuncture / Unknown 11/15/2024 8:14 AM EST 11/15/2024 11:16 AM EST Juan Carlos Mayers LAB BLOOD ORDERABLES Final Resul t [facility] [address] [place] [address], * (ABNORMAL) Comprehensive metabolic panel (11/15/2024 8:14 AM EST) Pathologist [facility] Sodium 137 133 - 145 mmol/L LAB CHEMISTRY METHOD 11/15/2024 12:25 PM [facility] Potassium 3.4(L) 3.5 - 5.5 mmol/L LAB CHEMISTRY METHOD 11/15/2024 12:25 PM [facility] Chloride 101 96 - 110 mmol/L LAB CHEMISTRY METHOD 11/15/2024 12:25 PM [facility] CO2 29 21 - 32 mmol/L LAB CHEMISTRY METHOD 11/15/2024 12:25 PM [facility] Anion Gap 7 3 - 11 LAB CHEMISTRY METHOD 11/15/2024 12:25 PM [facility] Glucose 134(H) 70 - 100 mg/dL LAB CHEMISTRY METHOD 11/15/2024 12:25 PM [facility] BUN 9 5 - 25 mg/dL LAB CHEMISTRY METHOD 11/15/2024 12:25 PM [facility] Creatinine 1.56(H) 0.50 - 1.10 mg/dL LAB CHEMISTRY METHOD 11/15/2024 12:25 PM [facility] eGFR 36(L) >=60 mL/min/1. 73m2 LAB CHEMISTRY METHOD 11/15/2024 12:25 PM [facility] Comment:Calculation based on the??Chronic Kidney Disease Epidemiology Collaboration (CKD-EPI) equation refit??without adjustment for race. BUN/Creatinine Ratio 5.8 LAB CHEMISTRY METHOD 11/15/2024 12:25 PM [facility] Calcium 8.6 8.5 - 10.5 mg/dL LAB CHEMISTRY METHOD 11/15/2024 12:25 PM [facility] AST (SGOT) 35 10 - 42 unit/L LAB CHEMISTRY METHOD 11/15/2024 12:25 PM [facility] ALT (SGPT) 23 10 - 60 unit/L LAB CHEMISTRY METHOD 11/15/2024 12:25 PM [facility] Alkaline Phosphatase 99 42 - 121 unit/L LAB CHEMISTRY METHOD 11/15/2024 12:25 PM [facility] Total Protein 5.6(L) 6.0 - 8.0 g/dL LAB CHEMISTRY METHOD 11/15/2024 12:25 PM EST [facility] Albumin 2.3(L) 3.2 - 5.0 g/dL LAB CHEMISTRY METHOD 11/15/2024 12:25 PM EST [facility] Total Bilirubin 0.3 0.0 - 1.4 mg/dL LAB CHEMISTRY METHOD 11/15/2024 12:25 PM EST [facility] Blood Venous blood specimen / Unknown Venipuncture / Unknown 11/15/2024 8:14 AM EST 11/15/2024 11:16 AM EST us Juan Carlos Mayers LAB BLOOD ORDERABLES Final Resul t [facility] [address] [place] [address], * DAYO SCREENING DIGITAL (05/28/2021 2:31 PM EDT) Anatomical Region Laterality Modality Mammography 05/28/2021 2:09 PM EDT Narrative 05/28/2021 2:31 PM EDT [facility] Diagnostic Imaging Department [address] [place] [address] Patient: ??MARCI FERNANDO ?/Age/Sex: 1955 - F Unit#: ??[id number] ? Location/Status: ??SPDIMAM/REG CLI ? Mnemonic/Ordering Site: ??DIGSC/SPMAM Ordering Physician: ??Dayanara GRAMAJO MD [facility] Screening Digital - 05/28/21 - 1427 EXAM: [facility] Screening Digital EXAM DATE AND TIME: 05/28/2021 2:21 PM HISTORY: ??Annual screening mammography COMPARISON: ??2016 through 08/16/2012 TECHNIQUE: CC and MLO views of both breasts were obtained using full field digital mammography. Bilateral digital breast tomosynthesis was performed in the MLO projection. Computer aided detection with the FlipKey 7.2-Algolia was employed. TISSUE DENSITY: b. There are [...] Routine screening mammogram BILATERAL in 1 year. [address], [id number] 3342F, 7025F Dictating Physician: ??YASHIRA VU MD Electronically Signed by: ??YASHIRA VU MD Dic Date/Time: ??05/28/21 1429 Sign date/Time: ??05/28/21 1431 Procedure Note Kim Vu MD - 10/20/2022 [facility] Diagnostic Imaging Department [address] [place] [address] Patient: MARCI FERNANDO /Age/Sex: 1955 - 65 - F Unit#: [id number] Location/Status: SPDIMAM/REG CLI Mnemonic/Ordering Site: [facility] Ordering Physician: Dayanara GRAMAJO MD [facility] Screening Digital - 05/28/21 - 1426 EXAM: [facility] Screening Digital EXAM DATE AND TIME: 05/28/2021 2:21 PM HISTORY: Annual screening mammography COMPARISON: 2016 through 08/16/2012 TECHNIQUE: CC and MLO views of both breasts were obtained using fullfield digital mammography. Bilateral digital breast tomosynthesis was performedin the MLO projection. Computer aided detection with the FlipKey 7.2-Wowcracyas employed. TISSUE DENSITY: b. There are scattered [...] Routine screening mammogram BILATERAL in 1 year. [address]58, [id number] 3342F, 7025F Dictating Physician: YASHIRA VU MD Electronically Signed by: YASHIRA VU MD Dic Date/Time: 05/28/21 1429 Sign date/Time: 05/28/21 1431 [facility]G BI PROCEDURES Hortensia l Result from Last 3 Months or Most Recently Relevant to Health Maintenance Insurance MEDICA[place] - [place] Care Teams Marine Erector Relationship Specialty Start Date End Date Osmar Gramajo MD [address] [place], [place] PCP - General Pulmonary Disease 04/20/17
--- OUTSIDE RECORDS SUMMARY | 2025-02-14 17:03 | XMS_ITS | Encounter Summary ---
Author Organization [facility] Address [address] [place] [address] Care Team Providers Care Group Home Worker Name Role Phone Osmar Gramajo MD Primary Care Provider Encounter Details Date Type Department Care Team (Late st Contact Info) Description 11/21/2024 Lab Requisition [facility] - Main Lab [address] [facility] [place] [address] Juan Carlos Mayers [address] [facility] [address] [place] [address] Gastro-esophageal reflux disease without esophagitis; Hyperlipidemia, unspecified; Anemia, unspecified; Atherosclerotic heart disease of [place] coronary artery without angina pectoris; Essential (primary) [...] unspecified Anemia, unspecified Atherosclerotic heart disease of [place] coronary artery without angina pectoris Essential (primary) hypertension Unspecified essential hypertension documented in this encounter Care Teams Group Home Worker Relationship Specialty Start Date End Date Osmar Gramajo MD [address] [place], [place] PCP - General Pulmonary Disease 04/20/17 documented as of this encounter
--- OUTSIDE RECORDS SUMMARY | 2025-02-14 17:03 | XMS_ITS | Encounter Summary ---
Author Organization [facility] Address [address] [place] [address] Care Team Providers Care Patternmaker Wood Name Role Phone Osmar Gramajo MD Primary Care Provider Encounter Details Date Type Department Care Team (Late st Contact Info) Description 11/12/2024 Lab Requisition [facility] - Main Lab [address] [facility] [employer] [address] Juan Carlos Mayers [address] [facility] [phone] [place] [address] Shortness of breath; Bacteremia Social [...] pcg/mL LAB CHEMISTRY METHOD 11/12/2024 12:30 PM [facility] Blood Venous blood specimen / Unknown Venipuncture / Unknown 11/12/2024 9:24 AM EST 11/12/2024 11:45 AM EST Juan Carlos Mayers LAB BLOOD ORDERABLES Final Resul t [facility] [address] [place] [address], * (ABNORMAL) Basic metabolic panel (11/12/2024 9:24 AM EST) Sodium 137 133 - 145 mmol/L LAB CHEMISTRY METHOD 11/12/2024 12:24 PM [facility] Potassium 3.4(L) 3.5 - 5.5 mmol/L LAB CHEMISTRY METHOD 11/12/2024 12:24 PM [facility] Chloride 101 96 - 110 mmol/L LAB CHEMISTRY METHOD 11/12/2024 12:24 PM [facility] CO2 28 21 - 32 mmol/L LAB CHEMISTRY METHOD 11/12/2024 12:24 PM [facility] Anion Gap 8 3 - 11 LAB CHEMISTRY METHOD 11/12/2024 12:24 PM [facility] Glucose 121(H) 70 - 100 mg/dL LAB CHEMISTRY METHOD 11/12/2024 12:24 PM [facility] BUN 9 5 - 25 mg/dL LAB CHEMISTRY METHOD 11/12/2024 12:24 PM [facility] Creatinine 1.65(H) 0.50 - 1.10 mg/dL LAB CHEMISTRY METHOD 11/12/2024 12:24 PM [facility] eGFR 34(L) >=60 mL/min/1. 73m2 LAB CHEMISTRY METHOD 11/12/2024 12:24 PM [facility] Comment:Calculation based on the??Chronic Kidney Disease Epidemiology Collaboration (CKD-EPI) equation refit??without adjustment for race. BUN/Creatinine Ratio 5.5 LAB CHEMISTRY METHOD 11/12/2024 12:24 PM [facility] Calcium 9.1 8.5 - 10.5 mg/dL LAB CHEMISTRY METHOD 11/12/2024 12:24 PM [facility] Blood Venous blood specimen / Unknown Venipuncture / Unknown 11/12/2024 9:24 AM EST 11/12/2024 11:45 AM EST us Juan Carlos Mayers LAB BLOOD ORDERABLES Final Resul t [facility] [address] [place] [address], * (ABNORMAL) Complete blood count (11/12/2024 9:24 AM EST) WBC 6.8 4.8 - 10.8 K/mcL LAB HEMETOLOGY METHOD 11/12/2024 12:02 PM [facility] RBC 3.60(L) 3.80 - 4.80 M/mcL LAB HEMETOLOGY METHOD 11/12/2024 12:02 PM [facility] Hemoglobin 9.5(L) 11.5 - 16.0 g/dL LAB HEMETOLOGY METHOD 11/12/2024 12:02 PM [facility] Hematocrit 33.5(L) 35.0 - 47.0 % LAB HEMETOLOGY METHOD 11/12/2024 12:02 PM [facility] MCV 92.0 79.0 - 98.0 FL LAB HEMETOLOGY METHOD 11/12/2024 12:02 PM [facility] MCH 26.1(L) 27.0 - 32.0 pcg LAB HEMETOLOGY METHOD 11/12/2024 12:02 PM [facility] MCHC 28.4(L) 32.0 - 37.0 g/dL LAB HEMETOLOGY METHOD 11/12/2024 12:02 PM [facility] RDW 15.6(H) 11.0 - 15.0 % LAB HEMETOLOGY METHOD 11/12/2024 12:02 PM [facility] Platelets 315 130 - 400 K/mcL LAB HEMETOLOGY METHOD 11/12/2024 12:02 PM [facility] MPV 10.9 7.0 - 11.0 FL LAB HEMETOLOGY METHOD 11/12/2024 12:02 PM [facility] NRBC 0.0 <1.0 % LAB HEMETOLOGY METHOD 11/12/2024 12:02 PM [facility] NRBC Absolute 0.00 <0.10 K/mcL LAB HEMETOLOGY METHOD 11/12/2024 12:02 PM [facility] Blood Venous blood specimen / Unknown Venipuncture / Unknown 11/12/2024 9:24 AM EST 11/12/2024 11:45 AM EST [place] LAB BLOOD ORDERABLES Final Resul t [facility] [address] [place] [address], documented in this encounter Visit Diagnoses Diagnosis Shortness of breath Bacteremia documented in this encounter Care Teams Patternmaker Wood Relationship Specialty Start Date End Date Osmar Gramajo MD [address] [place], [place] PCP - General Pulmonary Disease 04/20/17 documented as of this encounter
--- OUTSIDE RECORDS SUMMARY | 2025-02-14 17:03 | XMS_ITS | Clinical Summary ---
Author Organization [facility] Address [address] [place] [phone] Phone Care Team Providers Care Commission Broker Name Role Phone Unique Carrillo MD Primary [...] Office Visit [facility] [address] [facility] [address] [place] [address] Deonte Roland MD Stage 3b [...] Orders Only [facility] [address] [address] Deonte Roland MD [address] [address] Stage 3b chronic kidney disease (HCC); Renal osteodystrophy; Hypertensive disorder 03/04/2025 10:15 AM EDT Office Visit [facility] [address] [address] Deonte Roland MD [address] [address] Health Maintenance Due Date Last [...] patient's age to complete this topic Insurance [facility] ([id number]) [place] [address] ([id number]) Care Teams Commission Broker Relationship Specialty Start Date End Date Unique Carrillo MD [address] [place] [address] [place] [address] PCP - General Internal Medicine 03/07/24
--- OUTSIDE RECORDS SUMMARY | 2025-02-14 17:03 | XMS_ITS | Encounter Summary ---
Author Organization [facility] Address [address] [place] [address] Care Team Providers Care Legal Administrative Assistant Name Role Phone Osmar Gramajo MD Primary Care Provider Encounter Details Date Type Department Care Team (Late st Contact Info) Description 11/08/2024 Lab Requisition [facility] - Main Lab [address] [facility] [employer] [place] [address] Juan Carlos Mayers [address] [facility] [phone] [place] [address] Encounter for screening for diabetes mellitus; Ischemic cardiomyopathy; Essential (primary) hypertension; Other chronic pain; Depression, unspecified; Hyperlipidemia, unspecified; Anemia, unspecified; Systemic lupus erythematosus, unspecified (CMS/HCC V24, CMS/HCC V28); Unspecified asthma, uncomplicated; Atherosclerotic heart disease of [place] coronary artery without angina pectoris; Gastro-esophageal reflux [...] Unspecified asthma, uncomplicated Atherosclerotic heart disease of [place] coronary artery without angina pectoris Gastro-esophageal reflux disease without esophagitis Bacteremia Hypotension, unspecified CBC WITH AUTO DIFFERENTIAL Routine 11/08/2024 7:15 AM EST Encounter for screening for diabetes mellitus Ischemic cardiomyopathy Essential (primary) hypertension Other chronic pain Depression, unspecified Hyperlipidemia, unspecified Anemia, unspecified Systemic lupus erythematosus, unspecified (CMS/HCC) Unspecified asthma, uncomplicated Atherosclerotic heart disease of [place] coronary artery without angina pectoris Gastro-esophageal reflux disease without esophagitis Bacteremia Hypotension, unspecified CBC AND DIFFERENTIAL Routine 11/08/2024 7:15 AM EST Encounter for screening for diabetes mellitus Ischemic cardiomyopathy Essential (primary) hypertension Other chronic pain Depression, unspecified Hyperlipidemia, unspecified Anemia, unspecified Systemic lupus erythematosus, unspecified (CMS/HCC) Unspecified asthma, uncomplicated Atherosclerotic heart disease of [place] coronary artery without angina pectoris Gastro-esophageal reflux disease without esophagitis Bacteremia Hypotension, unspecified HEMOGLOBIN A1C Routine 11/08/2024 7:15 AM EST Encounter for screening for diabetes mellitus Ischemic cardiomyopathy Essential (primary) hypertension Other chronic pain Depression, unspecified Hyperlipidemia, unspecified Anemia, unspecified Systemic lupus erythematosus, unspecified (CMS/HCC) Unspecified asthma, uncomplicated Atherosclerotic heart disease of [place] coronary artery without angina pectoris Gastro-esophageal reflux disease without esophagitis Bacteremia Hypotension, unspecified COMPREHENSIVE METABOLIC PANEL Routine 11/08/2024 7:15 AM EST Encounter for screening for diabetes mellitus Ischemic cardiomyopathy Essential (primary) hypertension Other chronic pain Depression, unspecified Hyperlipidemia, unspecified Anemia, unspecified Systemic lupus erythematosus, unspecified (CMS/HCC) Unspecified asthma, uncomplicated Atherosclerotic heart disease of [place] coronary artery without angina pectoris Gastro-esophageal reflux disease without esophagitis Bacteremia Hypotension, unspecified documented in this encounter Results * (ABNORMAL) CBC auto differential (11/08/2024 7:15 AM EST) [facility] WBC 5.4 4.8 - 10.8 K/[facility] LAB HEMETOLOGY METHOD 11/08/2024 10:37 AM EST [facility] LAB RBC 3.80 3.80 - 4.80 M/mcL LAB HEMETOLOGY METHOD 11/08/2024 10:37 AM [facility] LAB Hemoglobin 9.7(L) 11.5 - [...] LAB HEMETOLOGY METHOD 11/08/2024 10:37 AM EST [facility] LAB Monocytes Relative 15.1 % LAB HEMETOLOGY METHOD 11/08/2024 10:37 AM EST [facility] LAB Eosinophils Relative 2.4 % LAB HEMETOLOGY METHOD 11/08/2024 10:37 AM [facility] LAB Basophils Relative 0.4 % LAB HEMETOLOGY METHOD 11/08/2024 10:37 AM EST [facility] LAB Immature Granulocytes Relative 0.2 % LAB HEMETOLOGY METHOD 11/08/2024 10:37 AM [facility] LAB Neutrophils Absolute 3.02 1.50 - 7.00 K/mcL LAB HEMETOLOGY METHOD 11/08/2024 10:37 AM [facility] LAB Lymphocytes Absolute 1.44 1.00 - 5.00 K/mcL LAB HEMETOLOGY METHOD 11/08/2024 10:37 AM [facility] LAB Monocytes Absolute 0.82 0.20 - 1.00 K/mcL LAB HEMETOLOGY METHOD 11/08/2024 10:37 AM [facility] LAB Eosinophils Absolute 0.13 0.00 - 0.50 K/mcL LAB HEMETOLOGY METHOD 11/08/2024 10:37 AM [facility] LAB Basophils Absolute 0.02 0.00 - 0.20 K/mcL LAB HEMETOLOGY METHOD 11/08/2024 10:37 AM [facility] LAB Immature Granulocytes Absolute 0.01 0.00 - 0.03 K/mcL LAB HEMETOLOGY METHOD 11/08/2024 10:37 AM [facility] LAB Blood Venous blood specimen / Unknown Venipuncture / Unknown 11/08/2024 7:15 AM EST 11/08/2024 9:19 AM EST Juan Carlos Mayers LAB BLOOD ORDERABLES Final Resul t [facility] LAB [address] [place] [address], [place] [phone] * Hemoglobin A1c (11/08/2024 7:15 AM EST) [facility] Hemoglobin A1C 6.1 <6.5 % LAB CHEMISTRY METHOD 11/08/2024 8:50 PM EST [facility] LAB Mean Bld Glu Estim. 128 mg/dL LAB CHEMISTRY METHOD 11/08/2024 8:50 PM [facility] LAB Blood Venous blood specimen / Unknown Venipuncture / Unknown 11/08/2024 7:15 AM EST 11/08/2024 9:19 AM EST us Juan Carlos Mayers LAB BLOOD ORDERABLES Final Resul t [facility] [address] [place] [address], * (ABNORMAL) Lipid panel with reflex to direct LDL (11/08/2024 7:15 AM EST) [facility] Cholesterol 68 0 - 200 mg/dL [...] Resul t [facility] [address] [place] [address], * (ABNORMAL) Comprehensive metabolic panel (11/08/2024 7:15 [...] Resul t [facility] [address] [place] [address], documented in this encounter Visit Diagnoses Diagnosis Encounter for screening for diabetes mellitus Ischemic cardiomyopathy Other specified forms of chronic ischemic heart disease Essential (primary) hypertension Unspecified essential hypertension Other chronic pain Depression, unspecified Hyperlipidemia, unspecified Anemia, unspecified Systemic lupus erythematosus, unspecified (CMS/HCC V24, CMS/HCC V28) Unspecified asthma, uncomplicated Atherosclerotic heart disease of [place] coronary artery without angina pectoris Gastro-esophageal reflux disease without esophagitis Bacteremia Hypotension, unspecified documented in this encounter Care Teams Legal Administrative Assistant Relationship Specialty Start Date End Date Osmar Gramajo MD [address] [place], [place] PCP - General Pulmonary Disease 04/20/17 documented as of this encounter
== END 2025-02-14 14:52 | disposition home or self-care (01) ==
LOC: HO.HGS 14:29
PROVIDERS: PCP Internal Medicine; Visit Provider Surgery
DX: T81.89XA Other complications of procedures, not elsewhere classified, initial encounter (principal)
CPT/HCPCS: 99213

== ENCOUNTER 2025-03-26 10:18 | Day surgery (SDC) | payer OTHER, SELFPAY ==
--- OUTSIDE RECORDS SUMMARY | 2025-03-04 12:29 | XMS_ITS | Clinical Summary ---
Author Organization [address] Address [address] [place] [phone] Phone Care Team Providers Care Credit Coordinator Name Role Phone Osmar Gramajo MD Primary Care Provider Social History Tobacco Use Types Packs/Day Years [...] unspecified Anemia, unspecified Atherosclerotic heart disease of [place] coronary artery without angina pectoris Essential (primary) hypertension LIPID PANEL WITH REFLEX TO DIRECT LDL Routine 11/15/2024 8:14 AM EST Gastro-esophageal reflux disease without esophagitis Hyperlipidemia, unspecified Anemia, unspecified Atherosclerotic heart disease of [place] coronary artery without angina pectoris Essential (primary) [...] mg/dL LAB CHEMISTRY METHOD 11/15/2024 12:25 PM [facility] HDL 24(L) >=40 mg/dL LAB CHEMISTRY METHOD 11/15/2024 12:25 PM [facility] LDL Calculated 19 0 - 100 mg/dL LAB CHEMISTRY METHOD 11/15/2024 12:25 PM [facility] VLDL Cholesterol Enio 26.4 mg/dL LAB CHEMISTRY METHOD 11/15/2024 12:25 PM [facility] LAB Non HDL Chol. (LDL+VLDL) 45 <145 mg/dL LAB CHEMISTRY METHOD 11/15/2024 12:25 PM [facility] Chol/HDL Ratio 2.9 0.0 - 4.4 LAB CHEMISTRY METHOD 11/15/2024 12:25 PM [facility] Blood Venous blood specimen / Unknown Venipuncture / Unknown 11/15/2024 8:14 AM EST 11/15/2024 11:16 AM EST us Juan Carlos Mayers LAB BLOOD ORDERABLES Final Resul t [facility] [address] [place] [address], * (ABNORMAL) Comprehensive metabolic panel (11/15/2024 8:14 AM EST) Sodium 137 133 - 145 mmol/L LAB CHEMISTRY METHOD 11/15/2024 12:25 PM [facility] Potassium 3.4(L) 3.5 - 5.5 mmol/L LAB CHEMISTRY METHOD 11/15/2024 12:25 PM [facility] Chloride 101 96 - 110 mmol/L LAB CHEMISTRY METHOD 11/15/2024 12:25 PM [facility] CO2 29 21 - 32 mmol/L LAB CHEMISTRY METHOD 11/15/2024 12:25 PM [facility] Anion Gap 7 3 - 11 LAB CHEMISTRY METHOD 11/15/2024 12:25 PM [facility] Glucose 134(H) 70 - 100 mg/dL LAB CHEMISTRY METHOD 11/15/2024 12:25 PM [facility] BUN 9 5 - 25 mg/dL LAB CHEMISTRY METHOD 11/15/2024 12:25 PM [facility] Creatinine 1.56(H) 0.50 - 1.10 mg/dL LAB CHEMISTRY METHOD 11/15/2024 12:25 PM [facility] eGFR 36(L) >=60 mL/min/1. 73m2 LAB CHEMISTRY METHOD 11/15/2024 12:25 PM [facility] LAB Comment:Calculation based on the??Chronic Kidney Disease Epidemiology Collaboration (CKD-EPI) equation refit??without adjustment for race. BUN/Creatinine Ratio 5.8 LAB CHEMISTRY METHOD 11/15/2024 12:25 PM [facility] Calcium 8.6 8.5 - 10.5 mg/dL LAB CHEMISTRY METHOD 11/15/2024 12:25 PM [facility] AST (SGOT) 35 10 - 42 unit/L LAB CHEMISTRY METHOD 11/15/2024 12:25 PM [facility] ALT (SGPT) 23 10 - 60 unit/L LAB CHEMISTRY METHOD 11/15/2024 12:25 PM [facility] Alkaline Phosphatase 99 42 - 121 unit/L LAB CHEMISTRY METHOD 11/15/2024 12:25 PM [facility] Total Protein 5.6(L) 6.0 - 8.0 g/dL LAB CHEMISTRY METHOD 11/15/2024 12:25 PM [facility] Albumin 2.3(L) 3.2 - 5.0 g/dL LAB CHEMISTRY METHOD 11/15/2024 12:25 PM [facility] Total Bilirubin 0.3 0.0 - 1.4 mg/dL LAB CHEMISTRY METHOD 11/15/2024 12:25 PM [facility] Blood Venous blood specimen / Unknown Venipuncture / Unknown 11/15/2024 8:14 AM EST 11/15/2024 11:16 AM EST us Juan Carlos Figueroanigel LAB BLOOD ORDERABLES Final Resul t [facility] [address] [place] [address], * FLACO SCREENING DIGITAL (05/28/2021 2:31 PM EDT) Anatomical Region Laterality Modality Mammography 05/28/2021 2:09 PM EDT Narrative 05/28/2021 2:31 PM EDT [facility] Diagnostic Imaging Department [address] [place] [address] Patient: ??MARCI FERNANDO ?/Age/Sex: 1955 - 65 - F Unit#: ??[id number] ? Location/Status: ??SPDIMAM/REG CLI ? Mnemonic/Ordering Site: ??DIGSC/SPMAM Ordering Physician: ??Dayanara GRAMAJO MD Flaco Screening Digital - 05/28/211426 EXAM: Flaco Screening Digital EXAM DATE AND TIME: 05/28/2021 2:21 PM HISTORY: ??Annual screening mammography COMPARISON: ??2016 through 08/16/2012 TECHNIQUE: CC and MLO views of both breasts were obtained using full field digital mammography. Bilateral digital breast tomosynthesis was performed in the MLO projection. Computer aided detection with the Pyrolia 7.2-H was employed. TISSUE DENSITY: b. There [...] Routine screening mammogram BILATERAL in 1 year. [id number], [id number], 7025F Dictating Physician: ??YASHIRA VU MD Electronically Signed by: ??YASHIRA VU MD Dic Date/Time: ??05/28/21 1429 Sign date/Time: ??05/28/21 1431 Procedure Note Kim Vu MD - 10/20/2022 [facility] Diagnostic Imaging Department [address] [place], [place] [id number] Patient: ABDULLAHIMARCI D.O.B./Age/Sex: 1955 - 65 - F Unit#: [id number] Location/Status: SPDIMAM/REG CLI Mnemonic/Ordering Site: [facility] Ordering Physician: Dayanara GRAMAJO MD Flaco Screening Digital - 05/28/21 - 142 EXAM: [facility] Screening Digital EXAM DATE AND TIME: 05/28/2021 2:21 PM HISTORY: Annual screening mammography COMPARISON: 2016 through 08/16/2012 TECHNIQUE: CC and MLO views of both breasts were obtained using fullfield digital mammography. Bilateral digital breast tomosynthesis was performedin the MLO projection. Computer aided detection with the [employer] employed. TISSUE DENSITY: b. There are scattered [...] Routine screening mammogram BILATERAL in 1 year. [id number], [id number] 3342F, 7025F Dictating Physician: YASHIRA VU MD Electronically Signed by: YASHIRA VU MD Dic Date/Time: 05/28/21 1429 Sign date/Time: 05/28/21 1431 Osmar Gramajo MD [facility] Hortensia correia Result from Last 3 Months or Most Recently Relevant to Health Maintenance Insurance MEDICAID - [place] Care Teams Credit Coordinator Relationship Specialty Start Date End Date Osmar Gramajo MD [address] [place] [address] PCP - General Pulmonary Disease 04/20/17
--- OUTSIDE RECORDS SUMMARY | 2025-03-04 12:29 | XMS_ITS | Encounter Summary ---
Author Organization [facility] Address [address] [place] [address] Care Team Providers Care Pastoral Counselor Name Role Phone Osmar Gramajo MD Primary Care Provider Encounter Details Date Type Department Care Team (Latest Contact Info) Description 11/06/2024 Lab Requisition [facility] - Main Lab [address] [facility] [employer] [address] Juan Carlos Mayers [address] [facility] [phone] [place] [address] Atherosclerotic heart disease of [place] coronary artery without angina pectoris; Essential (primary) [...] 6:08 AM EST Atherosclerotic heart disease of [place] coronary artery without angina pectoris Essential (primary) hypertension CBC AND DIFFERENTIAL Routine 11/06/2024 6:08 AM EST Atherosclerotic heart disease of [place] coronary artery without angina pectoris Essential (primary) hypertension THYROID STIMULATING HORMONE Routine 11/06/2024 6:08 AM EST Atherosclerotic heart disease of [place] coronary artery without angina pectoris Essential (primary) hypertension FOLATE Routine 11/06/2024 6:08 AM EST Atherosclerotic heart disease of [place] coronary artery without angina pectoris Essential (primary) hypertension VITAMIN B12 Routine 11/06/2024 6:08 AM EST Atherosclerotic heart disease of [place] coronary artery without angina pectoris Essential (primary) hypertension COMPREHENSIVE METABOLIC PANEL Routine 11/06/2024 6:08 AM EST Atherosclerotic heart disease of [place] coronary artery without angina pectoris Essential (primary) hypertension documented in this encounter Results * (ABNORMAL) CBC auto differential (11/06/2024 6:08 AM EST) [facility] WBC 5.2 4.8 - 10.8 K/mcL LAB HEMETOLOGY METHOD 11/06/2024 9:55 AM [facility] LAB RBC 3.70(L) 3.80 - 4.80 M/mcL LAB HEMETOLOGY METHOD 11/06/2024 9:55 AM [facility] LAB Hemoglobin 9.7(L) 11.5 - 16.0 g/dL LAB HEMETOLOGY METHOD 11/06/2024 9:55 AM [facility] LAB Hematocrit 32.9(L) 35.0 - 47.0 % LAB HEMETOLOGY METHOD 11/06/2024 9:55 AM [facility] LAB MCV 90.1 79.0 - 98.0 FL LAB HEMETOLOGY METHOD 11/06/2024 9:55 AM [facility] LAB MCH 26.6(L) 27.0 - 32.0 pcg LAB HEMETOLOGY METHOD 11/06/2024 9:55 AM [facility] LAB MCHC 29.5(L) 32.0 - 37.0 g/dL LAB HEMETOLOGY METHOD 11/06/2024 9:55 AM [facility] LAB RDW 15.3(H) 11.0 - 15.0 % LAB HEMETOLOGY METHOD 11/06/2024 9:55 AM [facility] LAB Platelets 226 130 - 400 K/mcL LAB HEMETOLOGY METHOD 11/06/2024 9:55 AM [facility] LAB MPV 11.3(H) 7.0 - 11.0 FL LAB HEMETOLOGY METHOD 11/06/2024 9:55 AM [facility] LAB NRBC 0.0 <1.0 % LAB HEMETOLOGY METHOD 11/06/2024 9:55 AM [facility] LAB NRBC Absolute 0.00 <0.10 K/mcL LAB HEMETOLOGY METHOD 11/06/2024 9:55 AM [facility] LAB Neutrophils Relative 48.4 % LAB HEMETOLOGY METHOD 11/06/2024 9:55 AM [facility] LAB Lymphocytes Relative 32.1 % LAB HEMETOLOGY METHOD 11/06/2024 9:55 AM [facility] Monocytes Relative 15.1 % LAB HEMETOLOGY METHOD 11/06/2024 9:55 AM [facility] LAB Eosinophils Relative 3.4 % LAB HEMETOLOGY METHOD 11/06/2024 9:55 AM [facility] Basophils Relative 0.6 % LAB HEMETOLOGY METHOD 11/06/2024 9:55 AM [facility] LAB Immature Granulocytes Relative 0.4 % LAB HEMETOLOGY METHOD 11/06/2024 9:55 AM [facility] LAB Neutrophils Absolute 2.54 1.50 - 7.00 K/mcL LAB HEMETOLOGY METHOD 11/06/2024 9:55 AM [facility] Lymphocytes Absolute 1.68 1.00 - 5.00 K/mcL LAB HEMETOLOGY METHOD 11/06/2024 9:55 AM [facility] Monocytes Absolute 0.79 0.20 - 1.00 K/mcL LAB HEMETOLOGY METHOD 11/06/2024 9:55 AM [facility] LAB Eosinophils Absolute 0.18 0.00 - 0.50 K/mcL LAB HEMETOLOGY METHOD 11/06/2024 9:55 AM EST [facility] LAB Basophils Absolute 0.03 0.00 - 0.20 K/[facility] LAB HEMETOLOGY METHOD 11/06/2024 9:55 AM EST [facility] LAB Immature Granulocytes Absolute 0.02 0.00 - 0.03 K/[facility] LAB HEMETOLOGY METHOD 11/06/2024 9:55 AM EST [facility] LAB Blood Venous blood specimen / Unknown Venipuncture / Unknown 11/06/2024 6:08 AM EST 11/06/2024 9:04 AM EST us Juan Carlos Mayers LAB BLOOD ORDERABLES Final Resul t Performing Organization Address City/[facility]/ZIP Co de Phone Number [facility] [address] [place] [address], [place] [phone] * Vitamin B12 (11/06/2024 6:08 AM EST) Vitamin B-12 830 250 - 900 pcg/mL LAB CHEMISTRY METHOD 11/06/2024 11:00 AM EST [facility] Blood Venous blood specimen / Unknown Venipuncture / Unknown 11/06/2024 6:08 AM EST 11/06/2024 9:04 AM EST us Juan Carlos Mayers LAB BLOOD ORDERABLES Final Resul t [facility] [address] [place] [address], [place] [phone] * Thyroid stimulating hormone (11/06/2024 6:08 AM EST) TSH 3.31 0.40 - 4.00 mcIU/mL LAB CHEMISTRY METHOD 11/06/2024 10:42 AM EST [facility] Blood Venous blood specimen / Unknown Venipuncture / Unknown 11/06/2024 6:08 AM EST 11/06/2024 9:04 AM EST us Juan Carlos Mayers LAB BLOOD ORDERABLES Final Resul t Performing Organization Address City/[facility]/ZIP Co de Phone Number [facility] [address] [place] [address], [place] [phone] * Folate (11/06/2024 6:08 AM EST) [facility] Folate 5.4 2.8 - 17.0 ng/ml LAB CHEMISTRY METHOD 11/06/2024 11:00 AM [facility] Blood Venous blood specimen / Unknown Venipuncture / Unknown 11/06/2024 6:08 AM EST 11/06/2024 9:04 AM EST us Juan Carlos Mayers LAB BLOOD ORDERABLES Final Resul t Performing Organization Address [facility]/ZIP Co de Phone Number [facility] [address] [place] [address], [place] [phone] * (ABNORMAL) Comprehensive metabolic panel (11/06/2024 6:08 AM EST) [facility] Sodium 139 133 - 145 mmol/L LAB CHEMISTRY METHOD 11/06/2024 11:00 AM [facility] Potassium 3.4(L) 3.5 - 5.5 mmol/L LAB CHEMISTRY METHOD 11/06/2024 11:00 AM [facility] Chloride 105 96 - 110 mmol/L LAB CHEMISTRY METHOD 11/06/2024 11:00 AM [facility] CO2 29 21 - 32 mmol/L LAB CHEMISTRY METHOD 11/06/2024 11:00 AM [facility] Anion Gap 5 3 - 11 LAB CHEMISTRY METHOD 11/06/2024 11:00 AM [facility] Glucose 95 70 - 100 mg/dL LAB CHEMISTRY METHOD 11/06/2024 11:00 AM [facility] BUN 2(L) 5 - 25 mg/dL LAB CHEMISTRY METHOD 11/06/2024 11:00 AM [facility] Creatinine 1.54(H) 0.50 - 1.10 mg/dL LAB CHEMISTRY METHOD 11/06/2024 11:00 AM [facility] LAB eGFR 37(L) >=60 mL/min/1. 73m2 LAB CHEMISTRY METHOD 11/06/2024 11:00 AM [facility] Comment:Calculation based on the??Chronic Kidney Disease Epidemiology Collaboration (CKD-EPI) equation refit??without adjustment for race. BUN/Creatinine Ratio 1.3 LAB CHEMISTRY METHOD 11/06/2024 11:00 AM [facility] Calcium 8.5 8.5 - 10.5 mg/dL LAB CHEMISTRY METHOD 11/06/2024 11:00 AM [facility] AST (SGOT) 47(H) 10 - 42 unit/L LAB CHEMISTRY METHOD 11/06/2024 11:00 AM [facility] ALT (SGPT) 41 10 - 60 unit/L LAB CHEMISTRY METHOD 11/06/2024 11:00 AM [facility] Alkaline Phosphatase 83 42 - 121 unit/L LAB CHEMISTRY METHOD 11/06/2024 11:00 AM [facility] Total Protein 5.2(L) 6.0 - 8.0 g/dL LAB CHEMISTRY METHOD 11/06/2024 11:00 AM [facility] Albumin 2.3(L) 3.2 - 5.0 g/dL LAB CHEMISTRY METHOD 11/06/2024 11:00 AM [facility] Total Bilirubin 0.3 0.0 - 1.4 mg/dL LAB CHEMISTRY METHOD 11/06/2024 11:00 AM [facility] Blood Venous blood specimen / Unknown Venipuncture / Unknown 11/06/2024 6:08 AM EST 11/06/2024 9:04 AM EST us [facility] LAB BLOOD ORDERABLES Final Resul t [facility] [address] [place] [address], documented in this encounter Visit Diagnoses Diagnosis Atherosclerotic heart disease of [place] coronary artery without angina pectoris Essential (primary) hypertension Unspecified essential hypertension documented in this encounter Care Teams Pastoral Counselor Relationship Specialty Start Date End Date Osmar Gramajo MD [address] [place], [place] PCP - General Pulmonary Disease 04/20/17 documented as of this encounter
--- OUTSIDE RECORDS SUMMARY | 2025-03-04 12:29 | XMS_ITS | Encounter Summary ---
Author Organization [facility] Address [address] [place] [address] Care Team Providers Care Iron Handler Name Role Phone Osmar Gramajo MD Primary Care Provider Encounter Details Date Type Department Care Team (Late st Contact Info) Description 11/12/2024 Lab Requisition [facility] - Main Lab 299 [facility] [place] [address] Juan Carlos Mayers [address] [facility] [address] [place] [address] Shortness of breath; Bacteremia Social [...] pcg/mL LAB CHEMISTRY METHOD 11/12/2024 12:30 PM [facility] Blood Venous blood specimen / Unknown Venipuncture / Unknown 11/12/2024 9:24 AM EST 11/12/2024 11:45 AM EST Juan Carlos Mayers LAB BLOOD ORDERABLES Final Resul t [facility] LAB [address] [place] [address], * (ABNORMAL) Basic metabolic panel (11/12/2024 9:24 AM EST) Sodium 137 133 - 145 mmol/L LAB CHEMISTRY METHOD 11/12/2024 12:24 PM [facility] Potassium 3.4(L) 3.5 - 5.5 mmol/L LAB CHEMISTRY METHOD 11/12/2024 12:24 PM [facility] Chloride 101 96 - 110 mmol/L LAB CHEMISTRY METHOD 11/12/2024 12:24 PM [facility] CO2 28 21 - 32 mmol/L LAB CHEMISTRY METHOD 11/12/2024 12:24 PM [facility] Anion Gap 8 3 - 11 LAB CHEMISTRY METHOD 11/12/2024 12:24 PM [facility] Glucose 121(H) 70 - 100 mg/dL LAB CHEMISTRY METHOD 11/12/2024 12:24 PM [facility] BUN 9 5 - 25 mg/dL LAB CHEMISTRY METHOD 11/12/2024 12:24 PM [facility] Creatinine 1.65(H) 0.50 - 1.10 mg/dL LAB CHEMISTRY METHOD 11/12/2024 12:24 PM [facility] eGFR 34(L) >=60 mL/min/1. 73m2 LAB CHEMISTRY METHOD 11/12/2024 12:24 PM [facility] Comment:Calculation based on the??Chronic Kidney Disease Epidemiology Collaboration (CKD-EPI) equation refit??without adjustment for race. BUN/Creatinine Ratio 5.5 LAB CHEMISTRY METHOD 11/12/2024 12:24 PM [facility] Calcium 9.1 8.5 - 10.5 mg/dL LAB CHEMISTRY METHOD 11/12/2024 12:24 PM [facility] Blood Venous blood specimen / Unknown Venipuncture / Unknown 11/12/2024 9:24 AM EST 11/12/2024 11:45 AM EST us Juan aCrlos Mayers LAB BLOOD ORDERABLES Final Resul t [facility] [address] [place] [address], * (ABNORMAL) Complete blood count (11/12/2024 9:24 AM EST) WBC 6.8 4.8 - 10.8 K/mcL LAB HEMETOLOGY METHOD 11/12/2024 12:02 PM [facility] RBC 3.60(L) 3.80 - 4.80 M/mcL LAB HEMETOLOGY METHOD 11/12/2024 12:02 PM [facility] Hemoglobin 9.5(L) 11.5 - 16.0 g/dL LAB HEMETOLOGY METHOD 11/12/2024 12:02 PM [facility] Hematocrit 33.5(L) 35.0 - 47.0 % LAB HEMETOLOGY METHOD 11/12/2024 12:02 PM [facility] MCV 92.0 79.0 - 98.0 FL LAB HEMETOLOGY METHOD 11/12/2024 12:02 PM [facility] MCH 26.1(L) 27.0 - 32.0 pcg LAB HEMETOLOGY METHOD 11/12/2024 12:02 PM [facility] MCHC 28.4(L) 32.0 - 37.0 g/dL LAB HEMETOLOGY METHOD 11/12/2024 12:02 PM [facility] RDW 15.6(H) 11.0 - 15.0 % LAB HEMETOLOGY METHOD 11/12/2024 12:02 PM [facility] Platelets 315 130 - 400 K/mcL LAB HEMETOLOGY METHOD 11/12/2024 12:02 PM [facility] MPV 10.9 7.0 - 11.0 FL LAB HEMETOLOGY METHOD 11/12/2024 12:02 PM [facility] NRBC 0.0 <1.0 % LAB HEMETOLOGY METHOD 11/12/2024 12:02 PM [facility] NRBC Absolute 0.00 <0.10 K/mcL LAB HEMETOLOGY METHOD 11/12/2024 12:02 PM [facility] Blood Venous blood specimen / Unknown Venipuncture / Unknown 11/12/2024 9:24 AM EST 11/12/2024 11:45 AM EST Juan Carlos Figueroadurham LAB BLOOD ORDERABLES Final Resul t [facility] [address] [place] [address], documented in this encounter Visit Diagnoses Diagnosis Shortness of breath Bacteremia documented in this encounter Care Teams Iron Handler Relationship Specialty Start Date End Date Osmar Gramajo MD [address] [place], [place] PCP - General Pulmonary Disease 04/20/17 documented as of this encounter
--- OUTSIDE RECORDS SUMMARY | 2025-03-04 12:29 | XMS_ITS | Encounter Summary ---
Author Organization [facility] Address [address] [address] Phone Care Team Providers Care Transportation Attendant Name Role Phone Unique Carrillo MD Primary Care Provider Unav ailable Reason for Referral * Consultation (Routine) - Pending Review Specialty Diagnoses / Procedures Referred By Contac t Referred To Contact Rheumatology Diagnoses Stage 3a chronic kidney disease (HCC) Renal osteodystrophy Hypertensive disorder Deonte Roland MD [facility] [address] Phone: tel: fax: Referral ID Status Reason Start Date Expiration Date Visits Requested Visits Authorized [id number] Pending Review Specialty Services Required 03/04/2025 03/04/2026 1 1 Encounter Details Date Type Department Care Team (Late st Contact Info) Description 03/04/2025 10:15 AM EDT Office Visit [facility] [address] [address] Deonte Roland MD [facility] [address] [address] Stage 3a chronic kidney disease (HCC) (Primary Dx); Renal osteodystrophy; Hypertensive disorder Social History Tobacco Use Types Packs/Day Years Used Date Smoking Tobacco: Every Day Cigarettes 0.3 7.8 Started: 05/20/2017 Alcohol Use Standard Drinks/Week Comments [...] Sign Reading Time Taken Comments Blood Pressure 130/78 03/04/2025 9:49 AM EDT Pulse 74 03/04/2025 9:49 AM EDT Temperature - - Respiratory Rate - - Oxygen Saturation 97% 03/04/2025 9:49 AM EDT Inhaled Oxygen Concentration - - Weight 105 kg (232 lb) 03/04/2025 9:49 AM EDT Height - - Body Mass Index - - documented in this encounter Patient Instructions * Patient Instructions* Deonte Roland MD - 03/04/2025 10:15 AM EDT Sodium and Your CKD Diet: How to [...] Salted Snacks such as Crackers Potato chips [place] chips Pretzels Tortilla chips Nuts Popcorn Faulk seeds Homemade or low- sodium sauces and [...] Foods such as: TV Dinners Canned raviolis [place] Macaroni & Cheese Spaghetti Frozen prepared foods [...] are 1000 milligrams (mg) in 1gram. For bvsc2lyl, if your diet prescription is 2 grams [...] Basil: Use with beef, pork, most vegetables. Bells Lebam: Use with beef, pork, most vegetables. Eric: [...] doctor or dietitian beforeusing and salt substitute. [place] and create your own seasoning containing those spices that you like. If you would like to become a volunteer and find out more about what's happening where you live, contact your local [facility] Affiliate. No NSAIDS - Do not take non-steroidal anti-inflammatory medications (NSAIDS) such as Ibuprofen (Advil, Motrin, etc), Naproxen (Aleve, etc), Celecoxib (Celebrex) or Ketoprofen. These common arthritis medications can cause permanent kidney damage or worsen your kidney damage. For mild occasional pain, Acetaminophen (Tylenol, etc) is safe for your kidneys. Blood pressure monitoring education: Monitor home blood pressure values after sitting for 5 minutes with back and arm support. Keep a log. Bring your log and blood pressure cuff to your next visit. documented in this encounter Progress Notes * Denote Roland MD - 03/04/2025 10:15 AM EDT Images from the original note were not included. Patient Name: Marie Lentz, Female Date of : 1955, 69 y.o. Date: 03/04/25 [] New Patient [x] Established Patient [] New Hospital Follow Up [] Established Hospital Follow Up [] Telemed Visit [] H&P Referring MD: Osmar Gramajo MD PCP: Unique Carrillo MD Reason For Visit: CKD 3, H/O CYNTHIA Marie Lentz is a 69 y.o. female seen today in f/u re CKD 3 with H/O CYNTHIA ( 2021), HFrEF, SLE maintained on pred in past Cont to c/o easy fatigue and diffuse MSK aches-- its my Fibromuscular dyspalsia SCR now 1.19 Denies chest pain or shortness of breath. [...] packs/day: 0.25 Average packs/day: 0.3 packs/day for 7.8 years (1.9 ttl pk-yrs) Types: Cigarettes Start [...] day Spiriva Respimat 1.25 MCG/ACT aerosol solution ergocalciferol 1.25 MG (38814 UT) capsule Take 1 capsule (50,000 Units total) by mouth every 14 (fourteen) days 6 capsule 1 No current facility-administered medications for this visit. Allergies Allergen Reactions Latex Objective: Vitals: 03/04/25 0949 BP: 130/78 Pulse: 74 SpO2: 97% Weight: 232 lb (105 kg) 126/70 HR 80 Vitals reviewed. Constitutional: She appears well-developed. No [...] ethnic subgroups. Testing performed or reported by [facility], a Service of [facility], [address] [place] [address] Yannick Tomas MD, Vehicle Body [employer] [facility]# [id number] Chemistry Lab Units 02/21/25 1323 11/15/24 0814 11/12/24 0924 11/08/24 0715 11/06/24 0608 CREATININE mg/dL 1.19* 1.56* 1.65* 1.82* 1.54* BUN mg/dL 19 9 9 4* 2* BUN / CREAT RATIO 16 5.8 5.5 2.2 1.3 GLUCOSE mg/dL 97 134* 121* 102* 95 POTASSIUM mmol/L 4.3 3.4* 3.4* 3.2* 3.4* SODIUM mmol/L 141 137 137 136 139 CO2 mmol/L 18* 29 28 28 29 CHLORIDE mmol/L 102 101 101 100 105 ALBUMIN g/dL 4.0 2.3* -- 2.4* 2.3* BILIRUBIN TOTAL mg/dL -- 0.3 -- 0.4 0.3 AST unit/L -- 35 -- 49* 47* Bone Mineral Lab Units 02/21/25 1323 11/15/24 0814 11/12/24 0924 11/08/24 0715 11/06/24 0608 CALCIUM mg/dL 9.4 8.6 9.1 9.1 8.5 PHOSPHORUS mg/dL 3.3 -- -- -- -- ALK PHOS unit/L -- 99 -- 96 83 MAGNESIUM mg/dL 2.0 -- -- -- -- PTH pg/mL 58 -- -- -- -- VIT D 25 HYDROXY ng/mL 20.6* -- -- -- -- CBC Lab Units 02/21/25 1323 WBC AUTO x10E3/uL 6.0 RBC AUTO x10E6/uL 4.31 MCV fL 82 HEMATOCRIT % 35.4 HEMOGLOBIN g/dL 10.9* PLATELETS AUTO x10E3/uL 269 No lab exists for component: SPECGRAV , GLUCOSEUR , BILIRUBINUR , RBCUR , UPROTEIN , LEUKOCYTESUR , NITRITE PLAN: Assessment & Plan 69 Y/O F CKD 3 H/O SLE HFrEF RECURRENT CYNTHIA Recurrent CYNTHIA: mult epsiodes of CYNTHIA ( 2021 and 10/2024); fortuantely resolved but incr risk of CKD prog CKD 3a: Scr improved at 1.19 today Anemia: last Hb 10.9 --improveing SLE: ? Inactivce; needs f/u with Rheum; mno longer taking pred and no active SLE sxms per PT Metabolic Bone Disease of CKD: cont to track CA, Phos, HCO3, PTH and vit D levels and treat accordingly 5. HFrEF: compensated PLAN: no change in meds; cont to track renal labs and urine studies; avoid NSAIDs; check PTH/vit; refer to Rheum 1. Stage 3a chronic kidney disease (HCC) 2. Renal osteodystrophy 3. Hypertensive disorder Orders Placed This Encounter PTH, Intact Renal Function Panel Urinalysis with microscopic Urine Albumin / Creatinine Ratio Urine Culture Protein, Total, Random Urine w/Creatinine (Protein/Creat Ratio) Vitamin D 25 Hydroxy CBC Phosphorus Magnesium Albumin Calcium Ambulatory referral to Rheumatology ergocalciferol 1.25 MG (37531 UT) capsule Return in about 9 months (around 12/05/2025). Deonte Roland MD documented in this encounter Plan of Treatment Upcoming Encounters Date Type Department Care Team (Late st Contact Info) Description 12/02/2025 10:00 AM EST Office Visit [facility] [address] [address] Shikha Watkins ARNP [address] [address] Scheduled Orders Name Type Priority Associated Diagnoses Orde r Schedule PTH, Intact Lab Routine Stage 3a chronic kidney disease (HCC) Renal osteodystrophy Hypertensive disorder Expected: 11/04/2025, Expires: 04/04/2026 Renal Function Panel Lab Routine Stage 3a chronic kidney disease (HCC) Renal osteodystrophy Hypertensive disorder Expected: 11/04/2025, Expires: 04/04/2026 Urinalysis with microscopic Lab Routine Stage 3a chronic kidney disease (HCC) Renal osteodystrophy Hypertensive disorder Expected: 11/04/2025, Expires: 04/04/2026 Urine Albumin / Creatinine Ratio Lab Routine Stage 3a chronic kidney disease (HCC) Renal osteodystrophy Hypertensive disorder Expected: 11/04/2025, Expires: 04/04/2026 Urine Culture Lab Routine Stage 3a chronic kidney disease (HCC) Renal osteodystrophy Hypertensive disorder Expected: 11/04/2025, Expires: 04/04/2026 Protein, Total, Random Urine w/Creatinine (Protein/Creat Ratio) Lab Routine Stage 3a chronic kidney disease (HCC) Renal osteodystrophy Hypertensive disorder Expected: 11/04/2025, Expires: 04/04/2026 Vitamin D 25 Hydroxy Lab Routine Stage 3a chronic kidney disease (HCC) Renal osteodystrophy Hypertensive disorder Expected: 11/04/2025, Expires: 04/04/2026 CBC Lab Routine Stage 3a chronic kidney disease (HCC) Renal osteodystrophy Hypertensive disorder Expected: 11/04/2025, Expires: 04/04/2026 Phosphorus Lab Routine Stage 3a chronic kidney disease (HCC) Renal osteodystrophy Hypertensive disorder Expected: 11/04/2025, Expires: 04/04/2026 Magnesium Lab Routine Stage 3a chronic kidney disease (HCC) Renal osteodystrophy Hypertensive disorder Expected: 11/04/2025, Expires: 04/04/2026 Albumin Lab Routine Stage 3a chronic kidney disease (HCC) Renal osteodystrophy Hypertensive disorder Expected: 11/04/2025, Expires: 04/04/2026 Calcium Lab Routine Stage 3a chronic kidney disease (HCC) Renal osteodystrophy Hypertensive disorder Expected: 11/04/2025, Expires: 04/04/2026 Scheduled Referrals Name Type Priority Associated Diagnoses Order Schedule Ambulatory referral to Rheumatology Outpatient Referral Routine Stage 3a chronic kidney disease (HCC) Renal osteodystrophy Hypertensive disorder Expected: 03/18/2025, Expires: 04/04/2026 documented as of this encounter Visit Diagnoses Diagnosis Stage 3a chronic kidney disease (HCC)- Primary Renal osteodystrophy Hypertensive disorder documented in this encounter Care Teams Transportation Attendant Relationship Specialty Start Date End Date Unique Carrillo MD [address] [place] [address] [place] [address] PCP - General Internal Medicine 03/07/24 documented as of this encounter
--- OUTSIDE RECORDS SUMMARY | 2025-03-04 12:29 | XMS_ITS | Encounter Summary ---
Author Organization [facility] Address [address] [place] [address] Care Team Providers Care Robotype Operator Name Role Phone Osmar Gramajo MD Primary Care Provider Encounter Details Date Type Department Care Team (Late st Contact Info) Description 11/21/2024 Lab Requisition [facility] - Main Lab 299 [facility] [place] [address] Juan Carlos Mayers 7[address] [facility] [address] [place] [address] Gastro-esophageal reflux disease without esophagitis; [...] hypertension documented in this encounter Care Teams Robotype Operator Relationship Specialty Start Date End Date Osmar Gramajo MD [address] [place], [place] PCP - General Pulmonary Disease 04/20/17 documented as of this encounter
--- OUTSIDE RECORDS SUMMARY | 2025-03-04 12:29 | XMS_ITS | Clinical Summary ---
Author Organization [facility] Address [address] [place] [phone] Phone Care Team Providers Care Charging Car Operator Name Role Phone Unique Carrillo MD Primary [...] Take 10 mg by mouth 2 Active ergocalciferol 1.25 MG (08069 UT) capsule Take 1 capsule (50,000 Units total) by mouth every 14 (fourteen) days 6 capsule 1 5 06/02/20 25 Active Active Problems Problem Noted Date Diagnosed Date Stage 3b chronic kidney disease 01/20/2022 Chronic kidney disease, stage 4 (severe) 022 Systemic lupus erythematosus 11/18/2021 Renal failure syndrome 11/18/2021 Essential hypertension 11/18/2021 Edema 11/18/2021 Stage 3a chronic kidney disease 11/18/2021 Chronic pain 11/18/2021 Coronary arteriosclerosis 11/18/2021 Depressive disorder 11/18/2021 Gastroesophageal reflux disease 11/18/2021 Ischemic myocardial dysfunction 11/18/2021 Normocytic anemia 11/18/2021 Severe obesity 11/18/2021 Steatosis of liver 11/18/2021 Tobacco dependence syndrome 11/18/2021 Hypertensive disorder 11/18/2021 Stage 3b chronic kidney disease 11/18/2021 Anemia in chronic kidney disease 11/18/2021 Renal osteodystrophy 11/18/2021 Encounters Date Type Department Care Team Description 03/04/2025 10:15 AM EDT [facility] Visit [facility] [address] [address] Deonte Roland MD Stage 3a chronic kidney disease (HCC) (Primary Dx); Renal osteodystrophy; Hypertensive disorder 03/04/2025 Orders Only [facility] [address] [address] Deonte Roland MD Stage 3b chronic kidney disease (HCC); Renal osteodystrophy; Hypertensive disorder 02/21/2025 Orders Only [facility] [address] [address] Deonte Roland MD 12/05/2024 3:45 PM EST Office Visit [facility] [address] [address] Deonte Roland MD Stage 3b chronic kidney [...] Every Day Cigarettes 0.3 7.8 Started: 05/20/2017 Tobacco Cessation:Ready to Q uit: [...] Visit [facility] [address] [address] Shikha Watkins ARNP [address] [phone] Health Maintenance Due Date Last Done Comments [...] Procedure Name Priority Date/Time Associated Diagnosis Comments PTH, INTACT Routine 02/21/2025 1:23 PM EDT MAGNESIUM Routine 02/21/2025 1:23 PM EDT VITAMIN D 25 HYDROXY Routine 02/21/2025 1:23 PM EDT CBC Routine 02/21/2025 1:23 PM EDT RENAL FUNCTION PANEL Routine 02/21/2025 1:23 PM EDT from Last 3 Months Results * (ABNORMAL) Vitamin D 25 Hydroxy (02/21/2025 1:23 PM EDT) Vitamin D, 25-OH, Total 20.6(L) 30.0 - 100.0 ng/mL [employer] Comment: Vitamin D deficiency has been defined by the Burr of Medicine and an Endocrine Society practice guideline as a level of serum 25-OH vitamin D less than 20 ng/mL (1,2). The Endocrine Society went on to further define vitamin D insufficiency as a level between 21 and 29 ng/mL (2). 1. IOM ([employer]r of Medicine). 2010. Dietary reference ?? intakes for calcium and D. [place]: The ?? National Academies Press. 2. Gilberto MF, Chris NC, Krystal ROB, et al. ?? Evaluation, treatment, and prevention of vitamin D ?? deficiency: an Endocrine Society clinical practice ?? guideline. JCEM. 2010; 96(7):1911-30. 02/21/2025 1:23 PM EDT 02/21/2025 us Deonte Roland MD LAB BLOOD ORDERABLES Final Re sult [facility] [address] [place] [phone] * (ABNORMAL) CBC (02/21/2025 1:23 PM EDT) WBC 6.0 3.4 - 10.8 x10E3/uL [facility] RBC 4.31 3.77 - 5.28 x10E6/uL [facility] Hemoglobin 10.9(L) 11.1 - 15.9 g/dL [facility] Hematocrit 35.4 34.0 - 46.6 % [facility] MCV 82 79 - 97 fL [facility] MCH 25.3(L) 26.6 - 33.0 pg [facility] MCHC 30.8(L) 31.5 - 35.7 g/dL [facility] RDW 13.5 11.7 - 15.4 % [facility] Platelets 269 150 - 450 x10E3/uL [facility] 02/21/2025 1:23 PM EDT 02/21/2025 Deonte Roland MD LAB BLOOD ORDERABLES Final Re sult Performing Organization Address City[facility]/ZIP Co de Phone Number [facility] [address] [place] [address] * PTH, Intact (02/21/2025 1:23 PM EDT) PTH 58 15 - 65 pg/mL [facility] 02/21/2025 1:23 PM EDT 02/21/2025 Deonte Roland MD LAB BLOOD ORDERABLES Final Re sult [facility] [address] [place] [address] * Magnesium (02/21/2025 1:23 PM EDT) Magnesium 2.0 1.6 - 2.3 mg/dL [facility] 02/21/2025 1:23 PM EDT 02/21/2025 Deonte Roland MD LAB BLOOD ORDERABLES Final Re sult [facility] [address] [place] [address] * (ABNORMAL) Renal Function Panel (02/21/2025 1:23 PM EDT) Calcium 9.4 8.7 - 10.3 mg/dL [facility] Glucose 97 70 - 99 mg/dL [facility] BUN 19 8 - 27 mg/dL [facility] Creatinine 1.19(H) 0.57 - 1.00 mg/dL [facility] eGFR CKD-EPI CR 2020 50(L) >59 mL/min/1.7 3 [facility] BUN/Creatinine Ratio 16 12 - 28 [facility] Sodium 141 134 - 144 mmol/L [facility] Potassium 4.3 3.5 - 5.2 mmol/L [facility] Chloride 102 96 - 106 mmol/L [facility] Bicarbonate (CO2) 18(L) 20 - 29 mmol/L [facility] Phosphorus 3.3 3.0 - 4.3 mg/dL [facility] Albumin 4.0 3.9 - 4.9 g/dL [facility] 02/21/2025 1:23 PM EDT 02/21/2025 us Deonte Roland MD LAB BLOOD ORDERABLES Final Re sult [facility] [address] [place] [address] from Last 3 Months Insurance ([id number]) [place] [address] ([id number]) Care Teams Charging Car Operator Relationship Specialty Start Date End Date Unique Carrillo MD [address] [place] [address] Dr [place]on, [place] [phone] PCP - General Internal Medicine 03/07/24
--- OUTSIDE RECORDS SUMMARY | 2025-03-04 12:29 | XMS_ITS | Encounter Summary ---
Author Organization [facility] Address [address] [address] Phone Care Team Providers Care Can Operator Name Role Phone Unique Carrillo MD Primary Care Provider Unav ailable Encounter Details Date Type Department Care Team (Late st Contact Info) Description 03/04/2025 Orders Only [facility] [address] [address] Deonte Roland MD [address] [address] Stage 3b chronic kidney disease (HCC); Renal osteodystrophy; Hypertensive disorder Social History Tobacco [...] as of this encounter Plan of Treatment Upcoming Encounters Date Type Department Care Team (Late st Contact Info) Description 12/02/2025 10:00 AM EST Office Visit [facility] [address] [address] Shikha Watkins ARNP [address] [address] documented as of this encounter Visit Diagnoses Diagnosis Stage 3b chronic kidney disease (HCC) Renal osteodystrophy Hypertensive disorder documented in this encounter Care Teams Can Operator Relationship Specialty Start Date End Date Unique Carrillo MD [address] [place] [address] Dr [place]on, [place] [phone] PCP - General Internal Medicine 03/07/24 documented as of this encounter
--- OUTSIDE RECORDS SUMMARY | 2025-03-04 12:29 | XMS_ITS | Encounter Summary ---
Author Organization [facility] Address [address] [place] [address] Care Team Providers Care Lambskin Trimmer Name Role Phone Osmar Gramajo MD Primary Care Provider Encounter Details Date Type Department Care Team (Late st Contact Info) Description 11/14/2024 Lab Requisition [facility] - Main Lab [address] [place] [address] Juan Carlos Mayers [address] [facility] [address] [place] [address] Gastro-esophageal reflux disease without esophagitis; Hyperlipidemia, unspecified; Anemia, unspecified; Atherosclerotic heart disease of [place] coronary artery without angina pectoris; Essential (primary) [...] unspecified Anemia, unspecified Atherosclerotic heart disease of [place] coronary artery without angina pectoris Essential (primary) hypertension CBC WITH AUTO DIFFERENTIAL Routine 11/15/2024 8:14 AM EST Gastro-esophageal reflux disease without esophagitis Hyperlipidemia, unspecified Anemia, unspecified Atherosclerotic heart disease of [place] coronary artery without angina pectoris Essential (primary) hypertension CBC AND DIFFERENTIAL Routine 11/15/2024 8:14 AM EST Gastro-esophageal reflux disease without esophagitis Hyperlipidemia, unspecified Anemia, unspecified Atherosclerotic heart disease of [place] coronary artery without angina pectoris Essential (primary) hypertension HEMOGLOBIN A1C Routine 11/15/2024 8:14 AM EST Gastro-esophageal reflux disease without esophagitis Hyperlipidemia, unspecified Anemia, unspecified Atherosclerotic heart disease of [place] coronary artery without angina pectoris Essential (primary) hypertension COMPREHENSIVE METABOLIC PANEL Routine 11/15/2024 8:14 AM EST Gastro-esophageal reflux disease without esophagitis Hyperlipidemia, unspecified Anemia, unspecified Atherosclerotic heart disease of [place] coronary artery without angina pectoris Essential (primary) hypertension documented in this encounter Results * (ABNORMAL) CBC auto differential (11/15/2024 8:14 AM EST) WBC 5.1 4.8 - 10.8 K/mcL LAB HEMETOLOGY METHOD 11/15/2024 11:49 AM [facility] RBC 3.40(L) 3.80 - 4.80 M/mcL LAB HEMETOLOGY METHOD 11/15/2024 11:49 AM [facility] Hemoglobin 8.7(L) 11.5 - 16.0 g/dL LAB HEMETOLOGY METHOD 11/15/2024 11:49 AM [facility] Hematocrit 30.5(L) 35.0 - 47.0 % LAB HEMETOLOGY METHOD 11/15/2024 11:49 AM [facility] MCV 90.0 79.0 - 98.0 FL LAB HEMETOLOGY METHOD 11/15/2024 11:49 AM [facility] MCH 25.7(L) 27.0 - 32.0 pcg LAB HEMETOLOGY METHOD 11/15/2024 11:49 AM [facility] MCHC 28.5(L) 32.0 - 37.0 g/dL LAB HEMETOLOGY METHOD 11/15/2024 11:49 AM [facility] RDW 16.1(H) 11.0 - 15.0 % LAB HEMETOLOGY METHOD 11/15/2024 11:49 AM [facility] Platelets 319 130 - 400 K/mcL LAB HEMETOLOGY METHOD 11/15/2024 11:49 AM [facility] MPV 10.6 7.0 - 11.0 FL LAB HEMETOLOGY METHOD 11/15/2024 11:49 AM [facility] NRBC 0.4 <1.0 % LAB HEMETOLOGY METHOD 11/15/2024 11:49 AM [facility] NRBC Absolute 0.02 <0.10 K/mcL LAB HEMETOLOGY METHOD 11/15/2024 11:49 AM [facility] Neutrophils Relative 49.2 % LAB HEMETOLOGY METHOD 11/15/2024 11:49 AM [facility] Lymphocytes Relative 33.7 % LAB HEMETOLOGY METHOD 11/15/2024 11:49 AM [facility] Monocytes Relative 11.6 % LAB HEMETOLOGY METHOD 11/15/2024 11:49 AM [facility] Eosinophils Relative 4.5 % LAB HEMETOLOGY METHOD 11/15/2024 11:49 AM [facility] Basophils Relative 0.4 % LAB HEMETOLOGY METHOD 11/15/2024 11:49 AM [facility] Immature Granulocytes Relative 0.6 % LAB HEMETOLOGY METHOD 11/15/2024 11:49 AM [facility] Neutrophils Absolute 2.49 1.50 - 7.00 K/mcL LAB HEMETOLOGY METHOD 11/15/2024 11:49 AM [facility] Lymphocytes Absolute 1.71 1.00 - 5.00 K/mcL LAB HEMETOLOGY METHOD 11/15/2024 11:49 AM [facility] Monocytes Absolute 0.59 0.20 - 1.00 K/mcL LAB HEMETOLOGY METHOD 11/15/2024 11:49 AM EST [facility] Eosinophils Absolute 0.23 0.00 - 0.50 K/[facility] LAB HEMETOLOGY METHOD 11/15/2024 11:49 AM EST [facility] Basophils Absolute 0.02 0.00 - 0.20 K/[facility] LAB HEMETOLOGY METHOD 11/15/2024 11:49 AM EST [facility] Immature Granulocytes Absolute 0.03 0.00 - 0.03 K/[facility] LAB HEMETOLOGY METHOD 11/15/2024 11:49 AM EST [facility] Blood Venous blood specimen / Unknown Venipuncture / Unknown 11/15/2024 8:14 AM EST 11/15/2024 11:18 AM EST us Juan Carlos Mayers LAB BLOOD ORDERABLES Final Resul t [facility] [address] [place] [address], [place] [phone] * Hemoglobin A1c (11/15/2024 8:14 AM EST) Hemoglobin A1C 6.1 <6.5 % LAB CHEMISTRY METHOD 11/15/2024 2:22 PM EST [facility] Mean Bld Glu Estim. 128 mg/dL LAB CHEMISTRY METHOD 11/15/2024 2:22 PM EST [facility] Blood Venous blood specimen / Unknown Venipuncture / Unknown 11/15/2024 8:14 AM EST 11/15/2024 11:18 AM EST us Juan Carlos Mayers LAB BLOOD ORDERABLES Final Resul t [facility] [address] [place] [address], [place] [phone] * (ABNORMAL) Lipid panel with reflex to direct LDL (11/15/2024 8:14 AM EST) Cholesterol 69 0 - 200 mg/dL LAB CHEMISTRY METHOD 11/15/2024 12:25 PM [facility] Triglycerides 132 0 - 150 mg/dL LAB CHEMISTRY METHOD 11/15/2024 12:25 PM [facility] HDL 24(L) >=40 mg/dL LAB CHEMISTRY METHOD 11/15/2024 12:25 PM [facility] LDL Calculated 19 0 [...] Mayers LAB BLOOD ORDERABLES Final Resul t [facility] [address] [place] [address], * (ABNORMAL) Comprehensive metabolic panel (11/15/2024 8:14 [...] g/dL LAB CHEMISTRY METHOD 11/15/2024 12:25 PM [facility] Albumin 2.3(L) 3.2 - 5.0 g/dL LAB CHEMISTRY METHOD 11/15/2024 12:25 PM EST [facility] Total Bilirubin 0.3 0.0 - 1.4 mg/dL LAB CHEMISTRY METHOD 11/15/2024 12:25 PM EST [facility] Blood Venous blood specimen / Unknown Venipuncture / Unknown 11/15/2024 8:14 AM EST 11/15/2024 11:16 AM EST us Juan Carlos Mayers LAB BLOOD ORDERABLES Final Resul t [facility] [address] [place] [address], documented in this encounter Visit Diagnoses Diagnosis Gastro-esophageal reflux disease without esophagitis Hyperlipidemia, unspecified Anemia, unspecified Atherosclerotic heart disease of [place] coronary artery without angina pectoris Essential (primary) hypertension Unspecified essential hypertension documented in this encounter Care Teams Lambskin Trimmer Relationship Specialty Start Date End Date Osmar Gramajo MD [address] [place], [place] PCP - General Pulmonary Disease 04/20/17 documented as of this encounter
--- OUTSIDE RECORDS SUMMARY | 2025-03-04 12:29 | XMS_ITS | Encounter Summary ---
Author Organization [facility] Address [address] [place] [address] Care Team Providers Care Medical Records Specialist Name Role Phone Osmar Gramajo MD Primary Care Provider Encounter Details Date Type Department Care Team (Late st Contact Info) Description 11/08/2024 Lab Requisition [facility] - Main Lab [address] [facility] [place] [address] Juan Carlos Mayers [address] [facility] [address] [place] [address] Encounter for screening for diabetes mellitus; Ischemic cardiomyopathy; Essential (primary) hypertension; Other chronic pain; Depression, unspecified; Hyperlipidemia, unspecified; Anemia, unspecified; Systemic lupus erythematosus, unspecified (CMS/HCC V24, CMS/HCC V28); Unspecified asthma, uncomplicated; Atherosclerotic heart disease of [place] coronary artery without angina pectoris; Gastro-esophageal reflux [...] Unspecified asthma, uncomplicated Atherosclerotic heart disease of [place] coronary artery without angina pectoris Gastro-esophageal reflux disease without esophagitis Bacteremia Hypotension, unspecified CBC WITH AUTO DIFFERENTIAL Routine 11/08/2024 7:15 AM EST Encounter for screening for diabetes mellitus Ischemic cardiomyopathy Essential (primary) hypertension Other chronic pain Depression, unspecified Hyperlipidemia, unspecified Anemia, unspecified Systemic lupus erythematosus, unspecified (CMS/HCC) Unspecified asthma, uncomplicated Atherosclerotic heart disease of [place] coronary artery without angina pectoris Gastro-esophageal reflux disease without esophagitis Bacteremia Hypotension, unspecified CBC AND DIFFERENTIAL Routine 11/08/2024 7:15 AM EST Encounter for screening for diabetes mellitus Ischemic cardiomyopathy Essential (primary) hypertension Other chronic pain Depression, unspecified Hyperlipidemia, unspecified Anemia, unspecified Systemic lupus erythematosus, unspecified (CMS/HCC) Unspecified asthma, uncomplicated Atherosclerotic heart disease of [place] coronary artery without angina pectoris Gastro-esophageal reflux disease without esophagitis Bacteremia Hypotension, unspecified HEMOGLOBIN A1C Routine 11/08/2024 7:15 AM EST Encounter for screening for diabetes mellitus Ischemic cardiomyopathy Essential (primary) hypertension Other chronic pain Depression, unspecified Hyperlipidemia, unspecified Anemia, unspecified Systemic lupus erythematosus, unspecified (CMS/HCC) Unspecified asthma, uncomplicated Atherosclerotic heart disease of [place] coronary artery without angina pectoris Gastro-esophageal reflux disease without esophagitis Bacteremia Hypotension, unspecified COMPREHENSIVE METABOLIC PANEL Routine 11/08/2024 7:15 AM EST Encounter for screening for diabetes mellitus Ischemic cardiomyopathy Essential (primary) hypertension Other chronic pain Depression, unspecified Hyperlipidemia, unspecified Anemia, unspecified Systemic lupus erythematosus, unspecified (CMS/HCC) Unspecified asthma, uncomplicated Atherosclerotic heart disease of [place] coronary artery without angina pectoris Gastro-esophageal reflux disease without esophagitis Bacteremia Hypotension, unspecified documented in this encounter Results * (ABNORMAL) CBC auto differential (11/08/2024 7:15 AM EST) [facility] WBC 5.4 4.8 - 10.8 K/[facility] LAB HEMETOLOGY METHOD 11/08/2024 10:37 AM EST [facility] RBC 3.80 3.80 - 4.80 M/mcL LAB HEMETOLOGY METHOD 11/08/2024 10:37 AM [facility] Hemoglobin 9.7(L) 11.5 - 16.0 g/dL LAB HEMETOLOGY METHOD 11/08/2024 10:37 AM [facility] Hematocrit 34.0(L) 35.0 - 47.0 % LAB HEMETOLOGY METHOD 11/08/2024 10:37 AM [facility] MCV 89.7 79.0 - 98.0 FL LAB HEMETOLOGY METHOD 11/08/2024 10:37 AM [facility] MCH 25.6(L) 27.0 - 32.0 pcg LAB HEMETOLOGY METHOD 11/08/2024 10:37 AM [facility] MCHC 28.5(L) 32.0 - 37.0 g/dL LAB HEMETOLOGY METHOD 11/08/2024 10:37 AM [facility] RDW 15.3(H) 11.0 - 15.0 % LAB HEMETOLOGY METHOD 11/08/2024 10:37 AM [facility] Platelets 251 130 - 400 K/mcL LAB HEMETOLOGY METHOD 11/08/2024 10:37 AM [facility] MPV 11.3(H) 7.0 - 11.0 FL LAB HEMETOLOGY METHOD 11/08/2024 10:37 AM [facility] NRBC 0.0 <1.0 % LAB HEMETOLOGY METHOD 11/08/2024 10:37 AM [facility] NRBC Absolute 0.00 <0.10 K/mcL LAB HEMETOLOGY METHOD 11/08/2024 10:37 AM [facility] Neutrophils Relative 55.4 % LAB HEMETOLOGY METHOD 11/08/2024 10:37 AM [facility] Lymphocytes Relative 26.5 % LAB HEMETOLOGY METHOD 11/08/2024 10:37 AM EST [facility] Monocytes Relative 15.1 % LAB HEMETOLOGY METHOD 11/08/2024 10:37 AM EST [facility] Eosinophils Relative 2.4 % LAB HEMETOLOGY METHOD 11/08/2024 10:37 AM [facility] Basophils Relative 0.4 % LAB HEMETOLOGY METHOD 11/08/2024 10:37 AM EST [facility] Immature Granulocytes Relative 0.2 % LAB HEMETOLOGY METHOD 11/08/2024 10:37 AM [facility] Neutrophils Absolute 3.02 1.50 - 7.00 K/mcL LAB HEMETOLOGY METHOD 11/08/2024 10:37 AM [facility] Lymphocytes Absolute 1.44 1.00 - 5.00 K/mcL LAB HEMETOLOGY METHOD 11/08/2024 10:37 AM [facility] Monocytes Absolute 0.82 0.20 - 1.00 K/mcL LAB HEMETOLOGY METHOD 11/08/2024 10:37 AM [facility] Eosinophils Absolute 0.13 0.00 - 0.50 K/mcL LAB HEMETOLOGY METHOD 11/08/2024 10:37 AM [facility] Basophils Absolute 0.02 0.00 - 0.20 K/mcL LAB HEMETOLOGY METHOD 11/08/2024 10:37 AM [facility] Immature Granulocytes Absolute 0.01 0.00 - 0.03 K/mcL LAB HEMETOLOGY METHOD 11/08/2024 10:37 AM [facility] Blood Venous blood specimen / Unknown Venipuncture / Unknown 11/08/2024 7:15 AM EST 11/08/2024 9:19 AM EST Juan Carlos Mayers LAB BLOOD ORDERABLES Final Resul t [facility] [address] [place] [address], [place] [phone] * Hemoglobin A1c (11/08/2024 7:15 AM EST) [facility] Hemoglobin A1C 6.1 <6.5 % LAB CHEMISTRY METHOD 11/08/2024 8:50 PM EST [facility] Mean Bld Glu Estim. 128 mg/dL LAB CHEMISTRY METHOD 11/08/2024 8:50 PM [facility] Blood Venous blood specimen / Unknown Venipuncture / Unknown 11/08/2024 7:15 AM EST 11/08/2024 9:19 AM EST us Juan Carlos Mayers LAB BLOOD ORDERABLES Final Resul t [facility] [address] [place] [address], * (ABNORMAL) Lipid panel with reflex to direct LDL (11/08/2024 7:15 AM EST) [facility] Cholesterol 68 0 - 200 mg/dL LAB CHEMISTRY METHOD 11/08/2024 11:32 AM [facility] Triglycerides 136 0 - 150 mg/dL LAB CHEMISTRY METHOD 11/08/2024 11:32 AM [facility] HDL 21(L) >=40 mg/dL LAB CHEMISTRY METHOD 11/08/2024 11:32 AM [facility] LDL Calculated 20 0 - 100 mg/dL LAB CHEMISTRY METHOD 11/08/2024 11:32 AM [facility] VLDL Cholesterol Enio 27.2 mg/dL LAB CHEMISTRY METHOD 11/08/2024 11:32 AM [facility] Non HDL Chol. (LDL+VLDL) 47 <145 mg/dL LAB CHEMISTRY METHOD 11/08/2024 11:32 AM [facility] Chol/HDL Ratio 3.2 0.0 - 4.4 LAB CHEMISTRY METHOD 11/08/2024 11:32 AM [facility] Blood Venous blood specimen / Unknown Venipuncture / Unknown 11/08/2024 7:15 AM EST 11/08/2024 9:19 AM EST us Juan Carlos Mayers LAB BLOOD ORDERABLES Final Resul t [facility] [address] [place] [address], * (ABNORMAL) Comprehensive metabolic panel (11/08/2024 7:15 AM EST) Sodium 136 133 - 145 mmol/L LAB CHEMISTRY METHOD 11/08/2024 11:39 AM [facility] Potassium 3.2(L) 3.5 - 5.5 mmol/L LAB CHEMISTRY METHOD 11/08/2024 11:39 AM [facility] Chloride 100 96 - 110 mmol/L LAB CHEMISTRY METHOD 11/08/2024 11:39 AM [facility] CO2 28 21 - 32 mmol/L LAB CHEMISTRY METHOD 11/08/2024 11:39 AM [facility] Anion Gap 8 3 - 11 LAB CHEMISTRY METHOD 11/08/2024 11:39 AM [facility] Glucose 102(H) 70 - 100 mg/dL LAB CHEMISTRY METHOD 11/08/2024 11:39 AM [facility] BUN 4(L) 5 - 25 mg/dL LAB CHEMISTRY METHOD 11/08/2024 11:39 AM [facility] Creatinine 1.82(H) 0.50 - 1.10 mg/dL LAB CHEMISTRY METHOD 11/08/2024 11:39 AM [facility] eGFR 30(L) >=60 mL/min/1. 73m2 LAB CHEMISTRY METHOD 11/08/2024 11:39 AM [facility] Comment:Calculation based on the??Chronic Kidney Disease Epidemiology Collaboration (CKD-EPI) equation refit??without adjustment for race. BUN/Creatinine Ratio 2.2 LAB CHEMISTRY METHOD 11/08/2024 11:39 AM [facility] Calcium 9.1 8.5 - 10.5 mg/dL LAB CHEMISTRY METHOD 11/08/2024 11:39 AM [facility] AST (SGOT) 49(H) 10 - 42 unit/L LAB CHEMISTRY METHOD 11/08/2024 11:39 AM [facility] ALT (SGPT) 40 10 - 60 unit/L LAB CHEMISTRY METHOD 11/08/2024 11:39 AM [facility] Alkaline Phosphatase 96 42 - 121 unit/L LAB CHEMISTRY METHOD 11/08/2024 11:39 AM [facility] Total Protein 5.6(L) 6.0 - 8.0 g/dL LAB CHEMISTRY METHOD 11/08/2024 11:39 AM [facility] Albumin 2.4(L) 3.2 - 5.0 g/dL LAB CHEMISTRY METHOD 11/08/2024 11:39 AM [facility] Total Bilirubin 0.4 0.0 - 1.4 mg/dL LAB CHEMISTRY METHOD 11/08/2024 11:39 AM [facility] Blood Venous blood specimen / Unknown Venipuncture / Unknown 11/08/2024 7:15 AM EST 11/08/2024 9:19 AM EST Juan Cralos Mayers LAB BLOOD ORDERABLES Final Resul t [facility] [address] [place] [address], documented in this encounter Visit Diagnoses Diagnosis Encounter for screening for diabetes mellitus Ischemic cardiomyopathy Other specified forms of chronic ischemic heart disease Essential (primary) hypertension Unspecified essential hypertension Other chronic pain Depression, unspecified Hyperlipidemia, unspecified Anemia, unspecified Systemic lupus erythematosus, unspecified (CMS/HCC V24, CMS/HCC V28) Unspecified asthma, uncomplicated Atherosclerotic heart disease of [place] coronary artery without angina pectoris Gastro-esophageal reflux disease without esophagitis Bacteremia Hypotension, unspecified documented in this encounter Care Teams Medical Records Specialist Relationship Specialty Start Date End Date Osmar Gramajo MD [address] [place], [place] PCP - General Pulmonary Disease 04/20/17 documented as of this encounter
[2025-03-22 16:28] VITALS: BMI 36.6
--- NOTE | 2025-03-25 13:25 | HO.ANESPROP2 ---
Documented by User: Sarah Mujica NP 03/25/25 14:05 HPI - Anesthesia Eval Consult details Narrative: 69yo F for Right Excision and Debridement of Breast Cyst Follows [facility] [place] [facility] for hx PE (eliquis), Asthma-COPD, AURORA with supplemental O2 @ 2L QHS, Active smoker. Per eval, significant deconditioning, fluid overloaded (rec'd additional lasix x 3 days) but optimized to proceed with surgery and hold eliquis Follows [facility] for CAD s/p AL and [place] of LCx. Ischemic CMP (by nuclear gated imaging LV function preserved. Optimized per 01/2025 office visit without further testing. PMFSH Active Problems Active Problems: All Active Problems Pre-op chest exam (Acute) Asthma-COPD overlap syndrome (Acute) Nonhealing surgical wound (Acute) Hypergranulation (Acute) Epidermal inclusion cyst (Acute) Lesion of skin of breast (Acute) Pulmonary emboli (Acute) COPD (chronic obstructive pulmonary disease) (Acute) Lupus (Acute) CHF (congestive heart failure) (Acute) Past Medical History Medical History (Updated 03/22/25 @ 16:33 by Jenifer Bob RN) AURORA (obstructive sleep apnea) Smoker On supplemental oxygen therapy Asthma-COPD overlap syndrome Nonhealing surgical wound Hypergranulation Epidermal inclusion cyst Lesion of skin of breast Pulmonary emboli COPD (chronic obstructive pulmonary disease) Lupus CHF (congestive heart failure) Surgical History Surgical History History of surgical removal of skin lesion (~10/18/24) Social History Social History 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 If so, by whom?: No Are you DNR?: No Advance Directives: No Advance Directives Information Provided: Yes Advance Directives on File: No Meds Allergies Allergy/AdvReac Type Severity Reaction Status Date / Time No Known Allergies Allergy Verified 03/26/25 10:50 Home Medications ?Medication ?Instructions ?Recorded ?Confirmed ?Last Taken ?Type CPAP (CPAP Machine/Device) 03/16/23 03/26/25 Unknown History albuterol sulfate 90 mcg/actuation 2 puff inhalation QID 03/16/23 03/26/25 Unknown History aerosol inhaler apixaban 5 mg tablet (Eliquis) 5 mg PO BID 03/16/23 03/26/25 03/24/25 20:30 History atorvastatin 80 mg tablet 80 mg PO BEDTIME 03/16/23 03/26/25 Unknown History carvedilol 6.25 mg tablet 6.25 mg PO BID 03/16/23 03/26/25 03/26/25 History duloxetine 30 mg capsule,delayed 30 mg PO DAILY 03/16/23 03/26/25 Unknown History release ferrous sulfate 325 mg (65 mg 325 mg PO DAILY 03/16/23 03/26/25 Unknown History iron) tablet fluticasone fur. 200 mcg-umeclid 1 ea inhalation DAILY 03/16/23 03/26/25 Unknown History 62.5 mcg-vilant 25 mcg inhalat.powder (Trelegy Ellipta) loratadine 10 mg tablet 10 mg PO DAILY 03/16/23 03/26/25 03/26/25 History montelukast 10 mg tablet 10 mg PO DAILY 03/16/23 03/26/25 03/26/25 History omeprazole 40 mg capsule,delayed 40 mg PO DAILY 03/16/23 03/26/25 03/26/25 History release quetiapine 100 mg tablet 100 mg PO BEDTIME 03/16/23 03/26/25 Unknown History prednisone 5 mg tablet 5 mg PO BID 03/22/25 03/26/25 Unknown History Exam Height,Weight and Vital Signs: Height 5 ft 6.75 in Weight 105.233 kg Pertinent Lab Results Pertinent Lab Results: Laboratory Tests 01/03/25 12:35 WBC 6.9 Hgb 9.5 L Hct 33.5 L Plt Count 351 Sodium 141 Potassium 4.2 Chloride 107 Carbon Dioxide 26 BUN 17 H Creatinine 1.38 Narrative Narrative: EKG 10/2024 Vent. Rate : 101 BPM Atrial Rate : 101 BPM P-R Int : 152 ms QRS Dur : 98 ms QT Int : 370 ms P-R-T Axes : 90 -39 77 degrees QTcB Int : 479 ms Sinus tachycardia Left axis deviation Nonspecific T wave abnormality Abnormal ECG No previous ECGs available Stress Test NM Myocard Perf SPECT Multi ? 00:00:00 Summary 1. Myocardial perfusion imaging is abnormal after Regadenoson infusion. There is a medium sized, moderate severity, fixed perfusion defect in the basal to mid inferolateral wall with associated hypokinesis, compatible with myocardial scar. There are no reversible perfusion defects. 2. LV function is normal at rest and after IV administration of Regadenoson. 3. EKG portion of the stress test is reported separately. EchoEchocardiogram - Complete ? 13:34:29 Summary Technically difficult study. LV visualization improved with echo contrast. Frequent ventricular ectopy complicates analysis. The left ventricle is normal in size (by indexed volume). The left ventricular wall thickness is mildly increased in a pattern of concentric hypertrophy. Left ventricular systolic function is mildly reduced. Quantitative LVEF 46% (biplane [place] on non-PVC/ non post-PVC beats). There is mild global LV hypokinesis with regional variation. Unable to assess diastolic function. The right ventricle is normal in size. Right ventricular systolic function appears preserved. Normal biatrial size. The mitral valve leaflets are mildly thickened. There is trace to mild mitral regurgitation. Normal CVP and PASP estimate. Comparison Comparison is made to the study of October 28, 2023. Prior images inadequate for serial comparison. Assessment and Plan Assessment Anesthesia Assessment: Chart Reviewed Documented by User: Silvano Arguello MD 03/26/25 14:07 [facility] Past Medical History Medical History (Updated 03/22/25 @ 16:33 by Jenifer Bob RN) AURORA (obstructive sleep apnea) Smoker On supplemental oxygen therapy Asthma-COPD overlap syndrome Nonhealing surgical wound Hypergranulation Epidermal inclusion cyst Lesion of skin of breast Pulmonary emboli COPD (chronic obstructive pulmonary disease) Lupus CHF (congestive heart failure) Family History Family history of problems with anesthesia: No Surgical History Surgical History History of surgical removal of skin lesion (~10/18/24) History of Problems with Anesthesia: No Social History Social History 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 If so, by whom?: No Are you DNR?: No Advance Directives: No Advance Directives Information Provided: Yes Advance Directives on File: No Meds Allergies Allergy/AdvReac Type Severity Reaction Status Date / Time No Known Allergies Allergy Verified 03/26/25 10:50 Home Medications ?Medication ?Instructions ?Recorded ?Confirmed ?Last Taken ?Type CPAP (CPAP Machine/Device) 03/16/23 03/26/25 Unknown History albuterol sulfate 90 mcg/actuation 2 puff inhalation QID 03/16/23 03/26/25 Unknown History aerosol inhaler apixaban 5 mg tablet (Eliquis) 5 mg PO BID 03/16/23 03/26/25 03/24/25 20:30 History atorvastatin 80 mg tablet 80 mg PO BEDTIME 03/16/23 03/26/25 Unknown History carvedilol 6.25 mg tablet 6.25 mg PO BID 03/16/23 03/26/25 03/26/25 History duloxetine 30 mg capsule,delayed 30 mg PO DAILY 03/16/23 03/26/25 Unknown History release ferrous sulfate 325 mg (65 mg 325 mg PO DAILY 03/16/23 03/26/25 Unknown History iron) tablet fluticasone fur. 200 mcg-umeclid 1 ea inhalation DAILY 03/16/23 03/26/25 Unknown History 62.5 mcg-vilant 25 mcg inhalat.powder (Trelegy Ellipta) loratadine 10 mg tablet 10 mg PO DAILY 03/16/23 03/26/25 03/26/25 History montelukast 10 mg tablet 10 mg PO DAILY 03/16/23 03/26/25 03/26/25 History omeprazole 40 mg capsule,delayed 40 mg PO DAILY 03/16/23 03/26/25 03/26/25 History release quetiapine 100 mg tablet 100 mg PO BEDTIME 03/16/23 03/26/25 Unknown History prednisone 5 mg tablet 5 mg PO BID 03/22/25 03/26/25 Unknown History Exam Airway Mallampati Class: III TM Dist: >3cm Neck ROM: Full Assessment and Plan Assessment Anesthesia Assessment: Anesthesia Plan Discussed Final Anesthetic Review Family History of Problems with Anesthesia: No History of Problems with Anesthesia: No NPO: Yes ASA Class: III Final Preanesthetic Review: No Changes in Pt Med Stat, Meds/Allgs Chart Reviewed, Consent Obtained/Reviewed and Anes Risks/Benef Reviewed Patient Risk: Intermediate Procedure Risk: Low Anesthetic Plan Anesthetic Plan: MAC: Disposition: Standard PACU
[2025-03-26 10:55] VITALS: BP 127/70; PULSE 60; RESP 16; TEMP 36.4; O2SAT 98; BMI 36.1
[2025-03-26] MEDS: Lactated Ringers 1,000 ML 50 ML IVCONT (13:09)
--- NOTE | 2025-03-26 13:36 | MHC.SHP ---
Pre-Procedural Eval Section A - 24 Hr Update-Section A only Date of Service: 03/26/25 Section B - Complete if H&P > 30 days Chief Complaint: Other complications of procedures, not elsewhere Details of Present Illness: Nonhealing wound with hypergranulation on the left breast after excision of an epidermal cyst Relevant Family History (Specify if Yes): No Relevant Social History: None Present Medications: see Short Stay Collaborative assessment Medical History: Significant History (COPD, diabetes, CHF, history of pulmonary emboli, on anticoagulation) Allergies: Allergies Allergy/AdvReac Type Severity Reaction Status Date / Time No Known Allergies Allergy Verified 03/26/25 10:50 Review of Systems Sugical H&P ROS: Negative: Constitution, Cardiovascular and Respiratory Exam Surgical H&P Exam: Normal: Heart, Normal: Lungs and Normal: Abdomen Exam Comment: Open wound with Hypergranulation in the left breast Plan Diagnosis/Plan: Unchanged I have reviewed the history and physical and performed a pertinent physical examination on my patient. No changes have occurred unless specified. Time Spent With Patient Time: Total time managing care of this patient today ____ minutes.
[2025-03-26] MEDS: ceFAZolin Sodium/Dextrose,Iso 2 GM/50 ML PIGGYBACK IV (14:15)
--- NOTE | 2025-03-26 14:46 | W.PM.OPN ---
Operative Note Operative Note Date of Service: 03/26/25 Narrative: Preop diagnosis: Cyst with nonhealing wound, right breast Postop diagnosis: The same Procedure: Excision of cyst with nonhealing wound, right breast Surgeon: Neil Sanchez MD Transport Tech: CECI Hodge The patient is a 69-year-old female who has had a previous I&D and excision of skin cyst on the right breast which has been nonhealing with noted hypergranulation and periodic discharge. She therefore wanted to proceed with debridement and excision. She understood the technique of the planned procedure as was the risks, benefits, and alternatives. She was brought to the operating room and placed supine under monitored anesthesia care. The right breast was prepped and draped in the usual sterile fashion. A surgical time-out was done. The patient received cefazolin 2 g IV preoperatively Examination of the right breast showed this area of induration just medial to the nipple-areolar complex with what to be appeared to be a small open wound, about 5 mm in size. I infiltrated this area generously with lidocaine 1%. I made an elliptical incision on this area with a blade 15.. This carried down through the full-thickness of the skin and subcutaneous fat. This was extended sharply down to the deep breast tissue to excise this entire indurated area. This has sent as a specimen The area excised was about 1 cm x 2 cm including the subcutaneous fat and superficial breast tissue . I irrigated. I cauterized oozing areas to achieve hemostasis. Once hemostasis was adequate, I proceeded to close with a 1 layer thick full-thickness nylon 3-0 simple interrupted sutures. Thick pressure dressings were applied. I infiltrated the area with Marcaine 0.5% for postop analgesia. The procedure was completed The patient tolerated the procedure well. There were no immediate complications. Initial and final counts of sponges and instruments were correct. Estimated blood loss was about 20 cc The patient was then transferred to the recovery room with stable vital signs.
[2025-03-26 14:50] VITALS: BP 120/80; PULSE 75; RESP 16; TEMP 36.6; O2SAT 97
[2025-03-26 15:05] VITALS: BP 112/67; PULSE 71; RESP 16; TEMP 36.6; O2SAT 97
== END 2025-03-26 15:37 | disposition home or self-care (01) ==
PROVIDERS: PCP Internal Medicine; Visit Provider Surgery
PROC: (CPT 19120; principal; 2025-03-26 14:30)
DX: T81.89XA Other complications of procedures, not elsewhere classified, initial encounter (principal); Z48.817 Encounter for surgical aftercare following surgery on the skin and subcutaneous tissue; Y83.8 Other surgical procedures as the cause of abnormal reaction of the patient, or of later complication, without mention of misadventure at the time of the procedure; Y92.9 Unspecified place or not applicable; Y82.9 Unspecified medical devices associated with adverse incidents; L72.0 Epidermal cyst; N60.01 Solitary cyst of right breast; J44.9 Chronic obstructive pulmonary disease, unspecified; N61.21 Granulomatous mastitis, right breast; M32.9 Systemic lupus erythematosus, unspecified; I50.9 Heart failure, unspecified; G47.33 Obstructive sleep apnea (adult) (pediatric); Z79.01 Long term (current) use of anticoagulants; Z79.899 Other long term (current) drug therapy; Z99.89 Dependence on other enabling machines and devices; Z98.890 Other specified postprocedural states
CPT/HCPCS: 19120; 88304; J0690; J2003; J2405; J2704; J2795; J3010

== ENCOUNTER → 2025-03-26 10:18 | Outpatient (BNV) | payer OTHER, SELFPAY | PROVIDERS: PCP Internal Medicine; Visit Provider Surgery | DX: L72.0 Epidermal cyst (principal) | CPT/HCPCS: 19120 ==

== ENCOUNTER 2025-04-08 10:48 | Outpatient (AMB) | payer OTHER, SELFPAY ==
[2025-04-08 11:11] VITALS: BP 134/64; PULSE 96
--- NOTE | 2025-04-08 11:11 | MHC.OFFVIS ---
Vital Signs 04/08/25 11:11 Weight 235 lb BP 134/64 Blood Pressure Location Rt brachial Position Sitting Pulse 96 Intake Visit Reasons: S/P exc. & debridement of Rt. brst cyst Intake Note: Patient here s/p excision of cyst with nonhealing wound, right breast. Patient c/o: one small area opened. Painful to touch. Requesting pain med refill. 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 & debridement of Rt. brst cyst: Details: She underwent excision and debridement of a right breasts this in the OR under anesthesia last 03/26/2025. She tolerated the procedure well. She does admit to some pain on the area. She says she notices some drainage occasionally. 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 Are you a primary child care centre director to a significant other at home: No Do you presently have visiting nurse or other home services: Yes (CHIEF OPTOMETRY SERVICE /) Alcohol intake: never Patient Tobacco Use Status: Current everyday Tobacco user Tobacco use type: Cigarette Cigarettes Per Day: 3 Years Smoked: 20+ Years Substance Use Type: Marijuana Review of Systems Const Denies chills and Denies fever(s) Physical Exam Vital Signs: Last Vital Signs Pulse 96 04/08/25 11:11 BP 134/64 04/08/25 11:11 Const Other: Using a walker General: comfortable and no acute distress Nutritional Appearance: obese Chest Other: Right breast excision site well healed, sutures in place, no signs of infection Resp Effort & Inspection: normal respiratory effort Assessment & Plan Assessment & Plan (1) Epidermal inclusion cyst: Code(s): L72.0 - Epidermal cyst Category: Medical Plan: Status post excision and debridement. I removed all her sutures. The wound is healing well Her path report shows a ruptured epidermal cyst She can follow up on a p.r.n. basis She asked for refill for her narcotics. Medications: New tramadol 50 mg PO BID PRN 20 tabs 0RF pain Coding Level of Care Code Global (57706) Diagnoses Epidermal inclusion cyst L72.0
--- OUTSIDE RECORDS SUMMARY | 2025-04-08 12:13 | XMS_ITS | Encounter Summary ---
Author Organization [facility] Address [address] [place] [address] Care Team Providers Care Formulation Chemist Name Role Phone Osmar Gramajo MD Primary Care Provider Encounter Details Date Type Department Care Team (Late st Contact Info) Description 11/14/2024 Lab Requisition [facility] - Main Lab [address] [facility] [employer] [place] [address] Juan Carlos Mayers [address] [facility] [phone] [place] [address] Gastro-esophageal reflux disease without esophagitis; Hyperlipidemia, unspecified; Anemia, unspecified; Atherosclerotic heart disease of [place] coronary artery without angina pectoris; Essential (primary) [...] unspecified Anemia, unspecified Atherosclerotic heart disease of [place] coronary artery without angina pectoris Essential (primary) hypertension CBC WITH AUTO DIFFERENTIAL Routine 11/15/2024 8:14 AM EST Gastro-esophageal reflux disease without esophagitis Hyperlipidemia, unspecified Anemia, unspecified Atherosclerotic heart disease of [place] coronary artery without angina pectoris Essential (primary) hypertension CBC AND DIFFERENTIAL Routine 11/15/2024 8:14 AM EST Gastro-esophageal reflux disease without esophagitis Hyperlipidemia, unspecified Anemia, unspecified Atherosclerotic heart disease of [place] coronary artery without angina pectoris Essential (primary) hypertension HEMOGLOBIN A1C Routine 11/15/2024 8:14 AM EST Gastro-esophageal reflux disease without esophagitis Hyperlipidemia, unspecified Anemia, unspecified Atherosclerotic heart disease of [place] coronary artery without angina pectoris Essential (primary) hypertension COMPREHENSIVE METABOLIC PANEL Routine 11/15/2024 8:14 AM EST Gastro-esophageal reflux disease without esophagitis Hyperlipidemia, unspecified Anemia, unspecified Atherosclerotic heart disease of [place] coronary artery without angina pectoris Essential (primary) hypertension documented in this encounter Results * (ABNORMAL) CBC auto differential (11/15/2024 8:14 AM EST) WBC 5.1 4.8 - 10.8 K/mcL LAB HEMETOLOGY METHOD 11/15/2024 11:49 AM [facility] RBC 3.40(L) 3.80 - 4.80 M/mcL LAB HEMETOLOGY METHOD 11/15/2024 11:49 AM [facility] Hemoglobin 8.7(L) 11.5 - 16.0 g/dL LAB HEMETOLOGY METHOD 11/15/2024 11:49 AM [facility] Hematocrit 30.5(L) 35.0 - 47.0 % LAB HEMETOLOGY METHOD 11/15/2024 11:49 AM [facility] MCV 90.0 79.0 - 98.0 FL LAB HEMETOLOGY METHOD 11/15/2024 11:49 AM [facility] MCH 25.7(L) 27.0 - 32.0 pcg LAB HEMETOLOGY METHOD 11/15/2024 11:49 AM [facility] MCHC 28.5(L) 32.0 - 37.0 g/dL LAB HEMETOLOGY METHOD 11/15/2024 11:49 AM [facility] RDW 16.1(H) 11.0 - 15.0 % LAB HEMETOLOGY METHOD 11/15/2024 11:49 AM [facility] Platelets 319 130 - 400 K/mcL LAB HEMETOLOGY METHOD 11/15/2024 11:49 AM [facility] MPV 10.6 7.0 - 11.0 FL LAB HEMETOLOGY METHOD 11/15/2024 11:49 AM [facility] NRBC 0.4 <1.0 % LAB HEMETOLOGY METHOD 11/15/2024 11:49 AM [facility] NRBC Absolute 0.02 <0.10 K/mcL LAB HEMETOLOGY METHOD 11/15/2024 11:49 AM [facility] Neutrophils Relative 49.2 % LAB HEMETOLOGY METHOD 11/15/2024 11:49 AM [facility] Lymphocytes Relative 33.7 % LAB HEMETOLOGY METHOD 11/15/2024 11:49 AM [facility] Monocytes Relative 11.6 % LAB HEMETOLOGY METHOD 11/15/2024 11:49 AM [facility] Eosinophils Relative 4.5 % LAB HEMETOLOGY METHOD 11/15/2024 11:49 AM [facility] Basophils Relative 0.4 % LAB HEMETOLOGY METHOD 11/15/2024 11:49 AM [facility] Immature Granulocytes Relative 0.6 % LAB HEMETOLOGY METHOD 11/15/2024 11:49 AM [facility] Neutrophils Absolute 2.49 1.50 - 7.00 K/mcL LAB HEMETOLOGY METHOD 11/15/2024 11:49 AM [facility] Lymphocytes Absolute 1.71 1.00 - 5.00 K/mcL LAB HEMETOLOGY METHOD 11/15/2024 11:49 AM [facility] Monocytes Absolute 0.59 0.20 - 1.00 K/mcL LAB HEMETOLOGY METHOD 11/15/2024 11:49 AM EST [facility] Eosinophils Absolute 0.23 0.00 - 0.50 K/[facility] LAB HEMETOLOGY METHOD 11/15/2024 11:49 AM EST [facility] Basophils Absolute 0.02 0.00 - 0.20 K/[facility] LAB HEMETOLOGY METHOD 11/15/2024 11:49 AM EST [facility] Immature Granulocytes Absolute 0.03 0.00 - 0.03 K/[facility] LAB HEMETOLOGY METHOD 11/15/2024 11:49 AM EST [facility] Blood Venous blood specimen / Unknown Venipuncture / Unknown 11/15/2024 8:14 AM EST 11/15/2024 11:18 AM EST us Juan Carlos Mayers LAB BLOOD ORDERABLES Final Resul t [facility] [address] [place] [address], [place] [phone] * Hemoglobin A1c (11/15/2024 8:14 AM EST) Hemoglobin A1C 6.1 <6.5 % LAB CHEMISTRY METHOD 11/15/2024 2:22 PM EST [facility] Mean Bld Glu Estim. 128 mg/dL LAB CHEMISTRY METHOD 11/15/2024 2:22 PM EST [facility] Blood Venous blood specimen / Unknown Venipuncture / Unknown 11/15/2024 8:14 AM EST 11/15/2024 11:18 AM EST us Juan Carlos Mayers LAB BLOOD ORDERABLES Final Resul t [facility] [address] [place] [address], [place] [phone] * (ABNORMAL) Lipid panel with reflex to direct LDL (11/15/2024 8:14 AM EST) Cholesterol 69 0 - 200 mg/dL LAB CHEMISTRY METHOD 11/15/2024 12:25 PM [facility] Triglycerides 132 0 - 150 mg/dL LAB CHEMISTRY METHOD 11/15/2024 12:25 PM [facility] HDL 24(L) >=40 mg/dL LAB CHEMISTRY METHOD 11/15/2024 12:25 PM [facility] LDL Calculated 19 0 - 100 mg/dL LAB CHEMISTRY METHOD 11/15/2024 12:25 PM [facility] VLDL Cholesterol Enio 26.4 mg/dL LAB CHEMISTRY METHOD 11/15/2024 12:25 PM [facility] Non HDL Chol. (LDL+VLDL) 45 <145 mg/dL LAB CHEMISTRY METHOD 11/15/2024 12:25 PM [facility] Chol/HDL Ratio 2.9 0.0 - 4.4 LAB CHEMISTRY METHOD 11/15/2024 12:25 PM [facility] Blood Venous blood specimen / Unknown Venipuncture / Unknown 11/15/2024 8:14 AM EST 11/15/2024 11:16 AM EST Juan Carlos Mayers LAB BLOOD ORDERABLES Final Resul t [facility] [address] [place] [address], * (ABNORMAL) Comprehensive metabolic panel (11/15/2024 8:14 AM EST) Pathologist [facility] Sodium 137 133 - 145 mmol/L LAB CHEMISTRY METHOD 11/15/2024 12:25 PM [facility] Potassium 3.4(L) 3.5 - 5.5 mmol/L LAB CHEMISTRY METHOD 11/15/2024 12:25 PM [facility] Chloride 101 96 - 110 mmol/L LAB CHEMISTRY METHOD 11/15/2024 12:25 PM [facility] CO2 29 21 - 32 mmol/L LAB CHEMISTRY METHOD 11/15/2024 12:25 PM [facility] Anion Gap 7 3 - 11 LAB CHEMISTRY METHOD 11/15/2024 12:25 PM [facility] Glucose 134(H) 70 - 100 mg/dL LAB CHEMISTRY METHOD 11/15/2024 12:25 PM [facility] BUN 9 5 - 25 mg/dL LAB CHEMISTRY METHOD 11/15/2024 12:25 PM [facility] Creatinine 1.56(H) 0.50 - 1.10 mg/dL LAB CHEMISTRY METHOD 11/15/2024 12:25 PM [facility] eGFR 36(L) >=60 mL/min/1. 73m2 LAB CHEMISTRY METHOD 11/15/2024 12:25 PM [facility] Comment:Calculation based on the??Chronic Kidney Disease Epidemiology Collaboration (CKD-EPI) equation refit??without adjustment for race. BUN/Creatinine Ratio 5.8 LAB CHEMISTRY METHOD 11/15/2024 12:25 PM [facility] Calcium 8.6 8.5 - 10.5 mg/dL LAB CHEMISTRY METHOD 11/15/2024 12:25 PM [facility] AST (SGOT) 35 10 - 42 unit/L LAB CHEMISTRY METHOD 11/15/2024 12:25 PM [facility] ALT (SGPT) 23 10 - 60 unit/L LAB CHEMISTRY METHOD 11/15/2024 12:25 PM [facility] Alkaline Phosphatase 99 42 - 121 unit/L LAB CHEMISTRY METHOD 11/15/2024 12:25 PM [facility] Total Protein 5.6(L) 6.0 - 8.0 g/dL LAB CHEMISTRY METHOD 11/15/2024 12:25 PM [facility] Albumin 2.3(L) 3.2 - 5.0 g/dL LAB CHEMISTRY METHOD 11/15/2024 12:25 PM EST [facility] Total Bilirubin 0.3 0.0 - 1.4 mg/dL LAB CHEMISTRY METHOD 11/15/2024 12:25 PM EST [facility] Blood Venous blood specimen / Unknown Venipuncture / Unknown 11/15/2024 8:14 AM EST 11/15/2024 11:16 AM EST us Juan Carlos Mayers LAB BLOOD ORDERABLES Final Resul t [facility] [address] [place] [address], documented in this encounter Visit Diagnoses Diagnosis Gastro-esophageal reflux disease without esophagitis Hyperlipidemia, unspecified Anemia, unspecified Atherosclerotic heart disease of [place] coronary artery without angina pectoris Essential (primary) hypertension Unspecified essential hypertension documented in this encounter Care Teams Formulation Chemist Relationship Specialty Start Date End Date Osmar Gramajo MD [address] [place], [place] PCP - General Pulmonary Disease 04/20/17 documented as of this encounter
== END 2025-04-08 11:29 | disposition home or self-care (01) ==
LOC: HO.HGS 10:48
PROVIDERS: PCP Internal Medicine; Visit Provider Surgery
DX: L72.0 Epidermal cyst (principal)
CPT/HCPCS: 99024

== ENCOUNTER → 2025-04-08 10:48 | Outpatient (BNVA) | payer OTHER, SELFPAY | PROVIDERS: PCP Internal Medicine; Visit Provider Surgery | DX: L72.0 Epidermal cyst (principal) | CPT/HCPCS: 99212 ==

== ENCOUNTER 2025-07-19 14:15 | Outpatient (AMB) | payer OTHER, SELFPAY ==
--- NOTE | 2025-07-19 14:31 | A.OFFVIS_ITS ---
Vital Signs 07/19/25 14:32 Height 5 ft 6.75 in Weight 245 lb 13.047 oz BMI 38.8 BP 116/64 Blood Pressure Location Lt brachial Position Sitting Pulse 95 Pulse Source Pulse Oximeter Pulse Oximetry (%) 96 Oxygen Delivery Method Room Air Intake Visit Reasons: pulm clearance under MAC excision and debridement Residential Manager Required: No Accompanied by: Self / Same As Patient Allergies No Known Allergies Allergy (Verified 07/19/25 14:35) HPI Comments Details: The patient is a 69 year woman with a known history of heart a tendency CAD status post heart attack and PCI, pulmonary emboli currently on anticoagulation and nose COPD with active smoking. The patient had a prolonged hospitalization at [facility] after have a a serious at the surgery. She does have a Shilo's pouch now. Subsequently discharge. The patient complains of dyspnea on exertion. Moderate severity. She does use a walker. A she has been trying to cut down the smoking. I did she is down to about half a pack a day. We talked about the seriousness of her situation with multiple medical issues in that she had to quit smoking. The patient is motivated to do so. She is going to finish what she has and then she is going to put a patch on. The patient did have a CT scan back in June 2022 when she was diagnosed with a PE bilaterally right more than left. Her lungs did not demonstrate any pulmonary nodules that I could appreciate. The patient also had an echocardiogram around that time which demonstrated a moderately reduced LV although could not be quantified. The patient also had significant hypokinesis from a previous heart attack. The patient appears to be volume overloaded on exam. I do believe she is having some degree of heart failure. Will go ahead and request blood work to assess her brain atretic peptide. From a respiratory status she was placed on Trelegy and she seems to be responding well to the Trelegy at this time. The patient was evaluated with a 6 minutes walk test and the patient did not desaturate her pulse ox actually maintained on 96%. Although she was visibly dyspneic with BS score of 7/10 and heart rate was up to 115. This is a minimal activity walking about just 100-150 feet. The patient will undergo pulmonary function studies and also request an echocardiogram. 02/14/2025 the patient is here for a pulmonary follow-up visit. She does have preoperative evaluation for an excisional surgery that she has with General surgery. She continues to smoke cigarettes and also smoke pot. The patient had been using her respiratory inhalers with good effect. She still gets short of breath with minimal activity. The patient does have underlying COPD. She did have a walking oximetry with me today. The patient does not require oxygen supplementation with activity as you maintain a pulse ox of 97% with activity. However she was visibly dyspneic with a dyspnea score of 6/10. The patient's heart rate did increase to about 115 only with 100 ft of ambulation. Therefore, I the patient does appear to have significant deconditioning and also have a component of cardiovascular disease. She does take Lasix. The patient does appear to be fluid overloaded. I did request that she can take additional Lasix for the next 3 days to try to improve her volume status. From a pulmonary standpoint the patient is doing well may be able to proceed with surgery and will go ahead and ask a request that Preciousia remove a portable oxygen. She should still use the oxygen at nighttime while sleeping. In the meantime she should also follow-up with cardiology for further care. She was willing to take a nicotine patch in order to help with tobacco cessation at this time. 07/19/2025 the patient is here for pulmonary follow-up visit. Overall the patient is doing better. She does complain of pain it does a chronic issue for her. Her breathing is overall better. She is not using the oxygen with activity. She would like the portable oxygen taken out of the house. I will put a DC order right now. She should continue sleeping with the and she does at 2 L continues at nighttime with good result. The patient continues on the Eliquis. She is going to undergo a colonoscopy sometime in August. Right now she is able to proceed with anesthesia and endoscopy at this time. She did have debridement of her breast lesion. Is healed well. She does not need further debridement at this time. She will continue with the current respiratory therapy will follow-up sometime in 6-8 months if she has any issues prior to this she can always call for further recommendations. 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 Are you a primary lawn caretaker to a significant other at home: No Do you presently have visiting nurse or other home services: Yes (RADIATION PROTECTION SPECIALIST 16/05) Alcohol intake: never Patient Tobacco Use Status: Current everyday Tobacco user Tobacco use type: Cigarette Cigarettes Per Day: 3 Years Smoked: 20+ Years Substance Use Type: Marijuana Review of Systems Const Denies chills, Denies fatigue, Denies fever(s), Denies weight gain and Denies weight loss Eyes Denies change in vision ENT Denies dizziness Card Denies chest pain, Denies leg edema, Denies lightheadedness, Denies palpitations, Reports dyspnea on exertion, Denies orthopnea and Denies other Resp Reports cough, Reports dyspnea on exertion and Reports wheezing GI Denies hematochezia and Denies change in stool character Musc Denies abnormal gait, Denies muscle weakness, Denies numbness, Denies radiating pain into limb and Denies tingling Skin/Breast Reports sores Neuro Denies abnormal gait, Denies dizziness, Denies numbness and Denies tingling Endo Denies fatigue and Denies palpitations Kiel/Lymph Denies easy bleeding, Denies easy bruising and Denies lymphadenopathy Aller/Immun Reports wheezing Physical Exam Vital Signs: Last Vital Signs Pulse 95 07/19/25 14:32 BP 116/64 07/19/25 14:32 Pulse Ox 96 07/19/25 14:32 Oxygen Delivery Method Room Air 07/19/25 14:32 BMI result Body Mass Index 38.8 Const General: comfortable HEENT Head: Yes normocephalic Neck Neck: Yes supple Chest Chest palpation & inspection: normal inspection of the chest Resp Effort & Inspection: normal respiratory effort Auscultation: diminished lung sounds Cardio Rate: regular rate Rhythm: regular rhythm Heart sounds: S1 normal heart sound present and S2 normal heart sound present GI Palpation (GI): Soft to palpation Skin General skin exam: no rashes or lesions noted Extrem General: No clubbing and No cyanosis Assessment & Plan Assessment & Plan (1) Lupus: Code(s): M32.9 - Systemic lupus erythematosus, unspecified Category: Medical (2) CHF (congestive heart failure): Code(s): I50.9 - Heart failure, unspecified Category: Medical Qualifiers: Heart failure chronicity: unspecified Heart failure type: unspecified Qualified Code(s): I50.9 - Heart failure, unspecified (3) Pulmonary emboli: Code(s): I26.99 - Other pulmonary embolism without acute cor pulmonale Category: Medical Qualifiers: Acute cor pulmonale presence: without acute cor pulmonale Chronicity: chronic Pulmonary embolism type: unspecified Qualified Code(s): I27.82 - Chronic pulmonary embolism (4) Pre-op chest exam: Code(s): Z01.811 - Encounter for preprocedural respiratory examination Category: Medical (5) Asthma-COPD overlap syndrome: Code(s): J44.89 - Other specified chronic obstructive pulmonary disease Category: Medical Plan continue Trelegy KHOA as needed tobacco cessation: will cut down continue antiguagulation continue oxygen 2L/min while sleeping. Does not require supplemental oxygen with activity at this time Diuresis as tolerated, should increase x 3 days to improve volume status ok to proceed with colonoscopy from a pulmonary standpoint. ok to stop Eliquis 2-3 days prior and resume after the procedure F/U 6 months Coding Level of Care Code Est Pt Level 4 (33555) Complex EM visit Add On G2211 Diagnoses Lupus M32.9 Congestive heart failure, unspecified HF chronicity, unspecified heart failure type I50.9 Heart failure chronicity: unspecified Heart failure type: unspecified Chronic pulmonary embolism without acute cor pulmonale, unspecified pulmonary embolism type I27.82 Acute cor pulmonale presence: without acute cor pulmonale Chronicity: chronic Pulmonary embolism type: unspecified Pre-op chest exam Z01.811 Asthma-COPD overlap syndrome J44.89 Time Spent (min) 16
[2025-07-19 14:32] VITALS: BP 116/64; PULSE 95; O2SAT 96; BMI 38.8
--- OUTSIDE RECORDS SUMMARY | 2025-07-19 15:19 | XMS_ITS | Encounter Summary ---
Author Organization [facility] Address [address] [place] [address] Care Team Providers Care Group Rooms Coordinator Name Role Phone Osmar Gramajo MD Primary Care Provider Encounter Details Date Type Department Care Team (Late st Contact Info) Description 11/12/2024 Lab Requisition [facility] - Main Lab [address] [facility] [place] [address] Juan Carlos Mayers [address] [facility] [phone] [place] [address] Shortness of breath; Bacteremia Social [...] pcg/mL LAB CHEMISTRY METHOD 11/12/2024 12:30 PM [facility] Blood Venous blood specimen / Unknown Venipuncture / Unknown 11/12/2024 9:24 AM EST 11/12/2024 11:45 AM EST Juan Carlos Mayers LAB BLOOD ORDERABLES Final Resul t [facility] [address] [place] [address], * (ABNORMAL) Basic metabolic panel (11/12/2024 9:24 AM EST) Sodium 137 133 - 145 mmol/L LAB CHEMISTRY METHOD 11/12/2024 12:24 PM [facility] Potassium 3.4(L) 3.5 - 5.5 mmol/L LAB CHEMISTRY METHOD 11/12/2024 12:24 PM [facility] Chloride 101 96 - 110 mmol/L LAB CHEMISTRY METHOD 11/12/2024 12:24 PM [facility] CO2 28 21 - 32 mmol/L LAB CHEMISTRY METHOD 11/12/2024 12:24 PM [facility] Anion Gap 8 3 - 11 LAB CHEMISTRY METHOD 11/12/2024 12:24 PM [facility] Glucose 121(H) 70 - 100 mg/dL LAB CHEMISTRY METHOD 11/12/2024 12:24 PM [facility] BUN 9 5 - 25 mg/dL LAB CHEMISTRY METHOD 11/12/2024 12:24 PM [facility] Creatinine 1.65(H) 0.50 - 1.10 mg/dL LAB CHEMISTRY METHOD 11/12/2024 12:24 PM [facility] eGFR 34(L) >=60 mL/min/1. 73m2 LAB CHEMISTRY METHOD 11/12/2024 12:24 PM [facility] Comment:Calculation based on the Chronic Kidney Disease Epidemiology Collaboration (CKD-EPI) equation refit without adjustment for race. BUN/Creatinine Ratio 5.5 LAB CHEMISTRY METHOD 11/12/2024 12:24 PM [facility] Calcium 9.1 8.5 - 10.5 mg/dL LAB CHEMISTRY METHOD 11/12/2024 12:24 PM [facility] Blood Venous blood specimen / Unknown Venipuncture / Unknown 11/12/2024 9:24 AM EST 11/12/2024 11:45 AM EST Juan Carlos Mayers LAB BLOOD ORDERABLES Final Resul t [facility] [address] [place] [address], * (ABNORMAL) Complete blood count (11/12/2024 9:24 AM EST) WBC 6.8 4.8 - 10.8 K/mcL LAB HEMETOLOGY METHOD 11/12/2024 12:02 PM [facility] RBC 3.60(L) 3.80 - 4.80 M/mcL LAB HEMETOLOGY METHOD 11/12/2024 12:02 PM [facility] Hemoglobin 9.5(L) 11.5 - 16.0 g/dL LAB HEMETOLOGY METHOD 11/12/2024 12:02 PM [facility] Hematocrit 33.5(L) 35.0 - 47.0 % LAB HEMETOLOGY METHOD 11/12/2024 12:02 PM [facility] MCV 92.0 79.0 - 98.0 FL LAB HEMETOLOGY METHOD 11/12/2024 12:02 PM [facility] MCH 26.1(L) 27.0 - 32.0 pcg LAB HEMETOLOGY METHOD 11/12/2024 12:02 PM [facility] MCHC 28.4(L) 32.0 - 37.0 g/dL LAB HEMETOLOGY METHOD 11/12/2024 12:02 PM [facility] RDW 15.6(H) 11.0 - 15.0 % LAB HEMETOLOGY METHOD 11/12/2024 12:02 PM [facility] Platelets 315 130 - 400 K/mcL LAB HEMETOLOGY METHOD 11/12/2024 12:02 PM [facility] MPV 10.9 7.0 - 11.0 FL LAB HEMETOLOGY METHOD 11/12/2024 12:02 PM [facility] NRBC 0.0 <1.0 % LAB HEMETOLOGY METHOD 11/12/2024 12:02 PM [facility] NRBC Absolute 0.00 <0.10 K/mcL LAB HEMETOLOGY METHOD 11/12/2024 12:02 PM [facility] Blood Venous blood specimen / Unknown Venipuncture / Unknown 11/12/2024 9:24 AM EST 11/12/2024 11:45 AM EST us Juan Carlos Mayers LAB BLOOD ORDERABLES Final Resul t [facility] [address] [place] [address], documented in this encounter Visit Diagnoses Diagnosis Shortness of breath Bacteremia documented in this encounter Care Teams Group Rooms Coordinator Relationship Specialty Start Date End Date Osmar Gramajo MD [address] [place], [place] PCP - General Pulmonary Disease 04/20/17 documented as of this encounter
--- OUTSIDE RECORDS SUMMARY | 2025-07-19 15:19 | XMS_ITS | Clinical Summary ---
Author Organization [facility] Address [address] [place] [phone] Phone Care Team Providers Care Actuarial Analyst Name Role Phone Unique Carrillo MD Primary Care Provider [phone] Allergies Active Allergy Reactions Criticality Noted Date [...] obesity 11/18/2021 Steatosis of liver 11/18/2021 Tobacco use disorder 11/18/2021 Hypertensive disorder 11/18/2021 Stage 3b chronic kidney disease 11/18/2021 Anemia in chronic kidney disease 11/18/2021 Renal osteodystrophy 11/18/2021 Encounters Date Type Department Care Team Description 05/31/2025 Orders Only [facility] [address] [facility] [address] [place] [address] Deonte Roland MD from Last 3 Months Immunizations Immunization Administration Dates Next Due Influenza, Quadrivalent, Preservative Free 10/06,01/29/2017 Influenza, Unspecified 01/25/2005 Moderna SARS-COV-2 10/06/2021,03/25/2021, 021 Pneumococcal Polysaccharide 01/29/2017, 5,01/25/2005 Family History Medical History Relation Comments Gout Father Kidney disease Father Heart disease Mother Relation Status Comments Father Mother Social History Tobacco Use Types Packs/Day Years Used Date Smoking Tobacco: Every Day Cigarettes 0.3 8.2 Started: 05/20/2017 Tobacco Cessation:Ready to Q uit: [...] Office Visit [facility] [address] [address] Shikha Watkins ARNP [address] [address] Health Maintenance Due Date Last Done Comments Breast Cancer Screening 1955 Colorectal Cancer Screening: Annual FOBT 2005 Colorectal Cancer Screening: Sigmoidoscopy 2005 Pneumococcal Vaccine: 50+ Years (3 of 3 - PCV) 01/29/2018 01/29/2017, 01/25/2005, 01/25/2005 Influenza Vaccine (#1) 2025 , 01/29/2017, 01/25/2005 Colorectal Cancer Screening: Colonoscopy 11/27/2031 11/27/2021 Pneumococcal Vaccine: Peds ( 0 to 5 Years) and At-Risk Patients (6 to 49 Years) Discontinued 01/29/2017, 01/25/2005, 01/25/2005 Hepatitis B Vaccine Aged Out No longe r eligible based on patient's age to complete this topic Procedures Procedure Name Priority Date/Time Associated Diagnosis Comments PTH, INTACT Routine 05/31/2025 11:10 AM EDT URINE CULTURE Routine 05/31/2025 11:10 AM EDT MAGNESIUM Routine 05/31/2025 11:10 AM EDT VITAMIN D 25 HYDROXY Routine 05/31/2025 11:10 AM EDT URINE ALBUMIN / CREATININE RATIO Routine 05/31/2025 11:10 AM EDT PROTEIN / CREATININE RATIO, URINE Routine 05/31/2025 11:10 AM EDT CBC Routine 05/31/2025 11:10 AM EDT RENAL FUNCTION PANEL Routine 05/31/2025 11:10 AM EDT URINALYSIS WITH MICROSCOPIC Routine 05/31/2025 11:10 AM EDT RESULT Routine 05/31/2025 11:10 AM EDT MICROSCOPIC EXAMINATION - DO NOT USE Routine 05/31/2025 11:10 AM EDT from Last 3 Months Results * Result (05/31/2025 11:10 AM EDT) Result Comment [facility] Comment: Mixed urogenital soraya Greater than 100,000 colony forming units per mL 05/31/2025 11:1 0 AM EDT 05/31/2025 Deonte Roland MD LAB MICROBIOLOGY - GENERAL OR DERABLES Final Result Performing Organization Address City/[facility]/ZIP Co de Phone Number [facility] [address] [place] [address] * Microscopic Examination (05/31/2025 11:10 AM EDT) WBC, Urine 0-5 0 - 5 /hpf [facility] RBC, Urine None seen 0 - 2 /hpf [facility] Squamous Epithelial, Urine 0-10 0 - 10 /hpf [facility] Casts None seen None seen /lpf [facility] Bacteria, Urine Few None seen/Few [facility] 05/31/2025 11:1 0 AM EDT 05/31/2025 Deonte Roland MD LAB MICROBIOLOGY - GENERAL OR DERABLES Final Result [facility] [place] [address] [place] [address] * (ABNORMAL) Protein, Total, Random Urine w/Creatinine (Protein/Creat Ratio) (05/31/2025 11:10 AM EDT) Creatinine, Ur 79.9 Not Estab. mg/dL [facility] Protein, Ur 18.0 Not Estab. mg/dL [facility] Urine Protein/Creati nine Ratio 225(H) 0 - 200 mg/g creat [facility] 05/31/2025 11:1 0 AM EDT 05/31/2025 Comment:UC Deonte Roland MD LAB URINE ORDERABLES Final Re sult Performing Organization Address [facility] Co de Phone Number [facility] [place] [address] [place] [address] * Urine Albumin / Creatinine Ratio (05/31/2025 11:10 AM EDT) Albumin, Urine 3.5 Not Estab. ug/mL [facility] Albumin/Creatin ine Ratio 4 0 - 29 mg/g creat [facility] Comment: Normal: 0 - 29 Moderately increased: 30 - 300 Severely increased: >300 05/31/2025 11:1 0 AM EDT 05/31/2025 Comment:UC Deonte Roland MD LAB URINE ORDERABLES Final Re sult Performing Organization Address City/[facility]/ZIP Co de Phone Number [facility] [place] [address] [place] [address] * (ABNORMAL) Vitamin D 25 Hydroxy (05/31/2025 11:10 AM EDT) Vitamin D, 25-OH, Total 25.8(L) 30.0 - 100.0 ng/mL [facility] Comment: Vitamin D deficiency has been defined by the [place] of [employer] and an Endocrine Society practice guideline as a level of serum 25-OH vitamin D less than 20 ng/mL (1,2). The Endocrine Society went on to further define vitamin D insufficiency as a level between 21 and 29 ng/mL (2). 1. IOM ([place] of Medicine). 2010. Dietary reference intakes for calcium and D. [place]: The National Academies Press. 2. Gilberto MF, Chris LOONEY, Krystal ROB, et al. Evaluation, treatment, and prevention of vitamin D deficiency: an Endocrine Society clinical practice guideline. JCEM. 2010; 96(7):1911-30. 05/31/2025 11:1 0 AM EDT 05/31/2025 Comment:UC us Deonte Roland MD LAB BLOOD ORDERABLES Final Re sult [facility] [place] [address] [place] [address] * Urinalysis with microscopic (05/31/2025 11:10 AM EDT) Specific Stephens, Urine 1.017 1.005 - 1.030 [facility] pH Urine 6.5 5.0 - 7.5 [facility] Color, Urine Yellow Yellow [facility] Appearance Urine Clear Clear [facility] [place] [phone] WBC Esterase Urine Negative Negative [facility] [place] Protein, Ur Trace Negative/Tra ce [facility] [place] [phone] Glucose, Ur Negative Negative [facility] [place] Ketones, Urine Negative Negative [facility] [place] Blood Urine Negative Negative [facility] [place] Bilirubin Urine Negative Negative [facility] [place] Urobilinogen Urine 0.2 0.2 - 1.0 mg/dL [facility] [place] Nitrite, Urine Negative Negative [facility] [place] Microscopic Examination Comment [facility] [place] [phone] Comment:Microscopic follows if indicated. Other Microsc. Observations See below: [facility] Comment:Microscopic was gilberto cated and was performed. 05/31/2025 11:1 0 AM EDT 05/31/2025 Comment:UC us Deonte Roland MD LAB URINE ORDERABLES Final Re sult [facility] [place] [address] [place] [address] * (ABNORMAL) CBC (05/31/2025 11:10 AM EDT) WBC 11.2(H) 3.4 - 10.8 x10E3/uL [facility] RBC 3.49(L) 3.77 - 5.28 x10E6/uL [facility] Hemoglobin 9.1(L) 11.1 - 15.9 g/dL [facility] Hematocrit 30.2(L) 34.0 - 46.6 % [facility] MCV 87 79 - 97 fL [facility] MCH 26.1(L) 26.6 - 33.0 pg [facility] [place] MCHC 30.1(L) 31.5 - 35.7 g/dL [facility] RDW 17.8(H) 11.7 - 15.4 % [facility] Platelets 327 150 - 450 x10E3/uL [facility] nRBC Count 1(H) 0 - 0 % [facility] 05/31/2025 11:1 0 AM EDT 05/31/2025 us Deonte Roland MD LAB BLOOD ORDERABLES Final Re sult Performing Organization Address [facility]/ZIP Co de Phone Number [facility] [place] [address] [place] [address] * Urine Culture (05/31/2025 11:10 AM EDT) Culture Result, Urine Final report [facility] 05/31/2025 11:1 0 AM EDT 05/31/2025 Comment: us Deonte Roland MD LAB URINE ORDERABLES Final Re sult Performing Organization Address [facility] Co de Phone Number [facility] [address], [address] [place] [address] * PTH, Intact (05/31/2025 11:10 AM EDT) PTH 56 15 - 65 pg/mL [facility] 05/31/2025 11:1 0 AM EDT 05/31/2025 Comment:UC us Deonte Roland MD LAB BLOOD ORDERABLES Final Re sult Performing Organization Address City/[facility] Co de Phone Number [facility] [place] [address] [place] [address] * Magnesium (05/31/2025 11:10 AM EDT) Magnesium 2.3 1.6 - 2.3 mg/dL [facility] 05/31/2025 11:1 0 AM EDT 05/31/2025 Comment: us Deonte Roland MD LAB BLOOD ORDERABLES Final Re sult [facility] [place] [address] [place] [address] * (ABNORMAL) Renal Function Panel (05/31/2025 11:10 AM EDT) Glucose 95 70 - 99 mg/dL [facility] BUN 22 8 - 27 mg/dL [facility] Creatinine 1.57(H) 0.57 - 1.00 mg/dL [facility] eGFR CKD-EPI CR 2020 36(L) >59 mL/min/1.7 3 [facility] BUN/Creatinine Ratio 14 12 - 28 [facility] Sodium 142 134 - 144 mmol/L [facility] Potassium 4.4 3.5 - 5.2 mmol/L [facility] Chloride 106 96 - 106 mmol/L [facility] Bicarbonate (CO2) 23 20 - 29 mmol/L [facility] Calcium 9.2 8.7 - 10.3 mg/dL [facility] Albumin 3.7(L) 3.9 - 4.9 g/dL [facility] Phosphorus 2.9(L) 3.0 - 4.3 mg/dL [facility] 05/31/2025 11:1 0 AM EDT 05/31/2025 Comment:UC Deonte Roland MD LAB BLOOD ORDERABLES Final Re sult [facility] [place] [address] [place] [address] from Last 3 Months Insurance ([id number]) ([id number]) Care Teams Actuarial Analyst Relationship Specialty Start Date End Date Unique Carrillo MD [address] [place] [address] [place] [address] PCP - General Internal Medicine 03/07/24
--- OUTSIDE RECORDS SUMMARY | 2025-07-19 15:19 | XMS_ITS | Encounter Summary ---
Author Organization [facility] Address [address] [place] [address] Care Team Providers Care Intermediate Card Tender Name Role Phone Osmar Gramajo MD Primary Care Provider Encounter Details Date Type Department Care Team (Late st Contact Info) Description 11/08/2024 Lab Requisition [facility] [address] [facility] [place] [address] Juan Carlos Mayers [address] [facility] [phone] [place] [address] Encounter for screening for diabetes mellitus; Ischemic cardiomyopathy; Essential (primary) hypertension; Other chronic pain; Depression, unspecified; Hyperlipidemia, unspecified; Anemia, unspecified; Systemic lupus erythematosus, unspecified (CMS/HCC V24, CMS/HCC V28); Unspecified asthma, uncomplicated; Atherosclerotic heart disease of [place] coronary artery without angina pectoris; Gastro-esophageal reflux [...] Unspecified asthma, uncomplicated Atherosclerotic heart disease of [place] coronary artery without angina pectoris Gastro-esophageal reflux disease without esophagitis Bacteremia Hypotension, unspecified CBC WITH AUTO DIFFERENTIAL Routine 11/08/2024 7:15 AM EST Encounter for screening for diabetes mellitus Ischemic cardiomyopathy Essential (primary) hypertension Other chronic pain Depression, unspecified Hyperlipidemia, unspecified Anemia, unspecified Systemic lupus erythematosus, unspecified (CMS/HCC) Unspecified asthma, uncomplicated Atherosclerotic heart disease of [place] coronary artery without angina pectoris Gastro-esophageal reflux disease without esophagitis Bacteremia Hypotension, unspecified CBC AND DIFFERENTIAL Routine 11/08/2024 7:15 AM EST Encounter for screening for diabetes mellitus Ischemic cardiomyopathy Essential (primary) hypertension Other chronic pain Depression, unspecified Hyperlipidemia, unspecified Anemia, unspecified Systemic lupus erythematosus, unspecified (CMS/HCC) Unspecified asthma, uncomplicated Atherosclerotic heart disease of [place] coronary artery without angina pectoris Gastro-esophageal reflux disease without esophagitis Bacteremia Hypotension, unspecified HEMOGLOBIN A1C Routine 11/08/2024 7:15 AM EST Encounter for screening for diabetes mellitus Ischemic cardiomyopathy Essential (primary) hypertension Other chronic pain Depression, unspecified Hyperlipidemia, unspecified Anemia, unspecified Systemic lupus erythematosus, unspecified (CMS/HCC) Unspecified asthma, uncomplicated Atherosclerotic heart disease of [place] coronary artery without angina pectoris Gastro-esophageal reflux disease without esophagitis Bacteremia Hypotension, unspecified COMPREHENSIVE METABOLIC PANEL Routine 11/08/2024 7:15 AM EST Encounter for screening for diabetes mellitus Ischemic cardiomyopathy Essential (primary) hypertension Other chronic pain Depression, unspecified Hyperlipidemia, unspecified Anemia, unspecified Systemic lupus erythematosus, unspecified (CMS/HCC) Unspecified asthma, uncomplicated Atherosclerotic heart disease of [place] coronary artery without angina pectoris Gastro-esophageal reflux disease without esophagitis Bacteremia Hypotension, unspecified documented in this encounter Results * (ABNORMAL) CBC auto differential (11/08/2024 7:15 AM EST) [facility] WBC 5.4 4.8 - 10.8 K/[facility] LAB HEMETOLOGY METHOD 11/08/2024 10:37 AM EST [facility] RBC 3.80 3.80 - 4.80 M/mcL LAB HEMETOLOGY METHOD 11/08/2024 10:37 AM [facility] Hemoglobin 9.7(L) 11.5 - 16.0 g/dL LAB HEMETOLOGY METHOD 11/08/2024 10:37 AM [facility] Hematocrit 34.0(L) 35.0 - 47.0 % LAB HEMETOLOGY METHOD 11/08/2024 10:37 AM [facility] MCV 89.7 79.0 - 98.0 FL LAB HEMETOLOGY METHOD 11/08/2024 10:37 AM [facility] MCH 25.6(L) 27.0 - 32.0 pcg LAB HEMETOLOGY METHOD 11/08/2024 10:37 AM [facility] MCHC 28.5(L) 32.0 - 37.0 g/dL LAB HEMETOLOGY METHOD 11/08/2024 10:37 AM [facility] RDW 15.3(H) 11.0 - 15.0 % LAB HEMETOLOGY METHOD 11/08/2024 10:37 AM [facility] Platelets 251 130 - 400 K/mcL LAB HEMETOLOGY METHOD 11/08/2024 10:37 AM [facility] MPV 11.3(H) 7.0 - 11.0 FL LAB HEMETOLOGY METHOD 11/08/2024 10:37 AM [facility] NRBC 0.0 <1.0 % LAB HEMETOLOGY METHOD 11/08/2024 10:37 AM [facility] NRBC Absolute 0.00 <0.10 K/mcL LAB HEMETOLOGY METHOD 11/08/2024 10:37 AM [facility] Neutrophils Relative 55.4 % LAB HEMETOLOGY METHOD 11/08/2024 10:37 AM [facility] Lymphocytes Relative 26.5 % LAB HEMETOLOGY METHOD 11/08/2024 10:37 AM EST [facility] Monocytes Relative 15.1 % LAB HEMETOLOGY METHOD 11/08/2024 10:37 AM EST [facility] Eosinophils Relative 2.4 % LAB HEMETOLOGY METHOD 11/08/2024 10:37 AM [facility] Basophils Relative 0.4 % LAB HEMETOLOGY METHOD 11/08/2024 10:37 AM EST [facility] Immature Granulocytes Relative 0.2 % LAB HEMETOLOGY METHOD 11/08/2024 10:37 AM [facility] Neutrophils Absolute 3.02 1.50 - 7.00 K/mcL LAB HEMETOLOGY METHOD 11/08/2024 10:37 AM [facility] Lymphocytes Absolute 1.44 1.00 - 5.00 K/mcL LAB HEMETOLOGY METHOD 11/08/2024 10:37 AM [facility] Monocytes Absolute 0.82 0.20 - 1.00 K/mcL LAB HEMETOLOGY METHOD 11/08/2024 10:37 AM [facility] Eosinophils Absolute 0.13 0.00 - 0.50 K/mcL LAB HEMETOLOGY METHOD 11/08/2024 10:37 AM [facility] Basophils Absolute 0.02 0.00 - 0.20 K/mcL LAB HEMETOLOGY METHOD 11/08/2024 10:37 AM [facility] Immature Granulocytes Absolute 0.01 0.00 - 0.03 K/mcL LAB HEMETOLOGY METHOD 11/08/2024 10:37 AM [facility] Blood Venous blood specimen / Unknown Venipuncture / Unknown 11/08/2024 7:15 AM EST 11/08/2024 9:19 AM EST Juan Carlos Mayers LAB BLOOD ORDERABLES Final Resul t [facility] [address] [place] [address], [place] [phone] * Hemoglobin A1c (11/08/2024 7:15 AM EST) [facility] Hemoglobin A1C 6.1 <6.5 % LAB CHEMISTRY METHOD 11/08/2024 8:50 PM EST [facility] Mean Bld Glu Estim. 128 mg/dL LAB CHEMISTRY METHOD 11/08/2024 8:50 PM [facility] Blood Venous blood specimen / Unknown Venipuncture / Unknown 11/08/2024 7:15 AM EST 11/08/2024 9:19 AM EST us Juan Carlos Mayers LAB BLOOD ORDERABLES Final Resul t [facility] [address] [place] [address], * (ABNORMAL) Lipid panel with reflex to direct LDL (11/08/2024 7:15 AM EST) [facility] Cholesterol 68 0 - 200 mg/dL LAB CHEMISTRY METHOD 11/08/2024 11:32 AM [facility] Triglycerides 136 0 - 150 mg/dL LAB CHEMISTRY METHOD 11/08/2024 11:32 AM [facility] HDL 21(L) >=40 mg/dL LAB CHEMISTRY METHOD 11/08/2024 11:32 AM [facility] LDL Calculated 20 0 - 100 mg/dL LAB CHEMISTRY METHOD 11/08/2024 11:32 AM [facility] VLDL Cholesterol Enio 27.2 mg/dL LAB CHEMISTRY METHOD 11/08/2024 11:32 AM [facility] Non HDL Chol. (LDL+VLDL) 47 <145 mg/dL LAB CHEMISTRY METHOD 11/08/2024 11:32 AM [facility] Chol/HDL Ratio 3.2 0.0 - 4.4 LAB CHEMISTRY METHOD 11/08/2024 11:32 AM [facility] Blood Venous blood specimen / Unknown Venipuncture / Unknown 11/08/2024 7:15 AM EST 11/08/2024 9:19 AM EST us Juan Carlos Mayers LAB BLOOD ORDERABLES Final Resul t [facility] [address] [place] [address], * (ABNORMAL) Comprehensive metabolic panel (11/08/2024 7:15 AM EST) Sodium 136 133 - 145 mmol/L LAB CHEMISTRY METHOD 11/08/2024 11:39 AM [facility] Potassium 3.2(L) 3.5 - 5.5 mmol/L LAB CHEMISTRY METHOD 11/08/2024 11:39 AM [facility] Chloride 100 96 - 110 mmol/L LAB CHEMISTRY METHOD 11/08/2024 11:39 AM [facility] CO2 28 21 - 32 mmol/L LAB CHEMISTRY METHOD 11/08/2024 11:39 AM [facility] Anion Gap 8 3 - 11 LAB CHEMISTRY METHOD 11/08/2024 11:39 AM [facility] Glucose 102(H) 70 - 100 mg/dL LAB CHEMISTRY METHOD 11/08/2024 11:39 AM [facility] BUN 4(L) 5 - 25 mg/dL LAB CHEMISTRY METHOD 11/08/2024 11:39 AM [facility] Creatinine 1.82(H) 0.50 - 1.10 mg/dL LAB CHEMISTRY METHOD 11/08/2024 11:39 AM [facility] eGFR 30(L) >=60 mL/min/1. 73m2 LAB CHEMISTRY METHOD 11/08/2024 11:39 AM [facility] Comment:Calculation based on the Chronic Kidney Disease Epidemiology Collaboration (CKD-EPI) equation refit without adjustment for race. BUN/Creatinine Ratio 2.2 LAB CHEMISTRY METHOD 11/08/2024 11:39 AM [facility] Calcium 9.1 8.5 - 10.5 mg/dL LAB CHEMISTRY METHOD 11/08/2024 11:39 AM [facility] AST (SGOT) 49(H) 10 - 42 unit/L LAB CHEMISTRY METHOD 11/08/2024 11:39 AM [facility] ALT (SGPT) 40 10 - 60 unit/L LAB CHEMISTRY METHOD 11/08/2024 11:39 AM [facility] Alkaline Phosphatase 96 42 - 121 unit/L LAB CHEMISTRY METHOD 11/08/2024 11:39 AM [facility] Total Protein 5.6(L) 6.0 - 8.0 g/dL LAB CHEMISTRY METHOD 11/08/2024 11:39 AM [facility] Albumin 2.4(L) 3.2 - 5.0 g/dL LAB CHEMISTRY METHOD 11/08/2024 11:39 AM [facility] Total Bilirubin 0.4 0.0 - 1.4 mg/dL LAB CHEMISTRY METHOD 11/08/2024 11:39 AM [facility] Blood Venous blood specimen / Unknown Venipuncture / Unknown 11/08/2024 7:15 AM EST 11/08/2024 9:19 AM EST Juan Carlos Mayers LAB BLOOD ORDERABLES Final Resul t [facility] [address] [place] [address], documented in this encounter Visit Diagnoses Diagnosis Encounter for screening for diabetes mellitus Ischemic cardiomyopathy Other specified forms of chronic ischemic heart disease Essential (primary) hypertension Unspecified essential hypertension Other chronic pain Depression, unspecified Hyperlipidemia, unspecified Anemia, unspecified Systemic lupus erythematosus, unspecified (CMS/HCC V24, CMS/HCC V28) Unspecified asthma, uncomplicated Atherosclerotic heart disease of [place] coronary artery without angina pectoris Gastro-esophageal reflux disease without esophagitis Bacteremia Hypotension, unspecified documented in this encounter Care Teams Intermediate Card Tender Relationship Specialty Start Date End Date Osmar Gramajo MD [address] [place], [place] PCP - General Pulmonary Disease 04/20/17 documented as of this encounter
--- OUTSIDE RECORDS SUMMARY | 2025-07-19 15:19 | XMS_ITS | Encounter Summary ---
Author Organization [facility] Address [address] [place] [address] Care Team Providers Care Import Export Manager Name Role Phone Osmar Gramajo MD Primary Care Provider Encounter Details Date Type Department Care Team (Late st Contact Info) Description 11/14/2024 Lab Requisition [facility] - Main Lab [address] [facility] [place] [address] Juan Carlos Mayers [address] [facility] [address] [place] [address] Gastro-esophageal reflux disease without esophagitis; Hyperlipidemia, unspecified; Anemia, unspecified; Atherosclerotic heart disease of [place] coronary artery without angina pectoris; Essential (primary) [...] unspecified Anemia, unspecified Atherosclerotic heart disease of [place] coronary artery without angina pectoris Essential (primary) hypertension CBC WITH AUTO DIFFERENTIAL Routine 11/15/2024 8:14 AM EST Gastro-esophageal reflux disease without esophagitis Hyperlipidemia, unspecified Anemia, unspecified Atherosclerotic heart disease of [place] coronary artery without angina pectoris Essential (primary) hypertension CBC AND DIFFERENTIAL Routine 11/15/2024 8:14 AM EST Gastro-esophageal reflux disease without esophagitis Hyperlipidemia, unspecified Anemia, unspecified Atherosclerotic heart disease of [place] coronary artery without angina pectoris Essential (primary) hypertension HEMOGLOBIN A1C Routine 11/15/2024 8:14 AM EST Gastro-esophageal reflux disease without esophagitis Hyperlipidemia, unspecified Anemia, unspecified Atherosclerotic heart disease of [place] coronary artery without angina pectoris Essential (primary) hypertension COMPREHENSIVE METABOLIC PANEL Routine 11/15/2024 8:14 AM EST Gastro-esophageal reflux disease without esophagitis Hyperlipidemia, unspecified Anemia, unspecified Atherosclerotic heart disease of [place] coronary artery without angina pectoris Essential (primary) [...] LAB HEMETOLOGY METHOD 11/15/2024 11:49 AM EST [facility] LAB Eosinophils Absolute 0.23 0.00 - 0.50 K/[facility] LAB HEMETOLOGY METHOD 11/15/2024 11:49 AM EST [facility] Basophils Absolute 0.02 0.00 - 0.20 K/[facility] LAB HEMETOLOGY METHOD 11/15/2024 11:49 AM EST [facility] Immature Granulocytes Absolute 0.03 0.00 - 0.03 K/[facility] LAB HEMETOLOGY METHOD 11/15/2024 11:49 AM EST [facility] Blood Venous blood specimen / Unknown Venipuncture / Unknown 11/15/2024 8:14 AM EST 11/15/2024 11:18 AM EST us Juan Carlos Mayers LAB BLOOD ORDERABLES Final Resul t [facility] [address] [place] [address], [place] [phone] * Hemoglobin A1c (11/15/2024 8:14 AM EST) Hemoglobin A1C 6.1 <6.5 % LAB CHEMISTRY METHOD 11/15/2024 2:22 PM EST [facility] Mean Bld Glu Estim. 128 mg/dL LAB CHEMISTRY METHOD 11/15/2024 2:22 PM EST [facility] Blood Venous blood specimen / Unknown Venipuncture / Unknown 11/15/2024 8:14 AM EST 11/15/2024 11:18 AM EST us Juan Carlos Mayers LAB BLOOD ORDERABLES Final Resul t [facility] [address] [place] [address], [place] [phone] * (ABNORMAL) Lipid panel with reflex to [...] Mayers LAB BLOOD ORDERABLES Final Resul t [facility] [address] [place] [address], * (ABNORMAL) Comprehensive metabolic panel (11/15/2024 8:14 [...] [facility] Comment:Calculation based on the Chronic Kidney Disease Epidemiology Collaboration (CKD-EPI) equation refit without adjustment for race. BUN/Creatinine Ratio 5.8 LAB [...] LAB CHEMISTRY METHOD 11/15/2024 12:25 PM EST [facility] Total Bilirubin 0.3 0.0 - 1.4 mg/dL LAB CHEMISTRY METHOD 11/15/2024 12:25 PM EST [facility] Blood Venous blood specimen / Unknown Venipuncture / Unknown 11/15/2024 8:14 AM EST 11/15/2024 11:16 AM EST us Juan Carlos Mayers LAB BLOOD ORDERABLES Final Resul t [facility] [address] [place] [address], documented in this encounter Visit Diagnoses Diagnosis Gastro-esophageal reflux disease without esophagitis Hyperlipidemia, unspecified Anemia, unspecified Atherosclerotic heart disease of [place] coronary artery without angina pectoris Essential (primary) hypertension Unspecified essential hypertension documented in this encounter Care Teams Import Export Manager Relationship Specialty Start Date End Date Osmar Gramajo MD [address] [place], [place] PCP - General Pulmonary Disease 04/20/17 documented as of this encounter
--- OUTSIDE RECORDS SUMMARY | 2025-07-19 15:19 | XMS_ITS | Encounter Summary ---
Author Organization [facility] Address [address] [place] [address] Care Team Providers Care [employer] Name Role Phone Osmar Gramajo MD Primary Care Provider Encounter Details Date Type Department Care Team (Late st Contact Info) Description 11/21/2024 Lab Requisition [facility] - Main Lab [address] [facility] [place] [address] Juan Carlos Mayers [address] [facility] [address] [place] [address] Gastro-esophageal reflux disease without esophagitis; Hyperlipidemia, unspecified; Anemia, unspecified; Atherosclerotic heart disease of [place] coronary artery without angina pectoris; Essential (primary) [...] unspecified Anemia, unspecified Atherosclerotic heart disease of [place] coronary artery without angina pectoris Essential (primary) hypertension Unspecified essential hypertension documented in this encounter Care Teams [employer] Relationship Specialty Start Date End Date Osmar Gramajo MD [address] [place], [place] PCP - General Pulmonary Disease 04/20/17 documented as of this encounter
--- OUTSIDE RECORDS SUMMARY | 2025-07-19 15:19 | XMS_ITS | Clinical Summary ---
Author Organization [address] Address [address] [place] [phone] Phone Care Team Providers Care Artist Agent Name Role Phone Osmar Gramajo MD Primary [...] 01/29/2017, 01/25/2005 Colorectal Cancer Screening: Colonoscopy 09/22/2022 Falls Risk Assessment 09/22/2022 Hepatitis C Screening 09/22/2022 Osteoporosis Screening (Bone Density Screening) 09/22/2022 Social Influencers of Health Screening 09/22/2022 Breast Cancer Screening 05/28/2023 05/28/2021 Depression Screening 10/24/2024 COVID-19 Vaccine ( season) 2025 03/17/2022, 10/06/2021, 03/25/2021, Additional history exists Influenza Vaccine (#1) 2025 , 10/06/2021, 07/09/2020, Additional history exists Hypertension/CHF/CAD [...] unspecified Anemia, unspecified Atherosclerotic heart disease of [place] coronary artery without angina pectoris Essential (primary) hypertension LIPID PANEL WITH REFLEX TO DIRECT LDL Routine 11/15/2024 8:14 AM EST Gastro-esophageal reflux disease without esophagitis Hyperlipidemia, unspecified Anemia, unspecified Atherosclerotic heart disease of [place] coronary artery without angina pectoris Essential (primary) [...] PM EST [facility] Triglycerides 132 0 - 150 mg/dL LAB CHEMISTRY METHOD 11/15/2024 12:25 PM [facility] HDL 24(L) >=40 mg/dL LAB CHEMISTRY METHOD 11/15/2024 12:25 PM [facility] LDL Calculated 19 0 - 100 mg/dL LAB CHEMISTRY METHOD 11/15/2024 12:25 PM [facility] VLDL Cholesterol Enio 26.4 mg/dL LAB CHEMISTRY METHOD 11/15/2024 12:25 PM [facility] Non HDL Chol. (LDL+VLDL) 45 <145 mg/dL LAB CHEMISTRY METHOD 11/15/2024 12:25 PM [facility] Chol/HDL Ratio 2.9 0.0 - 4.4 LAB CHEMISTRY METHOD 11/15/2024 12:25 PM [facility] Blood Venous blood specimen / Unknown Venipuncture / Unknown 11/15/2024 8:14 AM EST 11/15/2024 11:16 AM EST us Juan Carlos Mayers LAB BLOOD ORDERABLES Final Resul t [facility] [address] [place] [address], * (ABNORMAL) Comprehensive metabolic panel (11/15/2024 8:14 AM EST) Sodium 137 133 - 145 mmol/L LAB CHEMISTRY METHOD 11/15/2024 12:25 PM [facility] Potassium 3.4(L) 3.5 - 5.5 mmol/L LAB CHEMISTRY METHOD 11/15/2024 12:25 PM [facility] Chloride 101 96 - 110 mmol/L LAB CHEMISTRY METHOD 11/15/2024 12:25 PM [facility] CO2 29 21 - 32 mmol/L LAB CHEMISTRY METHOD 11/15/2024 12:25 PM [facility] Anion Gap 7 3 - 11 LAB CHEMISTRY METHOD 11/15/2024 12:25 PM [facility] Glucose 134(H) 70 - 100 mg/dL LAB CHEMISTRY METHOD 11/15/2024 12:25 PM [facility] BUN 9 5 - 25 mg/dL LAB CHEMISTRY METHOD 11/15/2024 12:25 PM [facility] Creatinine 1.56(H) 0.50 - 1.10 mg/dL LAB CHEMISTRY METHOD 11/15/2024 12:25 PM [facility] eGFR 36(L) >=60 mL/min/1. 73m2 LAB CHEMISTRY METHOD 11/15/2024 12:25 PM [facility] Comment:Calculation based on the Chronic Kidney Disease Epidemiology Collaboration (CKD-EPI) equation refit without adjustment for race. BUN/Creatinine Ratio 5.8 LAB CHEMISTRY METHOD 11/15/2024 12:25 PM [facility] Calcium 8.6 8.5 - 10.5 mg/dL LAB CHEMISTRY METHOD 11/15/2024 12:25 PM [facility] AST (SGOT) 35 10 - 42 unit/L LAB CHEMISTRY METHOD 11/15/2024 12:25 PM [facility] ALT (SGPT) 23 10 - 60 unit/L LAB CHEMISTRY METHOD 11/15/2024 12:25 PM [facility] Alkaline Phosphatase 99 42 - 121 unit/L LAB CHEMISTRY METHOD 11/15/2024 12:25 PM [facility] Total Protein 5.6(L) 6.0 - 8.0 g/dL LAB CHEMISTRY METHOD 11/15/2024 12:25 PM [facility] Albumin 2.3(L) 3.2 - 5.0 g/dL LAB CHEMISTRY METHOD 11/15/2024 12:25 PM [facility] Total Bilirubin 0.3 0.0 - 1.4 mg/dL LAB CHEMISTRY METHOD 11/15/2024 12:25 PM [facility] Blood Venous blood specimen / Unknown Venipuncture / Unknown 11/15/2024 8:14 AM EST 11/15/2024 11:16 AM EST us Juan Carlos Mayers LAB BLOOD ORDERABLES Final Resul t [facility] [address] [place] [address], * FLACO SCREENING DIGITAL (05/28/2021 2:31 PM EDT) Anatomical Region Laterality Modality Mammography 05/28/2021 2:09 PM EDT Narrative 05/28/2021 2:31 PM EDT [facility] Diagnostic Imaging Department [address] [place] [address] Patient: ABDULLAHIMARCI.O.B./Age/Sex: 1955 - 65 - F Unit#: [id number] [facility] Ordering Physician: Dayanara GRAMAJO MD [facility] Screening Digital - 05/28/211426 EXAM: [facility] Screening Digital EXAM DATE AND TIME: 05/28/2021 2:21 PM HISTORY: Annual screening mammography COMPARISON: 2016 through 08/16/2012 TECHNIQUE: CC and MLO views of both breasts were obtained using full field digital mammography. Bilateral digital breast tomosynthesis was performed in the MLO projection. Computer aided detection with the [employer] 7.2-H was employed. TISSUE DENSITY: b. There [...] appearance of the breasts. No evidence of malignancy is seen. A negative mammogram in the presence of a clinically suspicious palpable abnormality does not preclude the possibility of malignancy or alter the indications for biopsy. BI-RADS: Category 2: Benign RECOMMENDATION(S): 1: Routine screening mammogram BILATERAL in 1 year. 13336, [id number] 3342F, 7025F Dictating Physician: YASHIRA VU MD Electronically Signed by: YASHIRA VU MD Dic Date/Time: 05/28/21 1429 Sign date/Time: 05/28/21 1431 Procedure Note Kim Vu MD - 10/20/2022 [facility] Diagnostic Imaging Department [address] [place] [id number] Patient: ABDULLAHIMARCI L /Age/Sex: 1955 - 65 - F Unit#: [id number] Location/Status: [facility] Mnemonic/Ordering Site: [facility] Ordering Physician: Dayanara GRAMAJO MD [facility] Screening Digital - 05/28/21 - 1427 EXAM: [facility] Screening Digital EXAM DATE AND TIME: 05/28/2021 2:21 PM HISTORY: Annual screening mammography COMPARISON: 2016 through 08/16/2012 TECHNIQUE: CC and MLO views of both breasts were obtained using fullfield digital mammography. Bilateral digital breast tomosynthesis was performedin the MLO projection. Computer aided detection with the [employer] employed. TISSUE DENSITY: b. There are scattered [...] Routine screening mammogram BILATERAL in 1 year. 20600, 36615 3342F, 7025F Dictating Physician: YASHIRA VU MD Electronically Signed by: YASHIRA VU MD Dic Date/Time: 05/28/21 1429 Sign date/Time: 05/28/21 1431 [facility]EDURES Hortensia l Result from Last 3 Months or Most Recently Relevant to Health Maintenance Insurance MEDICAID - [place] Care Teams Artist Agent Relationship Specialty Start Date End Date Osmar Gramajo MD [address] [place], [place] PCP - General Pulmonary Disease 04/20/17
--- OUTSIDE RECORDS SUMMARY | 2025-07-19 15:19 | XMS_ITS | Encounter Summary ---
Author Organization [facility] Address [address] [place] [address] Care Team Providers Care Nurse Midwife Name Role Phone Osmar Gramajo MD Primary Care Provider Encounter Details Date Type Department Care Team (Latest Contact Info) Description 11/06/2024 Lab Requisition [facility] - Main Lab [address] [facility] [email or web address] [address] Juan Carlos Mayers [address] [facility] [address] [place] [address] Atherosclerotic heart disease of [place] coronary artery without angina pectoris; Essential (primary) [...] 6:08 AM EST Atherosclerotic heart disease of [place] coronary artery without angina pectoris Essential (primary) hypertension CBC AND DIFFERENTIAL Routine 11/06/2024 6:08 AM EST Atherosclerotic heart disease of [place] coronary artery without angina pectoris Essential (primary) hypertension THYROID STIMULATING HORMONE Routine 11/06/2024 6:08 AM EST Atherosclerotic heart disease of [place] coronary artery without angina pectoris Essential (primary) hypertension FOLATE Routine 11/06/2024 6:08 AM EST Atherosclerotic heart disease of [place] coronary artery without angina pectoris Essential (primary) hypertension VITAMIN B12 Routine 11/06/2024 6:08 AM EST Atherosclerotic heart disease of [place] coronary artery without angina pectoris Essential (primary) hypertension COMPREHENSIVE METABOLIC PANEL Routine 11/06/2024 6:08 AM EST Atherosclerotic heart disease of [place] coronary artery without angina pectoris Essential (primary) hypertension documented in this encounter Results * (ABNORMAL) CBC auto differential (11/06/2024 6:08 AM EST) [facility] WBC 5.2 4.8 - 10.8 K/mcL LAB [...] LAB HEMETOLOGY METHOD 11/06/2024 9:55 AM EST [facility] Basophils Absolute 0.03 0.00 - 0.20 K/[facility] LAB HEMETOLOGY METHOD 11/06/2024 9:55 AM EST [facility] Immature Granulocytes Absolute 0.02 0.00 - 0.03 K/[facility] LAB HEMETOLOGY METHOD 11/06/2024 9:55 AM EST [facility] Blood Venous blood specimen / Unknown Venipuncture / Unknown 11/06/2024 6:08 AM EST 11/06/2024 9:04 AM EST us Juan Carlos Mayers LAB BLOOD ORDERABLES Final Resul t Performing Organization Address City/[facility]/ZIP Co de Phone Number [facility] [address] [place] [address], [place] [phone] * Vitamin B12 (11/06/2024 6:08 AM EST) Vitamin B-12 830 250 - 900 pcg/mL LAB CHEMISTRY METHOD 11/06/2024 11:00 AM EST [facility] Blood Venous blood specimen / Unknown Venipuncture / Unknown 11/06/2024 6:08 AM EST 11/06/2024 9:04 AM EST us Juan Carlos Mayers LAB BLOOD ORDERABLES Final Resul t [facility] [address] [place] [address], [place] [phone] * Thyroid stimulating hormone (11/06/2024 6:08 AM EST) TSH 3.31 0.40 - 4.00 mcIU/mL LAB CHEMISTRY METHOD 11/06/2024 10:42 AM EST [facility] Blood Venous blood specimen / Unknown Venipuncture / Unknown 11/06/2024 6:08 AM EST 11/06/2024 9:04 AM EST us Juan Carlos Mayers LAB BLOOD ORDERABLES Final Resul t Performing Organization Address City/[facility]/ZIP Co de Phone Number [facility] [address] [place] [address], [place] [phone] * Folate (11/06/2024 6:08 AM EST) [facility] Folate 5.4 2.8 - 17.0 ng/ml LAB CHEMISTRY METHOD 11/06/2024 11:00 AM [facility] Blood Venous blood specimen / Unknown Venipuncture / Unknown 11/06/2024 6:08 AM EST 11/06/2024 9:04 AM EST us Juan Carlos Mayers LAB BLOOD ORDERABLES Final Resul t Performing Organization Address [facility]/ZIP Co de Phone Number [facility] [address] [place] [address], [place] [phone] * (ABNORMAL) Comprehensive metabolic panel (11/06/2024 6:08 AM EST) [facility] Sodium 139 133 - 145 mmol/L LAB [...] refit without adjustment for race. BUN/Creatinine Ratio 1.3 LAB [...] Mayers LAB BLOOD ORDERABLES Final Resul t [facility] [address] [place] [address], documented in this encounter Visit Diagnoses Diagnosis Atherosclerotic heart disease of [place] coronary artery without angina pectoris Essential (primary) hypertension Unspecified essential hypertension documented in this encounter Care Teams Nurse Midwife Relationship Specialty Start Date End Date Osmar Gramajo MD [address] [place], [place] PCP - General Pulmonary Disease 04/20/17 documented as of this encounter
== END 2025-07-19 14:52 | disposition home or self-care (01) ==
LOC: HO.HPS 14:16
PROVIDERS: PCP Internal Medicine; Visit Provider Hospitalist
DX: M32.9 Systemic lupus erythematosus, unspecified (principal); I50.9 Heart failure, unspecified; I27.82 Chronic pulmonary embolism; Z01.811 Encounter for preprocedural respiratory examination; J44.89 Other specified chronic obstructive pulmonary disease
CPT/HCPCS: 99214; G2211

== ENCOUNTER → 2025-07-19 14:15 | Outpatient (BNVA) | payer OTHER, SELFPAY | PROVIDERS: PCP Internal Medicine; Visit Provider Hospitalist | DX: Z01.811 Encounter for preprocedural respiratory examination (principal); J44.89 Other specified chronic obstructive pulmonary disease; I27.82 Chronic pulmonary embolism; M32.9 Systemic lupus erythematosus, unspecified; I50.9 Heart failure, unspecified | CPT/HCPCS: 99212 ==